=== PATIENT | female | born 1945 | race Caucasian/White ===

== ENCOUNTER → 2020-07-16 13:12 | Outpatient (BNVA) | payer MEDICARE, MEDICAID, SELFPAY | PROVIDERS: Family Provider Family Medicine; PCP Family Medicine; Referring Provider Nurse Practitioner Family; Visit Provider Podiatrist Foot & Ankle Surgery | DX: E11.42 Type 2 diabetes mellitus with diabetic polyneuropathy (principal); M79.672 Pain in left foot; M79.671 Pain in right foot | CPT/HCPCS: 73630 ==

== ENCOUNTER 2020-11-07 11:54 | Emergency (ER) | payer MEDICARE, MEDICAID, SELFPAY ==
[2020-11-07 12:06] VITALS: BP 146/80; PULSE 64; RESP 16; TEMP 36.7; O2SAT 97; BMI 31.1
--- NOTE | 2020-11-07 12:22 | CT_ITS ---
WS: [id number] CT HEAD NONCONTRAST HISTORY: fall TECHNIQUE: Contiguous axial imaging performed through the brain in 2.5 mm imaging. Bone and soft tiss ue windows. Sagittal and coronal reformats reviewed. All CT scans at [facility] use at ast one of these dose optimization techniques: automated exposure control; mA and/or kV adjustment pe r patient size (includes targeted exams where dose is matched to clinical indication); or iterative r econstruction. DLP: 820.94 mGy.cm COMPARISON: None available. No acute intracranial hemorrhage, midline shift or mass effect. Mild atrophy and mild chronic ischemic change. Bilateral lacunar infarcts in the luna radiata and i n the RIGHT caudate head. Ventricles: Normal size with no hydrocephalus. Paranasal sinuses: As visualized are clear. Mastoid air cells: Well pneumatized. Calvarium and scalp: Skull is intact with no soft tissue edema or swelling. CT/CT head wo con* [id number] IMPRESSION: 1. No acute intracranial hemorrhage or edema. 2. Mild atrophy and small lacunar infarcts as described above.
--- NOTE | 2020-11-07 12:22 | XR_ITS ---
WS: [id number] RIGHT HIP HISTORY: fall, pain COMPARISON: 03/21/2019 Right hip: No acute fracture or dislocation. Mild narrowing of the hip joint. Osteophytic ridging juan und the acetabulum. XR/XR hip RT 2-3V wo/w pel* [id number] IMPRESSION: 1. No hip fracture identified. Study is limited by body habitus. 2. 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
--- NOTE | 2020-11-07 12:22 | CT_ITS ---
WS: [id number] CT CERVICAL SPINE HISTORY: fall TECHNIQUE: Contiguous 2.5 mm axial imaging performed through the entire cervical spine. Sagittal and coronal reformats also performed. All CT scans at [facility] use at least one of these do se optimization techniques: automated exposure control; mA and/or kV adjustment per patient size (inc ludes targeted exams where dose is matched to clinical indication); or iterative reconstruction. DLP: 767.69 mGy.cm COMPARISON: None available. Straightening of the normal cervical lordosis. Moderate spondylitic changes with disc space narrowing and endplate osteophytes most significant from C4 through C6. Facet joints are normally aligned. [employer] Advisor niocervical junction is normal. No vertebral body fracture. C2-C3: Normal. C3-C4: Small posterior vertebral body osteophytes. No stenosis. C4-C5: Osteophytic ridging. Osteophytes encroach upon the ventral thecal sac and foramen. Mild centra l with moderate bilateral foraminal stenosis. C5-C6: Diffuse osteophytic ridging with mild central and moderate bilateral foraminal stenosis. C6-C7: Osteophytic ridging with mild bilateral foraminal stenosis. Tiny central disc protrusion. C7-T1: No stenosis. Lung apices are clear. Atherosclerotic plaque in the aortic arch. CT/CT cervical spin wo con* [id number] IMPRESSION: 1. No acute cervical spine fracture. 2. Central and bilateral foraminal stenosis as above. Predominantly due to ost eophytic ridging and disc disease.
--- NOTE | 2020-11-07 12:22 | CT_ITS ---
WS: [id number] CT LUMBAR SPINE, noncontrast. HISTORY: fall, pain TECHNIQUE: Contiguous 2.5 mm axial imaging are performed. Sagittal and coronal reformats are submitte d and reviewed. All CT scans at [facility] use at least one of these dose optimization te chniques: automated exposure control; mA and/or kV adjustment per patient size (includes targeted exa ms where dose is matched to clinical indication); or iterative reconstruction. IV contrast: None DLP: 2197.14 mGy.cm COMPARISON: None available. No acute lumbar fractures are identified. Severe degenerative disc disease throughout the lumbar spin e. Vacuum disc phenomenon with significant osteophytosis at all levels. L1-2: Marked osteophytic ridging with bilateral mild foraminal narrowing. Osteophytes encroach upon t he ventral thecal sac. L2-3: Severe osteophytic ridging with osteophytes encroaching upon the ventral thecal sac. Moderate s tenosis with severe RIGHT subarticular recess stenosis. L3-4: Diffuse osteophytic ridging and facet arthritis. Moderate central stenosis with severe LEFT for aminal stenosis. L4-5: Diffuse annular disc bulging is moderate. No high-grade stenosis. Mild central stenosis. L5-S1: Diffuse osteophytic ridging. Broad-based central to RIGHT paracentral disc protrusion abuts th e RIGHT S1 nerve root. There is also an osteophyte encroaching upon the RIGHT S1 nerve root. Extensive atherosclerosis abdominal aorta. CT/CT lumbar spine wo con* [id number] IMPRESSION: 1. No acute lumbar spine fracture. 2. Severe degenerative disc disease and osteophytosis with multilevel areas of central and foraminal stenoses as above.
--- NOTE | 2020-11-07 12:32 | W.ED.FALL ---
HPI - Fall General: Chief Complaint: Fall Stated Complaint: FELL OFF CHAIR:HEAD/ELBOW/LEG INJURIES (WALKED IN) Time Seen by Provider: 11/07/20 12:11 History of Present Illness: HPI Narrative: This patient is a 75 year old female presenting from home by POV after a fall. She was standing on a kitchen chair and lost her balance. She fell and hit herself on the counter and floor. She denies any injury, but her family made her come in. She does admit to some pain in the back of her head, her lumbar area and her right hip. Her daughter is with her and says that she thinks the patient is minimizing things. No LOC, no chest pain, abdominal pain, trouble breathing, nausea. The accident happens just prior to coming in. Associated symptoms-after fall: Denies abdominal pain, chest pain, headache(s) or neck pain Review of Systems General: Reports: 10 or more systems reviewed and unremarkable except in HPI and below Const: Denies: fever(s), chills, fatigue or malaise Eyes: Denies: change in vision ENMT: Denies: odynophagia Card: Denies: chest pain or swelling of feet/ankles Resp: Denies: dyspnea, productive cough or non-productive cough GI: Denies: abdominal pain, nausea or vomiting : Denies: flank pain or difficulty voiding Musc: Denies: neck pain or back pain Skin/Breast: Denies: rash Neuro: Denies: headache(s), numbness in extremities or weakness in extremities Lukas/Lymph: Denies: easy bruising or easy bleeding PFS ED PFSH: Medical History ASHD (arteriosclerotic heart disease) Diabetes 1.5, managed as type 2 Dyslipidemia GERD (gastroesophageal reflux disease) HTN (hypertension) Surgical History S/P PTCA (percutaneous transluminal coronary angioplasty) Status post creation of pericardial window Family History Mother Cancer Diabetes Physical Exam Const: COMMON NORMALS: no acute distress, patient oriented x3, no limitations and alert GENERAL APPEARANCE: cooperative and comfortable HENMT: HEAD & SCALP: normal to inspection and other (tender posterior scalp) FACE & SINUS: normal facial exam Eye: GENERAL EYE: appearance normal, both eyes and all related structures Neck/C-Spine: COMMON NORMALS: supple, no meningeal signs and no JVD Chest: COMMONS NORMALS: normal inspection of the chest Resp: COMMON NORMALS: normal respiratory effort, No use of accessory muscles and clear to auscultation bilaterally AUSCULTATION: clear to auscultation bilaterally Cardio: COMMON NORMALS: no JVD, regular rate, regular rhythm and No murmurs present (Cardio) RATE: regular rate RHYTHM: regular rhythm GI: COMMON NORMALS: Normal to inspection, nondistended, normoactive bowel sounds present, Soft to palpation and non-tender INSPECTION: Yes normal to inspection AUSCULTATION: Yes normoactive bowel sounds PALPATION: Yes Soft to palpation Back/Pelvis: LUMBAR SPINE/LOWER BACK: Yes pain with ROM, Yes lumbar spinal tenderness and Yes paraspinal muscle tenderness PELVIS: Yes no pain with anterior-posterior compression and Yes Other pelvic findings (tender later and posterior hip) Extremity: COMMON NORMALS: normal to inspection NARRATIVE EXTREMITY EXAM: left leg swelling, chronic due to prior ortho injury per patient Neuro: COMMON NORMALS: patient oriented x3, moves all extremities, no focal motor deficits and no sensory deficits noted SENSORIUM/ORIENTATION: Yes alert MENINGEAL SIGNS: Yes no meningeal signs Psych: COMMON NORMALS: mental status grossly normal, cooperative and normal affect Skin: COMMON NORMALS: no rashes or lesions noted and turgor normal GENERAL SKIN EXAM: no rashes or lesions noted and turgor normal Course ED course: Patient laughing and joking - however, significant fall from several feet and on blood thinner. CTs done and were neg. No bony injury to hip or lumbar spine. Labs showed an elevated potassium and this was repeated - still elevated. Renal function normal. She does not take potassium supplement, but does note that she eats 3 or 4 - or more - bananas daily. She had an unremarkable EKG in the ED. We discussed possible treatment options - she is eager to get home. She has been on lasix in the past - but not currently. I suggested a lasix dose to lower potassium, and to have close follow up with her PCP in 1 - 2 days for a recheck. She lives 30 or 40 minutes away so I had her get a pill to take home and take when she gets there. She understands to avoid high potassium foods until she has a recheck. She also understands to stop climbing on chairs and to ask her family for help with things. Vital Signs: Vital signs: Vital Signs Temperature 98.0 F 11/07/20 12:06 Pulse Rate 56 L 11/07/20 14:49 Respiratory Rate 17 11/07/20 14:49 Blood Pressure 126/93 11/07/20 14:49 Pulse Oximetry 95 11/07/20 14:49 MDM - Fall Lab Data: Labs: Lab Results 11/07/20 11/07/20 11/07/20 Range/Units 12:47 13:20 14:10 WBC 6.5 (4.0-10.0) 10^3/ uL RBC 3.94 L (4.1-5.3) 10^6/u L Hgb 10.8 L (11.5-15.3) g/dL Hct 35.6 L (37.0-47.0) % MCV 90.4 (81-99) fL MCH 27.4 L (28.0-34.0) pg MCHC 30.3 (30.0-36.0) g/dL RDW 14.0 (12.1-15.1) % Plt Count 207 (130-400) 10^3/c mm MPV 10.5 H (7.4-10.4) fL Neut % (Auto) 69.9 % Lymph % (Auto) 19.2 % [place] % (Auto) 8.4 % Eos % (Auto) 1.7 % Baso % (Auto) 0.5 % Neut # (Auto) 4.51 (1.8-7.7) 10^3/u L Lymph # (Auto) 1.2 (0.8-4.8) 10^3/u L [place] # (Auto) 0.5 (0.2-0.9) 10^3/u L Eos # (Auto) 0.1 (0.0-0.8) 10^3/u L Baso # (Auto) 0.0 (0.0-0.1) 10^3/u L Nucleated RBC % (a uto) 0 % Nucleated RBCs # 0.0 /100WBC PT (12.1-14.9) SECO NDS INR (0.8-1.2) Sodium (136-145) mmol/L Potassium (3.5-5.1) mmol/L Chloride (98-107) mmol/L Carbon Dioxide (22-29) mmol/L Anion Gap (5-19) BUN (8-23) mg/dL Creatinine (0.5-0.9) mg/dL GFR Calculation Glucose (65-115) mg/dL POC Glucose 123 H (70-110) mg/dL Calculated Osmolal ity (285-295) mOsm/k g Calcium (8.5-10.5) mg/dL Total Bilirubin (0.15-1.2) mg/dL AST (0-32) U/L ALT (0-33) U/L Alkaline Phosphata se (35-105) IU/L Total Protein (6.6-8.7) g/dL Albumin (3.5-5.2) g/dL Globulin (1.3-4.6) g/dL Urine Color Yellow (Yellow) Urine Appearance Clear (CLEAR) Urine pH 5 (5-7) Ur Specific Gravit y 1.015 (1.005-1.030) Urine Protein 1+ H (Negative) Urine Glucose (UA) 4+ H (Normal) Urine Ketones Negative (Negative) Urine Blood Neg (Negative) Urine Nitrate Negative (Negative) Urine Bilirubin Neg (Negative) Urine Urobilinogen Norm (Negative) mg/dL Ur Leukocyte Mireya ase Negative (Negative) Urine RBC None (0-2) /hpf Urine WBC 0-4 H (0-5) /hpf Ur Squamous Epith Cells 0-4 H (0-5) /hpf Amorphous Sediment Not Reportable Urine Bacteria Trace (NONE) /hpf 11/07/20 11/07/20 11/07/20 Range/Units 14:10 14:10 15:21 WBC (4.0-10.0) 10^3/ uL RBC (4.1-5.3) 10^6/u L Hgb (11.5-15.3) g/dL Hct (37.0-47.0) % MCV (81-99) fL MCH (28.0-34.0) pg MCHC (30.0-36.0) g/dL RDW (12.1-15.1) % Plt Count (130-400) 10^3/c mm MPV (7.4-10.4) fL Neut % (Auto) % Lymph % (Auto) % [place] % (Auto) % Eos % (Auto) % Baso % (Auto) % Neut # (Auto) (1.8-7.7) 10^3/u L Lymph # (Auto) (0.8-4.8) 10^3/u L [place] # (Auto) (0.2-0.9) 10^3/u L Eos # (Auto) (0.0-0.8) 10^3/u L Baso # (Auto) (0.0-0.1) 10^3/u L Nucleated RBC % (a uto) % Nucleated RBCs # /100WBC PT 13.80 (12.1-14.9) SECO NDS INR 1.02 (0.8-1.2) Sodium 135 L (136-145) mmol/L Potassium 6.1 H 5.9 H (3.5-5.1) mmol/L Chloride 104 (98-107) mmol/L Carbon Dioxide 25 (22-29) mmol/L Anion Gap 12.1 (5-19) BUN 23 (8-23) mg/dL Creatinine 1.3 H (0.5-0.9) mg/dL GFR Calculation Not Reportable Glucose 122 H (65-115) mg/dL POC Glucose (70-110) mg/dL Calculated Osmolal ity 285 (285-295) mOsm/k g Calcium 9.1 (8.5-10.5) mg/dL Total Bilirubin 0.3 (0.15-1.2) mg/dL AST 13 (0-32) U/L ALT 11 (0-33) U/L Alkaline Phosphata se 89 (35-105) IU/L Total Protein 7.0 (6.6-8.7) g/dL Albumin 4.1 (3.5-5.2) g/dL Globulin 2.9 (1.3-4.6) g/dL Urine Color (Yellow) Urine Appearance (CLEAR) Urine pH (5-7) Ur Specific Gravit y (1.005-1.030) Urine Protein (Negative) Urine Glucose (UA) (Normal) Urine Ketones (Negative) Urine Blood (Negative) Urine Nitrate (Negative) Urine Bilirubin (Negative) Urine Urobilinogen (Negative) mg/dL Ur Leukocyte Mireya ase (Negative) Urine RBC (0-2) /hpf Urine WBC (0-5) /hpf Ur Squamous Epith Cells (0-5) /hpf Amorphous Sediment Urine Bacteria (NONE) /hpf Discharge Plan Discharge Patient Disposition: Home Clinical Impression: Fall from height of less than 3 feet, Acute hyperkalemia Acute lumbar myofascial strain Qualifiers: Encounter type: initial encounter Qualified Code(s): S39.012A - Strain of muscle, fascia and tendon of lower back, initial encounter Closed head injury Qualifiers: Encounter type: initial encounter Qualified Code(s): S09.90XA - Unspecified injury of head, initial encounter Contusion of hip, right Qualifiers: Encounter type: initial encounter Qualified Code(s): S70.01XA - Contusion of right hip, initial encounter Condition: Stable Prescriptions: No Action atenolol 25 mg tablet 25 mg PO DAILY@08 RF: 0 budesonide 0.5 mg/2 mL suspension for nebulization 0.5 mg INHALATION BID PRN (Reason: Shortness Of Breath) RF: 0 fluoxetine 20 mg capsule 20 mg PO DAILY@08 RF: 0 esomeprazole magnesium 40 mg capsule,delayed release(DR/EC) 40 mg PO DAILY@08 RF: 0 hydrochlorothiazide 25 mg tablet 25 mg PO DAILY@08 RF: 0 Janumet XR 100-1,000 mg tablet, ER multiphase 24 hr 1 tab PO DAILY@08 RF: 0 Levemir U-100 Insulin 100 unit/mL solution 28 unit SUBCUT BEDTIME@2199 RF: 0 levothyroxine 125 mcg capsule 125 mcg PO DAILY@08 RF: 0 loratadine 10 mg tablet 10 mg PO DAILY@08 RF: 0 montelukast [Singulair] 10 mg tablet 10 mg PO DAILY@08 RF: 0 nitroglycerin [Nitrostat] 0.4 mg tablet, sublingual 0.4 mg SUBLINGUAL Q5M PRN (Reason: Chest Pain) RF: 0 olmesartan 40 mg tablet 40 mg PO DAILY@08 RF: 0 Symbicort 160-4.5 mcg/actuation HFA aerosol inhaler 2 puff INHALATION BID RF: 0 rosuvastatin [Crestor] 40 mg tablet 40 mg PO BEDTIME@2200 RF: 0 tramadol 50 mg tablet 50 mg PO Q6H PRN (Reason: Pain) RF: 0 albuterol sulfate [ProAir HFA] 90 mcg/actuation HFA aerosol inhaler 2 puff INHALATION Q6H PRN (Reason: Shortness Of Breath) RF: 0 mupirocin 2 % ointment 1 applic TOPICAL BID Qty: 22 RF: 0 aspirin 81 mg Tablet,Chewable 81 mg PO DAILY@08 RF: 0 gabapentin 300 mg Capsule 300 mg PO TID@08,12,20 RF: 0 Alphagan P 0.1 % Drops 1 drp OPHTHALMIC (EYE) DAILY@08 RF: 0 Farxiga 5 mg Tablet 5 mg PO DAILY@08 RF: 0 Discharge Orders: Discharge ED (Routine); Ordered 11/07/20 Ordered By: Jane Leung Referrals: Vikas Candelaria MD [Primary Care Provider] - Discharge Diet: Diabetic Discharge Activity: Limit activity as instructed Patient Instructions: Fall Prevention for Older Adults (ED), Opioid Safety Activity Restrictions/Additional Instructions: No More Climbing on Chairs!! Expect muscle soreness for a few days - return to the ED if severe pain or difficulty walking or if confusion or other new concerns. Follow up with you doctor if not completely better in 5 - 7 days. Do not eat bananas until you have your potassium rechecked. Also avoid orange juice and potatoes as these also contain a lot of potassium. Take the lasix pill as soon as you get home. Follow up with your doctor to have the potassium level checked again in 1 - 2 days. Coding Level of Care Code ED Coil Former for Cyndie Fwd Exam Comprehensive
[2020-11-07 12:51] LABS: Glucose Point of Care 123 mg/dL (70-110)
[2020-11-07 14:08] LABS: Urine Appearance Clear (CLEAR); Urine Color Yellow (Yellow); pH Urine 5 (5-7)
[2020-11-07 14:09] LABS: Add Urine Microscopic? YES; Bilirubin Urine Neg (Negative); Blood Urine Neg (Negative); Glucose Urine UA 4+ (Normal); Ketones Urine Negative (Negative); Leukocyte Esterase Urine Negative (Negative); Nitrate Urine Negative (Negative); Protein Urine 1+ (Negative); Specific Gravity, Urine 1.015 (1.005-1.030); Urobilinogen Urine Norm (Negative)
[2020-11-07 14:10] LABS: Squamous Epithelial Cell Urine 0-4 /hpf (0-5); WBC Urine 0-4 /hpf (0-5)
[2020-11-07 14:11] LABS: Add Urine Culture? No; Bacteria Urine TRACE /hpf
[2020-11-07 14:27] LABS: Basophils % 0.5 %; Eosinophils # 0.1 10^3/uL (0.0-0.8); Eosinophils % 1.7 %; Hematocrit 35.6 % (37.0-47.0); Hemoglobin 10.8 g/dL (11.5-15.3); Lymphocytes # 1.2 10^3/uL (0.8-4.8); Lymphocytes % 19.2 %; Mean Corpuscular HGB Conc 30.3 g/dL (30.0-36.0); Mean Corpuscular Hemoglobin 27.4 pg (28.0-34.0); Mean Corpuscular Volume 90.4 fL (81-99); Mean Platelet Volume 10.5 fL (7.4-10.4); Monocytes # 0.5 10^3/uL (0.2-0.9); Monocytes % 8.4 %; Neutrophils # 4.51 10^3/uL (1.8-7.7); Neutrophils % 69.9 %; Nucleated Red Blood Cells % 0 %; Platelet Count 207 10^3/cmm (130-400); Red Blood Count 3.94 10^6/uL (4.1-5.3); White Blood Count 6.5 10^3/uL (4.0-10.0)
[2020-11-07 14:48] LABS: INR 1.02 (0.8-1.2)
[2020-11-07 14:49] VITALS: BP 126/93; PULSE 56; RESP 17; O2SAT 95
[2020-11-07 15:00] LABS: Alanine Aminotransferase 11 U/L (0-33); Albumin Level 4.1 g/dL (3.5-5.2); Alkaline Phosphatase 89 IU/L (35-105); Anion Gap 12.1 (5-19); Aspartate Amino Transferase 13 U/L (0-32); Blood Urea Nitrogen 23 mg/dL (8-23); Calcium 9.1 mg/dL (8.5-10.5); Carbon Dioxide 25 mmol/L (22-29); Chloride 104 mmol/L (98-107); Globulin 2.9 g/dL (1.3-4.6); Glucose 122 mg/dL (65-115); Osmolality Calculated 285 mOsm/kg (285-295); Potassium 6.1 mmol/L (3.5-5.1); Sodium 135 mmol/L (136-145); Total Bilirubin 0.3 mg/dL (0.15-1.2)
--- NOTE | 2020-11-07 15:09 | ECG_ITS ---
[facility] Test Date: 2020-11-07 Pat Name: Sarah Petersen Department: Room: Gender: Female Jet Wiper: : 1945 Requested By: Jane Curtis Order Number: [id number] Serina MD: Gilmar Hunt M.D. Measurements Intervals [place] Rate: 55 P: 77 AR: 191 QRS: 20 QRSD: 90 T: 61 QT: 436 QTc: 420 Interpretive Statements SINUS BRADYCARDIA LOW QRS VOLTAGE [QRS DEFLECTION < 0.5/1.0 mV IN LIMB/CHEST LEADS] Compared to ECG 09/21/2017 09:16:32 Sinus rhythm no longer present Electronically Signed On 11-08-2020 16:55:42 MATERIAL CONTROL CLERK by Gilmar Hunt M.D. [id number]
[2020-11-07 15:51] LABS: Potassium 5.9 mmol/L (3.5-5.1)
== END 2020-11-07 16:45 | disposition home or self-care (01) ==
PROVIDERS: Emergency Provider Emergency Medicine; PCP Family Medicine
DX: S39.012A Strain of muscle, fascia and tendon of lower back, initial encounter (principal); S09.8XXA Other specified injuries of head, initial encounter; S70.01XA Contusion of right hip, initial encounter; Z79.82 Long term (current) use of aspirin; Z79.4 Long term (current) use of insulin; E13.9 Other specified diabetes mellitus without complications; E78.5 Hyperlipidemia, unspecified; I10 Essential (primary) hypertension; W07.XXXA Fall from chair, initial encounter
CPT/HCPCS: 36415; 36416; 70450; 72125; 72131; 73502; 80053; 81001; 82962; 84132; 85025; 85610; 93005; 99283

== ENCOUNTER 2020-12-31 08:03 | Outpatient (CLI) | payer MEDICARE, MEDICAID, SELFPAY ==
--- NOTE | 2020-12-31 08:45 | USCV_ITS ---
Nicola Sarah Age: 75 Gender: F : 1945 Exam Date: 12/31/2020 08:32 Ordering Phys: Gilmar Hunt M.D ([email or web address]) Technologist: Tita Lees Exam Location: [facility] Indication: CHEST PAIN BP: 132 / 60 HR: 61 Rhythm: Sinus Technical Quality: Adequate MEASUREMENTS (Male / Female) Normal Values 2D ECHO LV Diastolic Diameter PLAX 4.6 cm 4.2 - 5.9 / 3.9 - 5.3 cm LV Systolic Diameter PLAX 2.2 cm LV Chamber Size 3.5 cm IVS Diastolic Thickness 0.9 cm 0.6 - 1.0 / 0.6 - 0.9 cm IVS Systolic Thickness 1.2 cm LVPW Diastolic Thickness 1.3 cm 0.6 - 1.0 / 0.6 - 0.9 cm LVPW Systolic Thickness 1.2 cm RV Chamber Size 3.8 cm LVOT Diameter 2.1 cm LV Ejection Fraction 2D Teich 83.6 % LV Ejection Fraction MOD 2C 81.6 % LV Ejection Fraction 2C AL 80.7 % LA Diameter 1.6 cm LA Width 2.6 cm LA Height 4.0 cm RA Width 3.3 cm RA Height 3.8 cm Aorta at Sinotubular Diameter 2.7 cm M-MODE LV Diastolic Diameter MM 4.7 cm 4.2 - 5.9 / 3.9 - 5.3 cm LV Systolic Diameter MM 2.3 cm LV Ejection Fraction MM Teich 81.8 % IVS Diastolic Thickness MM 1.2 cm 0.6 - 1.0 / 0.6 - 0.9 cm IVS Systolic Thickness MM 1.4 cm LVPW Diastolic Thickness MM 1.2 cm 0.6 - 1.0 / 0.6 - 0.9 cm LVPW Systolic Thickness MM 2.2 cm RV Diastolic Diameter MM 3.2 cm Aortic Annulus Diameter 4.3 cm LA Ao Ratio MM 0.0 MV E Point Septal Separation 0.5 cm DOPPLER AV Peak Velocity 157.0 cm/s LVOT Peak Velocity 91.0 cm/s AV Area Cont Eq vti 2.3 cm squared AV Area Cont Eq pk 2.0 cm squared MV Area PHT 2.8 cm squared Mitral E to A Ratio 1.1 MV E' Velocity 58.0 cm/s Mitral E to MV E' Ratio 10.6 Mitral E to LV E' Lateral Ratio 9.6 Mitral E to LV E' Septal Ratio 12.1 TR Peak Velocity 224.3 cm/s TR Peak Gradient 20.1 mmHg TR Mean Velocity 170.9 cm/s TR Mean Gradient 12.8 mmHg TR Velocity Time Integral 71.2 cm TV Peak E Velocity 66.0 cm/s Right Atrial Pressure 3.0 mmHg Pulmonary Artery Systolic Pressu 23.1 mmHg PV Peak Velocity 76.0 cm/s RV Acceleration Time 0.2 s RV Ejection Time 0.4 s RV AcT/ET 0.5 FINDINGS Left Ventricle Normal left ventricular size. LV systolic function is normal with EF of 55-60%. No regional wall motion abnormalities. Normal diastolic filling pattern. Right Ventricle The right ventricle is normal in size and function. Right Atrium The right atrium is not well visualized Left Atrium The left atrium is normal in size. Mitral Valve Mild mitral annular calcification is noted without significant stenosis or prolapse. There is mild mitral regurgitation. Aortic Valve Structurally normal aortic valve without significant sclerosis or stenosis. There is no aortic regurgitation. Tricuspid Valve Structurally normal tricuspid valve without significant stenosis. Mild tricuspid regurgitation. Insufficient TR jet to calculate RVSP Pulmonic Valve Structurally normal pulmonic valve without significant stenosis. There is trace pulmonic regurgitation. Pericardium Normal pericardium without effusion. Aorta Normal ascending aorta dimension. CONCLUSIONS LV systolic function is normal with EF of 55-60% Diastolic function is normal Mild mitral annular calcification. Mild mitral regurgitation Mild tricuspid regurgitation. Trace pulmonic regurgitation No comparison studies are available Gilmar Hunt MD (Electronically Signed) Final Date: 06 January 2021 15:31 S
== END 2020-12-31 08:04 | disposition home or self-care (01) ==
LOC: US 08:07
PROVIDERS: PCP Family Medicine; Visit Provider Internal Medicine
DX: R07.9 Chest pain, unspecified (principal); I08.1 Rheumatic disorders of both mitral and tricuspid valves
CPT/HCPCS: 80048; 83880; 93306

== ENCOUNTER 2021-05-13 13:07 | Outpatient (CLI) | payer MEDICARE, MEDICAID, SELFPAY ==
--- NOTE | 2021-05-13 14:20 | USCV_ITS ---
Sarah Petersen Age: 76 Gender: F : 1945 Exam Date: 05/13/2021 14:29 Ordering Phys: Vikas Candelaria MD Technologist: Maggie Hernandez Exam Location: [place] Indication: PVD RIGHT LEFT Brachial 97.00 mmHg Brachial 139.00 mmHg Pressure (mmHg) Waveform Pressure (mmHg) Waveform 114.00 Above Knee 115.00 124.00 SHINGLE GRADER 120.00 111.00 DPA 110.00 0.89 Ankle/Brachial Index 0.86 120.00 Pre-Exercise Toe Pressure 90.00 0.86 Pre-Exercise Toe/Brachial Index 0.65 FINDINGS Slightly diminished resting ELI on the right side of 0.89. The right toe brachial index on the right side was 0.86 The resting ELI on the left side was 0.86 with a TBI of 0.65 CONCLUSIONS Features suggestive of mild peripheral artery disease bilaterally, more so on the left side Dr Bryanna Schwab MD [facility] (Electronically Signed) Final Date: 13 May 2021 17:54 S
== END 2021-05-13 13:08 | disposition home or self-care (01) ==
PROVIDERS: PCP Family Medicine; Visit Provider Family Medicine
DX: I73.9 Peripheral vascular disease, unspecified (principal)
CPT/HCPCS: 93923

== ENCOUNTER 2021-05-31 09:44 | Observation (INO) | payer MEDICARE, MEDICAID, SELFPAY ==
[2021-05-31] VITALS (10 sets, daily range): BP systolic 86–101; BP diastolic 51–57; PULSE 51–78; RESP 16–18; TEMP 36.6–36.9; O2SAT 94–97; BMI 29.7
--- NOTE | 2021-05-31 11:08 | XR_ITS ---
WS: [id number] Portable AP upright chest, 05/31/2021 Clinical Data: chest pain Comparison: Portable chest, 09/26/2017. Findings: No nodules, masses or effusions are seen. The heart is slightly enlarged. The pulmonary vas cularity is not increased. No pneumonia or pneumothorax is seen. Monitor leads are on the chest wall. XR/XR chest 1V portable [id number] Impression: Cardiomegaly.
--- NOTE | 2021-05-31 11:29 | CT_ITS ---
WS: [id number] CT ABDOMEN PELVIS TECHNIQUE: Contrast-enhanced CT of the abdomen and pelvis with coronal and sagittal reformatted image s. CLINICAL INFORMATION: rule out infection, diffuse abd pain COMPARISON: None. DLP: 1597.[address] scans at [facility] use at least one of these dose optimization techniques: automated e xposure control; mA and/or kV adjustment per patient size (includes targeted exams where dose is matc hed to clinical indication); or iterative reconstruction. FINDINGS: Diffuse fatty infiltration the liver. Normal portal vein and splenic vein. Cholelithiasis. Somewhat h eterogeneous splenic enhancement with numerous ill-defined low-attenuation lesions. Spleen measures 1 1 cm within normal limits. Differential considerations include lymphoma, metastatic disease, sarcoid or possibly fungal infection. Recommend correlation with clinical history. Left adrenal low-attenuation lesion likely adenoma measuring 15 mm. Right adrenal gland is normal. Sm all esophageal hiatal hernia. Submucosal enhancement involving the GE junction and gastric rugae with fold thickening. Additional submucosal enhancement involving the duodenum. Recommend correlation for gastritis and duodenitis. Fatty atrophy of the pancreas. Bilateral renal cortical atrophy. No hydron ephrosis. Normal caliber abdominal aorta. Aortic calcification. Normal sigmoid colon. No evidence of high-grade small or large bowel obstruction. A few prominent lym ph nodes in the upper abdomen along the celiac axis largest measuring 13 mm. Normal caliber abdominal aorta. No free fluid in the pelvis. Moderate spondylitic changes lumbar spine with disc space narrow ing throughout the lumbar spine. Disc osteophyte complexes L2-L3 L3-L4 with moderate central canal st enosis. CT/CT abdomen pelvis w con* [id number] IMPRESSION: 1. Diffuse fatty infiltration of liver with mild hepatomegaly. 2. Numerous ill-defined low-attenuation lesions involving the spleen. This is nonspecific and differential considerations include lymphoma, metastatic diseas e, sarcoid or possibly fungal disease. Recommend correlation with clinical hist ory and further evaluation to exclude neoplasm. Spleen size within normal limit s. 3. Cholelithiasis. No gallbladder wall thickening or pericholecystic fluid. 4. Diffuse mucosal enhancement with mucosal thickening involving the GE juncti on, stomach, and duodenum likely due to gastroduodenitis. Associated thickened mucosal folds and gastric rugae thickening. 5. Small esophageal hiatal hernia. 6. Left adrenal lesion measuring 15 mm likely adenoma. 7. A few prominent lymph nodes in the celiac axis largest measuring 13 mm. Oth erwise no abdominal or pelvic lymphadenopathy. No inguinal lymphadenopathy. Notified Lucius Medina MD at 05/31/2021 2:05 PM.
--- NOTE | 2021-05-31 11:33 | ED_ITS ---
HPI - General Adult General: Chief complaint: ER Hold Stated complaint: substernal CP, low BP Time Seen by Provider: 05/31/21 11:03 History of Present Illness: HPI narrative: Patient a 76-year-old female with a history of diabetes, hyperlipidemia, hypertension, COPD, CAD status post PCI x1 presenting to the emergency room with complaints of lower chest upper abdominal pain x3 days. Patient has been seen by her primary care provider earlier today and was noted to be hypotensive with complaints of pain and was told to go to the emergency room. Patient says that over the last few days, has had increased shortness of breath and and pain. Patient denies any nausea/vomiting, fever/chills, diarrhea, melena/hematochezia. Patient has no urinary complaints at this time. Patient has a history of COPD, has been not using her inhaler more. Patient denies any productive cough at this time. On arrival, patient had a blood pressure of 80/50 that improved without any intervention to 100/50. Initial EKG is nonischemic. Patient is denying any chest pain at this time. Onset: 3 days ago Duration:3 days Location:home Severity:moderate Review of Systems Narrative: Constitutional: No fever, no chills. HEENT: No vision changes CV: +chest pain, no palpitations PULM: no cough, +dyspnea. GI: +abdominal pain, no N/V/D. : No dysuria MSKEL: No muscle pain SKIN: No new rashes, no lesions. NEURO: No headache, no focal weakness. HEME: No visible bruises PSYCH: Normal mood PFSH ED PFSH: Medical History ASHD (arteriosclerotic heart disease) Diabetes 1.5, managed as type 2 Dyslipidemia GERD (gastroesophageal reflux disease) HTN (hypertension) Surgical History S/P PTCA (percutaneous transluminal coronary angioplasty) Status post creation of pericardial window Family History Mother Cancer Diabetes Social History (Updated 05/31/21 @ 19:11 by Enrrique Brothers MD) Smoking and tobacco status: former smoker Alcohol intake: never Substance/Drug Use: never Female Reproductive History: Date of last menstrual period: 12/13/20 Physical Exam Narrative: EXAM NARRATIVE: Head: Atraumatic Eyes: PERRL, conjunctiva without injection ENT: Mucous membrane moist NECK: Supple, ROM intact LUNGS: LCTAB, no crackles/rhonchi CV: RRR ABDOMEN: Soft, +mid-epigastric abdominal tenderness to palpation, no guarding or rebound tenderness, Fuhs tenderness palpation over the abdomen, no palpable mass over the abdomen, CVA tenderness, no suprapubic tenderness, no Collins sign, no McBurney's point tenderness EXTREMITY: Normal ROM SKIN: No rash or erythema NEURO: Awake and alert, no focal motor deficits PSYCH: Normal mood and affect Course Vital Signs: Vital signs: Vital Signs Temperature 98.3 F 06/03/21 07:45 Pulse Rate 77 06/03/21 09:13 Respiratory Rate 20 H 06/03/21 09:13 Blood Pressure 112/49 06/03/21 07:45 Pulse Oximetry 95 06/03/21 09:13 MDM - General Adult MDM Narrative: Medical decision making narrative: 76-year-old female presents emergency room for complaints abdominal pain and chest pain. On arrival, candace diana's blood pressures within normal limit. She has focal tenderness palpation the midepigastric area. EKG showing regular sinus rhythm at HT of 53. Normal axis. No ST elevations/depressions to suggest coronary occlusion. Prolonged NV, QRS, QT intervals. Labs showed white count of 10.3. Sodium of 117, creatinine of 1.[address] abdomen pelvis with contrast did not show any signs of focal findings. Troponin within normal limit. Patient will be admitted to hospital for rehydration, hyponatriemia and JAILENE on CKD. Also appears to have gastritis and duodenitis on CT scan. Findings of spleen lesions which may suggest lymphoma discussed extensively with patient. Patient is aware of these findings and reassures me that she will follow-up with an oncologist and will discuss with [facility] inpatient team. Findings relayed the admitting team Dr. Brothers. Disposition: Admission Lab Data: Labs: Lab Results 05/31/21 05/31/21 05/31/21 Range/Units 11:20 11:20 11:20 WBC 10.3 H (4.0-10.0) 10^3/ uL RBC 4.05 L (4.1-5.3) 10^6/u L Hgb 11.8 (11.5-15.3) g/dL Hct 34.6 L (37.0-47.0) % MCV 85.4 (81-99) fl MCH 29.1 (28.0-34.0) pg MCHC 34.1 (30.0-36.0) g/dL RDW 12.5 (12.1-15.1) % Plt Count 254 (130-400) 10^3/c mm MPV 10.8 H (7.4-10.4) fL Neut % (Auto) 83.1 % Lymph % (Auto) 8.7 % Powell % (Auto) 7.1 % Eos % (Auto) 0.3 % Baso % (Auto) 0.3 % Neut # (Auto) 8.58 H (1.8-7.7) 10^3/u L Lymph # (Auto) 0.9 (0.8-4.8) 10^3/u L Powell # (Auto) 0.7 (0.2-0.9) 10^3/u L Eos # (Auto) 0.0 (0.0-0.8) 10^3/u L Baso # (Auto) 0.0 (0.0-0.1) 10^3/u L Nucleated RBC % (a uto) 0 % Nucleated RBCs # 0.0 /100WBC ESR (0-15) mm/hr Sodium 117 L* (136-145) mmol/L Potassium 4.2 (3.5-5.1) mmol/L Chloride 77 L (98-107) mmol/L Carbon Dioxide 26 (22-29) mmol/L Anion Gap 18.2 (5-19) BUN 46 H (8-23) mg/dL Creatinine 1.9 H (0.5-0.9) mg/dL GFR Calculation Not Reportable Glucose 209 H (65-115) mg/dL Calculated Osmolal ity 262 L (285-295) mOsm/k g Calcium 8.8 (8.5-10.5) mg/dL Total Bilirubin 0.3 (0.15-1.2) mg/dL AST 14 (0-32) U/L ALT 10 (0-33) U/L Alkaline Phosphata se 102 (35-105) IU/L Lactate Dehydrogen ase (135-214) U/L Troponin T Baselin e 47 H (0-10) ng/L Troponin T 120 Min anvik (0-10) ng/L Delta Troponin T (0-10) ABS# NT-Pro-B Natriuret Pep 395 (0-450) pg/mL Total Protein 7.5 (6.6-8.7) g/dL Albumin 4.0 (3.5-5.2) g/dL Globulin 3.5 (1.3-4.6) g/dL Lipase 51 (13-60) U/L Procalcitonin (0-0.5) ng/mL Urine Color (Yellow) Urine Appearance (CLEAR) Urine pH (5-7) Ur Specific Gravit y (1.005-1.030) Urine Protein (Negative) Urine Glucose (UA) (Normal) Urine Ketones (Negative) Urine Blood (Negative) Urine Nitrate (Negative) Urine Bilirubin (Negative) Urine Urobilinogen (Negative) mg/dL Ur Leukocyte Mireya ase (Negative) Urine RBC Urine WBC (0-5) /hpf Ur Squamous Epith Cells (0-5) /hpf Ur Transition Epit h Cell /hpf Amorphous Sediment Urine Bacteria (NONE) /hpf Urine Mucus /hpf 05/31/21 05/31/21 05/31/21 Range/Units 11:20 11:39 13:10 WBC (4.0-10.0) 10^3/ uL RBC (4.1-5.3) 10^6/u L Hgb (11.5-15.3) g/dL Hct (37.0-47.0) % MCV (81-99) fl MCH (28.0-34.0) pg MCHC (30.0-36.0) g/dL RDW (12.1-15.1) % Plt Count (130-400) 10^3/c mm MPV (7.4-10.4) fL Neut % (Auto) % Lymph % (Auto) % Powell % (Auto) % Eos % (Auto) % Baso % (Auto) % Neut # (Auto) (1.8-7.7) 10^3/u L Lymph # (Auto) (0.8-4.8) 10^3/u L Powell # (Auto) (0.2-0.9) 10^3/u L Eos # (Auto) (0.0-0.8) 10^3/u L Baso # (Auto) (0.0-0.1) 10^3/u L Nucleated RBC % (a uto) % Nucleated RBCs # /100WBC ESR 56 H (0-15) mm/hr Sodium (136-145) mmol/L Potassium (3.5-5.1) mmol/L Chloride (98-107) mmol/L Carbon Dioxide (22-29) mmol/L Anion Gap (5-19) BUN (8-23) mg/dL Creatinine (0.5-0.9) mg/dL GFR Calculation Glucose (65-115) mg/dL Calculated Osmolal ity (285-295) mOsm/k g Calcium (8.5-10.5) mg/dL Total Bilirubin (0.15-1.2) mg/dL AST (0-32) U/L ALT (0-33) U/L Alkaline Phosphata se (35-105) IU/L Lactate Dehydrogen ase (135-214) U/L Troponin T Baselin e (0-10) ng/L Troponin T 120 Min [place] 44.95 H (0-10) ng/L Delta Troponin T -2.05 L (0-10) ABS# NT-Pro-B Natriuret Pep (0-450) pg/mL Total Protein (6.6-8.7) g/dL Albumin (3.5-5.2) g/dL Globulin (1.3-4.6) g/dL Lipase (13-60) U/L Procalcitonin (0-0.5) ng/mL Urine Color Yellow (Yellow) Urine Appearance Hazy A (CLEAR) Urine pH 5 (5-7) Ur Specific Gravit y 1.015 (1.005-1.030) Urine Protein Neg (Negative) Urine Glucose (UA) 2+ H (Normal) Urine Ketones Negative (Negative) Urine Blood Neg (Negative) Urine Nitrate Negative (Negative) Urine Bilirubin Neg (Negative) Urine Urobilinogen Norm (Negative) mg/dL Ur Leukocyte Mireya ase 1+ H (Negative) Urine RBC Not Reportable Urine WBC 5-10 H (0-5) /hpf Ur Squamous Epith Cells 15-25 H (0-5) /hpf Ur Transition Epit h Cell 0-4 /hpf Amorphous Sediment Not Reportable Urine Bacteria Trace (NONE) /hpf Urine Mucus 1+ /hpf 05/31/21 05/31/21 Range/Units 13:10 13:10 WBC (4.0-10.0) 10^3/ uL RBC (4.1-5.3) 10^6/u L Hgb (11.5-15.3) g/dL Hct (37.0-47.0) % MCV (81-99) fl MCH (28.0-34.0) pg MCHC (30.0-36.0) g/dL RDW (12.1-15.1) % Plt Count (130-400) 10^3/c mm MPV (7.4-10.4) fL Neut % (Auto) % Lymph % (Auto) % Powell % (Auto) % Eos % (Auto) % Baso % (Auto) % Neut # (Auto) (1.8-7.7) 10^3/u L Lymph # (Auto) (0.8-4.8) 10^3/u L Powell # (Auto) (0.2-0.9) 10^3/u L Eos # (Auto) (0.0-0.8) 10^3/u L Baso # (Auto) (0.0-0.1) 10^3/u L Nucleated RBC % (a uto) % Nucleated RBCs # /100WBC ESR (0-15) mm/hr Sodium 118 L* (136-145) mmol/L Potassium 3.9 (3.5-5.1) mmol/L Chloride 76 L (98-107) mmol/L Carbon Dioxide 27 (22-29) mmol/L Anion Gap 18.9 (5-19) BUN 53 H (8-23) mg/dL Creatinine 2.0 H (0.5-0.9) mg/dL GFR Calculation Not Reportable Glucose 185 H (65-115) mg/dL Calculated Osmolal ity 265 L (285-295) mOsm/k g Calcium 8.6 (8.5-10.5) mg/dL Total Bilirubin (0.15-1.2) mg/dL AST (0-32) U/L ALT (0-33) U/L Alkaline Phosphata se (35-105) IU/L Lactate Dehydrogen ase 134 L (135-214) U/L Troponin T Baselin e (0-10) ng/L Troponin T 120 Min [place] (0-10) ng/L Delta Troponin T (0-10) ABS# NT-Pro-B Natriuret Pep (0-450) pg/mL Total Protein (6.6-8.7) g/dL Albumin (3.5-5.2) g/dL Globulin (1.3-4.6) g/dL Lipase (13-60) U/L Procalcitonin 0.24 (0-0.5) ng/mL Urine Color (Yellow) Urine Appearance (CLEAR) Urine pH (5-7) Ur Specific Gravit y (1.005-1.030) Urine Protein (Negative) Urine Glucose (UA) (Normal) Urine Ketones (Negative) Urine Blood (Negative) Urine Nitrate (Negative) Urine Bilirubin (Negative) Urine Urobilinogen (Negative) mg/dL Ur Leukocyte Mireya ase (Negative) Urine RBC Urine WBC (0-5) /hpf Ur Squamous Epith Cells (0-5) /hpf Ur Transition Epit h Cell /hpf Amorphous Sediment Urine Bacteria (NONE) /hpf Urine Mucus /hpf Imaging Data^: Other Imaging: Radiologist's impression: [employer] [address]YG Scan ReportSigned Patient: Sarah Petersen SUnit #: [id number]: 5Acct#:[id number]/Sex: 76 / FADM Date: 05/31/21Loc: ERRoom/Bed:Attending Dr: Ordering Provider/Ordering MD: Lucius Medina MD Date of Service: 05/31/21 Procedure(s): CT abdomen pelvis w con* [id number] Accession Number(s): [id number] Report Number: [id number] WS: [id number] CT ABDOMEN PELVIS TECHNIQUE: Contrast-enhanced CT of the abdomen and pelvis with coronal and sagittal reformatted images. CLINICAL INFORMATION: rule out infection, diffuse abd pain COMPARISON: None. DLP: 1597.[address] [facility] at least one of these dose optimization techniques: automated exposure control; mA and/or kV adjustment per patient size (includes targeted exams where dose is matched to clinical indication); or iterative reconstruction. FINDINGS: Diffuse fatty infiltration the liver. Normal portal vein and splenic vein. Cholelithiasis. Somewhat heterogeneous splenic enhancement with numerous ill- defined low-attenuation lesions. Spleen measures 11 cm within normal limits. Differential considerations include lymphoma, metastatic disease, sarcoid or possibly fungal infection. Recommend correlation with clinical history. Left adrenal low-attenuation lesion likely adenoma measuring 15 mm. Right adrenal gland is normal. Small esophageal hiatal hernia. Submucosal enhancement involving the GE junction and gastric rugae with fold thickening. Additional submucosal enhancement involving the duodenum. Recommend correlation for gastritis and duodenitis. Fatty atrophy of the pancreas. Bilateral renal cortical atrophy. No hydronephrosis. Normal caliber abdominal aorta. Aortic calcification. Normal sigmoid colon. No evidence of high-grade small or large bowel obstruction. A few prominent lymph nodes in the upper abdomen along the celiac axis largest measuring 13 mm. Normal caliber abdominal aorta. No free fluid in the pelvis. Moderate spondylitic changes lumbar spine with disc space narrowing throughout the lumbar spine. Disc osteophyte complexes L2-L3 L3-L4 with moderate central canal stenosis. CT/CT abdomen pelvis w con* [id number] IMPRESSION: 1. Diffuse fatty infiltration of liver with mild hepatomegaly. 2. Numerous ill-defined low-attenuation lesions involving the spleen. This is nonspecific and differential considerations include lymphoma, metastatic disease, sarcoid or possibly fungal disease. Recommend correlation with clinical history and further evaluation to exclude neoplasm. Spleen size within normal limits. 3. Cholelithiasis. No gallbladder wall thickening or pericholecystic fluid. 4. Diffuse mucosal enhancement with mucosal thickening involving the GE chalino ction, stomach, and duodenum likely due to gastroduodenitis. Associated thickened mucosal folds and gastric rugae thickening. 5. Small esophageal hiatal hernia. 6. Left adrenal lesion measuring 15 mm likely adenoma. 7. A few prominent lymph nodes in the celiac axis largest measuring 13 mm. Otherwise no abdominal or pelvic lymphadenopathy. No inguinal lymphadenopathy. Notified Lucius Medina MD at 05/31/2021 2:05 PM. Dictated By:Misha Salinas MDSigned By:Misha Salinas MDSigned Date/Time:05/31/21 1405DD/ [address] [facility] Hospital[address].[place], [place] [address]AX Scan ReportSigned Patient: Sarah Petersen #: [id number]: 5Acct#:[id number]/Sex: 76 / FADM Date: 05/31/21Loc: ER IPRoom/Bed: [id number] Dr: Enrrique Brothers MD Ordering Provider/Ordering MD: Lucius Medina MD Date of Service: 05/31/21 Procedure(s): CT chest wo con [id number] Accession Number(s): [id number] Report Number: [id number] WS: [id number] CT scan of the chest without IV contrast, additional two-dimensional coronal and sagittal reconstruction was performed. 05/31/2021 Clinical Data: no contrast, evaluate for cancer Comparison: Portable chest, 05/31/2021. DLP: 755.[address] scans at [facility] use at least one of these dose optimization techniques: automated exposure control; mA and/or kV adjustment per patient size (includes targeted exams where dose is matched to clinical indication); or iterative reconstruction. Findings: No nodules, masses or effusions are seen. The heart size is normal with no pericardial effusion. There is coronary artery and mitral valve calcification. No pneumonia or pneumothorax is seen. The pulmonary arterial system and thoracic aorta demonstrate no dilatations. There is calcification in the wall of the descending thoracic aorta. There is no axillary adenopathy. There is anterior and middle mediastinal adenopathy which may be reactive. There are subcarinal and right hilar miriam calcifications. The trachea bifurcates normally into the bronchi. The upper abdomen demonstrates gallstones in the gallbladder. There is a 2.0 cm left adrenal adenoma. There are vascular calcifications in both kidneys. 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 CT/CT chest wo con [id number] Impression: 1. Negative for lung nodules or masses. 2. Negative for acute cardiopulmonary disease. 3. Cholelithiasis. Dictated By:Judy Cummins MDSigned By:Judy Cummins MDSigned Date/Time:05/31/21 1554 Discharge Plan Discharge Patient Disposition: Admitted As Inpatient Admit Provider: Enrrique Brothers Clinical Impression: Chest pain, Abdominal pain, Elevated troponin, Acute hyponatremia, Acute kidney injury superimposed on CKD Condition: Stable Coding Level of Care Code ED [employer] Fin[employer] Supervisor for Cyndie Mo
[2021-05-31 11:52] LABS: Charge for UA Resulting for Rev
[2021-05-31 11:59] LABS: Troponin(5th) Baseline 47 ng/L (0-10)
[2021-05-31 12:23] LABS: Add Urine Microscopic? YES; Bilirubin Urine Neg (Negative); Blood Urine Neg (Negative); Glucose Urine UA 2+ (Normal); Ketones Urine Negative (Negative); Leukocyte Esterase Urine 1+ (Negative); Nitrate Urine Negative (Negative); Protein Urine Neg (Negative); Specific Gravity, Urine 1.015 (1.005-1.030); Urine Appearance Hazy (CLEAR); Urine Color Yellow (Yellow); Urobilinogen Urine Norm (Negative); pH Urine 5 (5-7)
[2021-05-31 12:24] LABS: Add Urine Culture? No; Bacteria Urine TRACE /hpf; Mucus Urine 1+ /hpf; Squamous Epithelial Cell Urine 15-25 /hpf (0-5); Transitional Epi Cells Urine 0-4 /hpf
[2021-05-31 12:28] LABS: Basophils % 0.3 %; Eosinophils % 0.3 %; Hematocrit 34.6 % (37.0-47.0); Hemoglobin 11.8 g/dL (11.5-15.3); Lymphocytes # 0.9 10^3/uL (0.8-4.8); Lymphocytes % 8.7 %; Mean Corpuscular HGB Conc 34.1 g/dL (30.0-36.0); Mean Corpuscular Hemoglobin 29.1 pg (28.0-34.0); Mean Corpuscular Volume 85.4 fl (81-99); Mean Platelet Volume 10.8 fL (7.4-10.4); Monocytes # 0.7 10^3/uL (0.2-0.9); Monocytes % 7.1 %; Neutrophils # 8.58 10^3/uL (1.8-7.7); Neutrophils % 83.1 %; Nucleated Red Blood Cells % 0 %; Platelet Count 254 10^3/cmm (130-400); Red Blood Count 4.05 10^6/uL (4.1-5.3); Red Cell Distribution Width 12.5 % (12.1-15.1); White Blood Count 10.3 10^3/uL (4.0-10.0)
[2021-05-31 12:50] LABS: Alanine Aminotransferase 10 U/L (0-33); Alkaline Phosphatase 102 IU/L (35-105); Aspartate Amino Transferase 14 U/L (0-32); Calcium 8.8 mg/dL (8.5-10.5); Carbon Dioxide 26 mmol/L (22-29); Globulin 3.5 g/dL (1.3-4.6); Lipase 51 U/L (13-60); NT Pro B Type Natriuretic Pept 395 pg/mL (0-450); Total Bilirubin 0.3 mg/dL (0.15-1.2); Total Protein 7.5 g/dL (6.6-8.7)
[2021-05-31 13:07] LABS: Sodium 117 mmol/L (136-145)
[2021-05-31 13:08] LABS: Anion Gap 18.2 (5-19); Blood Urea Nitrogen 46 mg/dL (8-23); Chloride 77 mmol/L (98-107); Glucose 209 mg/dL (65-115); Osmolality Calculated 262 mOsm/kg (285-295); Potassium 4.2 mmol/L (3.5-5.1)
--- NOTE | 2021-05-31 13:08 | ECG_ITS ---
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 Measurements Intervals [place] Rate: 52 P: 65 IA: 217 QRS: 42 QRSD: 109 T: 50 QT: 488 QTc: 457 Interpretive Statements SINUS BRADYCARDIA WITH FIRST DEGREE AV BLOCK LOW QRS VOLTAGE [QRS DEFLECTION < 0.5/1.0 mV IN LIMB/CHEST LEADS] Compared to ECG 11/07/2020 15:36:13 First degree AV block now present Electronically Signed On 05-31-2021 20:37:45 CDT by Gilmar Hunt M.D. [id number]
[2021-05-31] MEDS: iodixanol 320 mg/mL 100mL Btl IV (13:19)
[2021-05-31] MEDS: aspirin 325 mg Tablet PO (13:24)
[2021-05-31] MEDS: sodium chloride 0.9% 250 ML IV (13:25)
[2021-05-31] MEDS: acetaminophen 500 mg Tablet PO (13:25)
[2021-05-31] MEDS: famotidine 20 mg/2 mL INJ IVP (13:25)
[2021-05-31 13:42] LABS: Troponin 5 2HR 44.95 ng/L (0-10)
[2021-05-31 13:44] LABS: Troponin 5 2HR Delta -2.05 ABS# (0-10)
--- NOTE | 2021-05-31 14:05 | CT_ITS ---
WS: [id number] CT scan of the chest without IV contrast, additional two-dimensional coronal and sagittal reconstruct ion was performed. 05/31/2021 Clinical Data: no contrast, evaluate for cancer Comparison: Portable chest, 05/31/2021. DLP: 755.[address] scans at [facility] use at least one of these dose optimization techniques: automated e xposure control; mA and/or kV adjustment per patient size (includes targeted exams where dose is matc hed to clinical indication); or iterative reconstruction. Findings: No nodules, masses or effusions are seen. The heart size is normal with no pericardial effusion. Ther e is coronary artery and mitral valve calcification. No pneumonia or pneumothorax is seen. The pulmon demarco arterial system and thoracic aorta demonstrate no dilatations. There is calcification in the wall of the descending thoracic aorta. There is no axillary adenopathy. There is anterior and middle medi astinal adenopathy which may be reactive. There are subcarinal and right hilar miriam calcifications. The trachea bifurcates normally into the bronchi. The upper abdomen demonstrates gallstones in the gallbladder. There is a 2.0 cm left adrenal adenoma. There are vascular calcifications in both kidneys. 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 CT/CT chest wo con [id number] Impression: 1. Negative for lung nodules or masses. 2. Negative for acute cardiopulmonary disease. 3. Cholelithiasis.
[2021-05-31 16:24] LABS: Anion Gap 18.9 (5-19); Blood Urea Nitrogen 53 mg/dL (8-23); Calcium 8.6 mg/dL (8.5-10.5); Carbon Dioxide 27 mmol/L (22-29); Chloride 76 mmol/L (98-107); Glucose 185 mg/dL (65-115); Osmolality Calculated 265 mOsm/kg (285-295); Potassium 3.9 mmol/L (3.5-5.1)
[2021-05-31 16:26] LABS: Lactate Dehydrogenase 134 U/L (135-214)
[2021-05-31 16:27] LABS: Sodium 118 mmol/L (136-145)
[2021-05-31 16:33] LABS: Procalcitonin 0.24 ng/mL (0-0.5)
[2021-05-31 16:48] LABS: Erythrocyte Sedimentation Rate 56 mm/hr (0-15)
--- NOTE | 2021-05-31 17:08 | ECG_ITS ---
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 Measurements Intervals [place] Rate: 50 P: 70 MI: 197 QRS: 49 QRSD: 105 T: 64 QT: 497 QTc: 457 Interpretive Statements SINUS BRADYCARDIA LOW QRS VOLTAGE IN PRECORDIAL LEADS [QRS DEFLECTION < 1.0 mV IN CHEST LEADS] PROLONGED QT INTERVAL Compared to ECG 05/31/2021 13:55:42 Prolonged QT interval now present First degree AV block no longer present Electronically Signed On 05-31-2021 20:36:45 CDT by Gilmar Hunt M.D. [id number]
[2021-05-31] MEDS: enoxaparin 40 mg/0.4 mL Syringe SUBCUT (17:34)
[2021-05-31] MEDS: sodium chloride 0.9% 1,000 ML 75 ML IV (17:35)
[2021-05-31] MEDS: pantoprazole DR 40 mg Tablet PO (17:35)
--- NOTE | 2021-05-31 19:06 | PM.HP ---
Providers/Chief Complaint Admitting Physician: Enrrique Brothers MD Primary Care Provider: Vikas Candelaria MD Chief Complaint: pain in upper abdominal, Low BP, sent per History of Present Illness Sarah Petersen is a 76 year old female with a past medical history of COPD, not on oxygen, insulin-dependent type 2 diabetes mellitus, hypertension, hyperlipidemia, CAD status post stenting x3, history of pericardial effusion status post pericardial window, history of intubation for pneumonia and influenza B, who presents [facility] due to a week history of fatigue, malaise, some epigastric discomfort. Patient tells me that she lives in [facility], she lives with her son and his kids, she has been in good health, but for the last week she has not been feeling well, just been having malaise, fatigue, no nausea, no vomiting, but has been having some epigastric discomfort, no chest pain, no shortness of breath, no lightheaded, dizziness, no slurring of speech, no facial droop, no paralysis, has been feeling a bit lightheaded, no diarrhea, no dysuria, no hematuria, has not received her Covid vaccinations, no known exposure to COVID-19, does report a 7 pound weight loss. Review of Systems Const: Reports: fatigue and malaise; Denies: fever(s), chills or body aches Eyes: Denies: change in vision or blurry vision ENMT: Denies: throat pain or nasal congestion Card: Denies: chest pain, palpitations, irregular heart rhythm, edema, swelling of feet/ankles, lightheadedness or dyspnea on exertion Resp: Denies: dyspnea, productive cough, non-productive cough or wheezing GI: Denies: abdominal pain, nausea, vomiting, hematemesis, diarrhea, constipation, hematochezia or melena : Denies: flank pain, dysuria or urinary frequency Musc: Denies: neck pain, back pain, extremity pain or joint pain Skin/Breast: Denies: rash Neuro: Denies: headache(s), numbness in extremities, weakness in extremities, dizziness or vertigo Psych: Denies: anxiety or depression Endo: Denies: polyuria or polydipsia Medications/Allergies Home Medications Medication Instructions Recorded Confirmed Last Taken Type albuterol sulfate 90 mcg/actuation 2 puff INHALATION Q6H PRN 11/28/19 05/31/21 05/30/21 History aerosol inhaler atenolol 25 mg tablet 25 mg PO DAILY@11/28/19 05/31/21 05/30/21 History budesonide 0.5 mg/2 mL suspension 0.5 mg INHALATION BID PRN 11/28/19 05/31/21 05/30/21 History for nebulization budesonide-formoterol HFA 160 2 puff INHALATION BID 11/28/19 05/31/21 05/30/21 History mcg-4.5 mcg/actuation aerosol inhaler esomeprazole magnesium 40 mg 40 mg PO DAILY@11/28/19 05/31/21 05/30/21 History capsule,delayed release fluoxetine 20 mg capsule 20 mg PO DAILY@11/28/19 05/31/21 05/30/21 History hydrochlorothiazide 25 mg tablet 25 mg PO DAILY@11/28/19 05/31/21 05/30/21 History insulin detemir U-100 100 unit/mL 30 unit SUBCUT BEDTIME@2200 ml 11/28/19 05/31/21 05/30/21 History subcutaneous solution levothyroxine 125 mcg capsule 125 mcg PO DAILY@11/28/19 05/31/21 05/30/21 History loratadine 10 mg tablet 10 mg PO DAILY@11/28/19 05/31/21 05/30/21 History montelukast 10 mg tablet 10 mg PO DAILY@11/28/19 05/31/21 05/30/21 History nitroglycerin 0.4 mg sublingual 0.4 mg SUBLINGUAL Q5M PRN 11/28/19 05/31/21 Unknown History tablet olmesartan 40 mg tablet 40 mg PO DAILY@11/28/19 05/31/21 05/30/21 History rosuvastatin 40 mg tablet 40 mg PO BEDTIME@2200 tab 11/28/19 05/31/21 05/30/21 History sitagliptin 100 mg-metformin ER 1 tab PO DAILY@11/28/19 05/31/21 05/30/21 History 1,000 mg tablet,extended [id number] mp tramadol 50 mg tablet 50 mg PO Q6H PRN 11/28/19 05/31/21 05/30/21 History aspirin 81 mg PO DAILY@11/07/20 05/31/21 05/30/21 History brimonidine [Alphagan P] 1 drp OPHTHALMIC (EYE) DAILY@11/07/20 05/31/21 05/30/21 History dapagliflozin [Farxiga] 5 mg PO DAILY@11/07/20 05/31/21 05/30/21 History gabapentin 300 mg PO TID@,,11/07/20 05/31/21 05/30/21 History bimatoprost [Lumigan] 1 drp OPHTHALMIC (EYE) DAILY 05/31/21 05/31/21 05/30/21 History furosemide 40 mg PO DAILY 05/31/21 05/31/21 05/30/21 History naproxen 500 mg PO BID 05/31/21 05/31/21 Unknown History Allergies Allergy/AdvReac Type Severity Reaction Status Date / Time codeine Allergy Unknown Unknown Verified 11/29/20 13:35 hydrocodone Allergy Unknown Unknown Verified 11/29/20 13:35 dulaglutide [From Trulicity] Allergy Unknown Verified 11/29/20 13:35 PFSH Acute PFSH: Medical History ASHD (arteriosclerotic heart disease) Diabetes 1.5, managed as type 2 Dyslipidemia GERD (gastroesophageal reflux disease) HTN (hypertension) Surgical History S/P PTCA (percutaneous transluminal coronary angioplasty) Status post creation of pericardial window Family History Mother Cancer Diabetes Social History (Updated 05/31/21 @ 19:11 by Enrrique Brothers MD) Smoking and tobacco status: former smoker Alcohol intake: never Substance/Drug Use: never Female Reproductive History: Date of last menstrual period: 12/13/20 Vitals/I&O/Wt Last Vital Signs Temp 98.2 F 05/31/21 18:00 Pulse 52 L 05/31/21 18:00 Resp 17 05/31/21 18:00 BP 92/57 05/31/21 18:00 Pulse Ox 95 05/31/21 18:39 Weight last 48 hrs Weight 83.461 kg Physical Exam Const: COMMON NORMALS: no acute distress and patient oriented x3 HENMT: COMMON NORMALS: normocephalic HEAD & SCALP: normocephalic Eye: COMMON NORMALS: Equal, round and reactive pupils present and EOMs intact bilaterally GENERAL EYE: appearance normal, both eyes and all related structures PUPIL: Yes Equal, round and reactive pupils present Neck/C-Spine: COMMON NORMALS: full ROM and no lymphadenopathy THYROID: Thyroid normal Lymph: LYMPHATIC: no lymphadenopathy noted Resp: COMMON NORMALS: normal respiratory effort, No retractions, No use of accessory muscles and clear to auscultation bilaterally AUSCULTATION: clear to auscultation bilaterally Cardio: COMMON NORMALS: regular rate, regular rhythm, S1 normal heart sound present, S2 normal heart sound present, No gallops present (Cardio), No clicks present (Cardio) and No murmurs present (Cardio) RATE: regular rate RHYTHM: regular rhythm HEART SOUNDS: S1 normal heart sound present and S2 normal heart sound present GI: COMMON NORMALS: Normal to inspection, nondistended, normoactive bowel sounds present and Soft to palpation OTHER: Has epigastric tenderness Extremity: COMMON NORMALS: normal to inspection, full ROM and no pedal edema Neuro: COMMON NORMALS: patient oriented x3, CN's II-XII intact bilaterally, moves all extremities and no focal motor deficits Psych: COMMON NORMALS: mental status grossly normal, Normal thought process present and cooperative THOUGHT PROCESS: Normal thought process present Data : 05/31/21 11:20 05/31/21 13:10 A&P Assessment and plan (1) Abdominal pain: -Does report a history of gastric ulcers, severe acid reflux -Does use naproxen -Patient's pain is more epigastric in nature, does have severe acid reflux -We will try Protonix twice daily, Carafate -Will need an outpatient follow-up for EGD and colonoscopy given CT scan findings -Full code -Lovenox for DVT prophylaxis Status: Acute (2) Elevated troponin: -EKG no acute ST-T wave changes B aseline troponin 47, 120-minute 44.95, delta of -2.05 -BNP 395 -Sinus bradycardia, QTC is prolonged at 457, no acute ST-T wave changes - hold tramadol, hold gabapentin, hold fluoxetine -No reported chest pain -Continue home aspirin, statin -Serial EKGs consider troponins, telemetry monitoring, monitor for chest pain -Cardiac echocardiogram Status: Acute (3) Acute hyponatremia: -Likely secondary dehydration, recheck sodium level it was 118, blood pressures are on the lower end -We will give LR bolus -Continue normal saline at 75 cc an hour -Serum sodiums every 4 hours -Neurochecks, aspiration precautions, seizure precautions Status: Acute (4) Acute kidney injury superimposed on CKD: -Creatinine 2.0, likely secondary to dehydration, will get a CPK, lactic acid -IV hydration as above, monitor urine output, creatinine Status: Acute (5) HTN (hypertension): Hold home blood pressure medications Status: Acute (6) Dyslipidemia: Status: Acute (7) ASHD (arteriosclerotic heart disease): Status: Acute (8) Lesion of spleen: -Numerous ill-defined low-attenuation lesions involving the spleen. This is nonspecific and differential considerations include lymphoma, metastatic disease, sarcoid or possibly fungal disease. Recommend correlation with clinical history and further evaluation to exclude neoplasm. Spleen size within normal limits. -We will have patient follow-up with hematology oncology as outpatient Status: Acute Additional A&P Information -Does report right upper quadrant tenderness, epigastric tenderness, CT scan that shows cholelithiasis, will get a right upper quadrant ultrasound -Insulin-dependent type 2 diabetes mellitus, continue home Levemir 30 units at bedtime, insulin sliding scale -UTI, Rocephin Attestations Medical Necessity Statement*: Patient requires hospitalization, outpatient with observation, for hyponatremia, elevated troponins, splenic lesions Coding Level of Care Code Acute Accounting Systems Manager for g Fwd Diagnoses Abdominal pain R10.9 Elevated troponin R77.8 Acute hyponatremia E87.1 Acute kidney injury superimposed on CKD N17.9; N18.9 HTN (hypertension) I10 Dyslipidemia E78.5 ASHD (arteriosclerotic heart disease) I25.10 Lesion of spleen D73.89
[2021-05-31 19:42] LABS: Creatine Phosphokinase 107 U/L (26-192)
[2021-05-31 19:45] LABS: Sodium 117 mmol/L (136-145)
[2021-05-31 21:03] LABS: Glucose Point of Care 252 mg/dL (70-110)
[2021-05-31] MEDS: cefTRIAXone 1,000 MG in sodium chloride 0.9% (plus) 50 ML 100 MG IV (22:34)
[2021-05-31] MEDS: lactated ringers 500 ML 999 ML IV (22:37)
[2021-05-31] MEDS: sucralfate 1 gm Tablet PO (22:38)
[2021-05-31] MEDS: atorvastatin 40 mg Tablet 80 MG PO (22:38)
[2021-06-01] VITALS (16 sets, daily range): BP systolic 87–148; BP diastolic 27–87; PULSE 54–91; RESP 16–24; TEMP 36.6–37.1; O2SAT 58–97
--- NOTE | 2021-06-01 06:00 | USCV_ITS ---
MadonnagordyAntwonSarah Age: 76 Gender: F : 1945 Exam Date: 06/01/2021 06:52 Ordering Phys: Enrrique Brothers MD Technologist: Erin Vyas Exam Location: [facility] [place] Indication: NSTEMI BP: 87 / 45 HR: 56 Rhythm: Sinus bradycardia Technical Quality: Fair MEASUREMENTS (Male / Female) Normal Values 2D ECHO LV Diastolic Diameter PLAX 3.6 cm 4.2 - 5.9 / 3.9 - 5.3 cm LV Systolic Diameter PLAX 2.3 cm LV Chamber Size 3.5 cm IVS Diastolic Thickness 1.1 cm 0.6 - 1.0 / 0.6 - 0.9 cm IVS Systolic Thickness 1.3 cm LVPW Diastolic Thickness 0.9 cm 0.6 - 1.0 / 0.6 - 0.9 cm LVPW Systolic Thickness 1.3 cm RV Chamber Size 2.0 cm LVOT Diameter 2.0 cm LV Ejection Fraction 2D Teich 67.7 % LV Ejection Fraction MOD 2C 64.1 % LV Ejection Fraction 2C AL 66.5 % LA Diameter 2.9 cm LA Width 3.1 cm LA Height 4.6 cm RA Width 2.8 cm RA Height 4.4 cm Aorta at Sinotubular Diameter 2.3 cm M-MODE LV Diastolic Diameter MM 5.2 cm 4.2 - 5.9 / 3.9 - 5.3 cm LV Systolic Diameter MM 2.8 cm LV Ejection Fraction MM Teich 77.3 % IVS Diastolic Thickness MM 1.0 cm 0.6 - 1.0 / 0.6 - 0.9 cm IVS Systolic Thickness MM 1.6 cm LVPW Diastolic Thickness MM 1.3 cm 0.6 - 1.0 / 0.6 - 0.9 cm LVPW Systolic Thickness MM 1.8 cm RV Diastolic Diameter MM 2.3 cm Aortic Annulus Diameter 2.9 cm LA Ao Ratio MM 1.1 MV E Point Septal Separation 0.6 cm DOPPLER AV Peak Velocity 175.0 cm/s LVOT Peak Velocity 104.0 cm/s AV Area Cont Eq vti 1.8 cm squared AV Area Cont Eq pk 1.9 cm squared MV Area PHT 3.0 cm squared Mitral E to A Ratio 0.9 MV E' Velocity 52.5 cm/s Mitral E to MV E' Ratio 11.3 Mitral E to LV E' Lateral Ratio 11.8 Mitral E to LV E' Septal Ratio 11.1 TR Peak Velocity 258.9 cm/s TR Peak Gradient 26.8 mmHg TR Mean Velocity 206.5 cm/s TR Mean Gradient 17.6 mmHg TR Velocity Time Integral 82.6 cm TV Peak E Velocity 53.0 cm/s Right Atrial Pressure 3.0 mmHg Pulmonary Artery Systolic Pressu 29.8 mmHg PV Peak Velocity 70.0 cm/s RV Acceleration Time 0.1 s RV Ejection Time 0.3 s RV AcT/ET 0.3 FINDINGS Left Ventricle Normal left ventricular size, systolic function and wall thickness, with no diagnostic regional wall motion abnormalities. Left ventricular ejection fraction is estimated at 60 %. Normal diastolic function. Right Ventricle Normal right ventricular size and systolic function. Right ventricular systolic pressure 31 mmHg. Prominent moderator band in right ventricle (normal variant). Right Atrium Normal right atrial size. Right atrial pressure estimated at 3 mm Hg. Left Atrium Normal left atrial size. Mitral Valve Mild mitral annular calcification. Structurally normal mitral valve. No mitral valve stenosis. Trace mitral valve regurgitation. Aortic Valve Structurally normal trileaflet aortic valve. No aortic valve stenosis. No aortic valve regurgitation. Tricuspid Valve Structurally normal tricuspid valve. No tricuspid valve stenosis. Trace to mild tricuspid valve regurgitation. Pulmonic Valve Pulmonic valve not well visualized. No significant pulmonary valve regurgitation. Pericardium No pericardial effusion. Echo free space anterior to the right ventricle likely represents a fat pad. Aorta Normal size aortic root. CONCLUSIONS 1. Normal left ventricular size, systolic function and wall thickness, with no diagnostic regional wall motion abnormalities. Left ventricular ejection fraction is estimated at 60 %. Normal diastolic function. 2. Trace to mild tricuspid valve regurgitation. 3. Normal pulmonary artery pressure estimated at 31 mm Hg. 4. No significant valvular abnormality. 5. No significant change when compared to echo dated 12/31/20. Leticia Hensley MD (Electronically Signed) Final Date: 01 June 2021 13:47 S
--- NOTE | 2021-06-01 06:00 | USR_ITS ---
PROCEDURE INFORMATION: Exam: US Abdomen, Limited; Right Upper Quadrant Exam date and time: 06/01/2021 6:00 AM Age: 76 years old Clinical indication: Abdominal pain; Additional info: Ruq pain TECHNIQUE: Imaging protocol: US abdomen. Real time ultrasound with image documentation. Limited exam focused on the right upper quadrant. Total images: 56 COMPARISON: CT abdomen pelvis w con* [id number] 05/31/2021 1:17 PM FINDINGS: Liver: The liver is normal in echogenicity and configuration. No masses are detected. There is no intrahepatic biliary dilatation. Gallbladder: Cholelithiasis is present without cholecystitis. No gallbladder wall thickening or pericholecystic fluid collection. Common bile duct: Common bile duct diameter is 6 mm. Pancreas: The pancreas is partially visualized due to overlying bowel gas. No gross pathology is detected. Right kidney: 10.2 cm length of right kidney. Right kidney with normal echogenicity and no hydronephrosis, calculi, solid masses, nor perinephric fluid collection. Aorta: Partial visualization of abdominal aorta unremarkable. Inferior vena cava: Partial visualization of IVC unremarkable. US/US gall bladder [id number] IMPRESSION: Cholelithiasis is present without cholecystitis. No gallbladder wall thickening or pericholecystic fluid collection.
[2021-06-01 06:08] LABS: Glucose Point of Care 136 mg/dL (70-110)
[2021-06-01] MEDS: sucralfate 1 gm Tablet PO ×2 (06:15→18:39)
[2021-06-01 07:11] LABS: Basophils % 0.2 %; Eosinophils # 0.1 10^3/uL (0.0-0.8); Eosinophils % 0.6 %; Hematocrit 32.4 % (37.0-47.0); Hemoglobin 10.8 g/dL (11.5-15.3); Lymphocytes % 9.9 %; Mean Corpuscular HGB Conc 33.3 g/dL (30.0-36.0); Mean Corpuscular Volume 86.9 fl (81-99); Mean Platelet Volume 10.5 fL (7.4-10.4); Monocytes # 0.7 10^3/uL (0.2-0.9); Monocytes % 7.4 %; Neutrophils # 7.84 10^3/uL (1.8-7.7); Neutrophils % 81.3 %; Nucleated Red Blood Cells % 0 %; Platelet Count 224 10^3/cmm (130-400); Red Blood Count 3.73 10^6/uL (4.1-5.3); Red Cell Distribution Width 12.6 % (12.1-15.1); White Blood Count 9.6 10^3/uL (4.0-10.0)
[2021-06-01] MEDS: levothyroxine 125 mcg Tablet PO (07:50)
[2021-06-01] MEDS: montelukast sodium 10 mg Tablet PO (07:50)
[2021-06-01] MEDS: aspirin 81 mg Chew Tablet PO (07:50)
[2021-06-01] MEDS: loratadine 10 mg Tablet PO (07:50)
[2021-06-01 08:01] LABS: Alanine Aminotransferase 8 U/L (0-33); Albumin Level 3.6 g/dL (3.5-5.2); Alkaline Phosphatase 86 IU/L (35-105); Anion Gap 14.7 (5-19); Aspartate Amino Transferase 13 U/L (0-32); Blood Urea Nitrogen 53 mg/dL (8-23); Calcium 8.2 mg/dL (8.5-10.5); Carbon Dioxide 27 mmol/L (22-29); Chloride 85 mmol/L (98-107); Globulin 2.7 g/dL (1.3-4.6); Glucose 105 mg/dL (65-115); Magnesium 2.3 mg/dL (1.7-2.3); Osmolality Calculated 271 mOsm/kg (285-295); Phosphorus 3.8 mg/dL (2.5-4.5); Potassium 3.7 mmol/L (3.5-5.1); Sodium 123 mmol/L (136-145); Thyroid Stimulating Hormone 1.12 uIU/mL (0.27-4.20); Total Bilirubin 0.2 mg/dL (0.15-1.2); Total Protein 6.3 g/dL (6.6-8.7)
[2021-06-01] MEDS: sodium chloride 0.9% 1,000 ML 75 ML IV ×2 (08:28→22:18)
[2021-06-01] MEDS: pantoprazole DR 40 mg Tablet PO ×2 (09:46→17:58)
[2021-06-01 11:08] LABS: Potassium, Radom Urine 16 mmol/L; Urine Creatinine 54 mg/dL (28-217); Urine Random Sodium 22 mmol/L
[2021-06-01 11:26] LABS: Amphetamines Screen Urine Negative (Negative); Barbiturates Screen Urine Negative (Negative); Benzodiazepines Screen Urine Negative (Negative); Cocaine Screen Urine Negative (Negative); Opiate Screen Urine Negative (Negative); PCP Screen Urine Negative (Negative); THC Screen Urine Negative (Negative)
[2021-06-01 12:08] LABS: Sodium 123 mmol/L (136-145)
[2021-06-01 12:15] LABS: Glucose Point of Care 206 mg/dL (70-110)
[2021-06-01 15:34] LABS: Urine Random Chloride < 10 mmol/L
[2021-06-01 15:37] LABS: Sodium 124 mmol/L (136-145)
--- NOTE | 2021-06-01 15:48 | P.PN_ITS ---
Subjective Subjective: Interval history: This morning patient was seen, she tells me that she is feeling better, no nausea, no vomiting, chest pain, lightheaded, dizziness, her blood pressures were better when standing up, she tells me that she been urinating a lot with all the fluid that were giving to her, Vitals/I&O/Wt Last Vital Signs Temp 98.1 F 06/01/21 11:06 Pulse 57 L 06/01/21 11:06 Resp 18 06/01/21 11:06 BP 110/58 06/01/21 12:07 Pulse Ox 94 06/01/21 11:06 06/01/21 06/01/21 06/01/21 06:59 14:59 22:59 Intake Total 1358.35 / 1625.00 167.5 / 167.5 Balance 1358.35 / 1625.00 167.5 / 167.5 Weight last 48 hrs Weight 83.461 kg Data : 06/01/21 06:52 06/01/21 15:01 A&P Assessment and plan (1) Abdominal pain: -Does report a history of gastric ulcers, severe acid reflux -Does use naproxen -Patient's pain is more epigastric in nature, does have severe acid reflux -We will try Protonix twice daily, Carafate -Will need an outpatient follow-up for EGD and colonoscopy given CT scan findings -Full code -Lovenox for DVT prophylaxis Status: Acute (2) Elevated troponin: -EKG no acute ST-T wave changes B aseline troponin 47, 120-minute 44.95, delta of -2.05 -BNP 395 -Sinus bradycardia, QTC is prolonged at 457, no acute ST-T wave changes - hold tramadol, hold gabapentin, hold fluoxetine -No reported chest pain -Continue home aspirin, statin -Serial EKGs 6-hour troponin 46.4, telemetry monitoring, monitor for chest pain -Cardiac echocardiogram 1. Normal left ventricular size, systolic function and wall thickness, with no diagnostic regional wall motion abnormalities. Left ventricular ejection fraction is estimated at 60 %. Normal diastolic function. 2. Trace to mild tricuspid valve regurgitation. 3. Normal pulmonary artery pressure estimated at 31 mm Hg. 4. No significant valvular abnormality. 5. No significant change when compared to echo dated 12/31/20. Status: Acute (3) Acute hyponatremia: -Likely secondary dehydration, recheck sodium level it was 124, blood pressures are on the lower end -Continue normal saline at 75 cc an hour -Serum sodiums every 4 hours -Neurochecks, aspiration precautions, seizure precautions Status: Acute (4) Acute kidney injury superimposed on CKD: -Creatinine 2.0, likely secondary to dehydration -IV hydration as above, monitor urine output, creatinine -We will do RANDELL -Follow urine studies Status: Acute (5) HTN (hypertension): Hold home blood pressure medications Status: Acute (6) Dyslipidemia: Status: Acute (7) ASHD (arteriosclerotic heart disease): Status: Acute (8) Lesion of spleen: -Numerous ill-defined low-attenuation lesions involving the spleen. This is nonspecific and differential considerations include lymphoma, metastatic disease, sarcoid or possibly fungal disease. Recommend correlation with clinical history and further evaluation to exclude neoplasm. Spleen size within normal limits. -We will have patient follow-up with hematology oncology as outpatient Status: Acute Additional A&P Information -Does report right upper quadrant tenderness, epigastric tenderness, CT scan that shows cholelithiasis, right upper quadrant ultrasound does not show any acute cholecystitis -Insulin-dependent type 2 diabetes mellitus, continue home Levemir 30 units at bedtime, insulin sliding scale -UTI, Rocephin Attestations Medical Necessity Statement*: Patient requires hospitalization inpatient, greater than 2 minutes, for acute hyponatremia Coding Level of Care Code Acute Transplant Registered Nurse for Chg Fwd Diagnoses Abdominal pain R10.9 Elevated troponin R77.8 Acute hyponatremia E87.1 Acute kidney injury superimposed on CKD N17.9; N18.9 HTN (hypertension) I10 Dyslipidemia E78.5 ASHD (arteriosclerotic heart disease) I25.10 Lesion of spleen D73.89
[2021-06-01 16:21] LABS: Eosinophil Urine No Eosinophils Seen; Urine Eosinophil Count 0 (0-0)
[2021-06-01 17:03] LABS: Glucose Point of Care 170 mg/dL (70-110)
[2021-06-01] MEDS: cefTRIAXone 1,000 MG in sodium chloride 0.9% (plus) 50 ML 100 MG IV (17:57)
[2021-06-01] MEDS: enoxaparin 40 mg/0.4 mL Syringe SUBCUT (18:03)
--- NOTE | 2021-06-01 18:40 | PC.NURSE ---
Shift Note Frequent safety and comfort rounds continue. Orders and/or nursing care completed as indicated. Patient monitored for response to intervention and treatment(s). Education provided includes healthy diet and monitoring blood sugars. Patient verbalized understanding. Patient has rested well throughout the shift. Patient denies any complaints or pain. Patient is currently sitting on side of bed with daughter at bedside. Will continue to monitor.
[2021-06-01 20:58] LABS: Glucose Point of Care 186 mg/dL (70-110)
[2021-06-01] MEDS: atorvastatin 40 mg Tablet 80 MG PO (22:19)
[2021-06-02] VITALS (13 sets, daily range): BP systolic 98–148; BP diastolic 46–75; PULSE 57–86; RESP 16–22; TEMP 36.4–36.8; O2SAT 95–97
[2021-06-02 06:09] LABS: Glucose Point of Care 165 mg/dL (70-110)
[2021-06-02 07:10] LABS: Basophils % 0.5 %; Eosinophils # 0.1 10^3/uL (0.0-0.8); Eosinophils % 1.7 %; Hematocrit 27.7 % (37.0-47.0); Hemoglobin 9.2 g/dL (11.5-15.3); Lymphocytes # 1.1 10^3/uL (0.8-4.8); Lymphocytes % 16.8 %; Mean Corpuscular HGB Conc 33.2 g/dL (30.0-36.0); Mean Corpuscular Volume 87.4 fl (81-99); Mean Platelet Volume 10.5 fL (7.4-10.4); Monocytes # 0.6 10^3/uL (0.2-0.9); Monocytes % 9.2 %; Neutrophils # 4.74 10^3/uL (1.8-7.7); Neutrophils % 71.2 %; Nucleated Red Blood Cells % 0 %; Platelet Count 212 10^3/cmm (130-400); Red Blood Count 3.17 10^6/uL (4.1-5.3); Red Cell Distribution Width 12.5 % (12.1-15.1); White Blood Count 6.7 10^3/uL (4.0-10.0)
[2021-06-02] MEDS: montelukast sodium 10 mg Tablet PO (07:11)
[2021-06-02] MEDS: sucralfate 1 gm Tablet PO ×2 (07:11→18:29)
[2021-06-02] MEDS: aspirin 81 mg Chew Tablet PO (07:11)
[2021-06-02] MEDS: levothyroxine 125 mcg Tablet PO (07:11)
[2021-06-02 07:43] LABS: Alanine Aminotransferase 7 U/L (0-33); Albumin Level 3.1 g/dL (3.5-5.2); Alkaline Phosphatase 73 IU/L (35-105); Anion Gap 14.1 (5-19); Aspartate Amino Transferase 11 U/L (0-32); Blood Urea Nitrogen 51 mg/dL (8-23); Calcium 7.6 mg/dL (8.5-10.5); Carbon Dioxide 24 mmol/L (22-29); Chloride 91 mmol/L (98-107); Globulin 1.9 g/dL (1.3-4.6); Glucose 138 mg/dL (65-115); Magnesium 2.4 mg/dL (1.7-2.3); Osmolality Calculated 276 mOsm/kg (285-295); Phosphorus 3.2 mg/dL (2.5-4.5); Potassium 4.1 mmol/L (3.5-5.1); Sodium 125 mmol/L (136-145); Total Bilirubin 0.2 mg/dL (0.15-1.2)
[2021-06-02 08:56] LABS: Cortisol Random 11.03 ug/dL (2.47-19.5)
[2021-06-02] MEDS: pantoprazole DR 40 mg Tablet PO ×2 (09:06→18:29)
[2021-06-02] MEDS: sodium chloride 0.9% 1,000 ML 75 ML IV (11:32)
[2021-06-02 11:51] LABS: Glucose Point of Care 231 mg/dL (70-110)
[2021-06-02 13:41] LABS: Basophils % 0.3 %; Eosinophils # 0.1 10^3/uL (0.0-0.8); Eosinophils % 1.3 %; Hematocrit 29.9 % (37.0-47.0); Hemoglobin 9.4 g/dL (11.5-15.3); Lymphocytes % 16.2 %; Mean Corpuscular HGB Conc 31.4 g/dL (30.0-36.0); Mean Corpuscular Hemoglobin 29.4 pg (28.0-34.0); Mean Corpuscular Volume 93.4 fl (81-99); Mean Platelet Volume 10.4 fL (7.4-10.4); Monocytes # 0.5 10^3/uL (0.2-0.9); Monocytes % 8.8 %; Neutrophils % 72.6 %; Nucleated Red Blood Cells % 0 %; Platelet Count 208 10^3/cmm (130-400); Red Cell Distribution Width 12.8 % (12.1-15.1); White Blood Count 5.9 10^3/uL (4.0-10.0)
[2021-06-02 14:05] LABS: Anion Gap 16.2 (5-19); Blood Urea Nitrogen 40 mg/dL (8-23); Calcium 7.5 mg/dL (8.5-10.5); Carbon Dioxide 20 mmol/L (22-29); Chloride 91 mmol/L (98-107); Glucose 180 mg/dL (65-115); Osmolality Calculated 270 mOsm/kg (285-295); Potassium 4.2 mmol/L (3.5-5.1); Sodium 123 mmol/L (136-145)
[2021-06-02] MEDS: predniSONE 20 mg Tablet 40 MG PO (15:26)
[2021-06-02 17:13] LABS: SARS Covid-2 Antigen Negative (Negative)
[2021-06-02 17:20] LABS: Glucose Point of Care 240 mg/dL (70-110)
--- NOTE | 2021-06-02 17:33 | PM.CONSULT ---
Providers/Reason For Consult Consulting Physician/Specialty*: dino cronin md / telenephrology Reason for Consult*: hyponatremia and Attending Physician: Enrrique Brothers MD Primary Care Provider: Vikas Candelaria MD History of Present Illness History of Present Illness Sarah Petersen is a 76 year old female w/ h/o COPD, IDDM, htn, CAD s/p stents, h/o pericardial effusion requrining a pericardial window. Pt was admittwd w/ abd pain, nausea, weakness. Pt does take 2 diuretics at home. she was admitted w/ TARAN on CKD stage 3- b/l cr 1.3- on admission cr 1.9. she also had hyponatremia w/ na 117. na now 123 after ns ivf and renal is called to consult. Review of Systems General: Reports: 10 or more systems reviewed and unremarkable except in HPI and below Narrative: weakness, headaches, lightheaded, + chronic SOB, no cp, no abd pain, no edema, no urinary vcomplaints, no diarrhea Meds/Allergies Home Medications and Allergies Home Medications Medication Instructions Recorded Confirmed Last Taken Type albuterol sulfate 90 mcg/actuation 2 puff INHALATION Q6H PRN 11/28/19 05/31/21 05/30/21 History aerosol inhaler atenolol 25 mg tablet 25 mg PO DAILY@11/28/19 05/31/21 05/30/21 History budesonide 0.5 mg/2 mL suspension 0.5 mg INHALATION BID PRN 11/28/19 05/31/21 05/30/21 History for nebulization budesonide-formoterol HFA 160 2 puff INHALATION BID 11/28/19 05/31/21 05/30/21 History mcg-4.5 mcg/actuation aerosol inhaler esomeprazole magnesium 40 mg 40 mg PO DAILY@11/28/19 05/31/21 05/30/21 History capsule,delayed release fluoxetine 20 mg capsule 20 mg PO DAILY@11/28/19 05/31/21 05/30/21 History hydrochlorothiazide 25 mg tablet 25 mg PO DAILY@11/28/19 05/31/21 05/30/21 History insulin detemir U-100 100 unit/mL 30 unit SUBCUT BEDTIME@2200 ml 11/28/19 05/31/21 05/30/21 History subcutaneous solution levothyroxine 125 mcg capsule 125 mcg PO DAILY@11/28/19 05/31/21 05/30/21 History loratadine 10 mg tablet 10 mg PO DAILY@11/28/19 05/31/21 05/30/21 History montelukast 10 mg tablet 10 mg PO DAILY@11/28/19 05/31/21 05/30/21 History nitroglycerin 0.4 mg sublingual 0.4 mg SUBLINGUAL Q5M PRN 11/28/19 05/31/21 Unknown History tablet olmesartan 40 mg tablet 40 mg PO DAILY@11/28/19 05/31/21 05/30/21 History rosuvastatin 40 mg tablet 40 mg PO BEDTIME@2200 tab 11/28/19 05/31/21 05/30/21 History sitagliptin 100 mg-metformin ER 1 tab PO DAILY@11/28/19 05/31/21 05/30/21 History 1,000 mg tablet,extended [id number] mp tramadol 50 mg tablet 50 mg PO Q6H PRN 11/28/19 05/31/21 05/30/21 History aspirin 81 mg PO DAILY@11/07/20 05/31/21 05/30/21 History brimonidine [Alphagan P] 1 drp OPHTHALMIC (EYE) DAILY@11/07/20 05/31/21 05/30/21 History dapagliflozin [Farxiga] 5 mg PO DAILY@11/07/20 05/31/21 05/30/21 History gabapentin 300 mg PO TID@,,11/07/20 05/31/21 05/30/21 History bimatoprost [Lumigan] 1 drp OPHTHALMIC (EYE) DAILY 05/31/21 05/31/21 05/30/21 History furosemide 40 mg PO DAILY 05/31/21 05/31/21 05/30/21 History naproxen 500 mg PO BID 05/31/21 05/31/21 Unknown History Allergies Allergy/AdvReac Type Severity Reaction Status Date / Time codeine Allergy Unknown Unknown Verified 11/29/20 13:35 hydrocodone Allergy Unknown Unknown Verified 11/29/20 13:35 dulaglutide [From Trulicity] Allergy Unknown Verified 11/29/20 13:35 Current Medications Current Medications Generic Name Dose Route Start Last Admin Trade Name Cassy PRN Reason Stop Dose Admin Aspirin 81 mg 06/01/21 08:00 06/02/21 07:11 Aspirin 81 Mg Chew Tablet PO 81 mg DAILY@08 RICK Administration Atorvastatin Calcium 80 mg 05/31/21 22:00 06/01/21 22:19 Atorvastatin 40 Mg Tablet PO 80 mg BEDTIME@2200 RICK Administration Bimatoprost 1 drop 06/01/21 09:00 06/02/21 09:06 Bimatoprost 0.01% Op Soln 2.5 Ml Btl EYE-BOTH 1 drop DAILY RICK Administration Sodium Chloride 1,000 mls @ 100 mls/hr 05/31/21 17:17 06/02/21 12:09 Sodium Chloride 0.9% IV 100 mls/hr .Q10H RICK Infusion Ceftriaxone Sodium 1,000 mg/ 50 mls @ 100 mls/hr 05/31/21 18:00 06/01/21 18:37 Sodium Chloride IV Infused Q24H RICK Infusion Protocol Insulin Aspart 0 unit 05/31/21 18:00 06/02/21 12:18 Insulin Aspart 100 Unit/1 Ml SUBCUT 6 unit TIDWM RICK Administration Protocol Insulin Detemir 20 unit 05/31/21 22:00 06/01/21 22:19 Insulin Detemir 100 Units/1 Ml SUBCUT 20 unit BEDTIME@2200 RICK Administration Levothyroxine Sodium 125 mcg 06/01/21 08:00 06/02/21 07:11 Levothyroxine 125 Mcg Tablet PO 125 mcg DAILY@08 RICK Administration Montelukast Sodium 10 mg 06/01/21 08:00 06/02/21 07:11 Montelukast Sodium 10 Mg Tablet PO 10 mg DAILY@08 RICK Administration Pantoprazole Sodium 40 mg 05/31/21 18:00 06/02/21 09:[address] 40 Mg Tablet PO 40 mg BID RICK Administration Prednisone 40 mg 06/02/21 14:50 06/02/21 15:26 Prednisone 20 Mg Tablet PO 40 mg DAILY RICK Administration Fluticasone/Salmeterol 1 puff 05/31/21 20:00 06/02/21 10:04 Fluticasone-Salmeterol 250-50 Diskus INHALATION 1 puff BID.RESPIRATORY RICK Administration Sucralfate 1 gm 05/31/21 19:15 06/02/21 07:11 Sucralfate 1 Gm Tablet PO 1 gm Q12H RICK Administration PFSH Acute PFSH: Medical History ASHD (arteriosclerotic heart disease) Diabetes 1.5, managed as type 2 Dyslipidemia GERD (gastroesophageal reflux disease) HTN (hypertension) Surgical History S/P PTCA (percutaneous transluminal coronary angioplasty) Status post creation of pericardial window Family History Mother Cancer Diabetes Social History (Updated 05/31/21 @ 19:11 by Enrrique Brothers MD) Smoking and tobacco status: former smoker Alcohol intake: never Substance/Drug Use: never Female Reproductive History: Date of last menstrual period: 12/13/20 Vitals/I&O/Wt Last Vital Signs Temp 97.9 F 06/02/21 16:00 Pulse 65 06/02/21 16:00 Resp 16 06/02/21 16:00 BP 148/70 06/02/21 16:00 Pulse Ox 96 06/02/21 16:00 06/02/21 06/02/21 06/02/21 06:59 14:59 22:59 Intake Total 2118.75 / 2118.75 Output Total 3300 / 3300 Balance -1181.25 / -1181.25 Physical Exam Narrative: EXAM NARRATIVE: NARD in bed vss heent- nc/at, eomi, anicteric neck supple lungs crackles/ rinchi b/l heartreg, no rub abd soft, nt, nd, +BS ext no edema neuro- a,a, o x 3 A&P Additional A&P Information 76 yr old female 1. cKD stage 3- b/l cr 1.3- likely from DM 2. TARAN- was on 2 diuretics- thiazides and lasix at home and was not eating well for a week -low ur na -u/a noted- glucosuria from SGLT-2 inhibitor -monitor w/ fluids- d/c if becomes sob -pt likely has some degree of PEDRO- as she is a DM w/ TARAN on CKD stage 3- and recived a iodine contrast ct on admission - avoid nephrotoxins -monitor in and out -monitor chemistries 3. hyponatremia- likely prerenal and fluoxetine and hctz w/ TARAN -low ur na noted -monitor w/ ns ivf -if develops sob- add lasix not hctz -can use fluoxetine if she needs it for anxiety/ depression -thyroid function well controlled -random cortisol of 11- however she is on prednisone 4. 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
--- NOTE | 2021-06-02 17:34 | PM.PN ---
Subjective Subjective: Interval history: Patient was seen this morning, she is actually sitting up to the side of the bed, she tells me that she is feeling better, no nausea, no vomiting, no fevers, chills, no headaches, blurry vision, no seizure-like episodes, Vitals/I&O/Wt Last Vital Signs Temp 97.9 F 06/02/21 16:00 Pulse 65 06/02/21 16:00 Resp 16 06/02/21 16:00 BP 148/70 06/02/21 16:00 Pulse Ox 96 06/02/21 16:00 06/02/21 06/02/21 06/02/21 06:59 14:59 22:59 Intake Total 2118.75 / 2118.75 Output Total 3300 / 3300 Balance -1181.25 / -1181.25 Physical Exam Const: COMMON NORMALS: no acute distress and patient oriented x3 Resp: COMMON NORMALS: normal respiratory effort, No retractions, No use of accessory muscles and clear to auscultation bilaterally AUSCULTATION: clear to auscultation bilaterally Cardio: COMMON NORMALS: regular rate, regular rhythm, S1 normal heart sound present and S2 normal heart sound present RATE: regular rate RHYTHM: regular rhythm HEART SOUNDS: S1 normal heart sound present and S2 normal heart sound present GI: COMMON NORMALS: Normal to inspection, nondistended, normoactive bowel sounds present, Soft to palpation and non-tender PALPATION: Yes Soft to palpation Extremity: COMMON NORMALS: no pedal edema Neuro: COMMON NORMALS: patient oriented x3 Psych: COMMON NORMALS: mental status grossly normal Data : 06/02/21 13:29 06/02/21 13:29 A&P Assessment and plan (1) Abdominal pain: -Does report a history of gastric ulcers, severe acid reflux -Hemoglobin down to 9.4, will need an outpatient follow-up -Patient's pain is more epigastric in nature, does have severe acid reflux -We will try Protonix twice daily, Carafate -Will need an outpatient follow-up for EGD and colonoscopy given CT scan findings -Full code -Lovenox for DVT prophylaxis due to anemia Status: Acute (2) Elevated troponin: -EKG no acute ST-T wave changes B aseline troponin 47, 120-minute 44.95, delta of -2.05 -BNP 395 -Sinus bradycardia, QTC is prolonged at 457, no acute ST-T wave changes - hold tramadol, hold gabapentin, hold fluoxetine -No reported chest pain -Continue home aspirin, statin -Serial EKGs 6-hour troponin 46.4, telemetry monitoring, monitor for chest pain -Cardiac echocardiogram 1. Normal left ventricular size, systolic function and wall thickness, with no diagnostic regional wall motion abnormalities. Left ventricular ejection fraction is estimated at 60 %. Normal diastolic function. 2. Trace to mild tricuspid valve regurgitation. 3. Normal pulmonary artery pressure estimated at 31 mm Hg. 4. No significant valvular abnormality. 5. No significant change when compared to echo dated 12/31/20. Status: Acute (3) Acute hyponatremia: -Likely secondary dehydration, recheck sodium level it was 123, blood pressures are on the lower end -Has received fluid therapy, but still remains hyponatremic, relatively asymptomatic, has a normal baseline serum sodium -Consult nephrology team -RANDELL ordered -Serum sodiums every 4 hours -Neurochecks, aspiration precautions, seizure precautions Status: Acute (4) Acute kidney injury superimposed on CKD: -Creatinine 1.9, likely secondary to dehydration -IV hydration as above, monitor urine output, creatinine -We will do RANDELL -Follow urine studies Status: Acute (5) HTN (hypertension): Hold home blood pressure medications Status: Acute (6) Dyslipidemia: Status: Acute (7) ASHD (arteriosclerotic heart disease): Status: Acute (8) Lesion of spleen: -Numerous ill-defined low-attenuation lesions involving the spleen. This is nonspecific and differential considerations include lymphoma, metastatic disease, sarcoid or possibly fungal disease. Recommend correlation with clinical history and further evaluation to exclude neoplasm. Spleen size within normal limits. -We will have patient follow-up with hematology oncology as outpatient Status: Acute Additional A&P Information -Does report right upper quadrant tenderness, epigastric tenderness, CT scan that shows cholelithiasis, right upper quadrant ultrasound does not show any acute cholecystitis -Insulin-dependent type 2 diabetes mellitus, continue home Levemir 30 units at bedtime, insulin sliding scale -UTI, Rocephin Attestations Medical Necessity Statement*: Patient requires hospitalization for acute hyponatremia Coding Level of Care Code Acute Director [employer] [facility] Diagnoses Abdominal pain R10.9 Elevated troponin R77.8 Acute hyponatremia E87.1 Acute kidney injury superimposed on CKD N17.9; N18.9 HTN (hypertension) I10 Dyslipidemia E78.5 ASHD (arteriosclerotic heart disease) I25.10 Lesion of spleen D73.89
--- NOTE | 2021-06-02 18:14 | PC.NURSE ---
Shift Note Frequent safety and comfort rounds continue. Orders and/or nursing care completed as indicated. Patient monitored for response to intervention and treatment(s). Education provided includes healthy eating habits and monitoring blood glucose, and monitoring blood pressures throughout the day. Patient verbalized understanding and states she will be keeping a closer eye on things when she goes home. Patient is currently sitting up on the side of her bed. Will continue to monitor.
[2021-06-02] MEDS: cefTRIAXone 1,000 MG in sodium chloride 0.9% (plus) 50 ML 100 MG IV (18:29)
[2021-06-02 19:27] LABS: Anion Gap 17.3 (5-19); Blood Urea Nitrogen 37 mg/dL (8-23); Calcium 7.7 mg/dL (8.5-10.5); Carbon Dioxide 21 mmol/L (22-29); Chloride 92 mmol/L (98-107); Glucose 270 mg/dL (65-115); Osmolality Calculated 280 mOsm/kg (285-295); Potassium 4.3 mmol/L (3.5-5.1); Sodium 126 mmol/L (136-145)
[2021-06-02 19:35] LABS: Urine Random Sodium 27 mmol/L
[2021-06-02 20:35] LABS: Glucose Point of Care 312 mg/dL (70-110)
[2021-06-02] MEDS: atorvastatin 40 mg Tablet 80 MG PO (21:08)
[2021-06-02] MEDS: sodium chloride 0.9% 1,000 ML 100 ML IV (21:08)
[2021-06-03] VITALS (7 sets, daily range): BP systolic 112–126; BP diastolic 49–65; PULSE 68–79; RESP 16–20; TEMP 36.8; O2SAT 95–97
[2021-06-03 00:36] LABS: Sodium 128 mmol/L (136-145)
[2021-06-03 06:36] LABS: Glucose Point of Care 294 mg/dL (70-110)
[2021-06-03 06:43] LABS: Basophils % 0.2 %; Hematocrit 28.6 % (37.0-47.0); Hemoglobin 9.4 g/dL (11.5-15.3); Lymphocytes # 0.5 10^3/uL (0.8-4.8); Lymphocytes % 9.5 %; Mean Corpuscular HGB Conc 32.9 g/dL (30.0-36.0); Mean Corpuscular Hemoglobin 28.7 pg (28.0-34.0); Mean Corpuscular Volume 87.5 fl (81-99); Mean Platelet Volume 10.5 fL (7.4-10.4); Monocytes # 0.2 10^3/uL (0.2-0.9); Monocytes % 3.6 %; Neutrophils % 85.6 %; Nucleated Red Blood Cells % 0 %; Platelet Count 250 10^3/cmm (130-400); Red Blood Count 3.27 10^6/uL (4.1-5.3); Red Cell Distribution Width 12.7 % (12.1-15.1); White Blood Count 5.6 10^3/uL (4.0-10.0)
--- NOTE | 2021-06-03 07:03 | PM.PN ---
Subjective Subjective: Interval history: feels well. no n/v/f/c/peterson/d. denies sob. Medications: Reviewed: Yes Medication Review Details: Current Medications Acetaminophen (Acetaminophen 325 Mg Tablet) 650 mg PO Q6H PRN PRN Reason: Mild/Mod Pain Or Temp >/= 101 Albuterol Sulfate (Albuterol 8 Gm Mdi) 2 puff INHALATION Q6H PRN PRN Reason: Shortness Of Breath Aspirin (Aspirin 81 Mg Chew Tablet) 81 mg PO DAILY@08 [facility] Last Admin: 06/02/21 07:11 Dose: 81 mg Documented by: Atorvastatin Calcium (Atorvastatin 40 Mg Tablet) 80 mg PO BEDTIME@2200 [facility] Last Admin: 06/02/21 21:08 Dose: 80 mg Documented by: Bimatoprost (Bimatoprost 0.01% Op Soln 2.5 Ml Btl) 1 drop EYE-BOTH DAILY [facility] Last Admin: 06/02/21 09:06 Dose: 1 drop Documented by: Budesonide (Budesonide 0.5 Mg/2 Ml Neb) 0.5 mg INHALATION BID PRN PRN Reason: Shortness Of Breath Dextrose (Dextrose 50% Syringe 50 Ml) 25 ml IVP ONCE PRN; Protocol PRN Reason: hypoglycemia protocol Dextrose (Dextrose 50% Syringe 50 Ml) 50 ml IVP PRN PRN; Protocol PRN Reason: hypoglycemia protocol Glucagon (Glucagon 1 Mg/Ml Inj 1 Ml) 1 mg IM ONCE PRN; Protocol PRN Reason: Adult Acute Hypoglycemia Prot. Sodium Chloride (Sodium Chloride 0.9%) 1,000 mls @ 100 mls/hr IV .Q10H [facility] Last Admin: 06/02/21 21:08 Dose: 100 mls/hr Documented by: Ceftriaxone Sodium 1,000 mg/ (Sodium Chloride) 50 mls @ 100 mls/hr IV Q24H [facility]; Protocol Last Infusion: 06/02/21 19:02 Dose: Infused Documented by: Dextrose (D5w) 500 mls @ 100 mls/hr IV ONCE PRN; Protocol PRN Reason: Adult Acute Hypoglycemia Prot Insulin Aspart (Insulin Aspart 100 Unit/1 Ml) 0 unit SUBCUT TIDWM [facility]; Protocol Last Admin: 06/02/21 18:30 Dose: 6 unit Documented by: Insulin Detemir (Insulin Detemir 100 Units/1 Ml) 20 unit SUBCUT BEDTIME@2200 [facility] Last Admin: 06/02/21 21:11 Dose: 20 unit Documented by: Levothyroxine Sodium (Levothyroxine 125 Mcg Tablet) 125 mcg PO DAILY@08 [facility] Last Admin: 06/02/21 07:11 Dose: 125 mcg Documented by: Montelukast Sodium (Montelukast Sodium 10 Mg Tablet) 10 mg PO DAILY@08 [facility] Last Admin: 06/02/21 07:11 Dose: 10 mg Documented by: Morphine Sulfate (Morphine 4 Mg/Ml Sdv 1 Ml) 1 mg IVP Q4H PRN PRN Reason: SEVERE PAIN Naloxone HCl (Naloxone 0.4 Mg/Ml Sdv) 0.1 mg IVP Q2M PRN PRN Reason: OPIATERV Nitroglycerin (Nitroglycerin 0.4 Mg Sublingual Tablet) 0.4 mg SUBLINGUAL Q5M PRN PRN Reason: Chest Pain Ondansetron HCl (Ondansetron 2 Mg/Ml Sdv 2 Ml) 4 mg IVP Q8H PRN PRN Reason: vomiting, or N/V if npo Pantoprazole Sodium (Pantoprazole Dr 40 Mg Tablet) 40 mg PO BID [facility] Last Admin: 06/02/21 18:29 Dose: 40 mg Documented by: Prednisone (Prednisone 20 Mg Tablet) 40 mg PO DAILY [facility] Last Admin: 06/02/21 15:26 Dose: 40 mg Documented by: Fluticasone/Salmeterol (Fluticasone-Salmeterol 250-50 Diskus) 1 puff INHALATION BID.RESPIRATORY [facility] Last Admin: 06/02/21 21:05 Dose: 1 puff Documented by: Sucralfate (Sucralfate 1 Gm Tablet) 1 gm PO Q12H [facility] Last Admin: 06/02/21 18:29 Dose: 1 gm Documented by: Vitals/I&O/Wt Last Vital Signs Temp 98.3 F 06/03/21 04:00 Pulse 79 06/03/21 06:00 Resp 16 06/03/21 04:00 BP 121/57 06/03/21 04:00 Pulse Ox 95 06/03/21 04:00 06/02/21 06/03/21 06/03/21 22:59 06:59 14:59 Intake Total 1068.333 / 3187.083 200 / 3387.083 Output Total 1999 Balance 1068.333 / -112.917 -1800 / -1912.917 Physical Exam Narrative: EXAM NARRATIVE: NARD in bed vss heent- nc/at, eomi, anicteric neck supple lungs- coarse ronchi b/l heart - reg, no rub abd soft, nt, nd, +BS ext no edema neuro- a,a, o x 3 Data : 06/02/21 13:29 06/02/21 23:58 A&P Additional A&P Information 76 yr old female 1. cKD stage 3- b/l cr 1.3- likely from DM 2. JAILENE- was on 2 diuretics- thiazides and lasix at home and was not eating well for a week -low ur na -u/a noted- glucosuria from SGLT-2 inhibitor - improved w/ ivf- will d/c -pt likely has some degree of PEDRO- as she is a DM w/ JAILENE on CKD stage 3- and recived a iodine contrast ct on admission - avoid nephrotoxins -monitor in and out -monitor chemistries -serologies pending 3. hyponatremia- likely prerenal and fluoxetine and hctz w/ JAILENE -low ur na noted -improved w/ ns ivf - d/c -if develops sob- add lasix not hctz -can use fluoxetine if she needs it for anxiety/ depression -thyroid function well controlled -random cortisol of 11- however she is on prednisone 4. 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
[2021-06-03 07:11] LABS: Alanine Aminotransferase 8 U/L (0-33); Albumin Level 3.5 g/dL (3.5-5.2); Alkaline Phosphatase 80 IU/L (35-105); Anion Gap 16.3 (5-19); Aspartate Amino Transferase 12 U/L (0-32); Blood Urea Nitrogen 32 mg/dL (8-23); Calcium 8.2 mg/dL (8.5-10.5); Carbon Dioxide 20 mmol/L (22-29); Chloride 97 mmol/L (98-107); Globulin 2.5 g/dL (1.3-4.6); Glucose 282 mg/dL (65-115); Magnesium 2.1 mg/dL (1.7-2.3); Osmolality Calculated 285 mOsm/kg (285-295); Phosphorus 2.5 mg/dL (2.5-4.5); Potassium 4.3 mmol/L (3.5-5.1); Sodium 129 mmol/L (136-145); Total Bilirubin 0.2 mg/dL (0.15-1.2)
[2021-06-03] MEDS: predniSONE 20 mg Tablet 40 MG PO (08:26)
[2021-06-03] MEDS: aspirin 81 mg Chew Tablet PO (08:26)
[2021-06-03] MEDS: pantoprazole DR 40 mg Tablet PO (08:26)
[2021-06-03] MEDS: montelukast sodium 10 mg Tablet PO (08:26)
[2021-06-03] MEDS: sucralfate 1 gm Tablet PO (08:26)
[2021-06-03] MEDS: levothyroxine 125 mcg Tablet PO (08:26)
[2021-06-03 11:34] LABS: Glucose Point of Care 301 mg/dL (70-110)
[2021-06-03 12:18] LABS: COMPLEMENT COMPONENT C3C 125 mg/dL (83-193); COMPLEMENT COMPONENT C4C 37 mg/dL (15-57)
--- NOTE | 2021-06-03 14:05 | PM.DCS ---
Discharge Providers Date of Admission: 05/31/21 14:06 Date of Discharge: June 03, 2021 Attending Provider at Admission: Enrrique Brothers MD Attending Provider at Discharge: Quan Calixto MD Primary Care Provider: Vikas Candelaria MD Diagnoses at Discharge Discharge Diagnosis (1) Abdominal pain: (2) Elevated troponin: (3) Acute hyponatremia: (4) Acute kidney injury superimposed on CKD: (5) HTN (hypertension): (6) Dyslipidemia: (7) ASHD (arteriosclerotic heart disease): (8) Lesion of spleen: Reason for Visit Reason for Visit: pain in upper abdominal, Low BP, sent per [place] [facility] Hospital Course 76 year old female with a past medical history of COPD, not on oxygen, insulin-dependent type 2 diabetes mellitus, hypertension, hyperlipidemia, CAD status post stenting x3, history of pericardial effusion status post pericardial window, history of intubation for pneumonia and influenza B, who presents [facility] due to a week history of fatigue, malaise, some epigastric discomfort. She was admitted for the management of abdominal pain, likely 2/2 to gastroduodenitis based on the C.T abdomen ,was managed conservatively was kept on PPI as well as Carafate. She Will need an outpatient follow-up for EGD and colonoscopy given CT scan findings and anemia.she was also managed for JAILENE On CKD likley 2/2 to combination of prerenal 2/2 to dehydration and diuretic use as well as intrarenal due to PEDRO,she was megan consevatively with I.V hydration as well as avoiding nephrotoxics with other conservative approach. At the time of discharged her JAILENE was improving. hyponatremia- likely prerenal and fluoxetine and hctz w/ JAILENE. Elevated troponin:likely type II M/I -EKG no acute ST-T wave changes. No reported chest pain . Continue home aspirin, statin Serial EKGs was done 6-hour troponin 46.4, telemetry monitoring, 2 D : echocardiogram Normal left ventricular size, systolic function and wall thickness, with no diagnostic regional wall motion abnormalities. Left ventricular ejection fraction is estimated at 60 %. Normal diastolic function. Trace to mild tricuspid valve regurgitation. Normal pulmonary artery pressure estimated at 31 mm Hg.No significant valvular abnormality.No significant change when compared to echo dated 12/31/20. Lesion of spleen: Numerous ill-defined low-attenuation lesions involving the spleen. This is nonspecific and differential considerations include lymphoma, metastatic disease, sarcoid or possibly fungal disease. Recommend correlation with clinical history and further evaluation to exclude neoplasm. Spleen size within normal limits. We will have patient follow-up with hematology oncology as outpatient. Patient respond well to above medical management and was discharged in stable condition. she will continue to follow her pcp as outpatient. Physical Exam Const: COMMON NORMALS: no acute distress and patient oriented x3 HENMT: COMMON NORMALS: normocephalic HEAD & SCALP: normocephalic Eye: COMMON NORMALS: Equal, round and reactive pupils present and EOMs intact bilaterally GENERAL EYE: appearance normal, both eyes and all related structures PUPIL: Yes Equal, round and reactive pupils present Neck/C-Spine: COMMON NORMALS: full ROM, no lymphadenopathy and Thyroid normal THYROID: Thyroid normal Lymph: LYMPHATIC: no lymphadenopathy noted Resp: COMMON NORMALS: normal respiratory effort, No retractions, No use of accessory muscles and clear to auscultation bilaterally AUSCULTATION: clear to auscultation bilaterally Cardio: COMMON NORMALS: regular rate, regular rhythm, S1 normal heart sound present, S2 normal heart sound present, No gallops present (Cardio), No clicks present (Cardio) and No murmurs present (Cardio) RATE: regular rate RHYTHM: regular rhythm HEART SOUNDS: S1 normal heart sound present and S2 normal heart sound present GI: COMMON NORMALS: Normal to inspection, nondistended, normoactive bowel sounds present, Soft to palpation and non-tender PALPATION: Yes Soft to palpation Extremity: COMMON NORMALS: normal to inspection, full ROM and no pedal edema Neuro: COMMON NORMALS: patient oriented x3, CN's II-XII intact bilaterally, moves all extremities and no focal motor deficits Psych: COMMON NORMALS: mental status grossly normal, Normal thought process present and cooperative THOUGHT PROCESS: Normal thought process present Discharge Data Data Completed and Pending: Completed Studies During Hospitalization Category Date Time Status CT abdomen pelvis w con* [id number] Urge nt Cat Scan 05/31/21 11:[address] chest wo con 7 [id number] Urgent Cat Scan 05/31/21 14:05 Completed XR chest 1V [place] [id number] Stat Exams 05/31/21 11:08 Completed CV. echo complete * [id number] Routine Ultrasound 06/01/21 06:00 Completed US gall bladder 7 [id number] Routine Ultrasound 06/01/21 06:00 Completed Pending at discharge Category Date Time Status RANDELL Profile Rheum atology Stat Lab 06/01/21 19:00 Results Basic Metabolic P silvana Timed Lab 06/03/21 14:00 Ordered Complete Blood Co unt w/Auto AM LABS Lab 06/04/21 04:00 Ordered Comprehensive Met abolic Panel AM LA BS Lab 06/04/21 04:00 Ordered Comprehensive Met abolic Panel AM LA BS Lab 06/04/21 04:00 Ordered Comprehensive Met abolic Panel AM LA BS Lab 06/05/21 04:00 Ordered Magnesium AM LABS Lab 06/04/21 04:00 Ordered Magnesium AM LABS Lab 06/05/21 04:00 Ordered Phosphorus AM LAB S Lab 06/04/21 04:00 Ordered Phosphorus AM LAB S Lab 06/05/21 04:00 Ordered Labs from last 24 hours 06/03/21 06/03/21 06/03/21 11:08 06:30 06:22 WBC 5.6 RBC 3.27 L Hgb 9.4 L Hct 28.6 L MCV 87.5 D MCH 28.7 MCHC 32.9 RDW 12.7 Plt Count 250 MPV 10.5 H Neut % (Auto) 85.6 Lymph % (Auto) 9.5 [place] % (Auto) 3.6 Eos % (Auto) 0.0 Baso % (Auto) 0.2 Neut # (Auto) 4.80 Lymph # (Auto) 0.5 L [place] # (Auto) 0.2 Eos # (Auto) 0.0 Baso # (Auto) 0.0 Nucleated RBC % (a uto) 0 Nucleated RBCs # 0.0 Sodium Potassium Chloride Carbon Dioxide Anion Gap BUN Creatinine GFR Calculation Glucose POC Glucose 301 H 294 H Calculated Osmolal ity Calcium Phosphorus Magnesium Total Bilirubin AST ALT Alkaline Phosphata se Total Protein Albumin Globulin Ur Random Sodium Complement C3c Complement C4c SARS-CoV-2 Ag (Rap id) 06/03/21 06/02/21 06/02/21 06:22 23:58 20:22 WBC RBC Hgb Hct MCV MCH MCHC RDW Plt Count MPV Neut % (Auto) Lymph % (Auto) [place] % (Auto) Eos % (Auto) Baso % (Auto) Neut # (Auto) Lymph # (Auto) [place] # (Auto) Eos # (Auto) Baso # (Auto) Nucleated RBC % (a uto) Nucleated RBCs # Sodium 129 L 128 L Potassium 4.3 Chloride 97 L Carbon Dioxide 20 L Anion Gap 16.3 BUN 32 H Creatinine 1.6 H GFR Calculation Not Reportable Glucose 282 H POC Glucose 312 H Calculated Osmolal ity 285 Calcium 8.2 L Phosphorus 2.5 Magnesium 2.1 Total Bilirubin 0.2 AST 12 ALT 8 Alkaline Phosphata se 80 Total Protein 6.0 L Albumin 3.5 Globulin 2.5 Ur Random Sodium Complement C3c Complement C4c SARS-CoV-2 Ag (Rap id) 06/02/21 06/02/21 06/02/21 18:25 18:25 18:25 WBC RBC Hgb Hct MCV MCH MCHC RDW Plt Count MPV Neut % (Auto) Lymph % (Auto) [place] % (Auto) Eos % (Auto) Baso % (Auto) Neut # (Auto) Lymph # (Auto) [place] # (Auto) Eos # (Auto) Baso # (Auto) Nucleated RBC % (a uto) Nucleated RBCs # Sodium 126 L Cancelled Potassium 4.3 Chloride 92 L Carbon Dioxide 21 L Anion Gap 17.3 BUN 37 H Creatinine 1.7 H GFR Calculation Not Reportable Glucose 270 H POC Glucose Calculated Osmolal ity 280 L Calcium 7.7 L Phosphorus Magnesium Total Bilirubin AST ALT Alkaline Phosphata se Total Protein Albumin Globulin Ur Random Sodium 27 Complement C3c Complement C4c SARS-CoV-2 Ag (Rap id) 06/02/21 06/02/21 06/02/21 16:58 15:43 13:29 WBC RBC Hgb Hct MCV MCH MCHC RDW Plt Count MPV Neut % (Auto) Lymph % (Auto) [place] % (Auto) Eos % (Auto) Baso % (Auto) Neut # (Auto) Lymph # (Auto) [place] # (Auto) Eos # (Auto) Baso # (Auto) Nucleated RBC % (a uto) Nucleated RBCs # Sodium 123 L Potassium 4.2 Chloride 91 L Carbon Dioxide 20 L Anion Gap 16.2 BUN 40 H Creatinine 1.9 H GFR Calculation Not Reportable Glucose 180 H POC Glucose 240 H Calculated Osmolal ity 270 L Calcium 7.5 L Phosphorus Magnesium Total Bilirubin AST ALT Alkaline Phosphata se Total Protein Albumin Globulin Ur Random Sodium Complement C3c Complement C4c SARS-CoV-2 Ag (Rap id) Negative 06/01/21 19:00 WBC RBC Hgb Hct MCV MCH MCHC RDW Plt Count MPV Neut % (Auto) Lymph % (Auto) [place] % (Auto) Eos % (Auto) Baso % (Auto) Neut # (Auto) Lymph # (Auto) [place] # (Auto) Eos # (Auto) Baso # (Auto) Nucleated RBC % (a uto) Nucleated RBCs # Sodium Potassium Chloride Carbon Dioxide Anion Gap BUN Creatinine GFR Calculation Glucose POC Glucose Calculated Osmolal ity Calcium Phosphorus Magnesium Total Bilirubin AST ALT Alkaline Phosphata se Total Protein Albumin Globulin Ur Random Sodium Complement C3c 125 Complement C4c 37 SARS-CoV-2 Ag (Rap id) Vitals: Last Vital Signs Temp 98.3 F 06/03/21 12:00 Pulse 73 06/03/21 12:00 Resp 18 06/03/21 12:00 BP 126/65 06/03/21 12:00 Pulse Ox 95 06/03/21 12:00 Discharge Plan Discharge Patient Disposition: Home Condition: Stable Prescriptions: New prednisone 20 mg tablet 20 mg PO DAILY 3 Days RF: 0 Continued atenolol 25 mg tablet 25 mg PO DAILY@08 RF: 0 budesonide 0.5 mg/2 mL suspension for nebulization 0.5 mg INHALATION BID PRN (Reason: Shortness Of Breath) RF: 0 fluoxetine 20 mg capsule 20 mg PO DAILY@08 RF: 0 esomeprazole magnesium 40 mg capsule,delayed release(DR/EC) 40 mg PO DAILY@08 RF: 0 Janumet XR 100-1,000 mg tablet, ER multiphase 24 hr 1 tab PO DAILY@08 RF: 0 Levemir U-100 Insulin 100 unit/mL solution 30 unit SUBCUT BEDTIME@2199 RF: 0 levothyroxine 125 mcg capsule 125 mcg PO DAILY@08 RF: 0 loratadine 10 mg tablet 10 mg PO DAILY@08 RF: 0 montelukast [Singulair] 10 mg tablet 10 mg PO DAILY@08 RF: 0 nitroglycerin [Nitrostat] 0.4 mg tablet, sublingual 0.4 mg SUBLINGUAL Q5M PRN (Reason: Chest Pain) RF: 0 Symbicort 160-4.5 mcg/actuation HFA aerosol inhaler 2 puff INHALATION BID RF: 0 rosuvastatin [Crestor] 40 mg tablet 40 mg PO BEDTIME@2199 RF: 0 tramadol 50 mg tablet 50 mg PO Q6H PRN (Reason: Pain) RF: 0 albuterol sulfate [ProAir HFA] 90 mcg/actuation HFA aerosol inhaler 2 puff INHALATION Q6H PRN (Reason: Shortness Of Breath) RF: 0 aspirin 81 mg Tablet,Chewable 81 mg PO DAILY@08 RF: 0 gabapentin 300 mg Capsule 300 mg PO TID@08,12,20 RF: 0 Alphagan P 0.1 % Drops 1 drp OPHTHALMIC (EYE) DAILY@08 RF: 0 Farxiga 5 mg Tablet 5 mg PO DAILY@08 RF: 0 naproxen 500 mg Tablet 500 mg PO BID RF: 0 Lumigan 0.01 % drops 1 drp ophthalmic (eye) DAILY RF: 0 Held hydrochlorothiazide 25 mg tablet 25 mg PO DAILY@08 RF: 0 Hold Instructions: Resume on 06/13/21. olmesartan 40 mg tablet 40 mg PO DAILY@08 RF: 0 Hold Instructions: Resume on 06/17/21. furosemide 40 mg Tablet 40 mg PO DAILY RF: 0 Hold Instructions: Resume on 06/13/21. Discharge Orders: Discharge Order (Routine); Ordered 06/03/21 Ordered By: Quan Calixto Referrals: Vikas Candelaria MD [Primary Care Provider] - 06/12/21 2:15 pm (APPOINTMENT WITH DR ROMANO ON AT 2:15 PM) Discharge Diet: Regular Discharge Activity: Resume usual activity Patient Instructions: Abdominal Pain - Adult, Prednisone (By mouth), Acute Kidney Injury (DC), Opioid Safety Discharge Attestations Time Spent in Discharge Care*: less than 30 min Specific Discharge Activities: educating patient, educating and/or supporting family/caregiver, discussing with pcp/other providers, discussing with case management coordinator/social workers/dc planners and documenting/other paperwork Status at Discharge: Cognitive status at discharge: cognitively intact, Behavioral status at discharge: cooperative, Functional status at discharge: independent ambulation Overall status at discharge: patient is back to baseline Quality Metrics Clinical Quality Measures During this hospital stay, did patient experience: None Coding Level of Care Code Acute Chg FW DC note Diagnoses Abdominal pain R10.9 Elevated troponin R77.8 Acute hyponatremia E87.1 Acute kidney injury superimposed on CKD N17.9; N18.9 HTN (hypertension) I10 Dyslipidemia E78.5 ASHD (arteriosclerotic heart disease) I25.10 Lesion of spleen D73.89
--- NOTE | 2021-06-03 14:51 | PC.NURSE ---
patient's daughter at bedside. patient given discharge instructions and verbalized understanding of instructions. patient taken to private vehicle via wheelchair.
--- NOTE | 2021-06-04 10:17 | PC.SOCIAL ---
discharge follow up call made. patient reports she is doing good. filled prednisone prescription. no needs voiced.
[2021-06-06 15:29] LABS: CENTROMERE B ANTIBODY <1.0 NEG AI (<1.0 NEG); JO-1 ANTIBODY <1.0 NEG AI (<1.0 NEG); RNP ANTIBODY <1.0 NEG AI (<1.0 NEG); SCL-70 ANTIBODY <1.0 NEG AI (<1.0 NEG); SJOGREN'S ANTIBODY (SS-A) <1.0 NEG AI (<1.0 NEG); SM ANTIBODY <1.0 NEG AI (<1.0 NEG); SS-B <1.0 NEG AI (<1.0 NEG)
[2021-06-06 16:13] LABS: ANA SCREEN, IFA NEGATIVE (NEGATIVE); THYROID PEROXIDASE ANTIBODIES 1 IU/mL (<9)
--- NOTE | 2021-06-07 08:22 | PC.SOCIAL ---
[facility] follow up. Skate Boarder will updated patient.
--- NOTE | 2021-06-10 09:06 | PC.SOCIAL ---
[facility] sent a fax with labs that weren't able to be drawn due to not have sufficient amount of blood. spoke with Dr. Brothers and he says patient can just follow up with pcp, no need to have reordered. will update patient and pcp.
--- NOTE | 2021-06-10 10:25 | PC.SOCIAL ---
labs that didn't get results by [facility], sent to [facility], for her follow up appointment.
[2021-06-13 19:07] LABS: DNA AB (DS) CRITHIDIA,IFA NEGATIVE (NEGATIVE)
--- NOTE | 2021-06-14 09:36 | PC.SOCIAL ---
Sent immunology reports to Dr Candelaria PCP once received. Notified patient of negative results as well.
== END 2021-06-03 14:52 | disposition home or self-care (01) ==
LOC: ER 12:08 → MEDSURG 16:33
PROVIDERS: Internal Medicine Nephrology; Admitting Provider Family Medicine; Emergency Provider Emergency Medicine; PCP Family Medicine; Visit Provider Internal Medicine
DX: R10.9 Unspecified abdominal pain (principal); R77.8 Other specified abnormalities of plasma proteins; E87.1 Hypo-osmolality and hyponatremia; N17.9 Acute kidney failure, unspecified; E11.22 Type 2 diabetes mellitus with diabetic chronic kidney disease; I12.9 Hypertensive chronic kidney disease with stage 1 through stage 4 chronic kidney disease, or unspecified chronic kidney disease; N18.30 Chronic kidney disease, stage 3 unspecified; E78.5 Hyperlipidemia, unspecified; I25.10 Atherosclerotic heart disease of native coronary artery without angina pectoris; D73.89 Other diseases of spleen; Z79.82 Long term (current) use of aspirin; Z87.891 Personal history of nicotine dependence
CPT/HCPCS: 36415; 36416; 71045; 71250; 74177; 76705; 80048; 80053; 80306; 81001; 81003; 82436; 82533; 82550; 82570; 82962; 83605; 83615; 83690; 83735; 83880; 84100; 84133; 84145; 84295; 84300; 84443; 84484; 85025; 85651; 85999; 86160; 86162; 86235; 86255; 86376; 86431; 87426; 93005; 93306; 94640; 94664; 96361; 96365; 96372; 96375; 99285; G0378; J0696; J1650; J1815; J3490; J7030; J7050; J7512; Q3014; Q9967

== ENCOUNTER 2021-07-20 12:52 | Emergency (ER) | payer MEDICARE, MEDICAID, SELFPAY ==
[2021-07-20 13:12] VITALS: BP 90/54; PULSE 73; RESP 18; TEMP 37.7; O2SAT 94
[2021-07-20 13:39] VITALS: BP 102/50; BP 96/57; PULSE 68; RESP 18; O2SAT 99
--- NOTE | 2021-07-20 14:07 | ECG_ITS ---
[facility] Test Date: 2021-07-20 Pat Name: Sarah Petersen Department: Room: Gender: Female Processing Rep: : 1945 Requested By: Lucius Medina Order Number: [id number] Reading MD: MAUREEN CAPPS Measurements Intervals [place] Rate: 70 P: 70 AK: 185 QRS: 8 QRSD: 88 T: 70 QT: 390 QTc: 423 Interpretive Statements SINUS RHYTHM LOW QRS VOLTAGE [QRS DEFLECTION < 0.5/1.0 mV IN LIMB/CHEST LEADS] Compared to ECG 05/31/2021 16:48:10 Sinus bradycardia no longer present Prolonged QT interval no longer present Electronically Signed On 07-22-2021 0:19:05 CDT by MAUREEN CAPPS [id number]
--- NOTE | 2021-07-20 14:14 | ED_ITS ---
HPI - General Adult General: Chief complaint: Weakness Stated complaint: LOW BP,COUGH Time Seen by Provider: 07/20/21 13:25 History of Present Illness: HPI narrative: Patient is a 76-year-old female with a history of CKD, chest pain, hypertension, hyperlipidemia who presents the emergency room for concerns of low blood pressure . Patient was taking her blood pressure in her forearm today and noticed that blood pressure was 90/50. Patient's friend took her blood pressure again manually and noticed the blood pressure similarly 90/50. Patient has no complaints of chest pain shortness breath, lightheadedness, abdominal complaints, complaints at this time. Patient came to the emergency room for abnormal blood pressure reading. Reports mild generalized weakness at this time. Onset: earlier today Duration: ongoing Location:home Severity: moderate Review of Systems Narrative: Constitutional: No fever, no chills. HEENT: No vision changes CV: No chest pain, no palpitations PULM: no cough, no dyspnea. GI: No abdominal pain, no N/V/D. : No dysuria MSKEL: No muscle pain SKIN: No new rashes, no lesions. NEURO: No headache, no focal weakness. +generalized weakness HEME: No visible bruises PSYCH: Normal mood PFSH ED PFSH: Medical History Abdominal pain Acute hyponatremia Acute kidney injury superimposed on CKD ASHD (arteriosclerotic heart disease) Chest pain Diabetes 1.5, managed as type 2 Dyslipidemia Elevated troponin GERD (gastroesophageal reflux disease) HTN (hypertension) Lesion of spleen Surgical History S/P PTCA (percutaneous transluminal coronary angioplasty) Status post creation of pericardial window Family History Mother Cancer Diabetes Social History Smoking and tobacco status: former smoker Alcohol intake: never Female Reproductive History: Date of last menstrual period: 12/13/20 Physical Exam Narrative: EXAM NARRATIVE: Head: Atraumatic Eyes: PERRL, conjunctiva without injection ENT: Mucous membrane moist NECK: Supple, ROM intact LUNGS: LCTAB, no crackles/rhonchi CV: RRR ABDOMEN: Soft, nontender in all quadrants EXTREMITY: Normal ROM SKIN: No rash or erythema NEURO: Awake and alert, no focal motor deficits PSYCH: Normal mood and affect Course Vital Signs: Vital signs: Vital Signs Temperature 99.8 F H 07/20/21 13:12 Pulse Rate 57 L 07/20/21 16:25 Respiratory Rate 18 07/20/21 16:25 Blood Pressure 112/64 07/20/21 16:25 Pulse Oximetry 95 07/20/21 16:25 MDM - General Adult MDM Narrative: Medical decision making narrative: 76-year-old female with a history of hypertension, CKD, hyperlipidemia who presents the emergency room for concerns for low blood pressure reading x2 and generalized weakness. Patient has no focal complaints at this time. Exam within normal limit. On arrival, patient had a blood pressure 105/65 Workup: CBC, BMP, EKG, troponin At the present time, patient's work-up is significant for a new cr of 2.3 up from baseline of 2. Patient's troponin similar to baseline x2. EKG is nonischemic. I discussed Cr finding with patient and offer inpatient admission for IV fluids. However upon hearing this, patient tells me that she is able to urinate, she can drink water and follow-up with her primary care doctor in 2 days. Patient has a manager pool for which she sees outpatient. Patient asked close follow-up rather than admission. Have warned patient and discussed the risk of leaving today which includes worsening kidney injury and possible dialysis. Patient verbalized understanding of the risks and still elects to go home at this time. Patient reassures me that she will follow-up with her [facility] care provider in the next 48 hours for reassessment her kidney. Patient was able to drink water today in the emergency room without any difficulty. At the present time, do not suspect generalized weakness secondary to ACS. Patient does not have any exertional chest pain shortness of breath, or lightheadedness at this time. EKG is nonischemic. I offered troponin testing however patient d eclined citing desire to go home. Explained the risk which includes possible dysrhythmia, even . Patient still verbalized desire to forego troponin testing today. Of note, patient was noted to have a low-grade fever of 99.8. Patient tells me that she has a cough and her grandson is sick at home with RSV. At this present time, I have offered additional work-up, at this time patient declined. White count of 5.3 today. Hemoglobin of 11.0 up from baseline. Disposition: Discharge. Patient counseled regarding diagnostic impression, treatment plan. Patient given ED strict return precautions to return for continuation, worsening, or development of new symptoms. Instructed to f/u w/ PCP regarding symptoms today. Patient verbalized understanding. Lab Data: Labs: Lab Results 07/20/21 07/20/21 14:30 14:30 WBC 5.3 10^3/uL 10^3/ uL (4.0-10.0) RBC 3.94 10^6/uL L 10 ^6/uL (4.1-5.3) Hgb 11.0 g/dL L g/dL (11.5-15.3) Hct 36.0 % L % (37.0-47.0) MCV 91.4 fl fl (81-99) MCH 27.9 pg L pg (28.0-34.0) MCHC 30.6 g/dL g/dL (30.0-36.0) RDW 13.2 % % (12.1-15.1) Plt Count 220 10^3/cmm 10^3 /cmm (130-400) MPV 11.0 fL H fL (7.4-10.4) Neut % (Auto) 66.7 % % Lymph % (Auto) 15.8 % % [place] % (Auto) 16.3 % % Eos % (Auto) 0.2 % % Baso % (Auto) 0.4 % % Neut # (Auto) 3.51 10^3/uL 10^3 /uL (1.8-7.7) Lymph # (Auto) 0.8 10^3/uL 10^3/ uL (0.8-4.8) [place] # (Auto) 0.9 10^3/uL 10^3/ uL (0.2-0.9) Eos # (Auto) 0.0 10^3/uL 10^3/ uL (0.0-0.8) Baso # (Auto) 0.0 10^3/uL 10^3/ uL (0.0-0.1) Nucleated RBC % (a uto) 0 % % Nucleated RBCs # 0.0 /100WBC /100W BC Sodium 130 mmol/L L mmol /L (136-145) Potassium 5.0 mmol/L mmol/L (3.5-5.1) Chloride 93 mmol/L L mmol/ L (98-107) Carbon Dioxide 25 mmol/L mmol/L (22-29) Anion Gap 17.0 (5-19) BUN 54 mg/dL H mg/dL (8-23) Creatinine 2.3 mg/dL H mg/dL (0.5-0.9) GFR Calculation Not Reportable Glucose 252 mg/dL H mg/dL (65-115) Calculated Osmolal ity 293 mOsm/kg mOsm/ kg (285-295) Calcium 8.8 mg/dL mg/dL (8.5-10.5) Discharge Plan Discharge Patient Disposition: Home Clinical Impression: Encounter for medical screening examination Condition: Stable Prescriptions: No Action atenolol 25 mg tablet 25 mg PO DAILY@08 RF: 0 budesonide 0.5 mg/2 mL suspension for nebulization 0.5 mg INHALATION BID PRN (Reason: Shortness Of Breath) RF: 0 fluoxetine 20 mg capsule 20 mg PO DAILY@08 RF: 0 esomeprazole magnesium 40 mg capsule,delayed release(DR/EC) 40 mg PO DAILY@08 RF: 0 hydrochlorothiazide 25 mg tablet 25 mg PO DAILY@08 RF: 0 Hold Instructions: Resume on 06/13/21. Janumet XR 100-1,000 mg tablet, ER multiphase 24 hr 1 tab PO DAILY@08 RF: 0 Levemir U-100 Insulin 100 unit/mL solution 30 unit SUBCUT BEDTIME@2200 RF: 0 levothyroxine 125 mcg capsule 125 mcg PO DAILY@08 RF: 0 loratadine 10 mg tablet 10 mg PO DAILY@08 RF: 0 montelukast [Singulair] 10 mg tablet 10 mg PO DAILY@08 RF: 0 nitroglycerin [Nitrostat] 0.4 mg tablet, sublingual 0.4 mg SUBLINGUAL Q5M PRN (Reason: Chest Pain) RF: 0 olmesartan 40 mg tablet 40 mg PO DAILY@08 RF: 0 Hold Instructions: Resume on 06/17/21. Symbicort 160-4.5 mcg/actuation HFA aerosol inhaler 2 puff INHALATION BID RF: 0 rosuvastatin [Crestor] 40 mg tablet 40 mg PO BEDTIME@2200 RF: 0 tramadol 50 mg tablet 50 mg PO Q6H PRN (Reason: Pain) RF: 0 albuterol sulfate [ProAir HFA] 90 mcg/actuation HFA aerosol inhaler 2 puff INHALATION Q6H PRN (Reason: Shortness Of Breath) RF: 0 aspirin 81 mg Tablet,Chewable 81 mg PO DAILY@08 RF: 0 gabapentin 300 mg Capsule 300 mg PO TID@08,12,20 RF: 0 Alphagan P 0.1 % Drops 1 drp OPHTHALMIC (EYE) DAILY@08 RF: 0 Farxiga 5 mg Tablet 5 mg PO DAILY@08 RF: 0 furosemide 40 mg Tablet 40 mg PO DAILY RF: 0 Hold Instructions: Resume on 06/13/21. naproxen 500 mg Tablet 500 mg PO BID RF: 0 Lumigan 0.01 % drops 1 drp ophthalmic (eye) DAILY RF: 0 Discharge Orders: Discharge ED (Routine); Ordered 07/20/21 Ordered By: Lucius Medina Referrals: Vikas Candelaria MD [Primary Care Provider] - Discharge Diet: Advance as tolerated Discharge Activity: Resume usual activity Patient Instructions: Hypotension (ED) Activity Restrictions/Additional Instructions: Come back to the emergency room if any other focal complaints at this time. Come back if your blood pressure gets lower, or if you have any new or concerning complaints. Coding Level of Care Code ED [employer] Worker for Cyndie Mo
[2021-07-20 14:50] LABS: Basophils % 0.4 %; Eosinophils % 0.2 %; Lymphocytes # 0.8 10^3/uL (0.8-4.8); Lymphocytes % 15.8 %; Mean Corpuscular HGB Conc 30.6 g/dL (30.0-36.0); Mean Corpuscular Hemoglobin 27.9 pg (28.0-34.0); Mean Corpuscular Volume 91.4 fl (81-99); Monocytes # 0.9 10^3/uL (0.2-0.9); Monocytes % 16.3 %; Neutrophils # 3.51 10^3/uL (1.8-7.7); Neutrophils % 66.7 %; Nucleated Red Blood Cells % 0 %; Platelet Count 220 10^3/cmm (130-400); Red Blood Count 3.94 10^6/uL (4.1-5.3); Red Cell Distribution Width 13.2 % (12.1-15.1); White Blood Count 5.3 10^3/uL (4.0-10.0)
[2021-07-20 15:03] LABS: Blood Urea Nitrogen 54 mg/dL (8-23); Calcium 8.8 mg/dL (8.5-10.5); Carbon Dioxide 25 mmol/L (22-29); Chloride 93 mmol/L (98-107); Creatinine Clr Calc Pharmacy 23.5852; Glucose 252 mg/dL (65-115); Osmolality Calculated 293 mOsm/kg (285-295); Sodium 130 mmol/L (136-145)
[2021-07-20 16:25] VITALS: BP 112/64; PULSE 57; RESP 18; O2SAT 95
== END 2021-07-20 16:26 | disposition home or self-care (01) ==
PROVIDERS: Emergency Provider Emergency Medicine; PCP Family Medicine
DX: I95.9 Hypotension, unspecified (principal); Z79.02 Long term (current) use of antithrombotics/antiplatelets; Z79.891 Long term (current) use of opiate analgesic; Z79.51 Long term (current) use of inhaled steroids; Z79.01 Long term (current) use of anticoagulants
CPT/HCPCS: 36415; 80048; 85025; 93005; 99282

== ENCOUNTER 2021-07-25 12:25 | Emergency (ER) | payer MEDICARE, MEDICAID, SELFPAY ==
[2021-07-25 12:39] VITALS: BP 92/56; PULSE 61; RESP 18; TEMP 37.2; O2SAT 95
--- NOTE | 2021-07-25 13:04 | XR_ITS ---
WS: [id number] Portable AP upright chest, 07/25/2021 Clinical Data: covid Comparison: Portable chest, 05/31/2021. Findings: No nodules, masses or effusions are seen. The heart is enlarged. The pulmonary vascularity is not increased. No pneumonia or pneumothorax is seen. XR/XR chest 1V portable 72110 Impression: Cardiomegaly
--- NOTE | 2021-07-25 13:44 | ED_ITS ---
HPI - COVID General: Chief Complaint: COVID symptoms Stated Complaint: COVID+: LOW O2 (83%-89%) Time Seen by Provider: 07/25/21 13:04 Triage information: Exposure to COVID + person last 14 days History of Present Illness: HPI Narrative: 76-year-old female who presents to the emergency room with complaints of testing positive for Covid 3 days ago. Said her symptoms started 10 to 14 days ago.She has had myalgias. They reported hypoxia at home while at rest however here she is not having any hypoxia. She does still have a low-grade fever she denies any diarrhea or significant myalgias. She had not previously received monoclonal antibodies. Prior testing date: 07/22/21 COVID 19 common symptoms: positive fever(s), chills, cough, non-productive cough, dyspnea and fatigue; negative productive cough, body aches, headache(s), loss of sense of smell and/or taste, throat pain, nasal congestion, nausea, vomiting, diarrhea or chest tightness COVID 19 other sytmptoms: negative requiring oxygen Onset (ago): day(s) (-) Pertinent comorbid conditions: diabetes, hypertension and heart disease Treatment prior to arrival: none COVID Results: SARS-CoV-2 Antigen (Rapid) Negative (Negative) 06/02/21 15:43 06/02/21 Review of Systems Const: Reports: fever(s), chills and fatigue; Denies: body aches ENMT: Denies: throat pain or nasal congestion Resp: Reports: dyspnea and non-productive cough; Denies: productive cough GI: Denies: nausea, vomiting or diarrhea Neuro: Denies: headache(s) PFS ED PFSH: Medical History (Updated 07/30/21 @ 15:20 by Jimbo Andrew DO) Abdominal pain Acute hyponatremia Acute kidney injury superimposed on CKD ASHD (arteriosclerotic heart disease) Chest pain Diabetes 1.5, managed as type 2 Dyslipidemia Elevated troponin GERD (gastroesophageal reflux disease) HTN (hypertension) Lesion of spleen Surgical History S/P PTCA (percutaneous transluminal coronary angioplasty) Status post creation of pericardial window Family History Mother Cancer Diabetes Social History Smoking and tobacco status: former smoker Alcohol intake: never Female Reproductive History: Date of last menstrual period: 12/13/20 Physical Exam Const: COMMON NORMALS: no acute distress GENERAL APPEARANCE: cooperative and comfortable ORIENTATION/CONSCIOUSNESS: Yes awake, Yes oriented to person, Yes oriented to place and Yes oriented to time HENMT: COMMON NORMALS: normocephalic, atraumatic and hearing grossly normal bilaterally HEAD & SCALP: normocephalic and atraumatic Neck/C-Spine: COMMON NORMALS: no JVD Resp: COMMON NORMALS: normal respiratory effort, No retractions, No use of accessory muscles and clear to auscultation bilaterally AUSCULTATION: clear to auscultation bilaterally Cardio: COMMON NORMALS: no JVD, regular rate, regular rhythm and No murmurs present (Cardio) RATE: regular rate RHYTHM: regular rhythm GI: COMMON NORMALS: Soft to palpation and No hepatosplenomegaly present AUSCULTATION: Yes normoactive bowel sounds PALPATION: Yes Soft to palpation, No Tenderness to palpation present (GI), No Guarding due to palpation present (GI) and Yes No hepatosplenomegaly present Extremity: COMMON NORMALS: normal to inspection, capillary refill normal, no clubbing, cyanosis or edema, no calf tenderness and no pedal edema Neuro: SENSORIUM/ORIENTATION: Yes oriented to person, Yes oriented to place and Yes oriented to time Skin: COMMON NORMALS: no rashes or lesions noted GENERAL SKIN EXAM: no rashes or lesions noted Course Vital Signs: Vital signs: Vital Signs Temperature 99.0 F 07/25/21 12:39 Pulse Rate 62 07/25/21 15:54 Respiratory Rate 17 07/25/21 15:54 Blood Pressure 92/56 07/25/21 12:39 Pulse Oximetry 94 07/25/21 15:54 MDM - COVID MDM Narrative: Medical decision making narrative: Labs imaging and EKG reviewed on the chart. Admit for COVID 19 pneumonitis anemia chronic renal failure patient at significant risk for deterioration I think she needs treated here. Discussed with hospitalist orders written Lab Data: Labs: Lab Results 07/25/21 07/25/21 07/25/21 13:44 13:52 13:52 WBC 7.4 10^3/uL 10^3/ uL (4.0-10.0) RBC 3.83 10^6/uL L 10 ^6/uL (4.1-5.3) Hgb 10.8 g/dL L g/dL (11.5-15.3) Hct 33.4 % L % (37.0-47.0) MCV 87.2 fl fl (81-99) MCH 28.2 pg pg (28.0-34.0) MCHC 32.3 g/dL g/dL (30.0-36.0) RDW 13.5 % % (12.1-15.1) Plt Count 198 10^3/cmm 10^3 /cmm (130-400) MPV 11.3 fL H fL (7.4-10.4) Neut % (Auto) 76.7 % % Lymph % (Auto) 16.3 % % [place] % (Auto) 6.4 % % Eos % (Auto) 0.0 % % Baso % (Auto) 0.1 % % Neut # (Auto) 5.64 10^3/uL 10^3 /uL (1.8-7.7) Lymph # (Auto) 1.2 10^3/uL 10^3/ uL (0.8-4.8) Clay # (Auto) 0.5 10^3/uL 10^3/ uL (0.2-0.9) Eos # (Auto) 0.0 10^3/uL 10^3/ uL (0.0-0.8) Baso # (Auto) 0.0 10^3/uL 10^3/ uL (0.0-0.1) Nucleated RBC % (a uto) 0 % % Nucleated RBCs # 0.0 /100WBC /100W BC Specimen Type Arterial Sample Site Brachial, left ABG pH 7.44 (7.35-7.45) ABG pCO2 32.4 mmHg L mmHg (35-45) ABG pO2 68.5 mmHg L mmHg (80.0-100.0) ABG HCO3 21.7 mmol/L L mmo l/L (22-26) ABG Base Excess -1.9 mmol/L mmol/ L (-2.0-2.0) Jun Test Pos Hematocrit 33.3 % L % (37-47) O2 Delivery Device Room air FiO2 21.0 % % Hand Bobbin Cleaner ID [place] Sodium 127 mmol/L L mmol /L (136-145) Potassium 4.8 mmol/L mmol/L (3.5-5.1) Chloride 88 mmol/L L mmol/ L (98-107) Carbon Dioxide 23 mmol/L mmol/L (22-29) Anion Gap 20.8 H (5-19) BUN 78 mg/dL H mg/dL (8-23) Creatinine 2.0 mg/dL H mg/dL (0.5-0.9) GFR Calculation Not Reportable Glucose 201 mg/dL H mg/dL (65-115) Calculated Osmolal ity 293 mOsm/kg mOsm/ kg (285-295) Lactic Acid Calcium 8.3 mg/dL L mg/dL (8.5-10.5) Total Bilirubin 0.3 mg/dL mg/dL (0.15-1.2) AST 17 U/L U/L (0-32) ALT 9 U/L U/L (0-33) Alkaline Phosphata se 61 IU/L IU/L (35-105) C-Reactive Protein 32.4 mg/L H mg/L (0.0-4.9) Total Protein 6.5 g/dL L g/dL (6.6-8.7) Albumin 3.8 g/dL g/dL (3.5-5.2) Globulin 2.7 g/dL g/dL (1.3-4.6) 07/25/21 13:52 WBC RBC Hgb Hct MCV MCH MCHC RDW Plt Count MPV Neut % (Auto) Lymph % (Auto) [place] % (Auto) Eos % (Auto) Baso % (Auto) Neut # (Auto) Lymph # (Auto) Clay # (Auto) Eos # (Auto) Baso # (Auto) Nucleated RBC % (a uto) Nucleated RBCs # Specimen Type Sample Site ABG pH ABG pCO2 ABG pO2 ABG HCO3 ABG Base Excess Jun Test Hematocrit O2 Delivery Device FiO2 Hand Bobbin Cleaner ID Sodium Potassium Chloride Carbon Dioxide Anion Gap BUN Creatinine GFR Calculation Glucose Calculated Osmolal ity Lactic Acid 1.4 mmol/L mmol/L (0.5-2.2) Calcium Total Bilirubin AST ALT Alkaline Phosphata se C-Reactive Protein Total Protein Albumin Globulin COVID Results: SARS-CoV-2 Antigen (Rapid) Negative (Negative) 06/02/21 15:43 06/02/21 Discharge Plan Discharge Patient Disposition: Admitted As Inpatient Clinical Impression: COVID-19, Anemia, CRF (chronic renal failure) Condition: Stable Coding Level of Care Code ED Configuration Management Specialist for g Fwd Exam Comprehensive
[2021-07-25 13:56] LABS: ABG PCO2 32.4 mmHg (35-45); ABG PH Result 7.44 (7.35-7.45); Arterial Blood Gas Hematocrit 33.3 % (37-47); Base Excess ABG -1.9 mmol/L (-2.0-2.0); Blood Gas Allen Test Pos; Blood Gas Operator Identificat MONRO; Blood Gas Sample Site Brachial, left; Blood Gas Sample Type Arterial; HCO3 ABG 21.7 mmol/L (22-26); Oxygen Device ROOM AIR; PO2 ABG 68.5 mmHg (80.0-100.0)
[2021-07-25 13:57] LABS: Basophils % 0.1 %; Hematocrit 33.4 % (37.0-47.0); Hemoglobin 10.8 g/dL (11.5-15.3); Lymphocytes # 1.2 10^3/uL (0.8-4.8); Lymphocytes % 16.3 %; Mean Corpuscular HGB Conc 32.3 g/dL (30.0-36.0); Mean Corpuscular Hemoglobin 28.2 pg (28.0-34.0); Mean Corpuscular Volume 87.2 fl (81-99); Mean Platelet Volume 11.3 fL (7.4-10.4); Monocytes # 0.5 10^3/uL (0.2-0.9); Monocytes % 6.4 %; Neutrophils # 5.64 10^3/uL (1.8-7.7); Neutrophils % 76.7 %; Nucleated Red Blood Cells % 0 %; Platelet Count 198 10^3/cmm (130-400); Red Blood Count 3.83 10^6/uL (4.1-5.3); Red Cell Distribution Width 13.5 % (12.1-15.1); White Blood Count 7.4 10^3/uL (4.0-10.0)
[2021-07-25 14:07] VITALS: O2SAT 95
[2021-07-25 14:31] LABS: Alanine Aminotransferase 9 U/L (0-33); Albumin Level 3.8 g/dL (3.5-5.2); Alkaline Phosphatase 61 IU/L (35-105); Anion Gap 20.8 (5-19); Aspartate Amino Transferase 17 U/L (0-32); Blood Urea Nitrogen 78 mg/dL (8-23); C Reactive Protein 32.4 mg/L (0.0-4.9); Calcium 8.3 mg/dL (8.5-10.5); Carbon Dioxide 23 mmol/L (22-29); Chloride 88 mmol/L (98-107); Globulin 2.7 g/dL (1.3-4.6); Glucose 201 mg/dL (65-115); Osmolality Calculated 293 mOsm/kg (285-295); Potassium 4.8 mmol/L (3.5-5.1); Sodium 127 mmol/L (136-145); Total Bilirubin 0.3 mg/dL (0.15-1.2); Total Protein 6.5 g/dL (6.6-8.7)
[2021-07-25 14:32] LABS: Lactic Sepsis W/Reflex 1.4 mmol/L (0.5-2.2)
[2021-07-25 15:54] VITALS: PULSE 62; RESP 17; O2SAT 94
== END 2021-07-25 15:55 | disposition admitted as inpatient to this hospital (09) ==
PROVIDERS: Emergency Provider Family Medicine; PCP Family Medicine
DX: U07.1 COVID-19 (principal); N18.9 Chronic kidney disease, unspecified; D63.1 Anemia in chronic kidney disease; Z87.891 Personal history of nicotine dependence
CPT/HCPCS: 36600; 71045; 80053; 82803; 83605; 85025; 86140; 99282

== ENCOUNTER 2021-07-30 07:22 | Inpatient (IN) | payer MEDICARE, MEDICAID, SELFPAY ==
[2021-07-30] VITALS (12 sets, daily range): BP systolic 83–119; BP diastolic 45–69; PULSE 18–62; RESP 16–58; TEMP 36.6–37.2; O2SAT 87–99; BMI 29.1
--- NOTE | 2021-07-30 08:25 | XR_ITS ---
WS: [id number] PORTABLE CHEST HISTORY: dyspnea/cough COMPARISON: 07/25/2021 Hyperinflated lungs. Very mild increase in the multilobar interstitial opacification since the prior study. No areas of very dense consolidation. No pleural effusion or pneumothorax. Cardiac size: Normal. Mediastinum/Aorta: Mild atherosclerosis aorta. No osseous abnormality seen. XR/XR chest 1V portable [id number] IMPRESSION: Mild increase in the multi lobar scattered areas of pneumonitis.
--- NOTE | 2021-07-30 08:26 | CT_ITS ---
WS: [id number] CT CHEST ANGIOGRAPHY WITH REFORMATS HISTORY: dyspnea TECHNIQUE: Contiguous axial images are obtained through the chest during arterial injection of intrav enous contrast. Images are reconstructed to evaluate the pulmonary arteries. MIP imaging also reviewe d. All CT scans at [facility] use at least one of these dose optimization techniques: automat ed exposure control; mA and/or kV adjustment per patient size (includes targeted exams where dose is matched to clinical indication); or iterative reconstruction. CONTRAST: Omnipaque 350; 95 mL IV. DLP: 615.51 mGy.cm COMPARISON: 05/31/2021 Excellent opacification of the pulmonary artery. No filling defects or pulmonary embolism identified. Pulmonary artery size is slightly enlarged. Mild atherosclerosis aorta. Heart size is normal. No RIG HT heart strain. There are numerous mediastinal and hilar lymph nodes which are enlarged. RIGHT parat jose eduardo lymph node measures 13 mm. Additional numerous and mildly prominent lymph nodes in the medias tinum and hilar regions. Similar to 05/31/2021. Additional multi lobar scattered ill-defined pulmonary opacifications. Groundglass attenuation within these opacifications since these are wedge-shaped. No dense area of consolidation. No pericardial or pleural effusions. LEFT adrenal adenoma measures 16 x 12 mm. Small hiatal hernia. Cholelithiasis without evidence for ac [place] cholecystitis. Extensive advanced spondylitic changes throughout the thoracic and visualized lumbar spine. CT/CT angio chest PE protcl [id number] IMPRESSION: 1. No pulmonary embolism. 2. Multilobar groundglass opacifications consistent with pneumonitis/Covid 19. 3. Stable indeterminate mediastinal and hilar lymphadenopathy. No change since 05/31/2021. 4. Stable LEFT adrenal adenoma.
--- NOTE | 2021-07-30 08:26 | W.ED.COVID ---
HPI - COVID General: Chief Complaint: COVID symptoms Stated Complaint: Low O2, High HR, Head Congestion Time Seen by Provider: 07/30/21 07:34 Triage information: No fever, cough or shortness of breath. Exposure to COVID + person last 14 days History of Present Illness: HPI Narrative: 76-year-old female presents emergency room complaining of hypoxia. States she woke up this morning was extremely short of breath and gasping. That was while she was still sitting in bed. She got up to get around some the symptoms became worse. She has a history of some mild COPD and is on Symbicort and albuterol as well as Pulmicort nebulizers. She was not previously immunized nor is she previously been known to have Covid she tested positive on [facility] she has not received monoclonal antibodies. MD complaint: known COVID positive Prior covid testing: yes, results known Prior testing date: 07/24/21 COVID 19 common symptoms: positive fever(s), chills, cough, non-productive cough, dyspnea, fatigue, body aches and nasal congestion; negative nausea, vomiting or diarrhea COVID 19 other sytmptoms: positive respiratory distress; negative chest pain Onset (ago): hour(s) Severity: mild Pertinent comorbid conditions: diabetes and heart disease Treatment prior to arrival: none COVID Results: SARS-CoV-2 Antigen (Rapid) Negative (Negative) 06/02/21 15:43 06/02/21 Review of Systems Const: Reports: fever(s), chills, body aches and fatigue ENMT: Reports: nasal congestion Card: Denies: chest pain, edema, dyspnea on exertion or orthopnea Resp: Reports: dyspnea and non-productive cough GI: Denies: abdominal pain, nausea, vomiting, hematemesis, coffee ground emesis, diarrhea, constipation, bloating, hematochezia or melena : Denies: flank pain, difficulty voiding, dysuria, urinary frequency or urinary urgency Skin/Breast: Denies: rash or pruritus PFSH ED PFSH: Medical History (Updated 07/30/21 @ 15:20 by Jimbo Andrew DO) Abdominal pain Acute hyponatremia Acute kidney injury superimposed on CKD ASHD (arteriosclerotic heart disease) Chest pain Diabetes 1.5, managed as type 2 Dyslipidemia Elevated troponin GERD (gastroesophageal reflux disease) HTN (hypertension) Lesion of spleen Surgical History S/P PTCA (percutaneous transluminal coronary angioplasty) Status post creation of pericardial window Family History Mother Cancer Diabetes Social History Smoking and tobacco status: former smoker Alcohol intake: never Female Reproductive History: Date of last menstrual period: 12/13/20 Physical Exam Const: COMMON NORMALS: no acute distress GENERAL APPEARANCE: cooperative and comfortable ORIENTATION/CONSCIOUSNESS: Yes awake, Yes oriented to person, Yes oriented to place and Yes oriented to time HENMT: COMMON NORMALS: normocephalic, atraumatic and hearing grossly normal bilaterally HEAD & SCALP: normocephalic and atraumatic Eye: COMMON NORMALS: Equal, round and reactive pupils present, EOMs intact bilaterally, conjunctivae normal and no scleral icterus CONJUNCTIVA: Yes conjunctivae normal PUPIL: Yes Equal, round and reactive pupils present Neck/C-Spine: COMMON NORMALS: full ROM, no lymphadenopathy, supple and no JVD Lymph: LYMPHATIC: no lymphadenopathy noted and no lymphedema noted Resp: AUSCULTATION: rhonchi and wheezes Cardio: COMMON NORMALS: no JVD, regular rate, regular rhythm and No murmurs present (Cardio) RATE: regular rate RHYTHM: regular rhythm GI: COMMON NORMALS: Soft to palpation and No hepatosplenomegaly present AUSCULTATION: Yes normoactive bowel sounds PALPATION: Yes Soft to palpation, No Tenderness to palpation present (GI), No Guarding due to palpation present (GI) and Yes No hepatosplenomegaly present Extremity: COMMON NORMALS: normal to inspection, capillary refill normal, no clubbing, cyanosis or edema, no calf tenderness and no pedal edema Neuro: SENSORIUM/ORIENTATION: Yes oriented to person, Yes oriented to place and Yes oriented to time Skin: COMMON NORMALS: no rashes or lesions noted GENERAL SKIN EXAM: no rashes or lesions noted Course Vital Signs: Vital signs: Vital Signs Temperature 98.7 F 07/30/21 08:20 Pulse Rate 62 07/30/21 14:17 Respiratory Rate 16 07/30/21 14:17 Blood Pressure 109/57 07/30/21 14:17 Pulse Oximetry 97 07/30/21 14:17 MDM - COVID MDM Narrative: Medical decision making narrative: She has significant underlying medical problems. Including significant COPD. Concerned with rapidness onset her symptoms recommend that she be hospitalized. Discussed Dr. Levi he agrees. She also has mild chronic kidney injury. Lab Data: Labs: Lab Results 07/30/21 07/30/21 07/30/21 08:11 08:11 08:11 WBC 7.9 10^3/uL 10^3/ uL (4.0-10.0) RBC 3.71 10^6/uL L 10 ^6/uL (4.1-5.3) Hgb 10.4 g/dL L g/dL (11.5-15.3) Hct 31.9 % L % (37.0-47.0) MCV 86.0 fl fl (81-99) MCH 28.0 pg pg (28.0-34.0) MCHC 32.6 g/dL g/dL (30.0-36.0) RDW 13.3 % % (12.1-15.1) Plt Count 243 10^3/cmm 10^3 /cmm (130-400) MPV 10.7 fL H fL (7.4-10.4) Neut % (Auto) 76.8 % % Lymph % (Auto) 15.0 % % [place] % (Auto) 6.9 % % Eos % (Auto) 0.1 % % Baso % (Auto) 0.1 % % Neut # (Auto) 6.07 10^3/uL 10^3 /uL (1.8-7.7) Lymph # (Auto) 1.2 10^3/uL 10^3/ uL (0.8-4.8) [place] # (Auto) 0.6 10^3/uL 10^3/ uL (0.2-0.9) Eos # (Auto) 0.0 10^3/uL 10^3/ uL (0.0-0.8) Baso # (Auto) 0.0 10^3/uL 10^3/ uL (0.0-0.1) Nucleated RBC % (a uto) 0 % % Nucleated RBCs # 0.0 /100WBC /100W BC Specimen Type Sample Site ABG pH ABG pCO2 ABG pO2 ABG HCO3 ABG O2 Saturation ABG Base Excess Jun Test A-a O2 Gradient Hematocrit Hgb O2 Saturation Carboxyhemoglobin Methemoglobin Total Hemoglobin Ionized Calcium FiO2 Button Breaker Operator ID Sodium 129 mmol/L L mmol /L (136-145) Potassium 4.3 mmol/L mmol/L (3.5-5.1) Chloride 91 mmol/L L mmol/ L (98-107) Carbon Dioxide 24 mmol/L mmol/L (22-29) Anion Gap 18.3 (5-19) BUN 63 mg/dL H mg/dL (8-23) Creatinine 2.2 mg/dL H mg/dL (0.5-0.9) GFR Calculation Not Reportable Glucose 288 mg/dL H mg/dL (65-115) Calculated Osmolal ity 297 mOsm/kg H mOs m/kg (285-295) Calcium 8.2 mg/dL L mg/dL (8.5-10.5) Ferritin Total Bilirubin 0.3 mg/dL mg/dL (0.15-1.2) AST 19 U/L U/L (0-32) ALT 11 U/L U/L (0-33) Alkaline Phosphata se 63 IU/L IU/L (35-105) Creatine Kinase 147 U/L U/L (26-192) Troponin T Baselin e 70 ng/L H ng/L (0-10) Troponin T 120 Min adrienne Delta Troponin T C-Reactive Protein Total Protein 6.4 g/dL L g/dL (6.6-8.7) Albumin 3.3 g/dL L g/dL (3.5-5.2) Globulin 3.1 g/dL g/dL (1.3-4.6) Procalcitonin 07/30/21 07/30/21 07/30/21 08:35 10:05 10:05 WBC RBC Hgb Hct MCV MCH MCHC RDW Plt Count MPV Neut % (Auto) Lymph % (Auto) [place] % (Auto) Eos % (Auto) Baso % (Auto) Neut # (Auto) Lymph # (Auto) [place] # (Auto) Eos # (Auto) Baso # (Auto) Nucleated RBC % (a uto) Nucleated RBCs # Specimen Type Arterial Sample Site Brachial, right ABG pH 7.42 (7.35-7.45) ABG pCO2 41.2 mmHg mmHg (35-45) ABG pO2 57.6 mmHg L mmHg (80.0-100.0) ABG HCO3 26.4 mmol/L H mmo l/L (22-26) ABG O2 Saturation 91.3 ABG Base Excess 1.7 mmol/L mmol/L (-2.0-2.0) Jun Test Pos A-a O2 Gradient 5.5 mmHg mmHg (5-10) Hematocrit 30.6 % L % (37-47) Hgb O2 Saturation 89.5 % L % (95-100) Carboxyhemoglobin 1.1 %THgb %THgb (0.4-20.1) Methemoglobin 0.9 % % (0.4-1.5) Total Hemoglobin 10.0 g/dL L g/dL (12-16) Ionized Calcium 1.1 mmol/L mmol/L (1.1-1.4) FiO2 21.0 % % Button Breaker Operator ID Bd Sodium 132.0 mmol/L mmol /L (131-143) Potassium 4.3 mmol/L mmol/L (3.5-5.0) Chloride Carbon Dioxide Anion Gap BUN Creatinine GFR Calculation Glucose 287.0 mg/dL H mg/ dL (70-115) Calculated Osmolal ity Calcium Ferritin 547 ng/mL H ng/mL (15-150) Total Bilirubin AST ALT Alkaline Phosphata se Creatine Kinase Troponin T Baselin e Troponin T 120 Min adrienne 66.43 ng/L H ng/L (0-10) Delta Troponin T -3.57 ABS# L ABS# (0-10) C-Reactive Protein 79.9 mg/L H mg/L (0.0-4.9) Total Protein Albumin Globulin Procalcitonin 0.24 ng/mL ng/mL (0-0.5) COVID Results: SARS-CoV-2 Antigen (Rapid) Negative (Negative) 06/02/21 15:43 06/02/21 Discharge Plan Discharge Admit Provider: Hmuberto Larson Clinical Impression: COVID-19, CRF (chronic renal failure), Anemia, Acute hyponatremia, Hyperkalemia, Pneumonia due to COVID-19 virus, Diabetes 1.5, managed as type 2 Condition: Stable Coding Level of Care Code ED Microsoft Application Developer for g Fwd Exam Comprehensive
--- NOTE | 2021-07-30 08:28 | ECG_ITS ---
[facility] Test Date: 2021-07-30 Pat Name: Sarah Petersen Department: Room: Gender: Female Transitional Studies Instructor: : 1945 Requested By: Jimbo Curtis Order Number: [id number] Serina MD: Leticia Hensley M.D. Measurements Intervals [place] Rate: 53 P: 76 ID: [id number] QRS: 75 QRSD: 93 T: 64 QT: 470 QTc: 444 Interpretive Statements SINUS BRADYCARDIA LOW QRS VOLTAGE IN PRECORDIAL LEADS [QRS DEFLECTION < 1.0 mV IN CHEST LEADS] POSSIBLE ANTERIOR MYOCARDIAL INFARCTION , PROBABLY OLD [30 ms Q WAVE IN V3/V4, OR R < 0.2 mV IN V4] Compared to ECG 07/20/2021 13:21:48 Myocardial infarct finding now present Sinus rhythm no longer present Electronically Signed On 07-31-2021 7:34:01 [employer] by Leticia Hensley M.D. [email or web address]
[2021-07-30 08:39] LABS: Basophils % 0.1 %; Eosinophils % 0.1 %; Hematocrit 31.9 % (37.0-47.0); Hemoglobin 10.4 g/dL (11.5-15.3); Lymphocytes # 1.2 10^3/uL (0.8-4.8); Mean Corpuscular HGB Conc 32.6 g/dL (30.0-36.0); Mean Platelet Volume 10.7 fL (7.4-10.4); Monocytes # 0.6 10^3/uL (0.2-0.9); Monocytes % 6.9 %; Neutrophils # 6.07 10^3/uL (1.8-7.7); Neutrophils % 76.8 %; Nucleated Red Blood Cells % 0 %; Platelet Count 243 10^3/cmm (130-400); Red Blood Count 3.71 10^6/uL (4.1-5.3); Red Cell Distribution Width 13.3 % (12.1-15.1); White Blood Count 7.9 10^3/uL (4.0-10.0)
[2021-07-30 08:47] LABS: ABG PCO2 41.2 mmHg (35-45); ABG PH Result 7.42 (7.35-7.45); Alveolar-Arterial Oxygen Gradi 5.5 mmHg (5-10); Arterial Blood Gas Hematocrit 30.6 % (37-47); Base Excess ABG 1.7 mmol/L (-2.0-2.0); Blood Gas Allen Test Pos; Blood Gas Operator Identificat BD; Blood Gas Sample Site Brachial, right; Blood Gas Sample Type Arterial; Carboxyhemoglobin 1.1 %THgb (0.4-20.1); HCO3 ABG 26.4 mmol/L (22-26); HGB O2 Sat 89.5 % (95-100); Ionized Calcium Level - ABG 1.1 mmol/L (1.1-1.4); Methemoglobin 0.9 % (0.4-1.5); Oxygen Saturation ABG 91.3; PO2 ABG 57.6 mmHg (80.0-100.0); Potassium Level - ABG 4.3 mmol/L (3.5-5.0)
[2021-07-30 08:49] LABS: Alanine Aminotransferase 11 U/L (0-33); Albumin Level 3.3 g/dL (3.5-5.2); Alkaline Phosphatase 63 IU/L (35-105); Anion Gap 18.3 (5-19); Aspartate Amino Transferase 19 U/L (0-32); Blood Urea Nitrogen 63 mg/dL (8-23); Calcium 8.2 mg/dL (8.5-10.5); Carbon Dioxide 24 mmol/L (22-29); Chloride 91 mmol/L (98-107); Creatine Phosphokinase 147 U/L (26-192); Globulin 3.1 g/dL (1.3-4.6); Glucose 288 mg/dL (65-115); Osmolality Calculated 297 mOsm/kg (285-295); Potassium 4.3 mmol/L (3.5-5.1); Sodium 129 mmol/L (136-145); Total Bilirubin 0.3 mg/dL (0.15-1.2); Total Protein 6.4 g/dL (6.6-8.7)
[2021-07-30 08:51] LABS: Troponin(5th) Baseline 70 ng/L (0-10)
[2021-07-30] MEDS: iodixanol 320 mg/mL 100mL Btl IV (10:19)
[2021-07-30 10:31] LABS: Troponin 5 2HR 66.43 ng/L (0-10)
[2021-07-30 10:32] LABS: Troponin 5 2HR Delta -3.57 ABS# (0-10)
[2021-07-30] MEDS: remdesivir 200 MG in sodium chloride 0.9% (100 ml) 60 ML 100 MG IV (11:54)
[2021-07-30] MEDS: dexamethasone 10 mg/mL INJ IVP (12:04)
--- NOTE | 2021-07-30 12:45 | P.HP_ITS ---
Providers/Chief Complaint Primary Care Provider: Vikas Candelaria MD Chief Complaint: Covid+, Low O2, High HR, Head Congestion History of Present Illness Sarah Petersen is a 76 year old female with history of testing positive for Covid on the first through an outside laboratory at [facility]. She states she has had symptoms since about that same time. She has felt tired. She has had some low-grade temperatures. She is now got some shortness of breath. She has a cough that is nonproductive. She denies any hemoptysis. She reports she has been eating and drinking okay. There is been no vomiting or diarrhea. Her most recent hospitalization was May 31 through the , where she was treated for acute kidney injury, hyponatremia, and abdominal discomfort. She reports the most significant thing that has happened is her energy is very low. Review of Systems General: Reports: 10 or more systems reviewed and unremarkable except in HPI and below Const: Reports: fatigue Eyes: Denies: change in vision ENMT: Denies: throat pain Card: Denies: chest pain Resp: Reports: dyspnea and non-productive cough GI: Denies: abdominal pain, nausea or vomiting : Denies: flank pain Musc: Denies: neck pain Skin/Breast: Denies: rash Neuro: Denies: headache(s) Psych: Denies: anxiety or depression Endo: Denies: polyuria Lukas/Lymph: Denies: easy bruising All/Imm: Denies: urticaria Medications/Allergies Home Medications Medication Instructions Recorded Confirmed Last Taken Type albuterol sulfate 90 mcg/actuation 2 puff INHALATION Q6H PRN 11/28/19 07/30/21 05/30/21 History aerosol inhaler atenolol 25 mg tablet 25 mg PO DAILY@11/28/19 07/30/21 07/29/21 History budesonide 0.5 mg/2 mL suspension 0.5 mg INHALATION BID PRN 11/28/19 07/30/21 05/30/21 History for nebulization budesonide-formoterol HFA 160 2 puff INHALATION BID 11/28/19 07/30/21 05/30/21 History mcg-4.5 mcg/actuation aerosol inhaler esomeprazole magnesium 40 mg 40 mg PO DAILY@11/28/19 07/30/21 07/29/21 History capsule,delayed release fluoxetine 20 mg capsule 20 mg PO DAILY@08 11/28/19 07/30/21 07/29/21 History hydrochlorothiazide 25 mg tablet 25 mg PO DAILY@11/28/19 07/30/21 07/29/21 History loratadine 10 mg tablet 10 mg PO DAILY@11/28/19 07/30/21 07/29/21 History montelukast 10 mg tablet 10 mg PO DAILY@11/28/19 07/30/21 07/29/21 History nitroglycerin 0.4 mg sublingual 0.4 mg SUBLINGUAL Q5M PRN 11/28/19 07/30/21 Unknown History tablet olmesartan 40 mg tablet 40 mg PO DAILY@11/28/19 07/30/21 07/29/21 History rosuvastatin 40 mg tablet 40 mg PO BEDTIME@2200 tab 11/28/19 07/30/21 07/29/21 History tramadol 50 mg tablet 50 mg PO BID PRN 11/28/19 07/30/21 05/30/21 History Alphagan P 1 drp OPHTHALMIC (EYE) DAILY@11/07/20 07/30/21 07/29/21 History aspirin 81 mg PO DAILY@11/07/20 07/30/21 07/29/21 History gabapentin 600 mg PO TID@,,11/07/20 07/30/21 07/29/21 History Lumigan 1 drp OPHTHALMIC (EYE) QAM 05/31/21 07/30/21 05/30/21 History furosemide 40 mg PO QAM 05/31/21 07/30/21 07/29/21 History naproxen 500 mg PO BID PRN 05/31/21 07/30/21 Unknown History Vitamin D3 2 cap PO DAILY 07/30/21 07/30/21 Unknown History acetaminophen [Tylenol Ex Str 1,000 mg PO Q4H PRN 07/30/21 07/30/21 Unknown History Rapid Release] ascorbic acid (vitamin C) [Vitamin 500 mg PO DAILY 07/30/21 07/30/21 Unknown His tory C] dapagliflozin [Farxiga] 10 mg PO QAM 07/30/21 07/30/21 07/29/21 History insulin detemir U-100 [Levemir 30 unit SUBCUT BEDTIME 07/30/21 07/30/21 07/29/21 History FlexTouch U-100 Insuln] levothyroxine 125 mcg PO QAM 07/30/21 07/30/21 07/29/21 History netarsudil-latanoprost [Rocklatan] 1 drp OPHTHALMIC (EYE) DAILY 07/30/21 07/30/21 Unknown History sitagliptin-metformin [Janumet XR] 1 tab PO QAM 07/30/21 07/30/21 07/29/21 History Allergies Allergy/AdvReac Type Severity Reaction Status Date / Time codeine Allergy Unknown Unknown Verified 07/30/21 11:28 hydrocodone Allergy Unknown Unknown Verified 07/30/21 11:28 dulaglutide [From Trulicity] Allergy Unknown Verified 07/30/21 11:28 PFSH Acute PFSH: Medical History (Updated 07/30/21 @ 13:01 by Humberto Larson MD) Abdominal pain Acute hyponatremia Acute kidney injury superimposed on CKD ASHD (arteriosclerotic heart disease) Chest pain Diabetes 1.5, managed as type 2 Dyslipidemia Elevated troponin GERD (gastroesophageal reflux disease) HTN (hypertension) Lesion of spleen Surgical History S/P PTCA (percutaneous transluminal coronary angioplasty) Status post creation of pericardial window Family History Mother Cancer Diabetes Social History Smoking and tobacco status: former smoker Alcohol intake: never Female Reproductive History: Date of last menstrual period: 12/13/20 Vitals/I&O/Wt Last Vital Signs Temp 98.7 F 07/30/21 08:20 Pulse 51 L 07/30/21 11:57 Resp 17 07/30/21 11:57 BP 94/45 07/30/21 11:57 Pulse Ox 99 07/30/21 11:57 Weight last 48 hrs Weight 87.09 kg Physical Exam Narrative: EXAM NARRATIVE: General exam is a white female, in no apparent distress HEENT: Pupils equally round. Oropharynx clear. Neck is supple no lymphadenopathy or thyromegaly Cardiovascular bradycardic, no murmur. Lungs a few faint bilateral wheezes. No crackles Abdomen is soft with positive bowel sounds. No obvious organomegaly exam is deferred Extremities no cyanosis clubbing or edema, cap refill brisk. Left leg slightly bigger than the right which patient reports is secondary to an old crush injury Skin no rash Neuro: No obvious focal deficits. Data : 07/30/21 08:11 07/30/21 08:11 Other data: Echocardiogram in May demonstrated a normal ejection fraction, trace to mild tricuspid regurgitation Unfortunately I do not have the ability currently to look at the EKG. The reading demonstrates sinus bradycardia, small Q-wave anterior precordial leads. CTA demonstrates multiple opacifications consistent with COVID-19 and no pulmonary embolism. Stable indeterminate mediastinal hilar adenopathy with no change from May 31 is noted as well as a stable left adrenal adenoma ABG on room air demonstrates a pH of 7.42, PCO2 of 41, PO2 of 58 Troponin 70 with repeat of 66 LFTs normal A&P Assessment and plan (1) Pneumonia due to COVID-19 virus: First tested positive on July 22. Not candidate for monoclonal antibody currently is requiring oxygen. Initiate remdesivir Dexamethasone 6 mg IV every 24 hours Check baseline CRP, ferritin, dimer Check pro calcitonin Doxycycline empirically Pulmonary toilet Monitor closely for improvement If worsens, consider Actemra Status: Acute (2) Acute and chronic respiratory failure with hypoxia: Secondary to above, see above Status: Acute (3) Acute hyponatremia: Hold hydrochlorothiazide Had work-up previously consisting of TSH and cortisol level which were normal. Status: Acute (4) Anemia: Monitor. No evidence of active bleeding Status: Acute (5) CRF (chronic renal failure): Hold diuretics currently. Hold ARB. Avoid renal toxic medication Reduce her Neurontin dose for diabetic neuropathy to 300 mg 3 times daily secondary to renal failure. Status: Acute (6) Diabetes 1.5, managed as type 2: Continue long-acting insulin. Add moderate sliding scale insulin. Sugars may elevate secondary to dexamethasone. Status: Acute Additional A&P Information Coronary artery disease, asymptomatic currently. Troponin delta not significant Hypertension. Has some lower blood pressure with bradycardia. Hold ARB as well as beta-laila. Multiple other medical problems as outlined in past medical history Full code Heparin for DVT prophylaxis Attestations Medical Necessity Statement*: Will need greater than 2 midnight stay secondary to COVID-19 pneumonia with hypoxia Time Spent in Patient Care: Greater than 35 minutes Coding Level of Care Code Acute [place] [employer] Member for g Fwd Diagnoses Pneumonia due to COVID-19 virus U07.1; J12.82 Acute and chronic respiratory failure with hypoxia J96.21 Acute hyponatremia E87.1 Anemia D64.9 CRF (chronic renal failure) N18.9 Diabetes 1.5, managed as type 2 E13.9
[2021-07-30 13:35] LABS: C Reactive Protein 79.9 mg/L (0.0-4.9); Ferritin 547 ng/mL (15-150)
[2021-07-30 13:42] LABS: Procalcitonin 0.24 ng/mL (0-0.5)
--- NOTE | 2021-07-30 14:28 | ECG_ITS ---
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 Measurements Intervals [place] Rate: 53 P: 58 WI: 156 QRS: 85 QRSD: 90 T: 64 QT: 477 QTc: 451 Interpretive Statements SINUS BRADYCARDIA LOW QRS VOLTAGE IN PRECORDIAL LEADS [QRS DEFLECTION < 1.0 mV IN CHEST LEADS] POSSIBLE ANTERIOR MYOCARDIAL INFARCTION , PROBABLY OLD [30 ms Q WAVE IN V3/V4, OR R < 0.2 mV IN V4] Compared to ECG 07/30/2021 08:56:29 No significant changes Electronically Signed On 07-31-2021 7:38:18 SCAN COORDINATOR by Leticia Hensley M.D. [email or web address]
[2021-07-30 14:55] LABS: D Dimer 2.54 ug/mIFEU (0-0.59)
--- NOTE | 2021-07-30 15:30 | PC.NURSE ---
called and gave report to Ilana NÚÑEZ
[2021-07-30 15:49] LABS: Charge for UA Resulting for Rev
[2021-07-30 16:23] LABS: Add Urine Microscopic? YES; Bacteria Urine TRACE /hpf; Bilirubin Urine Neg (Negative); Blood Urine Neg (Negative); Glucose Urine UA 4+ (Normal); Ketones Urine Negative (Negative); Leukocyte Esterase Urine Negative (Negative); Mucus Urine TRACE /hpf; Nitrate Urine Negative (Negative); Protein Urine Trace (Negative); Urine Appearance Hazy (CLEAR); Urine Color Yellow (Yellow); Urobilinogen Urine Norm (Negative); WBC Urine 0-4 /hpf (0-5); pH Urine 5 (5-7)
[2021-07-30 16:24] LABS: Add Urine Culture? No
[2021-07-30 17:04] LABS: Glucose Point of Care 263 mg/dL (70-110)
[2021-07-30] MEDS: doxycycline 100 mg Tablet PO (17:42)
[2021-07-30] MEDS: insulin lispro 100 unit/1 mL SUBCUT ×2 (17:42→20:31)
[2021-07-30] MEDS: gabapentin 300 mg Capsule PO ×2 (17:42→20:31)
[2021-07-30] MEDS: heparin 5,000 unit/mL INJ 1 mL 5000 UNIT SUBCUT (17:42)
[2021-07-30] MEDS: pneumococcal (23 valent) SDV 0.5 mL IM (17:43)
[2021-07-30 20:33] LABS: Glucose Point of Care 266 mg/dL (70-110)
[2021-07-30 22:47] LABS: Anion Gap 17.1 (5-19); Blood Urea Nitrogen 61 mg/dL (8-23); Calcium 8.6 mg/dL (8.5-10.5); Carbon Dioxide 25 mmol/L (22-29); Chloride 93 mmol/L (98-107); Glucose 166 mg/dL (65-115); Magnesium 2.3 mg/dL (1.7-2.3); Osmolality Calculated 293 mOsm/kg (285-295); Potassium 4.1 mmol/L (3.5-5.1); Sodium 131 mmol/L (136-145)
[2021-07-30] MEDS: TRAMadol 50 mg Tablet PO (23:03)
[2021-07-30] MEDS: atorvastatin 40 mg Tablet 80 MG PO (23:03)
[2021-07-31] VITALS (11 sets, daily range): BP systolic 94–111; BP diastolic 45–70; PULSE 60–78; RESP 14–20; TEMP 36.4–36.8; O2SAT 86–97
[2021-07-31] MEDS: levothyroxine 125 mcg Tablet PO (05:30)
[2021-07-31] MEDS: remdesivir 100 MG in sodium chloride 0.9% (100 ml) 80 ML IV (05:30)
[2021-07-31] MEDS: heparin 5,000 unit/mL INJ 1 mL 5000 UNIT SUBCUT ×2 (05:31→17:47)
[2021-07-31 05:51] LABS: Basophils % 0.1 %; Eosinophils % 0.2 %; Hematocrit 32.3 % (37.0-47.0); Hemoglobin 10.2 g/dL (11.5-15.3); Lymphocytes # 1.2 10^3/uL (0.8-4.8); Lymphocytes % 14.6 %; Mean Corpuscular HGB Conc 31.6 g/dL (30.0-36.0); Mean Corpuscular Hemoglobin 28.2 pg (28.0-34.0); Mean Corpuscular Volume 89.2 fl (81-99); Mean Platelet Volume 10.4 fL (7.4-10.4); Monocytes # 0.5 10^3/uL (0.2-0.9); Monocytes % 6.4 %; Neutrophils # 6.28 10^3/uL (1.8-7.7); Nucleated Red Blood Cells % 0 %; Platelet Count 255 10^3/cmm (130-400); Red Blood Count 3.62 10^6/uL (4.1-5.3); Red Cell Distribution Width 13.3 % (12.1-15.1); White Blood Count 8.1 10^3/uL (4.0-10.0)
[2021-07-31 06:08] LABS: Alanine Aminotransferase 14 U/L (0-33); Albumin Level 3.1 g/dL (3.5-5.2); Alkaline Phosphatase 59 IU/L (35-105); Anion Gap 15.2 (5-19); Aspartate Amino Transferase 25 U/L (0-32); Blood Urea Nitrogen 58 mg/dL (8-23); C Reactive Protein 75.4 mg/L (0.0-4.9); Calcium 8.6 mg/dL (8.5-10.5); Carbon Dioxide 27 mmol/L (22-29); Chloride 95 mmol/L (98-107); Globulin 3.2 g/dL (1.3-4.6); Glucose 60 mg/dL (65-115); Osmolality Calculated 290 mOsm/kg (285-295); Potassium 4.2 mmol/L (3.5-5.1); Sodium 133 mmol/L (136-145); Total Bilirubin 0.2 mg/dL (0.15-1.2); Total Protein 6.3 g/dL (6.6-8.7)
[2021-07-31 06:32] LABS: Glucose Point of Care 89 mg/dL (70-110)
--- NOTE | 2021-07-31 09:26 | PC.CHAP ---
Pastoral Care Encounter/Spiritual Assessment Type of Contact [] Declined can stacker visit [] Patient/Family/Request visit [] Outpatient visit [] Follow-up visit [] Physician referral [] Code/Alert [] Routine visit [] Staff referral [] Actively dying [] Patient sleeping [] Family support [] [] Out of room [] Palliative care [] [] Receiving care in room [] Pre-surgical visit [] Trauma [] Long length of stay [] ICU visit [] Other: Relational/Emotional Strength [] Patient feels connected with others/family/visitors/staff [] Distress [] Loneliness/isolation [] Abandonment Spirituality of Patient [] Person of Lu [] Attends Gnosticist of their Lu [] Believes in Prayer [] Reads Bible or Caodaism materials [] There are Spiritual issues to be addressed Telemarketing Sales Representative Interventions [x] Prayer [] Active listening [] Non-anxious presence [] Spiritual/emotional support [] Crisis/trauma care [] Spiritual counseling [] Bereavement support [] Provided bereavement packet [] Provided Bible/devotional materials [] Provided toy/stuffed animal, coloring book to patient or family member [] Provided Communion [] Anointing/[place] [] Salvation [x] Completed spiritual assessment [] Other: Impact on Illness or Injury [] Angry [] Fearful [] Anxious [] Often cries [] Exhaustion [] Unable to work [] Unable to attend latter-day [] Unable to walk/stand [] Unable to read [] Unable to drive [] Unable to eat/drink [] Unable to sleep [] Unable to be with family [] Patient intubated [] Other: Summary Time spent with patient
[2021-07-31] MEDS: doxycycline 100 mg Tablet PO ×2 (09:48→17:47)
[2021-07-31] MEDS: gabapentin 300 mg Capsule PO ×3 (09:49→21:52)
[2021-07-31] MEDS: aspirin 81 mg Chew Tablet PO (09:49)
[2021-07-31] MEDS: fluoxetine 20 mg Capsule PO (09:49)
[2021-07-31] MEDS: pantoprazole DR 40 mg Tablet PO (09:50)
--- NOTE | 2021-07-31 10:35 | PM.PN ---
Subjective Subjective: Interval history: Sarah reports she feels a little bit better today. Still coughing quite a bit. This is nonproductive. Not yet hungry. Medications: Reviewed: Yes Vitals/I&O/Wt Last Vital Signs Temp 98.3 F 07/31/21 08:00 Pulse 77 07/31/21 08:39 Resp 20 H 07/31/21 08:47 BP 111/68 07/31/21 08:00 Pulse Ox 92 07/31/21 08:47 07/30/21 07/31/21 07/31/21 22:59 06:59 14:59 Intake Total 240 / 340 100 / 440 Output Total 200 / 200 Balance 240 / 340 -100 / 240 Weight last 48 hrs Weight 84.397 kg Weight 87.09 kg Physical Exam Narrative: EXAM NARRATIVE: General exam is a white female, in no apparent distress Neck is supple no lymphadenopathy or thyromegaly Cardiovascular regular rate and rhythm without murmur Lungs a few faint bilateral wheezes. No crackles Abdomen is soft with positive bowel sounds. No obvious organomegaly Extremities no cyanosis clubbing or edema, cap refill brisk. Left leg slightly bigger than the right which patient reports is secondary to an old crush injury Data : 07/31/21 05:14 07/31/21 05:14 A&P Assessment and plan (1) Pneumonia due to COVID-19 virus: First tested positive on July 22. Not candidate for monoclonal antibody currently is requiring oxygen. Continue remdesivir Dexamethasone 6 mg IV every 24 hours Procalcitonin not elevated. Doxycycline empirically Pulmonary toilet Monitor closely for improvement. Currently on 4 L oxygen If worsens, consider Actemra Status: Acute (2) Acute and chronic respiratory failure with hypoxia: Secondary to above, see above Status: Acute (3) Acute hyponatremia: Hold hydrochlorothiazide Had work-up previously consisting of TSH and cortisol level which were normal. Sodium level improved this morning Status: Acute (4) Anemia: Monitor. No evidence of active bleeding Status: Acute (5) CRF (chronic renal failure): Hold diuretics currently. Hold ARB. Avoid renal toxic medication Reduced her Neurontin dose for diabetic neuropathy to 300 mg 3 times daily secondary to renal failure. Status: Acute (6) Diabetes 1.5, managed as type 2: Reduce long-acting insulin as sugar somewhat borderline low this morning.. Add moderate sliding scale insulin. Sugars may elevate secondary to dexamethasone. Status: Acute Additional A&P Information Coronary artery disease, asymptomatic currently. Troponin delta not significant. Previous echocardiogram 60% ejection fraction Hypertension. Has some lower blood pressure with bradycardia. Hold ARB as well as beta-laila. Holding hydrochlorothiazide secondary to hyponatremia. Considering readding Lasix depending upon clinical course. Check BNP on blood in lab Multiple other medical problems as outlined in past medical history Full code Heparin for DVT prophylaxis Attestations Medical Necessity Statement*: Need hospitalization for treatment of COVID-19 pneumonia requiring oxygen. 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
[2021-07-31 11:19] LABS: NT Pro B Type Natriuretic Pept 752 pg/mL (0-450)
[2021-07-31 11:34] LABS: Glucose Point of Care 283 mg/dL (70-110)
[2021-07-31 12:49] LABS: Oxygen Device RA
[2021-07-31] MEDS: insulin lispro 100 unit/1 mL SUBCUT ×3 (12:49→21:55)
[2021-07-31] MEDS: dexamethasone 10 mg/mL INJ 6 MG IVP (12:49)
[2021-07-31 17:38] LABS: Glucose Point of Care 400 mg/dL (70-110)
[2021-07-31 17:38] LABS: Glucose Point of Care 462 mg/dL (70-110)
[2021-07-31 21:08] LABS: Glucose Point of Care 591 mg/dL (70-110)
[2021-07-31] MEDS: atorvastatin 40 mg Tablet 80 MG PO (21:52)
[2021-08-01] VITALS (10 sets, daily range): BP systolic 103–130; BP diastolic 52–74; PULSE 61–76; RESP 12–19; TEMP 36.4–37; O2SAT 90–98
[2021-08-01 02:20] LABS: Glucose Point of Care 412 mg/dL (70-110)
[2021-08-01] MEDS: insulin lispro 100 unit/1 mL 10 UNIT SUBCUT (03:34)
[2021-08-01] MEDS: remdesivir 100 MG in sodium chloride 0.9% (100 ml) 80 ML IV (05:07)
[2021-08-01] MEDS: heparin 5,000 unit/mL INJ 1 mL 5000 UNIT SUBCUT ×2 (05:07→17:09)
[2021-08-01] MEDS: levothyroxine 125 mcg Tablet PO (05:08)
[2021-08-01 05:47] LABS: Hematocrit 29.8 % (37.0-47.0); Hemoglobin 9.4 g/dL (11.5-15.3); Lymphocytes # 0.6 10^3/uL (0.8-4.8); Lymphocytes % 15.9 %; Mean Corpuscular HGB Conc 31.5 g/dL (30.0-36.0); Mean Corpuscular Hemoglobin 28.3 pg (28.0-34.0); Mean Corpuscular Volume 89.8 fl (81-99); Mean Platelet Volume 10.7 fL (7.4-10.4); Monocytes # 0.2 10^3/uL (0.2-0.9); Monocytes % 6.4 %; Neutrophils # 2.74 10^3/uL (1.8-7.7); Neutrophils % 76.6 %; Nucleated Red Blood Cells % 0 %; Platelet Count 275 10^3/cmm (130-400); Red Blood Count 3.32 10^6/uL (4.1-5.3); Red Cell Distribution Width 13.3 % (12.1-15.1); White Blood Count 3.6 10^3/uL (4.0-10.0)
[2021-08-01 06:05] LABS: Alanine Aminotransferase 13 U/L (0-33); Alkaline Phosphatase 63 IU/L (35-105); Anion Gap 17.4 (5-19); Aspartate Amino Transferase 16 U/L (0-32); Blood Urea Nitrogen 68 mg/dL (8-23); Calcium 8.5 mg/dL (8.5-10.5); Carbon Dioxide 24 mmol/L (22-29); Chloride 91 mmol/L (98-107); Globulin 3.2 g/dL (1.3-4.6); Glucose 301 mg/dL (65-115); Osmolality Calculated 297 mOsm/kg (285-295); Potassium 4.4 mmol/L (3.5-5.1); Sodium 128 mmol/L (136-145); Total Bilirubin 0.2 mg/dL (0.15-1.2); Total Protein 6.2 g/dL (6.6-8.7)
[2021-08-01 06:44] LABS: Glucose Point of Care 330 mg/dL (70-110)
[2021-08-01] MEDS: gabapentin 300 mg Capsule PO ×3 (08:46→20:26)
[2021-08-01] MEDS: doxycycline 100 mg Tablet PO ×2 (08:46→17:09)
[2021-08-01] MEDS: aspirin 81 mg Chew Tablet PO (08:46)
[2021-08-01] MEDS: fluoxetine 20 mg Capsule PO (08:46)
[2021-08-01] MEDS: insulin lispro 100 unit/1 mL SUBCUT ×4 (08:47→22:13)
[2021-08-01] MEDS: pantoprazole DR 40 mg Tablet PO (08:47)
--- NOTE | 2021-08-01 08:49 | PM.PN ---
Subjective Subjective: Interval history: Sarah reports she feels little bit better. She is eating a little bit better. Still coughing some. Down to 1 L of oxygen this morning. Medications: Reviewed: Yes Vitals/I&O/Wt Last Vital Signs Temp 97.6 F 08/01/21 08:00 Pulse 74 08/01/21 08:08 Resp 16 08/01/21 08:08 BP 130/73 08/01/21 08:00 Pulse Ox 98 08/01/21 08:08 07/31/21 08/01/21 08/01/21 22:59 06:59 14:59 Intake Total 240 / 240 220 / 460 Output Total 240 / 240 Balance 240 / 240 -20 / 220 Weight last 48 hrs Weight 84.397 kg Physical Exam Narrative: EXAM NARRATIVE: General exam is a white female, in no apparent distress Neck is supple no lymphadenopathy or thyromegaly Cardiovascular regular rate and rhythm without murmur Lungs no wheezing. Diminished breath sounds are noted bilaterally. Abdomen is soft with positive bowel sounds. No obvious organomegaly Extremities no cyanosis clubbing or edema, cap refill brisk. Left leg slightly bigger than the right which patient reports is secondary to an old crush injury Data : 08/01/21 05:07 08/01/21 05:07 A&P Assessment and plan (1) Pneumonia due to COVID-19 virus: First tested positive on July 22. Not candidate for monoclonal antibody currently is requiring oxygen. Continue remdesivir Dexamethasone 6 mg IV every 24 hours Procalcitonin not elevated. Doxycycline empirically Pulmonary toilet Monitor closely for improvement. Currently on 1 L oxygen, improved from yesterday If worsens, consider Actemra Status: Acute (2) Acute and chronic respiratory failure with hypoxia: Secondary to above, see above Status: Acute (3) Acute hyponatremia: Hold hydrochlorothiazide Had work-up previously consisting of TSH and cortisol level which were normal. Sodium level 133, corrected for glucose this morning. Status: Acute (4) Anemia: Monitor. No evidence of active bleeding Status: Acute (5) CRF (chronic renal failure): Hold diuretics currently. Hold ARB. Avoid renal toxic medication Reduced her Neurontin dose for diabetic neuropathy to 300 mg 3 times daily secondary to renal failure. Status: Acute (6) Diabetes 1.5, managed as type 2: Increase Lantus secondary to hyperglycemia now presenting Change sliding scale to aggressive Sugars may elevate secondary to dexamethasone. Status: Acute Additional A&P Information Coronary artery disease, asymptomatic currently. Troponin delta not significant. Previous echocardiogram 60% ejection fraction Hypertension. Has some lower blood pressure with bradycardia. Hold ARB as well as beta-laila. Holding hydrochlorothiazide secondary to hyponatremia. Edema left lower extremity. Patient reports this is chronic and unchanged. However D-dimer is elevated secondary to Covid. Will check venous duplex lower extremity Multiple other medical problems as outlined in past medical history Full code Heparin for DVT prophylaxis Attestations Medical Necessity Statement*: Needs continued hospitalization for antiviral secondary to COVID-19 pneumonia as well as dexamethasone in this patient with severe Covid pneumonia requiring oxygen. 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
--- NOTE | 2021-08-01 08:56 | USCV_ITS ---
Sarah Petersen Age: 76 Gender: F : 1945 Exam Date: 08/01/2021 10:23 Ordering Phys: Humberto Larson MD Technologist: HERB [place] [facility] [place]: [place]DE[place] PROCEDURES: Venous duplex imaging was performed in only the left lower extremity. The following venous structures were evaluated: common femoral vein, profunda vein, proximal portion of the greater saphenous vein, superficial femoral vein, and the popliteal vein. In addition, the posterior tibial and peroneal trunk were evaluated. Serial compression, augmentation maneuvers, and spectral Doppler flow evaluation were performed. FINDINGS: Normal 2-D Doppler and augmentation and compressibility throughout the lower extremity venous structures. Additional imaging through the proximal calf veins also reveals no thrombus. Limited evaluation of the greater saphenous vein is patent with no thrombus. CONCLUSIONS No DVT left lower extremity. Dr. Janet Estevez DO (Electronically Signed) Final Date: 01 August 2021 11:10 S
[2021-08-01 11:59] LABS: Glucose Point of Care 482 mg/dL (70-110)
[2021-08-01] MEDS: dexamethasone 10 mg/mL INJ 6 MG IVP (12:59)
--- NOTE | 2021-08-01 13:23 | PC.NURSE ---
Patient's oxygen was removed at 1300 when oxygen was 93%. Patient's oxygen was just rechecked at 1320 and was staying between 91-92% and patient is sitting up in the chair. Will continue to monitor.
[2021-08-01 16:58] LABS: Glucose Point of Care 482 mg/dL (70-110)
[2021-08-01] MEDS: atorvastatin 40 mg Tablet 80 MG PO (20:27)
[2021-08-01 21:20] LABS: Glucose Point of Care 376 mg/dL (70-110)
[2021-08-02] VITALS (8 sets, daily range): BP systolic 105–126; BP diastolic 46–74; PULSE 68–82; RESP 12–18; TEMP 36.4–36.8; O2SAT 90–97
[2021-08-02 02:58] LABS: Hematocrit 28.8 % (37.0-47.0); Hemoglobin 9.2 g/dL (11.5-15.3); Lymphocytes # 0.5 10^3/uL (0.8-4.8); Lymphocytes % 8.1 %; Mean Corpuscular HGB Conc 31.9 g/dL (30.0-36.0); Mean Corpuscular Hemoglobin 28.4 pg (28.0-34.0); Mean Corpuscular Volume 88.9 fl (81-99); Mean Platelet Volume 10.5 fL (7.4-10.4); Monocytes # 0.3 10^3/uL (0.2-0.9); Monocytes % 5.2 %; Neutrophils # 5.38 10^3/uL (1.8-7.7); Neutrophils % 85.6 %; Nucleated Red Blood Cells % 0 %; Platelet Count 315 10^3/cmm (130-400); Red Blood Count 3.24 10^6/uL (4.1-5.3); Red Cell Distribution Width 13.2 % (12.1-15.1); White Blood Count 6.3 10^3/uL (4.0-10.0)
[2021-08-02 03:13] LABS: D Dimer 1.57 ug/mIFEU (0-0.59)
[2021-08-02 03:27] LABS: Alanine Aminotransferase 12 U/L (0-33); Alkaline Phosphatase 67 IU/L (35-105); Anion Gap 18.8 (5-19); Aspartate Amino Transferase 15 U/L (0-32); Blood Urea Nitrogen 77 mg/dL (8-23); C Reactive Protein 44.4 mg/L (0.0-4.9); Calcium 8.6 mg/dL (8.5-10.5); Carbon Dioxide 23 mmol/L (22-29); Chloride 92 mmol/L (98-107); Ferritin 365 ng/mL (15-150); Globulin 2.8 g/dL (1.3-4.6); Glucose 294 mg/dL (65-115); Osmolality Calculated 302 mOsm/kg (285-295); Potassium 4.8 mmol/L (3.5-5.1); Sodium 129 mmol/L (136-145); Total Bilirubin 0.2 mg/dL (0.15-1.2); Total Protein 5.8 g/dL (6.6-8.7)
[2021-08-02 06:45] LABS: Glucose Point of Care 345 mg/dL (70-110)
[2021-08-02] MEDS: levothyroxine 125 mcg Tablet PO (06:49)
[2021-08-02] MEDS: heparin 5,000 unit/mL INJ 1 mL 5000 UNIT SUBCUT ×2 (06:49→18:24)
[2021-08-02] MEDS: remdesivir 100 MG in sodium chloride 0.9% (100 ml) 80 ML IV (06:50)
[2021-08-02] MEDS: insulin lispro 100 unit/1 mL SUBCUT ×4 (08:34→21:24)
[2021-08-02] MEDS: fluoxetine 20 mg Capsule PO (08:35)
[2021-08-02] MEDS: doxycycline 100 mg Tablet PO ×2 (08:35→18:24)
[2021-08-02] MEDS: pantoprazole DR 40 mg Tablet PO (08:35)
[2021-08-02] MEDS: aspirin 81 mg Chew Tablet PO (08:35)
[2021-08-02] MEDS: gabapentin 300 mg Capsule PO (08:35)
[2021-08-02 08:53] LABS: Creatine Phosphokinase 58 U/L (26-192)
[2021-08-02] MEDS: sodium chloride 0.9% 1,000 ML 40 ML IV (10:05)
[2021-08-02 10:56] LABS: Glucose Point of Care 452 mg/dL (70-110)
--- NOTE | 2021-08-02 11:30 | PC.SOCIAL ---
IMM Update pg 2 of IMM updated and reviewed w/ patient. Copy provided.
[2021-08-02] MEDS: dexamethasone 10 mg/mL INJ 6 MG IVP (12:34)
[2021-08-02 15:07] LABS: Anion Gap 19.5 (5-19); Blood Urea Nitrogen 80 mg/dL (8-23); Calcium 8.4 mg/dL (8.5-10.5); Carbon Dioxide 19 mmol/L (22-29); Chloride 89 mmol/L (98-107); Glucose 342 mg/dL (65-115); Osmolality Calculated 294 mOsm/kg (285-295); Potassium 4.5 mmol/L (3.5-5.1); Sodium 123 mmol/L (136-145)
--- NOTE | 2021-08-02 15:14 | P.PN_ITS ---
Subjective Subjective: Interval history: Sarah is feeling better. Less short of breath. Creatinine was higher again this afternoon and I initiated some lower dose saline. I was worried she could potentially have some contrast-induced nephropathy. Medications: Reviewed: Yes Vitals/I&O/Wt Last Vital Signs Temp 98.2 F 08/02/21 11:26 Pulse 77 08/02/21 11:26 Resp 16 08/02/21 11:26 BP 126/60 08/02/21 11:26 Pulse Ox 97 08/02/21 11:26 08/02/21 08/02/21 08/02/21 06:59 14:59 22:59 Intake Total 480 / 960 700 / 700 Balance 480 / 960 700 / 700 Physical Exam Narrative: EXAM NARRATIVE: General exam is a white female, in no apparent distress Neck is supple no lymphadenopathy or thyromegaly Cardiovascular regular rate and rhythm without murmur Lungs no wheezing. Diminished breath sounds are noted bilaterally. Abdomen is soft with positive bowel sounds. No obvious organomegaly Extremities no cyanosis clubbing or edema, cap refill brisk. Left leg slightly bigger than the right which patient reports is secondary to an old crush injury Data : 08/02/21 02:10 08/02/21 14:38 A&P Assessment and plan (1) Pneumonia due to COVID-19 virus: First tested positive on July 22. Not candidate for monoclonal antibody currently is requiring oxygen. Continue remdesivir Dexamethasone 6 mg IV every 24 hours Procalcitonin not elevated. Doxycycline empirically Pulmonary toilet Now improved, and back to room air Status: Acute (2) Acute and chronic respiratory failure with hypoxia: Secondary to above, see above Status: Acute (3) Acute hyponatremia: Hold hydrochlorothiazide. Do not plan on continuing at discharge. Had work-up previously consisting of TSH and cortisol level which were normal. Sodium level has dropped lower, and does not fully correct for glucose. She did not improve with low-dose saline given earlier today. Lasix 40 mg IV x1, discontinue IV fluids, recheck sodium in the morning Status: Acute (4) Anemia: Monitor. No evidence of active bleeding Status: Acute (5) CRF (chronic renal failure): Hold ARB Avoid renal toxic medication Reduced Neurontin dose for renal function Status: Acute (6) Diabetes 1.5, managed as type 2: Increase Lantus for hyperglycemia Change sliding scale to aggressive Sugars may elevate secondary to dexamethasone. Status: Acute Additional A&P Information Coronary artery disease, asymptomatic currently. Troponin delta not significant. Previous echocardiogram 60% ejection fraction Hypertension. Has some lower blood pressure with bradycardia. Hold ARB as well as beta-laila. Holding hydrochlorothiazide secondary to hyponatremia. Edema left lower extremity. Patient reports this is chronic and unchanged. However D-dimer is elevated secondary to Covid. Venous duplex checked and negative Multiple other medical problems as outlined in past medical history Full code Heparin for DVT prophylaxis Attestations Medical Necessity Statement*: Needs continued hospitalization secondary to worsening hyponatremia Coding Level of Care Code Acute Pearl Stringer for g Fwd Diagnoses Pneumonia due to COVID-19 virus U07.1; J12.82 Acute and chronic respiratory failure with hypoxia J96.21 Acute hyponatremia E87.1 Anemia D64.9 CRF (chronic renal failure) N18.9 Diabetes 1.5, managed as type 2 E13.9
[2021-08-02] MEDS: FUROsemide 10 mg/mL SDV 4mL 40 MG IVP (16:12)
[2021-08-02] MEDS: gabapentin 100 mg Capsule PO ×2 (16:12→20:24)
[2021-08-02 17:05] LABS: Glucose Point of Care 298 mg/dL (70-110)
[2021-08-02 20:40] LABS: Glucose Point of Care 400 mg/dL (70-110)
[2021-08-03] VITALS (8 sets, daily range): BP systolic 114–117; BP diastolic 64–71; PULSE 71–80; RESP 16–18; TEMP 36.4–36.9; O2SAT 91–94
[2021-08-03] MEDS: remdesivir 100 MG in sodium chloride 0.9% (100 ml) 80 ML IV (06:22)
[2021-08-03] MEDS: levothyroxine 125 mcg Tablet PO (06:22)
[2021-08-03 06:24] LABS: Glucose Point of Care 203 mg/dL (70-110)
[2021-08-03] MEDS: heparin 5,000 unit/mL INJ 1 mL 5000 UNIT SUBCUT (06:25)
[2021-08-03 07:13] LABS: Anion Gap 18.7 (5-19); Calcium 8.8 mg/dL (8.5-10.5); Carbon Dioxide 22 mmol/L (22-29); Chloride 96 mmol/L (98-107); Glucose 192 mg/dL (65-115); Osmolality Calculated 306 mOsm/kg (285-295); Potassium 4.7 mmol/L (3.5-5.1); Sodium 132 mmol/L (136-145)
[2021-08-03 07:21] LABS: Blood Urea Nitrogen 88 mg/dL (8-23)
[2021-08-03] MEDS: doxycycline 100 mg Tablet PO (08:36)
[2021-08-03] MEDS: gabapentin 100 mg Capsule PO ×2 (08:36→15:18)
[2021-08-03] MEDS: pantoprazole DR 40 mg Tablet PO (08:36)
[2021-08-03] MEDS: aspirin 81 mg Chew Tablet PO (08:37)
[2021-08-03] MEDS: insulin lispro 100 unit/1 mL SUBCUT ×2 (08:37→12:17)
[2021-08-03] MEDS: fluoxetine 20 mg Capsule PO (08:37)
[2021-08-03 11:00] LABS: Glucose Point of Care 305 mg/dL (70-110)
--- NOTE | 2021-08-03 15:18 | PM.DCS ---
Discharge Providers Date of Admission: 07/30/21 12:11 Date of Discharge: August 03, 2021 Attending Provider at Admission: Humberto Larson MD Attending Provider at Discharge: aMla Figueroa MD Primary Care Provider: Vikas Candelaria MD Diagnoses at Discharge Discharge Diagnosis (1) Pneumonia due to COVID-19 virus: Status: Acute (2) Acute and chronic respiratory failure with hypoxia: Status: Resolved (3) Acute hyponatremia: Status: Resolved (4) Anemia: Status: Acute (5) CRF (chronic renal failure): Status: Acute (6) Diabetes 1.5, managed as type 2: Status: Acute Reason for Visit Reason for Visit: Covid+, Low O2, High HR, Head Congestion Hospital Course Hospital Course Sarah Petersen is a 76 year old female with history of testing positive for Covid on the first through an outside laboratory at [facility]. She states she has had symptoms since about that same time. She has felt tired. She has had some low-grade temperatures. She is now got some shortness of breath. She has a cough that is nonproductive. She denies any hemoptysis. She reports she has been eating and drinking okay. There is been no vomiting or diarrhea. Her most recent hospitalization was May 31 through the , where she was treated for acute kidney injury, hyponatremia, and abdominal discomfort. She reports the most significant thing that has happened is her energy is very low. course Patient was admitted for Covid pneumonia. Respiratory failure resolved and she returned to be on room air. Steroids were also discontinued due to improvement from her condition. She was followed by Dr. Larson during her hospital stay and discharged by me on Thursday. Patient does have increasing BUN which is at 88 this morning. She was also given saline and Lasix during hospital stay. Patient was asymptomatic and not encephalopathic. She was quite stable with that high BUN. I did call nephrology and curbside them with the case. Discussed with Dr. Curtis. Since patient is asymptomatic and stable he stated that we can give her repeat labs to follow and to follow-up with her primary care physician and she should be okay to discharge today. Patient's hydrochlorothiazide was held at discharge to follow-up with primary care physician. She also had a brief period of hyponatremia which did improve. ARB was also held at discharge. Physical Exam Narrative: EXAM NARRATIVE: General exam is a white female, in no apparent distress Neck is supple no lymphadenopathy or thyromegaly Cardiovascular regular rate and rhythm without murmur Lungs no wheezing. Diminished breath sounds are noted bilaterally. Abdomen is soft with positive bowel sounds. No obvious organomegaly Extremities no cyanosis clubbing or edema, cap refill brisk. Left leg slightly bigger than the right which patient reports is secondary to an old crush injury Discharge Data Data Completed and Pending: Completed Studies During Hospitalization Category Date Time Status CT angio chest PE protcl [id number] Stat Cat Scan 07/30/21 08:26 Completed XR chest 1V alden ble [id number] Stat Exams 07/30/21 08:25 [place] [id number] Routin e Ultrasound 08/01/21 08:56 Completed Labs from last 24 hours 08/03/21 08/03/21 08/03/21 10:56 06:18 06:17 Sodium 132 L Potassium 4.7 Chloride 96 L Carbon Dioxide 22 Anion Gap 18.7 BUN 88 H* Creatinine 1.5 H GFR Calculation Not Reportable Glucose 192 H POC Glucose 305 H 203 H Calculated Osmolal ity 306 H Calcium 8.8 08/02/21 08/02/21 20:33 16:59 Sodium Potassium Chloride Carbon Dioxide Anion Gap BUN Creatinine GFR Calculation Glucose POC Glucose 400 H 298 H Calculated Osmolal ity Calcium Vitals: Last Vital Signs Temp 97.8 F 08/03/21 11:52 Pulse 80 08/03/21 14:17 Resp 18 08/03/21 14:17 BP 114/67 08/03/21 11:52 Pulse Ox 92 08/03/21 14:17 Discharge Plan Discharge Patient Disposition: Home Condition: Stable Prescriptions: Continued atenolol 25 mg tablet 25 mg PO DAILY@08 RF: 0 budesonide 0.5 mg/2 mL suspension for nebulization 0.5 mg INHALATION BID PRN (Reason: Shortness Of Breath) RF: 0 fluoxetine 20 mg capsule 20 mg PO DAILY@08 RF: 0 esomeprazole magnesium 40 mg capsule,delayed release(DR/EC) 40 mg PO DAILY@08 RF: 0 loratadine 10 mg tablet 10 mg PO DAILY@08 RF: 0 montelukast [Singulair] 10 mg tablet 10 mg PO DAILY@08 RF: 0 nitroglycerin [Nitrostat] 0.4 mg tablet, sublingual 0.4 mg SUBLINGUAL Q5M PRN (Reason: Chest Pain) RF: 0 Symbicort 160-4.5 mcg/actuation HFA aerosol inhaler 2 puff INHALATION BID RF: 0 rosuvastatin [Crestor] 40 mg tablet 40 mg PO BEDTIME@2200 RF: 0 tramadol 50 mg tablet 50 mg PO BID PRN (Reason: Pain) RF: 0 albuterol sulfate [ProAir HFA] 90 mcg/actuation HFA aerosol inhaler 2 puff INHALATION Q6H PRN (Reason: Shortness Of Breath) RF: 0 aspirin 81 mg Tablet,Chewable 81 mg PO DAILY@08 RF: 0 Alphagan P 0.1 % Drops 1 drp OPHTHALMIC (EYE) DAILY@08 RF: 0 Lumigan 0.01 % drops 1 drp ophthalmic (eye) QAM RF: 0 levothyroxine 125 mcg tablet 125 mcg PO QAM RF: 0 Levemir FlexTouch U-100 Insuln 100 unit/mL (3 mL) insulin pen 30 unit SUBCUT BEDTIME RF: 0 Janumet XR 100-1,000 mg tablet, ER multiphase 24 hr 1 tab PO QAM RF: 0 Farxiga 10 mg tablet 10 mg PO QAM RF: 0 Rocklatan 0.02-0.005 % drops 1 drp ophthalmic (eye) DAILY RF: 0 acetaminophen 500 mg Tablet 1,000 mg PO Q4H PRN (Reason: Pain) RF: 0 Vitamin C 500 mg Tablet 500 mg PO DAILY RF: 0 Vitamin D3 2 cap PO DAILY RF: 0 Held hydrochlorothiazide 25 mg tablet 25 mg PO DAILY@08 RF: 0 Hold Instructions: Resume on 06/13/21. olmesartan 40 mg tablet 40 mg PO DAILY@08 RF: 0 Hold Instructions: Resume on 06/17/21. gabapentin 300 mg Capsule 600 mg PO TID@08,12,20 RF: 0 Hold Instructions: see pcp furosemide 40 mg Tablet 40 mg PO QAM RF: 0 Hold Instructions: Resume on 06/13/21. naproxen 500 mg Tablet 500 mg PO BID PRN (Reason: Pain) RF: 0 Hold Instructions: see pcp Discharge Orders: Discharge Order (Routine); Ordered 08/03/21 Ordered By: Mala Figueroa Other Ambulatory Orders: Basic Metabolic Panel (Routine) Timeframe: 3 Days Facility: [facility] - Location: Lab - Main Lab Ordered By: Mala Figueroa Referrals: Vikas Candelaria MD [Primary Care Provider] - 08/09/21 10:45 am (Please follow up with your primary care provider within one week.) Discharge Diet: Diabetic and Low Salt Discharge Activity: Increase activity as tolerated Patient Instructions: Doxycycline (By mouth), Hypoxia (GEN), Opioid Safety Activity Restrictions/Additional Instructions: Low potassium, low sodium diabetic consistent carbohydrate diet. Discharge Attestations Time Spent in Discharge Care*: greater than 30 min Specific Discharge Activities: discussing with pcp/other providers Status at Discharge: Cognitive status at discharge: cognitively intact, Behavioral status at discharge: cooperative, Quality Metrics Clinical Quality Measures During this hospital stay, did patient experience: None Coding Level of Care Code Acute Chg FW DC note Diagnoses Pneumonia due to COVID-19 virus U07.1; J12.82 Acute and chronic respiratory failure with hypoxia J96.21 Acute hyponatremia E87.1 Anemia D64.9 CRF (chronic renal failure) N18.9 Diabetes 1.5, managed as type 2 E13.9
== END 2021-08-03 16:48 | disposition home or self-care (01) | DRG 177 ==
LOC: ER 11:44 → MEDSURG 13:26
PROVIDERS: Admitting Provider Internal Medicine; Emergency Provider Family Medicine; PCP Family Medicine; Visit Provider Internal Medicine
DX: U07.1 COVID-19 (principal); J12.82 Pneumonia due to coronavirus disease 2019; J96.21 Acute and chronic respiratory failure with hypoxia; E87.1 Hypo-osmolality and hyponatremia; N17.9 Acute kidney failure, unspecified; J44.0 Chronic obstructive pulmonary disease with (acute) lower respiratory infection; E13.22 Other specified diabetes mellitus with diabetic chronic kidney disease; I12.9 Hypertensive chronic kidney disease with stage 1 through stage 4 chronic kidney disease, or unspecified chronic kidney disease; N18.9 Chronic kidney disease, unspecified; D63.1 Anemia in chronic kidney disease; I25.10 Atherosclerotic heart disease of native coronary artery without angina pectoris; E78.5 Hyperlipidemia, unspecified; K21.9 Gastro-esophageal reflux disease without esophagitis; D35.02 Benign neoplasm of left adrenal gland; E13.40 Other specified diabetes mellitus with diabetic neuropathy, unspecified; R00.1 Bradycardia, unspecified; E13.65 Other specified diabetes mellitus with hyperglycemia; T38.0X5A Adverse effect of glucocorticoids and synthetic analogues, initial encounter; Z87.891 Personal history of nicotine dependence; Z79.4 Long term (current) use of insulin; Z79.82 Long term (current) use of aspirin
CPT/HCPCS: 36415; 36416; 36600; 71045; 71275; 80048; 80051; 80053; 81001; 81003; 82330; 82550; 82728; 82805; 82962; 83735; 83880; 84145; 84484; 85025; 85378; 86140; 90471; 90732; 93005; 93971; 94640; 96365; 96372; 99285; J1100; J1644; J1815; J1940; J3535; J7030; Q9967

== ENCOUNTER 2021-11-09 15:10 | Emergency (ER) | payer MEDICARE, MEDICAID, SELFPAY ==
[2021-11-09] VITALS (7 sets, daily range): BP systolic 102–135; BP diastolic 61–73; PULSE 68–79; RESP 12–20; TEMP 37.1; O2SAT 94–96; BMI 28.5
--- NOTE | 2021-11-09 15:25 | XRR_ITS ---
PROCEDURE INFORMATION: Exam: XR Left Femur Exam date and time: 11/09/2021 3:25 PM Age: 76 years old Clinical indication: Pain; Thigh; Left; Additional info: Trauma TECHNIQUE: Imaging protocol: XR Left femur. Views: 2 views. COMPARISON: CR (PELVIS, ) 11/09/2021 3:33 PM FINDINGS: Bones/joints: No acute fracture. Soft tissues: Unremarkable. XR/XR femur LT min 2V* [id number] IMPRESSION: No acute findings.
--- NOTE | 2021-11-09 15:25 | XRR_ITS ---
PROCEDURE INFORMATION: Exam: XR Left Forearm Exam date and time: 11/09/2021 3:25 PM Age: 76 years old Clinical indication: Pain; Lower or forearm; Left; Additional info: Trauma TECHNIQUE: Imaging protocol: XR Left forearm. Views: 2 views. COMPARISON: No relevant prior studies available. FINDINGS: Bones/joints: Osseous structures are intact. Negative for fracture. Soft tissues: Normal. XR/XR forearm LT 2V [id number] IMPRESSION: No acute findings.
--- NOTE | 2021-11-09 15:25 | XRR_ITS ---
PROCEDURE INFORMATION: Exam: XR Left Hip Exam date and time: 11/09/2021 3:25 PM Age: 76 years old Clinical indication: Hip pain and pelvic pain; Left hip; Additional info: Trauma; One view pelvis too please TECHNIQUE: Imaging protocol: XR Left hip. Views: 2 or 3 views hip with pelvis when performed. COMPARISON: CT abdomen pelvis w con* [id number] 05/31/2021 1:17 PM FINDINGS: Bones/joints: No acute fracture. Soft tissues: Unremarkable. XR/XR hip LT 2-3V wo/w pel* [id number] IMPRESSION: No acute findings.
--- NOTE | 2021-11-09 15:26 | W.ED.FALL ---
Documented by User: MARTA Stinson 11/11/21 07:01 HPI - Fall General: Chief Complaint: Fall Stated Complaint: Fall Time Seen by Provider: 11/09/21 15:20 Source: patient Mode of arrival: ambulatory Limitations: no limitations History of Present Illness: Patient is a nice 76-year-old female who presents to ED today for evaluation following a fall. Patient states around 5 AM this morning she was using the restroom with her wheeled walker and states the wheels got hung up causing the walker to tip over and states she tipped over with it and landed onto her left side. She is complaining of pain to her left forearm and left hip/pelvis. Patient family states she has been ambulatory since the fall but with quite a bit of difficulty even with her walker. Denies striking her head or LOC. She does not complain of neck or back pain. MD complaint: fall Onset (ago): hour(s) Fall from: standing Fall witnessed: no Place fall occurred: home Loss of consciousness: None Prolonged down time: no Symptoms prior to fall: none Context: tripped/slipped Location of injury: pelvis Associated symptoms-after fall: Reports no associated symptoms; Denies abdominal pain, chest pain, confusion, headache(s), lightheadedness or neck pain Review of Systems Const: Denies: fever(s), chills, body aches, fatigue or malaise Eyes: Denies: change in vision or blurry vision Card: Denies: chest pain, palpitations, irregular heart rhythm, lightheadedness, syncope or pre-syncope Resp: Denies: dyspnea GI: Denies: abdominal pain Musc: Reports: extremity pain (L forearm) and joint pain (L hip); Denies: neck pain, back pain or joint swelling Neuro: Denies: headache(s), numbness in extremities, weakness in extremities, sensory changes, lack of coordination, frequent falls, dizziness, confusion, Slurred speech present or difficulty communicating thoughts PFS ED PFSH: Medical History (Updated 11/17/21 @ 00:01 by ) Abdominal pain Acute hyponatremia Acute kidney injury superimposed on CKD ASHD (arteriosclerotic heart disease) Chest pain Diabetes 1.5, managed as type 2 Dyslipidemia Elevated troponin GERD (gastroesophageal reflux disease) HTN (hypertension) Lesion of spleen Surgical History S/P PTCA (percutaneous transluminal coronary angioplasty) Status post creation of pericardial window Family History Mother Cancer Diabetes Social History Smoking and tobacco status: former smoker Alcohol intake: never Female Reproductive History: Date of last menstrual period: 12/13/20 Physical Exam Const: COMMON NORMALS: no acute distress, patient oriented x3, no limitations, alert and well nourished GENERAL APPEARANCE: cooperative ORIENTATION/CONSCIOUSNESS: Yes awake, Yes oriented to person, Yes oriented to place and Yes oriented to time HENMT: COMMON NORMALS: normocephalic and atraumatic HEAD & SCALP: normal to inspection, normocephalic and atraumatic FACE & SINUS: normal facial exam Neck/C-Spine: COMMON NORMALS: full ROM CERVICAL SPINE: Yes cervical ROM normal, No pain with cervical ROM, No Cervical spine tenderness, No step off deformity and No Paracervical muscle tenderness Chest: COMMONS NORMALS: normal inspection of the chest and normal palpation of entire chest wall Resp: COMMON NORMALS: normal respiratory effort and clear to auscultation bilaterally AUSCULTATION: clear to auscultation bilaterally Cardio: COMMON NORMALS: regular rate and regular rhythm RATE: regular rate RHYTHM: regular rhythm GI: COMMON NORMALS: Normal to inspection, nondistended, normoactive bowel sounds present, Soft to palpation, non-tender, No hepatosplenomegaly present and no masses PALPATION: Yes Soft to palpation and Yes No hepatosplenomegaly present Back/Pelvis: COMMON NORMALS: thoracic and lumbar spine normal to inspection, no thoracic nor lumbar tenderness and thoraco-lumbar ROM normal Extremity: GENERAL: Yes normal exam except as noted LEFT UPPER EXTREMITY: Yes lower arm (mild pain to forearm; no deformity or swelling noted) Left lower arm: Yes neurovascular exam (normal) LEFT LOWER EXTREMITY: Yes hip joint (TTP L lateral/posterior hip; no shortening or rotation noted) and Yes knee joint (full ROM/no tenderness to knee distally) Neuro: COMMON NORMALS: patient oriented x3 SENSORIUM/ORIENTATION: Yes alert, Yes oriented to person, Yes oriented to place and Yes oriented to time Course Vital Signs: Vital signs: Vital Signs Temperature 98.8 F 11/09/21 15:15 Pulse Rate 69 11/09/21 19:14 Respiratory Rate 16 11/09/21 19:14 Blood Pressure 107/62 11/09/21 19:14 Pulse Oximetry 94 11/09/21 19:14 MDM - Fall Lab Data : 11/09/21 16:07 11/09/21 16:07 Radiology Impressions Femur X-Ray 11/09/21 15:25 IMPRESSION: No acute findings. Forearm X-Ray 11/09/21 15:25 IMPRESSION: No acute findings. Hip/Pelvis X-Ray 11/09/21 15:25 IMPRESSION: No acute findings. Chest X-Ray 11/09/21 15:47 IMPRESSION: No acute findings. Hip CT 11/09/21 16:46 IMPRESSION: No acute findings. Laboratory Results WBC 8.1 10^3/uL (4.0-10.0) 11/09/21 16:07 RBC 4.22 10^6/uL (4.1-5.3) 11/09/21 16:07 Hgb 11.9 g/dL (11.5-15.3) 11/09/21 16:07 Hct 37.3 % (37.0-47.0) 11/09/21 16:07 MCV 88.4 fl (81-99) 11/09/21 16:07 MCH 28.2 pg (28.0-34.0) 11/09/21 16:07 MCHC 31.9 g/dL (30.0-36.0) 11/09/21 16:07 RDW 13.1 % (12.1-15.1) 11/09/21 16:07 Plt Count 202 10^3/cmm (130-400) 11/09/21 16:07 MPV 10.9 fL (7.4-10.4) H 11/09/21 16:07 Neut % (Auto) 83.1 % 11/09/21 16:07 Lymph % (Auto) 9.0 % 11/09/21 16:07 [place] % (Auto) 6.2 % 11/09/21 16:07 Eos % (Auto) 0.9 % 11/09/21 16:07 Baso % (Auto) 0.4 % 11/09/21 16:07 Neut # (Auto) 6.77 10^3/uL (1.8-7.7) 11/09/21 16:07 Lymph # (Auto) 0.7 10^3/uL (0.8-4.8) L 11/09/21 16:07 [place] # (Auto) 0.5 10^3/uL (0.2-0.9) 11/09/21 16:07 Eos # (Auto) 0.1 10^3/uL (0.0-0.8) 11/09/21 16:07 Baso # (Auto) 0.0 10^3/uL (0.0-0.1) 11/09/21 16:07 Nucleated RBC % (auto) 0 % 11/09/21 16:07 Nucleated RBCs # 0.0 /100WBC 11/09/21 16:07 Sodium 128 mmol/L (136-145) L 11/09/21 16:07 Potassium 4.1 mmol/L (3.5-5.1) 11/09/21 16:07 Chloride 88 mmol/L (98-107) L 11/09/21 16:07 Carbon Dioxide 26 mmol/L (22-29) 11/09/21 16:07 Anion Gap 18.1 (5-19) 11/09/21 16:07 BUN 38 mg/dL (8-23) H 11/09/21 16:07 Creatinine 1.7 mg/dL (0.5-0.9) H 11/09/21 16:07 GFR Calculation Not Reportable 11/09/21 16:07 Glucose 475 mg/dL (65-115) H 11/09/21 16:07 Calculated Osmolality 296 mOsm/kg (285-295) H 11/09/21 16:07 Calcium 9.2 mg/dL (8.5-10.5) 11/09/21 16:07 Total Bilirubin 0.3 mg/dL (0.15-1.2) 11/09/21 16:07 AST 14 U/L (0-32) 11/09/21 16:07 ALT 12 U/L (0-33) 11/09/21 16:07 Alkaline Phosphatase 86 IU/L (35-105) 11/09/21 16:07 Total Protein 6.4 g/dL (6.6-8.7) L 11/09/21 16:07 Albumin 4.0 g/dL (3.5-5.2) 11/09/21 16:07 Globulin 2.4 g/dL (1.3-4.6) 11/09/21 16:07 Discharge Plan Discharge Patient Disposition: Home Clinical Impression: Fall, Hip joint pain Condition: Stable Prescriptions: New tramadol 50 mg tablet 50 mg PO Q6H PRN (Reason: pain) Qty: 10 0RF No Action atenolol 25 mg tablet 25 mg PO DAILY@08 0RF budesonide 0.5 mg/2 mL suspension for nebulization 0.5 mg INHALATION BID PRN (Reason: Shortness Of Breath) 0RF fluoxetine 20 mg capsule 20 mg PO DAILY@08 0RF esomeprazole magnesium 40 mg capsule,delayed release(DR/EC) 40 mg PO DAILY@08 0RF hydrochlorothiazide 25 mg tablet 25 mg PO DAILY@08 0RF Hold Instructions: Resume on 06/13/21. montelukast [Singulair] 10 mg tablet 10 mg PO DAILY@08 0RF nitroglycerin [Nitrostat] 0.4 mg tablet, sublingual 0.4 mg SUBLINGUAL Q5M PRN (Reason: Chest Pain) 0RF olmesartan 40 mg tablet 40 mg PO DAILY@08 0RF Hold Instructions: Resume on 06/17/21. rosuvastatin [Crestor] 40 mg tablet 40 mg PO BEDTIME@2200 0RF tramadol 50 mg tablet 50 mg PO BID PRN (Reason: Pain) 0RF albuterol sulfate [ProAir HFA] 90 mcg/actuation HFA aerosol inhaler 2 puff INHALATION Q6H PRN (Reason: Shortness Of Breath) 0RF aspirin 81 mg Tablet,Chewable 81 mg PO DAILY@08 0RF gabapentin 300 mg Capsule 600 mg PO TID@08,12,20 0RF Hold Instructions: see pcp Alphagan P 0.1 % Drops 1 drp OPHTHALMIC (EYE) DAILY@08 0RF Rx Instructions: (BOTH EYES) furosemide 40 mg Tablet 40 mg PO QAM 0RF Hold Instructions: Resume on 06/13/21. naproxen 500 mg Tablet 500 mg PO BID PRN (Reason: Pain) 0RF Hold Instructions: see pcp Lumigan 0.01 % drops 1 drp ophthalmic (eye) QAM 0RF Rx Instructions: both eyes levothyroxine 125 mcg tablet 125 mcg PO QAM 0RF Levemir FlexTouch U-100 Insuln 100 unit/mL (3 mL) insulin pen 30 unit SUBCUT BEDTIME 0RF Farxiga 10 mg tablet 10 mg PO QAM 0RF Rocklatan 0.02-0.005 % drops 1 drp ophthalmic (eye) DAILY 0RF acetaminophen 500 mg Tablet 1,000 mg PO Q4H PRN (Reason: Pain) 0RF ascorbic acid (vitamin C) [Vitamin C] 500 mg Tablet 500 mg PO DAILY 0RF Vitamin D3 2 cap PO DAILY 0RF Discharge Orders: Discharge ED (Routine); Ordered 11/09/21 Ordered By: Waldo Hill Referrals: Vikas Candelaria MD [Primary Care Provider] - Discharge Diet: Usual diet Discharge Activity: Increase activity as tolerated Patient Instructions: Musculoskeletal Pain (ED), Opioid Safety Activity Restrictions/Additional Instructions: Use walker for ambulation. Increase her tramadol to 1 tablet 4 times a day for the next 2 days to help with pain. Follow-up with primary care for further instructions. Return to ER for new concerns. Sign Out Sign Out Data: Patient Sign Out occurred on 11/09/21 at 17:01. Patient's care was discussed, and care was transferred from to Waldo Hill. Post-Handoff Eval: Patient was evaluated. Patient reports pain controlled at this time. Patient had slipped and fell at home when her walker went out from under her. Patient had left hip pain. Shakira Barrientos PA-C, had ordered a CT and we were awaiting results. CT scan came back negative for acute fracture. Patient will be it was written prescription for tramadol for pain. Patient was recommended to follow-up with primary care for further instructions. Coding Level of Care Code ED Garage Supervisor for Chg Fwd Exam Comprehensive Documented by User: [email or web address] Nunez 11/09/21 17:54 HPI - Fall General: Chief Complaint: Fall Stated Complaint: Fall Time Seen by Provider: 11/09/21 15:20 PFSH ED PFSH: Medical History (Updated 11/17/21 @ 00:01 by ) Abdominal pain Acute hyponatremia Acute kidney injury superimposed on CKD ASHD (arteriosclerotic heart disease) Chest pain Diabetes 1.5, managed as type 2 Dyslipidemia Elevated troponin GERD (gastroesophageal reflux disease) HTN (hypertension) Lesion of spleen Surgical History S/P PTCA (percutaneous transluminal coronary angioplasty) Status post creation of pericardial window Family History Mother Cancer Diabetes Social History Smoking and tobacco status: former smoker Alcohol intake: never Course Vital Signs: Vital signs: Vital Signs Temperature 98.8 F 11/09/21 15:15 Pulse Rate 69 11/09/21 19:14 Respiratory Rate 16 11/09/21 19:14 Blood Pressure 107/62 11/09/21 19:14 Pulse Oximetry 94 11/09/21 19:14 MDM - Fall Medical Decision Making 76-year-old female comes in for evaluation after a fall at home. Patient reports that she using her walker and it got twisted up causing her to fall onto her left side. Patient reported pain and discomfort to her left hip. On exam patient has pain discomfort to the left hip area. No obvious deformity was noted. No shortening or external rotation was noted. Differential diagnosis includes fracture, contusion, dislocation. X-ray of the hip was negative for fracture although patient did have a high suspicion for fracture due to pain and difficulty of ambulation. CT scan was then done and no fracture was noted to the hip. Reviewed exam with patient with recommendations for treatment and follow-up. Patient reported understanding agreed to plan. Lab Data : 11/09/21 16:07 11/09/21 16:07 Radiology Impressions Femur X-Ray 11/09/21 15:25 IMPRESSION: No acute findings. Forearm X-Ray 11/09/21 15:25 IMPRESSION: No acute findings. Hip/Pelvis X-Ray 11/09/21 15:25 IMPRESSION: No acute findings. Chest X-Ray 11/09/21 15:47 IMPRESSION: No acute findings. Hip CT 11/09/21 16:46 IMPRESSION: No acute findings. Laboratory Results WBC 8.1 10^3/uL (4.0-10.0) 11/09/21 16:07 RBC 4.22 10^6/uL (4.1-5.3) 11/09/21 16:07 Hgb 11.9 g/dL (11.5-15.3) 11/09/21 16:07 Hct 37.3 % (37.0-47.0) 11/09/21 16:07 MCV 88.4 fl (81-99) 11/09/21 16:07 MCH 28.2 pg (28.0-34.0) 11/09/21 16:07 MCHC 31.9 g/dL (30.0-36.0) 11/09/21 16:07 RDW 13.1 % (12.1-15.1) 11/09/21 16:07 Plt Count 202 10^3/cmm (130-400) 11/09/21 16:07 MPV 10.9 fL (7.4-10.4) H 11/09/21 16:07 Neut % (Auto) 83.1 % 11/09/21 16:07 Lymph % (Auto) 9.0 % 11/09/21 16:07 [place] % (Auto) 6.2 % 11/09/21 16:07 Eos % (Auto) 0.9 % 11/09/21 16:07 Baso % (Auto) 0.4 % 11/09/21 16:07 Neut # (Auto) 6.77 10^3/uL (1.8-7.7) 11/09/21 16:07 Lymph # (Auto) 0.7 10^3/uL (0.8-4.8) L 11/09/21 16:07 [place] # (Auto) 0.5 10^3/uL (0.2-0.9) 11/09/21 16:07 Eos # (Auto) 0.1 10^3/uL (0.0-0.8) 11/09/21 16:07 Baso # (Auto) 0.0 10^3/uL (0.0-0.1) 11/09/21 16:07 Nucleated RBC % (auto) 0 % 11/09/21 16:07 Nucleated RBCs # 0.0 /100WBC 11/09/21 16:07 Sodium 128 mmol/L (136-145) L 11/09/21 16:07 Potassium 4.1 mmol/L (3.5-5.1) 11/09/21 16:07 Chloride 88 mmol/L (98-107) L 11/09/21 16:07 Carbon Dioxide 26 mmol/L (22-29) 11/09/21 16:07 Anion Gap 18.1 (5-19) 11/09/21 16:07 BUN 38 mg/dL (8-23) H 11/09/21 16:07 Creatinine 1.7 mg/dL (0.5-0.9) H 11/09/21 16:07 GFR Calculation Not Reportable 11/09/21 16:07 Glucose 475 mg/dL (65-115) H 11/09/21 16:07 Calculated Osmolality 296 mOsm/kg (285-295) H 11/09/21 16:07 Calcium 9.2 mg/dL (8.5-10.5) 11/09/21 16:07 Total Bilirubin 0.3 mg/dL (0.15-1.2) 11/09/21 16:07 AST 14 U/L (0-32) 11/09/21 16:07 ALT 12 U/L (0-33) 11/09/21 16:07 Alkaline Phosphatase 86 IU/L (35-105) 11/09/21 16:07 Total Protein 6.4 g/dL (6.6-8.7) L 11/09/21 16:07 Albumin 4.0 g/dL (3.5-5.2) 11/09/21 16:07 Globulin 2.4 g/dL (1.3-4.6) 11/09/21 16:07 Discharge Plan Discharge Patient Disposition: Home Clinical Impression: Fall, Hip joint pain Condition: Stable Prescriptions: New tramadol 50 mg tablet 50 mg PO Q6H PRN (Reason: pain) Qty: 10 0RF No Action atenolol 25 mg tablet 25 mg PO DAILY@08 0RF budesonide 0.5 mg/2 mL suspension for nebulization 0.5 mg INHALATION BID PRN (Reason: Shortness Of Breath) 0RF fluoxetine 20 mg capsule 20 mg PO DAILY@08 0RF esomeprazole magnesium 40 mg capsule,delayed release(DR/EC) 40 mg PO DAILY@08 0RF hydrochlorothiazide 25 mg tablet 25 mg PO DAILY@08 0RF Hold Instructions: Resume on 06/13/21. montelukast [Singulair] 10 mg tablet 10 mg PO DAILY@08 0RF nitroglycerin [Nitrostat] 0.4 mg tablet, sublingual 0.4 mg SUBLINGUAL Q5M PRN (Reason: Chest Pain) 0RF olmesartan 40 mg tablet 40 mg PO DAILY@08 0RF Hold Instructions: Resume on 06/17/21. rosuvastatin [Crestor] 40 mg tablet 40 mg PO BEDTIME@2200 0RF tramadol 50 mg tablet 50 mg PO BID PRN (Reason: Pain) 0RF albuterol sulfate [ProAir HFA] 90 mcg/actuation HFA aerosol inhaler 2 puff INHALATION Q6H PRN (Reason: Shortness Of Breath) 0RF aspirin 81 mg Tablet,Chewable 81 mg PO DAILY@08 0RF gabapentin 300 mg Capsule 600 mg PO TID@08,12,20 0RF Hold Instructions: see pcp Alphagan P 0.1 % Drops 1 drp OPHTHALMIC (EYE) DAILY@08 0RF Rx Instructions: (BOTH EYES) furosemide 40 mg Tablet 40 mg PO QAM 0RF Hold Instructions: Resume on 06/13/21. naproxen 500 mg Tablet 500 mg PO BID PRN (Reason: Pain) 0RF Hold Instructions: see pcp Lumigan 0.01 % drops 1 drp ophthalmic (eye) QAM 0RF Rx Instructions: both eyes levothyroxine 125 mcg tablet 125 mcg PO QAM 0RF Levemir FlexTouch U-100 Insuln 100 unit/mL (3 mL) insulin pen 30 unit SUBCUT BEDTIME 0RF Farxiga 10 mg tablet 10 mg PO QAM 0RF Rocklatan 0.02-0.005 % drops 1 drp ophthalmic (eye) DAILY 0RF acetaminophen 500 mg Tablet 1,000 mg PO Q4H PRN (Reason: Pain) 0RF ascorbic acid (vitamin C) [Vitamin C] 500 mg Tablet 500 mg PO DAILY 0RF Vitamin D3 2 cap PO DAILY 0RF Discharge Orders: Discharge ED (Routine); Ordered 11/09/21 Ordered By: Waldo Hill Referrals: Vikas Candelaria MD [Primary Care Provider] - Discharge Diet: Usual diet Discharge Activity: Increase activity as tolerated Patient Instructions: Musculoskeletal Pain (ED), Opioid Safety Activity Restrictions/Additional Instructions: Use walker for ambulation. Increase her tramadol to 1 tablet 4 times a day for the next 2 days to help with pain. Follow-up with primary care for further instructions. Return to ER for new concerns. Sign Out Sign Out Data: Patient Sign Out occurred on 11/09/21 at 17:01. Patient's care was discussed, and care was transferred from to Waldo Hill. Post-Handoff Eval: Patient was evaluated. Patient reports pain controlled at this time. Patient had slipped and fell at home when her walker went out from under her. Patient had left hip pain. Shakira Barrientos PA-C, had ordered a CT and we were awaiting results. CT scan came back negative for acute fracture. Patient will be it was written prescription for tramadol for pain. Patient was recommended to follow-up with primary care for further instructions. Coding Level of Care Code ED Garage Supervisor for Chg Fwd Exam Comprehensive Documented by User: Ayan Avina DO 11/26/21 19:23 HPI - Fall General: Chief Complaint: Fall Stated Complaint: Fall Time Seen by Provider: 11/09/21 15:20 [facility] ED PFSH: Medical History (Updated 11/17/21 @ 00:01 by ) Abdominal pain Acute hyponatremia Acute kidney injury superimposed on CKD ASHD (arteriosclerotic heart disease) Chest pain Diabetes 1.5, managed as type 2 Dyslipidemia Elevated troponin GERD (gastroesophageal reflux disease) HTN (hypertension) Lesion of spleen Surgical History S/P PTCA (percutaneous transluminal coronary angioplasty) Status post creation of pericardial window Family History Mother Cancer Diabetes Social History Smoking and tobacco status: former smoker Alcohol intake: never Course ED course: I was one of the attending ED physicians present when this patient was evaluated and dispositioned by the PA. This case was briefly reviewed with me and I reviewed the plain films with the PA. No obvious fracture or dislocation noted but I recommended a CT scan if there was clinical concerns for flakita injury. I did not personally see or evaluate the patient. I agree with the evaluation and disposition as documented. Vital Signs: Vital signs: Vital Signs Temperature 98.8 F 11/09/21 15:15 Pulse Rate 69 11/09/21 19:14 Respiratory Rate 16 11/09/21 19:14 Blood Pressure 107/62 11/09/21 19:14 Pulse Oximetry 94 11/09/21 19:14 MDM - Fall Lab Data : 11/09/21 16:07 11/09/21 16:07 Radiology Impressions Femur X-Ray 11/09/21 15:25 IMPRESSION: No acute findings. Forearm X-Ray 11/09/21 15:25 IMPRESSION: No acute findings. Hip/Pelvis X-Ray 11/09/21 15:25 IMPRESSION: No acute findings. Chest X-Ray 11/09/21 15:47 IMPRESSION: No acute findings. Hip CT 11/09/21 16:46 IMPRESSION: No acute findings. Laboratory Results WBC 8.1 10^3/uL (4.0-10.0) 11/09/21 16:07 RBC 4.22 10^6/uL (4.1-5.3) 11/09/21 16:07 Hgb 11.9 g/dL (11.5-15.3) 11/09/21 16:07 Hct 37.3 % (37.0-47.0) 11/09/21 16:07 MCV 88.4 fl (81-99) 11/09/21 16:07 MCH 28.2 pg (28.0-34.0) 11/09/21 16:07 MCHC 31.9 g/dL (30.0-36.0) 11/09/21 16:07 RDW 13.1 % (12.1-15.1) 11/09/21 16:07 Plt Count 202 10^3/cmm (130-400) 11/09/21 16:07 MPV 10.9 fL (7.4-10.4) H 11/09/21 16:07 Neut % (Auto) 83.1 % 11/09/21 16:07 Lymph % (Auto) 9.0 % 11/09/21 16:07 [place] % (Auto) 6.2 % 11/09/21 16:07 Eos % (Auto) 0.9 % 11/09/21 16:07 Baso % (Auto) 0.4 % 11/09/21 16:07 Neut # (Auto) 6.77 10^3/uL (1.8-7.7) 11/09/21 16:07 Lymph # (Auto) 0.7 10^3/uL (0.8-4.8) L 11/09/21 16:07 [place] # (Auto) 0.5 10^3/uL (0.2-0.9) 11/09/21 16:07 Eos # (Auto) 0.1 10^3/uL (0.0-0.8) 11/09/21 16:07 Baso # (Auto) 0.0 10^3/uL (0.0-0.1) 11/09/21 16:07 Nucleated RBC % (auto) 0 % 11/09/21 16:07 Nucleated RBCs # 0.0 /100WBC 11/09/21 16:07 Sodium 128 mmol/L (136-145) L 11/09/21 16:07 Potassium 4.1 mmol/L (3.5-5.1) 11/09/21 16:07 Chloride 88 mmol/L (98-107) L 11/09/21 16:07 Carbon Dioxide 26 mmol/L (22-29) 11/09/21 16:07 Anion Gap 18.1 (5-19) 11/09/21 16:07 BUN 38 mg/dL (8-23) H 11/09/21 16:07 Creatinine 1.7 mg/dL (0.5-0.9) H 11/09/21 16:07 GFR Calculation Not Reportable 11/09/21 16:07 Glucose 475 mg/dL (65-115) H 11/09/21 16:07 Calculated Osmolality 296 mOsm/kg (285-295) H 11/09/21 16:07 Calcium 9.2 mg/dL (8.5-10.5) 11/09/21 16:07 Total Bilirubin 0.3 mg/dL (0.15-1.2) 11/09/21 16:07 AST 14 U/L (0-32) 11/09/21 16:07 ALT 12 U/L (0-33) 11/09/21 16:07 Alkaline Phosphatase 86 IU/L (35-105) 11/09/21 16:07 Total Protein 6.4 g/dL (6.6-8.7) L 11/09/21 16:07 Albumin 4.0 g/dL (3.5-5.2) 11/09/21 16:07 Globulin 2.4 g/dL (1.3-4.6) 11/09/21 16:07 Discharge Plan Discharge Patient Disposition: Home Clinical Impression: Fall, Hip joint pain Condition: Stable Prescriptions: New tramadol 50 mg tablet 50 mg PO Q6H PRN (Reason: pain) Qty: 10 0RF No Action atenolol 25 mg tablet 25 mg PO DAILY@08 0RF budesonide 0.5 mg/2 mL suspension for nebulization 0.5 mg INHALATION BID PRN (Reason: Shortness Of Breath) 0RF fluoxetine 20 mg capsule 20 mg PO DAILY@08 0RF esomeprazole magnesium 40 mg capsule,delayed release(DR/EC) 40 mg PO DAILY@08 0RF hydrochlorothiazide 25 mg tablet 25 mg PO DAILY@08 0RF Hold Instructions: Resume on 06/13/21. montelukast [Singulair] 10 mg tablet 10 mg PO DAILY@08 0RF nitroglycerin [Nitrostat] 0.4 mg tablet, sublingual 0.4 mg SUBLINGUAL Q5M PRN (Reason: Chest Pain) 0RF olmesartan 40 mg tablet 40 mg PO DAILY@08 0RF Hold Instructions: Resume on 06/17/21. rosuvastatin [Crestor] 40 mg tablet 40 mg PO BEDTIME@2200 0RF tramadol 50 mg tablet 50 mg PO BID PRN (Reason: Pain) 0RF albuterol sulfate [ProAir HFA] 90 mcg/actuation HFA aerosol inhaler 2 puff INHALATION Q6H PRN (Reason: Shortness Of Breath) 0RF aspirin 81 mg Tablet,Chewable 81 mg PO DAILY@08 0RF gabapentin 300 mg Capsule 600 mg PO TID@08,12,20 0RF Hold Instructions: see pcp Alphagan P 0.1 % Drops 1 drp OPHTHALMIC (EYE) DAILY@08 0RF Rx Instructions: (BOTH EYES) furosemide 40 mg Tablet 40 mg PO QAM 0RF Hold Instructions: Resume on 06/13/21. naproxen 500 mg Tablet 500 mg PO BID PRN (Reason: Pain) 0RF Hold Instructions: see pcp Lumigan 0.01 % drops 1 drp ophthalmic (eye) QAM 0RF Rx Instructions: both eyes levothyroxine 125 mcg tablet 125 mcg PO QAM 0RF Levemir FlexTouch U-100 Insuln 100 unit/mL (3 mL) insulin pen 30 unit SUBCUT BEDTIME 0RF Farxiga 10 mg tablet 10 mg PO QAM 0RF Rocklatan 0.02-0.005 % drops 1 drp ophthalmic (eye) DAILY 0RF acetaminophen 500 mg Tablet 1,000 mg PO Q4H PRN (Reason: Pain) 0RF ascorbic acid (vitamin C) [Vitamin C] 500 mg Tablet 500 mg PO DAILY 0RF Vitamin D3 2 cap PO DAILY 0RF Discharge Orders: Discharge ED (Routine); Ordered 11/09/21 Ordered By: Waldo Hill Referrals: Vikas Candelaria MD [Primary Care Provider] - Discharge Diet: Usual diet Discharge Activity: Increase activity as tolerated Patient Instructions: Musculoskeletal Pain (ED), Opioid Safety Activity Restrictions/Additional Instructions: Use walker for ambulation. Increase her tramadol to 1 tablet 4 times a day for the next 2 days to help with pain. Follow-up with primary care for further instructions. Return to ER for new concerns. Sign Out Sign Out Data: Patient Sign Out occurred on 11/09/21 at 17:01. Patient's care was discussed, and care was transferred from to Waldo Hill. Post-Handoff Eval: Patient was evaluated. Patient reports pain controlled at this time. Patient had slipped and fell at home when her walker went out from under her. Patient had left hip pain. Shakira Barrientos PA-C, had ordered a CT and we were awaiting results. CT scan came back negative for acute fracture. Patient will be it was written prescription for tramadol for pain. Patient was recommended to follow-up with primary care for further instructions. Coding Level of Care Code ED Garage Supervisor for Cyndie Fwd Exam Comprehensive
[2021-11-09] MEDS: morphine 4 mg/mL SDV 1 mL IM (15:38)
--- NOTE | 2021-11-09 15:47 | ECG_ITS ---
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 Measurements Intervals [place] Rate: 71 P: 74 UT: 193 QRS: 55 QRSD: 92 T: 72 QT: 402 QTc: 438 Interpretive Statements SINUS RHYTHM Compared to ECG 07/30/2021 14:26:15 Sinus bradycardia no longer present Myocardial infarct finding no longer present Electronically Signed On 11-11-2021 12:19:39 VB NET PROGRAMMER by Gilmar Hunt M.D. [id number]
--- NOTE | 2021-11-09 15:47 | XRR_ITS ---
PROCEDURE INFORMATION: Exam: XR Chest Exam date and time: 11/09/2021 3:47 PM Age: 76 years old Clinical indication: Pain; Other: Fall TECHNIQUE: Imaging protocol: XR of the chest. Views: 1 view. COMPARISON: CR XR chest 1V portable [id number] 07/30/2021 8:32 AM FINDINGS: Lungs: Focal scarring at the left lung base. No consolidation. Pleural spaces: No pleural effusion. No pneumothorax. Heart/Mediastinum: No cardiomegaly. Bones/joints: Visualized osseous structures are intact. XR/XR chest 1V portable [id number] IMPRESSION: No acute findings.
[2021-11-09 16:20] LABS: Basophils % 0.4 %; Eosinophils # 0.1 10^3/uL (0.0-0.8); Eosinophils % 0.9 %; Hematocrit 37.3 % (37.0-47.0); Hemoglobin 11.9 g/dL (11.5-15.3); Lymphocytes # 0.7 10^3/uL (0.8-4.8); Mean Corpuscular HGB Conc 31.9 g/dL (30.0-36.0); Mean Corpuscular Hemoglobin 28.2 pg (28.0-34.0); Mean Corpuscular Volume 88.4 fl (81-99); Mean Platelet Volume 10.9 fL (7.4-10.4); Monocytes # 0.5 10^3/uL (0.2-0.9); Monocytes % 6.2 %; Neutrophils # 6.77 10^3/uL (1.8-7.7); Neutrophils % 83.1 %; Nucleated Red Blood Cells % 0 %; Platelet Count 202 10^3/cmm (130-400); Red Blood Count 4.22 10^6/uL (4.1-5.3); Red Cell Distribution Width 13.1 % (12.1-15.1); White Blood Count 8.1 10^3/uL (4.0-10.0)
[2021-11-09 16:36] LABS: Alanine Aminotransferase 12 U/L (0-33); Alkaline Phosphatase 86 IU/L (35-105); Anion Gap 18.1 (5-19); Aspartate Amino Transferase 14 U/L (0-32); Blood Urea Nitrogen 38 mg/dL (8-23); Calcium 9.2 mg/dL (8.5-10.5); Carbon Dioxide 26 mmol/L (22-29); Chloride 88 mmol/L (98-107); Globulin 2.4 g/dL (1.3-4.6); Glucose 475 mg/dL (65-115); Osmolality Calculated 296 mOsm/kg (285-295); Potassium 4.1 mmol/L (3.5-5.1); Sodium 128 mmol/L (136-145); Total Bilirubin 0.3 mg/dL (0.15-1.2); Total Protein 6.4 g/dL (6.6-8.7)
--- NOTE | 2021-11-09 16:46 | CTR_ITS ---
PROCEDURE INFORMATION: Exam: CT Left Lower Extremity Without Contrast, Hip Exam date and time: 11/09/2021 4:46 PM Age: 76 years old Clinical indication: Injury or trauma; Fall; Blunt trauma; Hip; Left; Additional info: Fall, L hip pain, cannot bear weight TECHNIQUE: Imaging protocol: CT of the Left lower extremity without contrast was performed. Exam focused on the hip. Radiation optimization: All CT scans at this facility use at least one of these dose optimization techniques: automated exposure control; mA and/or kV adjustment per patient size (includes targeted exams where dose is matched to clinical indication); or iterative reconstruction. COMPARISON: CR (PELVIS, ) 11/09/2021 3:33 PM RADIATION DOSE METRICS: Total DLP (mGy-cm): 1527.83 FINDINGS: Bones/joints: No acute fracture or dislocation. Soft tissues: Normal. CT/CT hip LT wo con* [id number] IMPRESSION: No acute findings.
[2021-11-09] MEDS: morphine 4 mg/mL SDV 1 mL IVP (16:57)
== END 2021-11-09 19:16 | disposition home or self-care (01) ==
PROVIDERS: Physician Assistant; Emergency Provider Nurse Practitioner Family; PCP Family Medicine
DX: M25.552 Pain in left hip (principal); Z79.82 Long term (current) use of aspirin; Z79.4 Long term (current) use of insulin; E13.9 Other specified diabetes mellitus without complications; E78.5 Hyperlipidemia, unspecified; I10 Essential (primary) hypertension; Z87.891 Personal history of nicotine dependence
CPT/HCPCS: 71045; 73090; 73502; 73552; 73700; 80053; 85025; 93005; 96374; 99283; J2270

== ENCOUNTER → 2021-11-28 12:30 | Outpatient (BNVA) | payer MEDICARE, MEDICAID, SELFPAY | PROVIDERS: PCP Family Medicine; Visit Provider Internal Medicine | DX: I25.10 Atherosclerotic heart disease of native coronary artery without angina pectoris (principal); I10 Essential (primary) hypertension; R07.9 Chest pain, unspecified | CPT/HCPCS: 99214 ==

== ENCOUNTER 2022-03-15 05:34 | Observation (INO) | payer MEDICARE, MEDICAID, SELFPAY ==
[2022-03-15] VITALS (10 sets, daily range): BP systolic 94–155; BP diastolic 54–93; PULSE 56–70; RESP 15–22; TEMP 36.1–36.5; O2SAT 90–97; BMI 25.0; BMI 27.3
--- NOTE | 2022-03-15 05:49 | CTR_ITS ---
PROCEDURE INFORMATION: Exam: CT Head Without Contrast Exam date and time: 03/15/2022 7:26 AM Age: 77 years old Clinical indication: Injury or trauma; Fall; Blunt trauma (contusions or hematomas); Additional info: Fall AMS TECHNIQUE: Imaging protocol: Computed tomography of the head without contrast. Radiation optimization: All CT scans at this facility use at least one of these dose optimization techniques: automated exposure control; mA and/or kV adjustment per patient size (includes targeted exams where dose is matched to clinical indication); or iterative reconstruction. COMPARISON: CT head wo con* [id number] 11/07/2020 1:05 PM RADIATION DOSE METRICS: Total DLP (mGy-cm): 805.55 FINDINGS: Limitations: There is motion artifact partially degrading examination. Brain: There lacunar type infarcts in right caudate nucleus and bilateral posterior cerebral white matter. There is no acute intracranial hemorrhage. There is lucency in the cerebral white matter, likely microvascular disease although non-specific. No evidence of mass. There is no mass effect or midline shift. De La Garza white differentiation is intact. There are no extra-axial fluid collections. Cerebral ventricles: The ventricles and sulci are enlarged, consistent with volume loss / atrophy. No hydrocephalus. Paranasal sinuses: Visualized sinuses are unremarkable. No fluid levels. Mastoid air cells: No significant mastoid effusion. Bones/joints: No acute fracture. Soft tissues: Unremarkable as visualized. Vasculature: There is vascular calcification. CT/CT head wo con* [id number] IMPRESSION: 1. No evidence of acute intracranial abnormality. No evidence of acute infarction, hemorrhage, or mass. 2. Atrophy and microvascular disease.
--- NOTE | 2022-03-15 05:49 | CTR_ITS ---
PROCEDURE INFORMATION: Exam: CT Cervical Spine Without Contrast Exam date and time: 03/15/2022 7:28 AM Age: 77 years old Clinical indication: Injury or trauma; Fall; Blunt trauma; Additional info: Fall AMS TECHNIQUE: Imaging protocol: Computed tomography of the cervical spine without contrast. Radiation optimization: All CT scans at this facility use at least one of these dose optimization techniques: automated exposure control; mA and/or kV adjustment per patient size (includes targeted exams where dose is matched to clinical indication); or iterative reconstruction. COMPARISON: CT cervical spin wo con* [id number] 11/07/2020 1:08 PM RADIATION DOSE METRICS: Total DLP (mGy-cm): 508.46 FINDINGS: Bones/joints: Loss of cervical lordosis may be positional or associated with muscular spasm. Vertebral body heights are maintained. There is no fracture or dislocation. Facet joints appear well aligned. Discs/Spinal canal/Neural foramina: There are disc height loss, disc osteophyte complexes and uncinate and facet osteophytes, predominantly C4 through C6 causing severe neural foraminal narrowing and effacement of ventral spinal canal. Prevertebral and retropharyngeal spaces: Prevertebral soft tissues appear normal. Lungs: Lung apices are unremarkable for acute finding. Soft tissues: Unremarkable. CT/CT cervical spin wo con* [id number] IMPRESSION: Loss of cervical lordosis. No evidence of fracture or dislocation.
--- NOTE | 2022-03-15 05:58 | ED_ITS ---
HPI - Altered Mental Status General: Chief Complaint: Altered Mental Status Stated Complaint: FALL Time Seen by Provider: 03/15/22 05:57 Limitations: altered mental status History of Present Illness: Ms. Petersen is a 77-year-old lady who presents to the emergency department due to altered mental status after a fall. The patient is normally alert and fully oriented. She was heard falling at about 4 AM however was able to get up and subsequently found to be more confused this morning. Recent history significant for treatment of UTI. History otherwise with patient's mental status. Onset (ago): hour(s) Severity: severe Consistency of symptoms: Getting Worse Review of Systems General: Reports: ROS unobtainable due to mental status PFSH ED PFSH: Medical History Abdominal pain Acute calculous cholecystitis Acute cholecystitis Acute hyponatremia Acute kidney injury superimposed on chronic kidney disease Acute kidney injury superimposed on CKD Altered mental status Anemia ASHD (arteriosclerotic heart disease) Chest pain CRF (chronic renal failure) Diabetes 1.5, managed as type 2 Dyslipidemia Elevated troponin GERD (gastroesophageal reflux disease) HTN (hypertension) Lesion of spleen UTI (urinary tract infection) Surgical History History of hip surgery S/P PTCA (percutaneous transluminal coronary angioplasty) Status post creation of pericardial window Family History Mother Cancer Diabetes Social History Smoking and tobacco status: former smoker Alcohol intake: never Female Reproductive History: Date of last menstrual period: 12/13/20 Physical Exam Const: COMMON NORMALS: alert GENERAL APPEARANCE: well developed and ill appearing HENMT: COMMON NORMALS: normocephalic and atraumatic HEAD & SCALP: normocephalic and atraumatic THROAT: posterior oropharynx normal OTHER: No vaughn signs or raccoon eyes. No hemotympanum. No otorrhea or rhinorrhea. Jaw alignment normal. Dentition baseline. No obvious bony step-offs. No evidence of ocular entrapment. Eye: COMMON NORMALS: conjunctivae normal CONJUNCTIVA: Yes conjunctivae normal SCLERA: sclerae normal Neck/C-Spine: COMMON NORMALS: supple GENERAL: Yes trachea midline Resp: COMMON NORMALS: normal respiratory effort and clear to auscultation bilaterally AUSCULTATION: clear to auscultation bilaterally Cardio: COMMON NORMALS: regular rate and regular rhythm RATE: regular rate RHYTHM: regular rhythm GI: COMMON NORMALS: Soft to palpation PALPATION: Yes Soft to palpation, Yes Tenderness to palpation present (GI), No Guarding due to palpation present (GI) and No Rigid due to palpation PERCUSSION: normal to percussion Extremity: GENERAL: Yes normal exam except as noted and No edema Neuro: COMMON NORMALS: moves all extremities SENSORIUM/ORIENTATION: Yes alert and No Orientation impaired Psych: MEMORY/COGNITION: Yes memory grossly impaired and Yes cognition grossly impaired Course ED course: - Patient was seen and evaluated by me at bedside - Patient placed on cardiac monitors, IV access obtained - Initial evaluation notable for altered mental status. Head to toe exam performed. - Labs and xrays personally interpreted by me - Labs notable for no leukocytosis, normocytic anemia which is mild. ABG without hypercapnia. Metabolic panel with perhaps mild evidence of dehydration given hyponatremia. Delta troponin negative. - Imaging notable for negative head CT for acute trauma. Negative C-spine CT for acute trauma. CT chest abdomen pelvis without acute traumatic injury, no tenderness specifically on sternum correlating with reported suspected artifact.. No acute fracture identified on x-ray of neck. - Upon serial reexamination after treatment the patient was mildly improved though patient still remains encephalopathic -Antibiotic given history of UTI ordered. Analgesia ordered. - Based on patient history, evaluation, and testing as interpreted the most likely cause of the patient's condition is unclear altered mental status with fall perhaps related to complicated UTI and acute metabolic encephalopathy. - The results of ED evaluation were discussed with the patient including plan for admission due to requirement for level of care not available if discharged to prevent significant worsening/deterioration. - Admitting service was contacted and Dr Junior with the hospitalist service agreed to admit the patient - Patient was admitted without further deterioration or significant events. Note: Click bubbles or prepopulated sung in note writing are used for assistance with data collection and billing and are inherently more limited than narrative and other text portions of this note. Please use narrative for additional clinical history and defer to narrative/free test for any case of contradictory information. If information appears in only free text or click bubble it should be considered present or absent as reported. Please contact note senior grant writer for clarifications of clinical information or contradictory information. MDM is a brief summary, contradictory or erroneous seeming information should be clarified and full note should be reviewed. Vital Signs: Vital signs: Vital Signs Temperature 97.9 F 03/24/22 14:27 Pulse Rate 88 03/24/22 14:27 Respiratory Rate 18 03/24/22 14:27 Blood Pressure 122/71 03/24/22 14:27 Pulse Oximetry 93 03/24/22 14:27 MDM - Altered Mental Status Medical Decision Making 77-year-old lady with recent UTI presenting with fall and altered mental status. Limited history secondary to mental status. Negative ED evaluation for traumat ic injury. Patient remained encephalopathic on reevaluation and admitted for further management given profound change from baseline and inability to perform ADLs. Medical Records I reviewed the patient's medical records. Lab Data I reviewed the patient's lab results. : 03/22/22 04:15 03/22/22 04:15 Radiology Impressions Cervical Spine CT 03/15/22 05:49 IMPRESSION: Loss of cervical lordosis. No evidence of fracture or dislocation. Head CT 03/15/22 05:49 IMPRESSION: 1. No evidence of acute intracranial abnormality. No evidence of acute infarction, hemorrhage, or mass. 2. Atrophy and microvascular disease. Chest/Abdomen/Pelvis CT 03/15/22 06:04 IMPRESSION: 1. Granulomatous disease. No acute abnormality. 2. Suspect artifact rather than a true sternal fracture which needs to clinically correlated. IMPRESSION: No acute abnormality. Incidental findings as above including an adrenal adenoma. COMMENTS: Consistent with the [employer]'s Incidental Findings Committee white paper (J Am Jaleesa Radiol 2017): For any incidental adrenal lesion greater than 1 cm but less than 4 cm classified in this report as benign, likely benign, or containing fat (including classification as an adenoma or myelolipoma), no follow-up imaging is recommended per consensus recommendations based on imaging criteria. Further lab evaluation could be pursued if warranted based on clinical findings. Hip/Pelvis X-Ray 03/15/22 14:54 IMPRESSION: No acute fracture with postoperative changes. Gallbladder Ultrasound 03/19/22 08:30 IMPRESSION: 1. Abnormal gallbladder. Findings suspicious for acute cholecystitis. Changes of acute cholecystitis were also noted on a prior CT. 2. No bile duct dilatation. Abdomen CT 03/19/22 08:31 IMPRESSION: 1. Acute cholecystitis. Hydropic gallbladder with wall thickening and stones. 2. No bile duct dilatation. 3. Small amount of inflammation extends from the acute cholecystitis to the duodenum and hepatic flexure. 4. LEFT adrenal adenoma. Shoulder X-Ray 03/22/22 14:43 IMPRESSION: See above. Laboratory Results WBC 13.3 10^3/uL (4.0-10.0) H 03/19/22 10:13 RBC 3.72 10^6/uL (4.1-5.3) L 03/19/22 10:13 Hgb 10.8 g/dL (11.5-15.3) L 03/19/22 10:13 Hct 32.4 % (37.0-47.0) L 03/19/22 10:13 MCV 87.1 fl (81-99) 03/19/22 10:13 MCH 29.0 pg (28.0-34.0) 03/19/22 10:13 MCHC 33.3 g/dL (30.0-36.0) D 03/19/22 10:13 RDW 12.4 % (12.1-15.1) 03/19/22 10:13 Plt Count 318 10^3/cmm (130-400) 03/19/22 10:13 MPV 9.7 fL (7.4-10.4) 03/19/22 10:13 Neut % (Auto) 90.7 % 03/19/22 10:13 Lymph % (Auto) 3.3 % 03/19/22 10:13 Carver % (Auto) 5.0 % 03/19/22 10:13 Eos % (Auto) 0.1 % 03/19/22 10:13 Baso % (Auto) 0.2 % 03/19/22 10:13 Neut # (Auto) 12.06 10^3/uL (1.8-7.7) H 03/19/22 10:13 Lymph # (Auto) 0.4 10^3/uL (0.8-4.8) L 03/19/22 10:13 Carver # (Auto) 0.7 10^3/uL (0.2-0.9) 03/19/22 10:13 Eos # (Auto) 0.0 10^3/uL (0.0-0.8) 03/19/22 10:13 Baso # (Auto) 0.0 10^3/uL (0.0-0.1) 03/19/22 10:13 Nucleated RBC % (auto) 0 % 03/19/22 10:13 Nucleated RBCs # 0.0 /100WBC 03/19/22 10:13 Specimen Type Arterial 03/15/22 06:05 Sample Site Radial, right 03/15/22 06:05 ABG pH 7.48 (7.35-7.45) H 03/15/22 06:05 ABG pCO2 39.1 mmHg (35-45) 03/15/22 06:05 ABG pO2 56.1 mmHg (80.0-100.0) L 03/15/22 06:05 ABG HCO3 28.9 mmol/L (22-26) H 03/15/22 06:05 ABG Base Excess 5.0 mmol/L (-2.0-2.0) H 03/15/22 06:05 Jun Test Pos 03/15/22 06:05 Hematocrit 35.0 % (37-47) L 03/15/22 06:05 O2 Delivery Device Roomair 03/15/22 06:05 FiO2 21.0 % 03/15/22 06:05 Accountant Systems ID [place] 03/15/22 06:05 Sodium 134 mmol/L (136-145) L 03/19/22 08:13 Potassium 4.7 mmol/L (3.5-5.1) 03/19/22 08:13 Chloride 98 mmol/L (98-107) 03/19/22 08:13 Carbon Dioxide 20 mmol/L (22-29) L 03/19/22 08:13 Anion Gap 20.7 (5-19) H 03/19/22 08:13 BUN 34 mg/dL (8-23) H 03/19/22 08:13 Creatinine 1.2 mg/dL (0.5-0.9) H 03/19/22 08:13 GFR Calculation Not Reportable 03/19/22 08:13 Glucose 209 mg/dL (65-115) H 03/19/22 08:13 POC Glucose 157 mg/dL (70-110) H 03/19/22 11:42 Estimat Average Glucose 312 03/15/22 06:36 Hemoglobin A1c 12.5 % (4.0-6.0) H 03/15/22 06:36 Calculated Osmolality 292 mOsm/kg (285-295) 03/19/22 08:13 Lactate 0.7 mmol/L (0.5-2.2) 03/19/22 10:50 Calcium 9.0 mg/dL (8.5-10.5) 03/19/22 08:13 Magnesium 2.7 mg/dL (1.7-2.3) H 03/16/22 04:41 Total Bilirubin 0.3 mg/dL (0.15-1.2) 03/19/22 08:13 Direct Bilirubin 0.20 mg/dL (0.00-0.30) 03/19/22 08:13 AST 100 U/L (0-32) H 03/19/22 08:13 ALT 112 U/L (0-33) H 03/19/22 08:13 Alkaline Phosphatase 256 IU/L (35-105) H 03/19/22 08:13 Troponin T Baseline 55 ng/L (0-10) H 03/15/22 06:36 Troponin T 120 Minute 49.92 ng/L (0-10) H 03/15/22 08:30 Delta Troponin T -5.08 ABS# (0-10) L 03/15/22 08:30 Troponin T Hi Sens 6Hr 50.61 ng/L (0-10) H 03/15/22 12:31 Troponin T Hi Sens 6Hr Delta -4.39 ng/L (0-12) L 03/15/22 12:31 C-Reactive Protein 63.2 mg/L (0.0-4.9) H 03/16/22 04:41 Total Protein 6.4 g/dL (6.6-8.7) L 03/19/22 08:13 Albumin 2.9 g/dL (3.5-5.2) L 03/19/22 08:13 Globulin 3.5 g/dL (1.3-4.6) 03/19/22 08:13 Vitamin B12 1025 pg/mL (232-1245) 03/16/22 04:41 Procalcitonin 0.21 ng/mL (0-0.5) 03/15/22 12:31 TSH 1.20 uIU/mL (0.27-4.20) 03/15/22 06:36 Prolactin 5.19 ng/mL (4.8-23.3) 03/15/22 11:20 Urine Color Straw (Yellow) 03/15/22 09:45 Urine Appearance Clear (CLEAR) 03/15/22 09:45 Urine pH 7 (5-7) 03/15/22 09:45 Ur Specific [place] 1.000 (1.005-1.030) L 03/15/22 09:45 Urine Protein Trace (Negative) 03/15/22 09:45 Urine Glucose (UA) 4+ (Normal) H 03/15/22 09:45 Urine Ketones Negative (Negative) 03/15/22 09:45 Urine Blood 2+ (Negative) H 03/15/22 09:45 Urine Nitrate Negative (Negative) 03/15/22 09:45 Urine Bilirubin Neg (Negative) 03/15/22 09:45 Urine Urobilinogen Norm mg/dL (Negative) 03/15/22 09:45 Ur Leukocyte Esterase Negative (Negative) 03/15/22 09:45 Urine RBC 0-4 /hpf (0-2) H 03/15/22 09:45 Urine WBC 0-4 /hpf (0-5) H 03/15/22 09:45 Ur Squamous Epith Cells 5-10 /hpf (0-5) H 03/15/22 09:45 Amorphous Sediment Not Reportable 03/15/22 09:45 Urine Bacteria Trace /hpf (NONE) 03/15/22 09:45 Coronavirus 229E (PCR) Not detected (NOT DETECT) 03/15/22 14:33 SARS-CoV-2 (PCR) Not detected (NOT DETECT) 03/15/22 14:33 Critical Care Time Critical Care Time: Critical Care Time: Yes Total Critical Care Time: 35 Attestation: Due to a high probability of clinically significant, possibly life threatening deterioration, the patient required my highest level of attention and preparedness to intervene emergently and I personally spent this critical care time directly and personally managing the patient. This critical care time included obtaining a history; examining the patient; pulse oximetry; ordering and review of laboratory and imaging studies; arranging urgent treatment with development of a management plan; evaluation of patient's response to treatment; frequent reassessment; and, discussions with other providers as applicable. It was exclusive of separately billable procedures. Primary system involved is CREATIVE ENGAGEMENT DIRECTOR and trauma Discharge Plan Discharge Patient Disposition: Admitted As Inpatient Admit Provider: Lance Junior Clinical Impression: Altered mental status, Fall, Anemia, Dehydration Condition: Stable Discharge Diet: Diabetic Discharge Activity: As per PT/OT instructions Coding Level of Care Code ED Manufacturing Supervisor for Cyndie Mo
--- NOTE | 2022-03-15 06:04 | CTR_ITS ---
PROCEDURE INFORMATION: Exam: CT Chest Without Contrast; Diagnostic Exam date and time: 03/15/2022 7:32 AM Age: 77 years old Clinical indication: Injury or trauma; Fall; Generalized; Blunt trauma (contusions or hematomas); Additional info: Fall, AMS TECHNIQUE: Imaging protocol: Diagnostic computed tomography of the chest without contrast. Radiation optimization: All CT scans at this facility use at least one of these dose optimization techniques: automated exposure control; mA and/or kV adjustment per patient size (includes targeted exams where dose is matched to clinical indication); or iterative reconstruction. COMPARISON: CT chest wo con [id number] 05/31/2021 3:35 PM RADIATION DOSE METRICS: Total DLP (mGy-cm): 2198.91 FINDINGS: Lungs: The mild interstitial lung disease. Pleural spaces: Unremarkable. No pneumothorax. No pleural effusion. Heart: Unremarkable. No cardiomegaly. No pericardial effusion. Lymph nodes: Small mediastinal lymph nodes with calcified mediastinal and hilar lymph nodes calcified lung granulomata. Vasculature: Unremarkable. No aortic aneurysm. Diaphragm: Hiatal hernia. Intraperitoneal space: The abdomen and pelvis will be discussed below. Bones/joints: Artifact from the patient's arms scanned by her side. There is motion. This simulates a sternal fracture which needs to be clinically correlated to rule out a true sternal fracture. Soft tissues: Unremarkable. PROCEDURE INFORMATION: Exam: CT Abdomen And Pelvis Without Contrast Exam date and time: 03/15/2022 7:32 AM Age: 77 years old Clinical indication: Injury or trauma; Fall; Generalized; Blunt trauma (contusions or hematomas); Additional info: Fall, AMS TECHNIQUE: Imaging protocol: Computed tomography of the abdomen and pelvis without contrast. Radiation optimization: All CT scans at this facility use at least one of these dose optimization techniques: automated exposure control; mA and/or kV adjustment per patient size (includes targeted exams where dose is matched to clinical indication); or iterative reconstruction. COMPARISON: CT abdomen pelvis w con* [id number] 05/31/2021 1:17 PM RADIATION DOSE METRICS: Total DLP (mGy-cm): 2198.91 FINDINGS: Lungs: Lung bases will be discussed above. Liver: Mildly enlarged liver at 180 mm. Heterogeneous appearance to the dome of the liver likely due to artifact from the patient's arms. Cannot rule out subtle lesion. Gallbladder and bile ducts: Stable cholelithiasis. Pancreas: Normal. No ductal dilation. Spleen: Granulomas of the spleen. Adrenal glands: Slightly enlarging left adrenal mass now measuring 23 mm. Hounsfield units are -10 consider adenoma. Right adrenal gland is unremarkable. Kidneys and ureters: Normal. No hydronephrosis. Stomach and bowel: Unremarkable. No obstruction. No mucosal thickening. Appendix: No evidence of appendicitis. Intraperitoneal space: Unremarkable. No free air. No significant fluid collection. Vasculature: Vascular calcifications. Lymph nodes: Unremarkable. No enlarged lymph nodes. Urinary bladder: Unremarkable as visualized. Reproductive: Unremarkable as visualized. Bones/joints: Extensive degenerative changes noted in the spine. No evidence of an acute compression fracture. Extensive artifact from the patient's arms scanned by her side. Artifact from fixation in the left hip which is new. Soft tissues: There is a stable mass lesion seen involving the medial aspect of the right gluteus issa muscle. This measures 37 by 15 mm. Image . Hiatal her[place]. CT/[place] [id number] IMPRESSION: 1. Granulomatous disease. No acute abnormality. 2. Suspect artifact rather than a true sternal fracture which needs to clinically correlated. IMPRESSION: No acute abnormality. Incidental findings as above including an adrenal adenoma. COMMENTS: Consistent with the [employer]'s Incidental Findings Committee white paper (J Am Jaleesa Radiol 2017): For any incidental adrenal lesion greater than 1 cm but less than 4 cm classified in this report as benign, likely benign, or containing fat (including classification as an adenoma or myelolipoma), no follow-up imaging is recommended per consensus recommendations based on imaging criteria. Further lab evaluation could be pursued if warranted based on clinical findings.
--- NOTE | 2022-03-15 06:05 | ECG_ITS ---
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 Measurements Intervals [place] Rate: 58 P: 76 NE: 176 QRS: 67 QRSD: 101 T: 75 QT: 476 QTc: 471 Interpretive Statements SINUS BRADYCARDIA PROLONGED QT INTERVAL Compared to ECG 11/09/2021 16:03:07 Prolonged QT interval now present Sinus rhythm no longer present Electronically Signed On 03-16-2022 12:31:18 CDT by Gilmar Hunt M.D. [id number]
[2022-03-15 06:17] LABS: ABG PCO2 39.1 mmHg (35-45); ABG PH Result 7.48 (7.35-7.45); Blood Gas Allen Test Pos; Blood Gas Operator Identificat WALCI; Blood Gas Sample Site Radial, right; Blood Gas Sample Type Arterial; HCO3 ABG 28.9 mmol/L (22-26); PO2 ABG 56.1 mmHg (80.0-100.0)
[2022-03-15 06:58] LABS: Basophils % 0.4 %; Eosinophils # 0.1 10^3/uL (0.0-0.8); Eosinophils % 0.7 %; Hematocrit 31.4 % (37.0-47.0); Hemoglobin 10.9 g/dL (11.5-15.3); Lymphocytes # 0.6 10^3/uL (0.8-4.8); Lymphocytes % 6.4 %; Mean Corpuscular HGB Conc 34.7 g/dL (30.0-36.0); Mean Corpuscular Hemoglobin 29.4 pg (28.0-34.0); Mean Corpuscular Volume 84.6 fl (81-99); Mean Platelet Volume 9.9 fL (7.4-10.4); Monocytes # 0.5 10^3/uL (0.2-0.9); Monocytes % 6.3 %; Neutrophils # 7.35 10^3/uL (1.8-7.7); Neutrophils % 85.7 %; Nucleated Red Blood Cells % 0 %; Platelet Count 322 10^3/cmm (130-400); Red Blood Count 3.71 10^6/uL (4.1-5.3); Red Cell Distribution Width 12.3 % (12.1-15.1); White Blood Count 8.6 10^3/uL (4.0-10.0)
[2022-03-15 07:09] LABS: Troponin(5th) Baseline 55 ng/L (0-10)
[2022-03-15 07:09] LABS: Glucose Point of Care 361 mg/dL (70-110)
[2022-03-15 07:31] LABS: Procalcitonin 0.25 ng/mL (0-0.5)
[2022-03-15 07:42] LABS: Alanine Aminotransferase 15 U/L (0-33); Albumin Level 3.7 g/dL (3.5-5.2); Alkaline Phosphatase 93 IU/L (35-105); Anion Gap 16.5 (5-19); Aspartate Amino Transferase 13 U/L (0-32); Blood Urea Nitrogen 56 mg/dL (8-23); C Reactive Protein 38.7 mg/L (0.0-4.9); Calcium 9.1 mg/dL (8.5-10.5); Carbon Dioxide 29 mmol/L (22-29); Chloride 90 mmol/L (98-107); Globulin 2.5 g/dL (1.3-4.6); Glucose 347 mg/dL (65-115); Osmolality Calculated 303 mOsm/kg (285-295); Potassium 3.5 mmol/L (3.5-5.1); Sodium 132 mmol/L (136-145); Total Bilirubin 0.2 mg/dL (0.15-1.2); Total Protein 6.2 g/dL (6.6-8.7)
--- NOTE | 2022-03-15 07:43 | PC.NURSE ---
PHYSICIAN NOTIFIED OF BLOOD SUGAR LEVEL OF 361. NO VERBAL ORDERS GIVEN AT THIS TIME.
--- NOTE | 2022-03-15 08:05 | ECG_ITS ---
[facility] Test Date: 2022-03-15 Pat Name: Sarah Petersen Department: Room: Gender: Female Quiller Tender: : 1945 Requested By: Tomás Berumen Order Number: [id number] Serina MD: Gilmar Hunt M.D. Measurements Intervals [place] Rate: 63 P: 84 MN: 183 QRS: 72 QRSD: 89 T: 79 QT: 423 QTc: 436 Interpretive Statements SINUS RHYTHM LOW QRS VOLTAGE IN PRECORDIAL LEADS [QRS DEFLECTION < 1.0 mV IN CHEST LEADS] NONSPECIFIC ST & T-WAVE ABNORMALITY Compared to ECG 03/15/2022 07:02:17 Low QRS voltage now present T-wave abnormality now present Sinus bradycardia no longer present Prolonged QT interval no longer present Electronically Signed On 03-16-2022 13:29:15 CDT by Gilmar Hunt M.D. [id number]
[2022-03-15 08:55] LABS: Troponin 5 2HR 49.92 ng/L (0-10)
[2022-03-15 08:56] LABS: Troponin 5 2HR Delta -5.08 ABS# (0-10)
[2022-03-15 10:12] LABS: Urine Appearance Clear (CLEAR); Urine Color Straw (Yellow)
[2022-03-15 10:13] LABS: Add Urine Microscopic? YES; Bilirubin Urine Neg (Negative); Blood Urine 2+ (Negative); Glucose Urine UA 4+ (Normal); Ketones Urine Negative (Negative); Leukocyte Esterase Urine Negative (Negative); Nitrate Urine Negative (Negative); Protein Urine Trace (Negative); Urobilinogen Urine Norm (Negative); pH Urine 7 (5-7)
[2022-03-15 10:14] LABS: Add Urine Culture? No; Bacteria Urine TRACE /hpf; RBC Urine 0-4 /hpf (0-2); WBC Urine 0-4 /hpf (0-5)
[2022-03-15] MEDS: piperacillin-tazobactam 4.5 GM in sodium chloride 0.9% (plus) 50 ML IV (10:43)
[2022-03-15 11:59] LABS: Prolactin 5.19 ng/mL (4.8-23.3)
--- NOTE | 2022-03-15 12:05 | ECG_ITS ---
[facility] Test Date: 2022-03-15 Pat Name: Sarah Petersen Department: Room: Gender: Female Control Area Operator: : 1945 Requested By: Tomás Berumen Order Number: [id number] Serina MD: Gilmar Hunt M.D. Measurements Intervals [place] Rate: 57 P: 39 MT: 187 QRS: 62 QRSD: 98 T: 70 QT: 473 QTc: 462 Interpretive Statements SINUS BRADYCARDIA LOW QRS VOLTAGE IN EXTREMITY LEADS [QRS DEFLECTION < 0.5 mV IN LIMB LEADS] Compared to ECG 03/15/2022 08:04:19 Sinus rhythm no longer present T-wave abnormality no longer present Electronically Signed On 03-16-2022 13:28:58 CDT by Gilmar Hunt M.D. [id number]
--- NOTE | 2022-03-15 12:21 | PC.NURSE ---
PT LETHARGIC AND DROWSY. AROUSABLE BY FAMILY FOR BRIEF PERIODS.
[2022-03-15 12:58] LABS: Troponin 5 6HR 50.61 ng/L (0-10)
[2022-03-15 13:00] LABS: Troponin 5 6HR Delta -4.39 ng/L (0-12)
[2022-03-15 13:06] LABS: Oxygen Device ROOMAIR
--- NOTE | 2022-03-15 13:08 | P.HP_ITS ---
Providers/Chief Complaint Admitting Physician: Lance Junior MD Primary Care Provider: Vikas Candelaria MD Chief Complaint: FALL History of Present Illness Sarah Petersen is a 77 year old female who had hip surgery in October at [facility] presented today after sustaining a fall on same side. She lives with her son, son is stating that around 4:10 AM, son woke up because his mother was screaming and moaning in pain, he found her on the floor, helped her to get in the bed and since then she has been very drowsy. For the last few days they have been noticing twitching of her eyes, arms and legs, she has not slept well because of her hip pain she has been changing her position frequently from recliner to the bed. In the ER she was given opioids, when I examined her in the room she was very drowsy however with painful sternal rub she woke up and stated that she fell in the river. I called her daughter to come at the bedside. Her daughter and son both arrived and stated that she has been very weak and lethargic she is suffering from chronic kidney disease stage IV she has missed 2 appointments with her music therapist, they have not noticed any strokelike symptoms before today's presentation however they are very concerned about stroke. No active diarrhea, vomiting or chest pain. No recent fever. However she was being treated for UTI by her PCP and took a few tablets in the last few days. I have requested hip x-ray as she is moaning in pain whenever touched her left hip area, x-ray did not show acute fractures, chest abdomen pelvis was also unremarkable head CT cervical spine CT is also unremarkable, Patient is snoring Started normal saline, start ceftriaxone Family is at the bedside Review of Systems General: Reports: ROS unobtainable due to mental status (Hypoactive delirium with UTI) Medications/Allergies Home Medications Medication Instructions Recorded Confirmed Last Taken Type albuterol sulfate 90 mcg/actuation 2 puff INHALATION Q6H PRN 11/28/19 03/15/22 11/08/21 History aerosol inhaler (ProAir HFA) atenolol 25 mg tablet 25 mg PO DAILY@11/28/19 03/15/22 03/14/22 History fluoxetine 20 mg capsule 20 mg PO DAILY@11/28/19 03/15/22 03/14/22 History hydrochlorothiazide 25 mg tablet 25 mg PO DAILY@08 11/28/19 03/15/22 03/14/22 History montelukast 10 mg tablet 10 mg PO DAILY@08 11/28/19 03/15/22 03/14/22 History (Singulair) nitroglycerin 0.4 mg sublingual 0.4 mg SUBLINGUAL Q5M PRN 11/28/19 03/15/22 Unknown History tablet (Nitrostat) olmesartan 40 mg tablet 40 mg PO DAILY@08 11/28/19 03/15/22 03/14/22 History rosuvastatin 40 mg tablet (Crestor) 40 mg PO BEDTIME@2200 tab 11/28/19 03/15/22 03/14/22 History aspirin 81 mg chewable tablet 81 mg PO DAILY@08 11/07/20 03/15/22 03/14/22 History brimonidine 0.1 % eye drops 1 drp OPHTHALMIC (EYE) DAILY@08 11/07/20 03/15/22 11/08/21 History (Alphagan P) gabapentin 300 mg capsule 600 mg PO TID@08,12,20 11/07/20 03/15/22 03/14/22 History bimatoprost 0.01 % eye drops 1 drp OPHTHALMIC (EYE) QAM 05/31/21 03/15/22 11/08/21 History (Lumigan) furosemide 40 mg tablet 40 mg PO QAM 05/31/21 03/15/22 03/14/22 History naproxen 500 mg tablet 500 mg PO BID PRN 05/31/21 03/15/22 11/08/21 History acetaminophen 500 mg tablet 1,000 mg PO Q4H PRN 07/30/21 03/15/22 11/08/21 History ascorbic acid (vitamin C) 500 mg 500 mg PO DAILY 07/30/21 03/15/22 03/14/22 History tablet (Vitamin C) cholecalciferol (vitamin D3) 25 50 mcg PO DAILY #0 07/30/21 03/15/22 03/14/22 History mcg (1,000 unit) capsule (Vitamin D3) dapagliflozin 10 mg tablet 10 mg PO QAM 07/30/21 03/15/22 03/14/22 History (Farxiga) insulin detemir U-100 100 unit/mL 30 unit SUBCUT BEDTIME 07/30/21 03/15/22 03/14/22 History (3 mL) subcutaneous pen (Levemir FlexTouch U-100 Insulin) levothyroxine 125 mcg tablet 125 mcg PO QAM 07/30/21 03/15/22 03/14/22 History netarsudil 0.02 %-latanoprost 1 drp OPHTHALMIC (EYE) DAILY 07/30/21 03/15/22 11/08/21 History 0.005 % eye drops (Rocklatan) tramadol 50 mg tablet 50 mg PO Q6H PRN #10 tab 11/09/21 03/15/22 Unknown Rx ferrous sulfate 325 mg (65 mg 325 mg PO DAILY 11/28/21 03/15/22 03/14/22 History iron) capsule,extended release latanoprost 0.005 % eye drops 1 drp OPHTHALMIC (EYE) DAILY 11/28/21 03/15/22 Unknown History naloxone 4 mg/actuation nasal spray 1 spray INTRANASAL Q3M 11/28/21 03/15/22 Unknown History cefuroxime axetil 250 mg tablet 250 mg PO BID 03/15/22 03/15/22 03/14/22 History fluticasone 250 mcg-salmeterol 50 1 ea INHALATION BID 03/15/22 03/15/22 03/14/22 History mcg/dose blistr powdr for inhalation (Wixela Inhub) Allergies Allergy/AdvReac Type Severity Reaction Status Date / Time codeine Allergy Unknown Unknown Verified 11/28/21 13:27 hydrocodone Allergy Unknown Unknown Verified 11/28/21 13:27 dulaglutide [From Trulicity] Allergy Unknown Verified 11/28/21 13:27 PFSH Acute PFSH: Medical History (Updated 03/15/22 @ 15:34 by Lance Junior MD) Abdominal pain Acute hyponatremia Acute kidney injury superimposed on CKD ASHD (arteriosclerotic heart disease) Chest pain Diabetes 1.5, managed as type 2 Dyslipidemia Elevated troponin GERD (gastroesophageal reflux disease) HTN (hypertension) Lesion of spleen Surgical History (Updated 03/15/22 @ 15:34 by Lance Junior MD) History of hip surgery S/P PTCA (percutaneous transluminal coronary angioplasty) Status post creation of pericardial window Family History Mother Cancer Diabetes Social History Smoking and tobacco status: former smoker Alcohol intake: never Female Reproductive History: Date of last menstrual period: 12/13/20 Vitals/I&O/Wt Last Vital Signs Temp 97.7 F 03/15/22 05:40 Pulse 59 L 03/15/22 12:00 Resp 18 03/15/22 12:00 BP 111/61 03/15/22 12:00 Pulse Ox 95 03/15/22 12:00 03/14/22 03/15/22 03/15/22 22:59 06:59 14:59 Intake Total 50 / 50 Balance 50 / 50 Weight last 48 hrs Weight 72.575 kg Physical Exam Narrative: Patient is in deep sleep She is snoring On painful sternal rub she wakes up moves her arms, her speech was fine I was able to understand when she stated that she fell in the river She is confused She goes back to sleep right away She screams in pain whenever I touch her left hip area No signs of edema No signs of vascular compromise of legs Abdomen soft nontender, visceral obesity Family at the bedside Patient saturating well on room air Data : 03/15/22 06:36 03/15/22 06:36 Micro: Microbiology 03/15/22 06:45 Blood Culture - Preliminary Blood SPECIMEN COLLECTED 03/15/22 06:36 Blood Culture - Preliminary Blood SPECIMEN COLLECTED A&P Assessment and plan (1) Altered mental status: Status: Acute (2) Diabetes 1.5, managed as type 2: Status: Acute (3) UTI (urinary tract infection): Status: Acute (4) CRF (chronic renal failure): Status: Acute Plan Hypoactive delirium with underlying UTI Start ceftriaxone Start IV fluids No signs of acidosis She does not meet DKA criteria Hyperglycemia We will keep her on normal saline and give her Lantus When she is able to eat we will do sliding scale Acute on chronic kidney disease stage IV Follows up with Dr. Sosa outpatient Will consult nephrology no acute indication for dialysis Altered mental status Does not have typical stroke features I do believe this is related to inability to sleep for the last few days and with use of opioids now she is catching up on the sleep Uncontrolled type 2 diabetes Hemoglobin A1c is 12 DNR/DNI goals of care discussed with her daughter and her son Hip pain: No signs of acute fractures I will let her eat consistent carb diet once she is more awake and alert DVT prophylaxis: Heparin Troponin: Trending down EKG without ischemic or infarct changes Sternal fracture? Conservative management Hematoma right gluteal area Attestations Medical Necessity Statement*: Spent more than 2 midnights in the hospital for management of chronic kidney disease, hyperactive delirium, UTI Time Spent in Patient Care: 50 Coding Level of Care Code Acute Debt Collection Specialist for g Fwd Diagnoses Altered mental status R41.82 Diabetes 1.5, managed as type 2 E13.9 UTI (urinary tract infection) N39.0 CRF (chronic renal failure) N18.9
[2022-03-15] MEDS: sodium chloride 0.9% 1,000 ML 75 ML IV (14:49)
--- NOTE | 2022-03-15 14:54 | XRR_ITS ---
PROCEDURE INFORMATION: Exam: XR Left Hip Exam date and time: 03/15/2022 3:07 PM Age: 77 years old Clinical indication: Injury or trauma; Fall; Blunt trauma (contusions or hematomas); Left; Hip TECHNIQUE: Imaging protocol: Radiologic exam of the Left hip. Views: 2 or 3 views hip with pelvis when performed. COMPARISON: [place] [id number] 03/15/2022 7:32 AM FINDINGS: Bones/joints: Extensive internal fixation noted involving the left hip. This appears similar to the CT scan. No evidence of an acute fracture. Stable femoral head deformity. Soft tissues: Unremarkable. XR/XR hip LT 2-3V wo/w pel* [id number] IMPRESSION: No acute fracture with postoperative changes.
[2022-03-15 15:00] LABS: Procalcitonin 0.21 ng/mL (0-0.5)
[2022-03-15 15:03] LABS: Estmated Average Glucose 312; Hemoglobin A1C 12.5 % (4.0-6.0)
[2022-03-15 16:45] LABS: Adenovirus Not Detected (NOT DETECT); Chlamydia Pneumoniae Not Detected (NOT DETECT); Coronavirus 229E,HKU1,NL63,OC4 Not Detected (NOT DETECT); Human Metapneumovirus Not Detected (NOT DETECT); Human Rhinovirus/Enterovirus Not Detected (NOT DETECT); Influenza A Not Detected (NOT DETECT); Influenza A H1 Not Detected (NOT DETECT); Influenza A H1-2009 Not Detected (NOT DETECT); Influenza A H3 Not Detected (NOT DETECT); Influenza B Not Detected (NOT DETECT); Mycoplasma Pneumoniae Not Detected (NOT DETECT); Parainfluenza Virus Type 1 Not Detected (NOT DETECT); Parainfluenza Virus Type 2 Not Detected (NOT DETECT); Parainfluenza Virus Type 3 Not Detected (NOT DETECT); Parainfluenza Virus Type 4 Not Detected (NOT DETECT); Respiratory Syncytial Virus A Not Detected (NOT DETECT); Respiratory Syncytial Virus B Not Detected (NOT DETECT); SARS-COV-2 Not Detected (NOT DETECT)
[2022-03-15 17:08] LABS: Glucose Point of Care 237 mg/dL (70-110)
[2022-03-15] MEDS: insulin lispro 100 unit/1 mL SUBCUT (18:19)
[2022-03-15 21:44] LABS: Glucose Point of Care 163 mg/dL (70-110)
[2022-03-16] VITALS (11 sets, daily range): BP systolic 84–135; BP diastolic 44–77; PULSE 67–76; RESP 12–20; TEMP 36.5–37.6; O2SAT 97
[2022-03-16] MEDS: levothyroxine 125 mcg Tablet PO (04:15)
[2022-03-16] MEDS: morphine 4 mg/mL SDV 1 mL 2 MG IVP ×2 (04:16→08:19)
[2022-03-16 05:17] LABS: Basophils % 0.4 %; Eosinophils # 0.1 10^3/uL (0.0-0.8); Eosinophils % 1.5 %; Hematocrit 34.4 % (37.0-47.0); Hemoglobin 11.6 g/dL (11.5-15.3); Lymphocytes # 1.4 10^3/uL (0.8-4.8); Lymphocytes % 18.1 %; Mean Corpuscular HGB Conc 33.7 g/dL (30.0-36.0); Mean Platelet Volume 9.7 fL (7.4-10.4); Monocytes # 0.5 10^3/uL (0.2-0.9); Monocytes % 7.2 %; Neutrophils # 5.47 10^3/uL (1.8-7.7); Neutrophils % 72.5 %; Nucleated Red Blood Cells % 0 %; Platelet Count 348 10^3/cmm (130-400); Red Cell Distribution Width 12.5 % (12.1-15.1); White Blood Count 7.5 10^3/uL (4.0-10.0)
--- NOTE | 2022-03-16 05:18 | PM.PN ---
Subjective Subjective: Patient mentation improved yesterday, she caught up on her sleep Blood sugar slowly improving Afebrile No leukocytosis Will follow up with PT evaluation today Adequate urine output Excruciating left-sided hip pain I asked Dr. Cole to take a look at the CT scan, it will be about avascular necrosis and patient needing total hip replacement I will inform the family, she is requiring opioids quite frequently Dr. Cole will speak to his colleaguesDr. Schuler or Dr. Flannery Vitals/I&O/Wt Last Vital Signs Temp 97.8 F 03/16/22 03:18 Pulse 70 03/16/22 03:18 Resp 16 03/16/22 05:10 BP 124/73 03/16/22 03:18 Pulse Ox 97 03/16/22 03:18 03/15/22 03/15/22 03/16/22 14:59 22:59 06:59 Intake Total 50 / 50 Output Total 1630 / 1630 200 / 1830 Balance 50 / 50 -1630 / -1580 -200 / -1780 Weight last 48 hrs Weight 79.107 kg Weight 72.575 kg Physical Exam Narrative: Nonfocal neuro exam Tender left hip area Able to move all extremities, limited limited range of motion of left hip patient screams in pain with slightest bit of movement Able to comprehend my questions Saturating well on room air Signs of dehydration improving Abdomen soft S1, S2 Nonlabored breathing No audible stridor or wheezing Urinary Catheter Management: Good: Cath Placed During This Visit: yes Reason for Continuing Indwelling Catheter: Required Immobilization for Trauma or Surgery or Anesthesia Urinary Catheter Date of Insertion: 03/15/22 Urinary Catheter Time of Insertion: 16:00 Data : 03/16/22 04:41 03/16/22 04:41 Micro: Microbiology 03/15/22 06:45 Blood Culture - Preliminary Blood SPECIMEN COLLECTED 03/15/22 06:36 Blood Culture - Preliminary Blood SPECIMEN COLLECTED A&P Assessment and plan (1) UTI (urinary tract infection): Status: Acute (2) Altered mental status: Status: Acute (3) Diabetes 1.5, managed as type 2: Status: Acute (4) CRF (chronic renal failure): Status: Acute Plan Delirium related to UTI: Improving Hyperglycemia improving gradually no signs of DKA She has remained afebrile No leukocytosis Continue ceftriaxone For left hip pain no signs of acute fracture Acute on chronic kidney disease: With IV fluids creatinine Patient is DNR/DNI Consistent carb diet Hemoglobin A1c is 12 Uncontrolled blood sugar PT evaluation today Lowest possible use of opioids and tramadol because of chronic kidney disease Patient follows up outpatient with a starter mechanic as well 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 after midnight Attestations Medical Necessity Statement*: Anticipating surgical intervention Time Spent in Patient Care: 30 Coding Level of Care Code Acute Contract Administration Specialist for Chg Fwd Diagnoses UTI (urinary tract infection) N39.0 Altered mental status R41.82 Diabetes 1.5, managed as type 2 E13.9 CRF (chronic renal failure) N18.9
[2022-03-16 05:39] LABS: Anion Gap 17.4 (5-19); Blood Urea Nitrogen 45 mg/dL (8-23); C Reactive Protein 63.2 mg/L (0.0-4.9); Calcium 9.4 mg/dL (8.5-10.5); Carbon Dioxide 26 mmol/L (22-29); Chloride 97 mmol/L (98-107); Glucose 121 mg/dL (65-115); Magnesium 2.7 mg/dL (1.7-2.3); Osmolality Calculated 297 mOsm/kg (285-295); Potassium 3.4 mmol/L (3.5-5.1); Sodium 137 mmol/L (136-145)
[2022-03-16 06:10] LABS: Vitamin B12 1025 pg/mL (232-1245)
[2022-03-16 06:45] LABS: Glucose Point of Care 145 mg/dL (70-110)
[2022-03-16] MEDS: atenolol 50 mg Tablet 25 MG PO (08:17)
[2022-03-16] MEDS: aspirin 81 mg Chew Tablet PO (08:17)
[2022-03-16] MEDS: sennosides-docusate Tablet 1 TAB PO (08:17)
[2022-03-16] MEDS: cefTRIAXone 1,000 MG in sodium chloride 0.9% (plus) 50 ML 100 MG IV (08:18)
[2022-03-16] MEDS: insulin lispro 100 unit/1 mL SUBCUT ×2 (08:20→12:43)
[2022-03-16] MEDS: ondansetron 2 mg/ML SDV 2 mL 4 MG IVP (08:21)
[2022-03-16 11:06] LABS: Glucose Point of Care 152 mg/dL (70-110)
[2022-03-16] MEDS: oxyCODONE 5 mg IR Tab/Cap 10 MG PO (11:46)
[2022-03-16] MEDS: heparin 5,000 unit/mL INJ 1 mL 5000 UNIT SUBCUT (12:44)
[2022-03-16] MEDS: morphine IR 15 mg Tablet PO (14:00)
[2022-03-16] MEDS: sodium chloride 0.9% 500 ML IV (16:53)
[2022-03-16 17:10] LABS: Glucose Point of Care 96 mg/dL (70-110)
[2022-03-16] MEDS: oxyCODONE 5 mg IR Tab/Cap PO (19:55)
[2022-03-16 21:56] LABS: Glucose Point of Care 196 mg/dL (70-110)
[2022-03-17] VITALS (9 sets, daily range): BP systolic 90–100; BP diastolic 50–65; PULSE 56–97; RESP 15–18; TEMP 36.4–37.5; O2SAT 90–97
[2022-03-17] MEDS: oxyCODONE 5 mg IR Tab/Cap PO ×4 (02:05→19:56)
--- NOTE | 2022-03-17 02:14 | PC.NURSE ---
Patient is resting in bed prn medications provided for pain. Patient states she does feel relief with medication. Patients bed is in lowest position with wheels locked and call light in reach
--- NOTE | 2022-03-17 05:08 | PM.PN ---
Subjective Subjective: Patient's pain is well managed on new medication oxycodone I have discontinued p.o. morphine Because of frequent use of opioids I do believe she is staying hypotensive now Continue IV fluids Blood work pending She has remained afebrile, Avascular necrosis, might need hip arthroplasty Dr. Flannery will see her today and update us if we have the right equipment to proceed with the surgery, patient and family is in agreement to get the surgery done in the hospital during this visit Vitals/I&O/Wt Last Vital Signs Temp 97.6 F 03/17/22 04:00 Pulse 97 03/17/22 04:00 Resp 18 03/17/22 04:00 BP 91/59 03/17/22 04:00 Pulse Ox 93 03/17/22 04:00 03/16/22 03/16/22 03/17/22 14:59 22:59 06:59 Intake Total 1230 / 1230 740 / 1970 Balance 1230 / 1230 740 / 1970 Weight last 48 hrs Weight 79.107 kg Weight 72.575 kg Physical Exam Narrative: Pleasant cooperative female Complains of associating pain every time she tries to move her left leg She cannot even get out of bed or do any minimal activity Nonfocal neuro exam Looks euvolemic Abdomen soft Saturating well on room air Good catheter draining dilute urine Urinary Catheter Management: Good: Cath Placed During This Visit: yes Reason for Continuing Indwelling Catheter: Required Immobilization for Trauma or Surgery or Anesthesia Urinary Catheter Date of Insertion: 03/15/22 Urinary Catheter Time of Insertion: 16:00 Data : 03/17/22 04:38 03/17/22 04:38 Micro: Microbiology 03/15/22 06:45 Blood Culture - Preliminary Blood NEGATIVE TO DATE 03/15/22 06:36 Blood Culture - Preliminary Blood NEGATIVE TO DATE A&P Assessment and plan (1) UTI (urinary tract infection): Status: Acute (2) Altered mental status: Status: Acute (3) Diabetes 1.5, managed as type 2: Status: Acute (4) Anemia: Status: Acute (5) CRF (chronic renal failure): Status: Acute (6) AVN (avascular necrosis of bone): Status: Acute Plan Avascular necrosis of left hip Will need surgical intervention Patient and family in agreement to get surgical intervention during this hospitalization, Dr. Flannery will see her today Dr. Cole was notified over the weekend Pain management with oxycodone Carefully manage her opioids as she is getting hypotensive and she carries history of chronic kidney disease she is at risk of opiate overdose As needed Narcan in the EMR as well Acute on chronic kidney disease: Improving with IV fluids Type 2 diabetes: Hyperglycemia improving Good cath was placed because of patient's avascular necrosis and excruciating pain She is not able to participate with PT She is DNR/DNI N.p.o. in anticipation of any surgical intervention today DVT prophylaxis has been on hold UTI: Continue ceftriaxone She has been afebrile Dr. Flannery told me that they are trying to get preop/pre-CERT for hip surgery, updated family, patient can have consistent carb diet now Attestations Medical Necessity Statement*: Continue medical management Time Spent in Patient Care: 30 Coding Level of Care Code Acute Highway Engineer for Chg Fwd Diagnoses UTI (urinary tract infection) N39.0 Altered mental status R41.82 Diabetes 1.5, managed as type 2 E13.9 Anemia D64.9 CRF (chronic renal failure) N18.9 AVN (avascular necrosis of bone) M87.00
[2022-03-17 05:32] LABS: Basophils % 0.2 %; Eosinophils # 0.1 10^3/uL (0.0-0.8); Eosinophils % 0.3 %; Hematocrit 32.4 % (37.0-47.0); Hemoglobin 10.5 g/dL (11.5-15.3); Lymphocytes # 1.6 10^3/uL (0.8-4.8); Lymphocytes % 10.5 %; Mean Corpuscular HGB Conc 32.4 g/dL (30.0-36.0); Mean Corpuscular Hemoglobin 28.7 pg (28.0-34.0); Mean Corpuscular Volume 88.5 fl (81-99); Mean Platelet Volume 9.9 fL (7.4-10.4); Monocytes % 6.7 %; Neutrophils # 12.36 10^3/uL (1.8-7.7); Neutrophils % 81.9 %; Nucleated Red Blood Cells % 0 %; Platelet Count 326 10^3/cmm (130-400); Red Blood Count 3.66 10^6/uL (4.1-5.3); Red Cell Distribution Width 12.7 % (12.1-15.1); White Blood Count 15.1 10^3/uL (4.0-10.0)
[2022-03-17] MEDS: levothyroxine 125 mcg Tablet PO (05:40)
[2022-03-17] MEDS: sodium chloride 0.9% 1,000 ML 75 ML IV ×3 (05:41→19:52)
[2022-03-17 05:54] LABS: Anion Gap 14.4 (5-19); Blood Urea Nitrogen 46 mg/dL (8-23); Calcium 8.9 mg/dL (8.5-10.5); Carbon Dioxide 28 mmol/L (22-29); Chloride 95 mmol/L (98-107); Glucose 164 mg/dL (65-115); Osmolality Calculated 294 mOsm/kg (285-295); Potassium 3.4 mmol/L (3.5-5.1); Sodium 134 mmol/L (136-145)
[2022-03-17 08:19] LABS: Glucose Point of Care 139 mg/dL (70-110)
[2022-03-17] MEDS: aspirin 81 mg Chew Tablet PO (09:29)
[2022-03-17] MEDS: acetaminophen 500 mg Tablet PO (09:29)
[2022-03-17] MEDS: cefTRIAXone 1,000 MG in sodium chloride 0.9% (plus) 50 ML 100 MG IV (09:29)
[2022-03-17] MEDS: sennosides-docusate Tablet 1 TAB PO (09:29)
[2022-03-17] MEDS: atenolol 50 mg Tablet 25 MG PO (09:29)
--- NOTE | 2022-03-17 09:54 | USCV_ITS ---
Sarah Petersen Age: 77 Gender: F : 1945 Exam Date: 03/17/2022 14:30 Ordering Phys: Lance Junior MD Technologist: Panchito Palencia Exam Location: [facility] [place] Indication: chf BP: 93 / 56 HR: Rhythm: Sinus Technical Quality: Adequate MEASUREMENTS (Male / Female) Normal Values 2D ECHO LV Diastolic Diameter PLAX 3.9 cm 4.2 - 5.9 / 3.9 - 5.3 cm LV Systolic Diameter PLAX 2.1 cm IVS Diastolic Thickness 0.9 cm 0.6 - 1.0 / 0.6 - 0.9 cm IVS Systolic Thickness 1.3 cm LVPW Diastolic Thickness 1.1 cm 0.6 - 1.0 / 0.6 - 0.9 cm LVPW Systolic Thickness 1.3 cm LVOT Diameter 2.0 cm LV Ejection Fraction 2D Teich 79.3 % LV Ejection Fraction MOD 2C 61.7 % LV Ejection Fraction 2C AL 62.7 % LA Diameter 3.3 cm IVC Diameter 1.4 cm M-MODE Aortic Annulus Diameter 3.0 cm LA Ao Ratio MM 1.0 MV E Point Septal Separation 1.1 cm DOPPLER AV Peak Velocity 152.0 cm/s LVOT Peak Velocity 113.0 cm/s AV Area Cont Eq vti 2.4 cm squared AV Area Cont Eq pk 2.3 cm squared MV Area PHT 5.0 cm squared Mitral E to A Ratio 0.8 MV E' Velocity 63.0 cm/s Mitral E to MV E' Ratio 12.1 Mitral E to LV E' Lateral Ratio 12.3 Mitral E to LV E' Septal Ratio 12.0 TR Peak Velocity 276.0 cm/s TR Peak Gradient 30.5 mmHg Right Atrial Pressure 3.0 mmHg Pulmonary Artery Systolic Pressu 33.5 mmHg PV Peak Velocity 97.0 cm/s FINDINGS Left Ventricle Normal left ventricular size and systolic function, EF 69 %. No regional wall motion abnormalities. Grade I/IV diastolic dysfunction (abnormal relaxation filling pattern), normal to mildly elevated filling pressures. Right Ventricle Mildly increased right ventricular size. Normal right ventricular systolic function. Right Atrium Mildly increased right atrial size. Left Atrium The left atrium is normal in size. Mitral Valve Thickened mitral valve. Moderate mitral annular calcification. Trace mitral valve regurgitation. Aortic Valve Structurally normal aortic valve without significant sclerosis or stenosis. There is no aortic regurgitation. Tricuspid Valve Mild tricuspid valve regurgitation. Estimated pulmonary artery peak systolic pressure 31 mmHg Pulmonic Valve Pulmonic valve not well visualized. Pericardium Normal pericardium without effusion. Aorta Normal ascending aorta dimension. IVC Normal inferior vena cava. CONCLUSIONS Normal left ventricular size and systolic function, EF 69 %. No regional wall motion abnormalities. Grade I/IV diastolic dysfunction (abnormal relaxation filling pattern), normal to mildly elevated filling pressures. Mildly dilated right atrium and right ventricle Normal right ventricular systolic function. Thickened mitral valve. Moderate mitral annular calcification. Trace mitral valve regurgitation. Mild tricuspid valve regurgitation. Estimated pulmonary artery peak systolic pressure 31 mmHg. There is no pericardial effusion. There are no intracardiac masses. Compared to the study from 06/01/2021, there may not be a significant change Dr Bryanna Schwab MD [facility] (Electronically Signed) Final Date: 17 March 2022 20:57 S
[2022-03-17] MEDS: potassium chloride ER 20 mEq Tablet 40 MEQ PO (10:25)
[2022-03-17] MEDS: heparin 5,000 unit/mL INJ 1 mL 5000 UNIT SUBCUT ×2 (10:26→17:31)
[2022-03-17 10:56] LABS: Glucose Point of Care 170 mg/dL (70-110)
--- NOTE | 2022-03-17 16:37 | PM.CONSULT ---
Providers/Reason For Consult Consulting Physician/Specialty*: Paco Flannery MD; orthopedic surgery Reason for Consult*: Avascular necrosis left hip Attending Physician: Lance Junior MD Primary Care Provider: Vikas Candelaria MD History of Present Illness History of Present Illness Sarah Petersen is a 77 year old female who sustained a left femoral neck fracture in [place] in October treated with open reduction and internal fixation. She states that she was able to be discharged home after 3days and was doing remarkably well until approximately 6 to 8 weeks ago when she began developing progressive pain. The family states that the pain became particularly severe over the past 2 weeks where she was scarcely able to get up and about at all. 2 nights ago she was found on the side of the bed with her left leg twisted beneath her and severe pain. She was admitted to the hospital with altered mental status. My partner Carlos Cole was called and I was asked to see the patient for avascular necrosis in the left hip Medications/Allergies Home Medications Medication Instructions Recorded Confirmed Last Taken Type albuterol sulfate 90 mcg/actuation 2 puff INHALATION Q6H PRN 11/28/19 03/15/22 11/08/21 History aerosol inhaler (ProAir HFA) atenolol 25 mg tablet 25 mg PO DAILY@11/28/19 03/15/22 03/14/22 History fluoxetine 20 mg capsule 20 mg PO DAILY@11/28/19 03/15/22 03/14/22 History hydrochlorothiazide 25 mg tablet 25 mg PO DAILY@11/28/19 03/15/22 03/14/22 History montelukast 10 mg tablet 10 mg PO DAILY@11/28/19 03/15/22 03/14/22 History (Singulair) nitroglycerin 0.4 mg sublingual 0.4 mg SUBLINGUAL Q5M PRN 11/28/19 03/15/22 Unknown History tablet (Nitrostat) olmesartan 40 mg tablet 40 mg PO DAILY@11/28/19 03/15/22 03/14/22 History rosuvastatin 40 mg tablet (Crestor) 40 mg PO BEDTIME@2200 tab 11/28/19 03/15/22 03/14/22 History aspirin 81 mg chewable tablet 81 mg PO DAILY@11/07/20 03/15/2203/14/22 History brimonidine 0.1 % eye drops 1 drp OPHTHALMIC (EYE) DAILY@08 11/07/20 03/15/22 11/08/21 History (Alphagan P) gabapentin 300 mg capsule 600 mg PO TID@08,12,20 11/07/20 03/15/22 03/14/22 History bimatoprost 0.01 % eye drops 1 drp OPHTHALMIC (EYE) QAM 05/31/21 03/15/22 11/08/21 History (Lumigan) furosemide 40 mg tablet 40 mg PO QAM 05/31/21 03/15/22 03/14/22 History naproxen 500 mg tablet 500 mg PO BID PRN 05/31/21 03/15/22 11/08/21 History acetaminophen 500 mg tablet 1,000 mg PO Q4H PRN 07/30/21 03/15/22 11/08/21 History ascorbic acid (vitamin C) 500 mg 500 mg PO DAILY 07/30/21 03/15/22 03/14/22 History tablet (Vitamin C) cholecalciferol (vitamin D3) 25 50 mcg PO DAILY #0 07/30/21 03/15/22 03/14/22 History mcg (1,000 unit) capsule (Vitamin D3) dapagliflozin 10 mg tablet 10 mg PO QAM 07/30/21 03/15/22 03/14/22 History (Farxiga) insulin detemir U-100 100 unit/mL 30 unit SUBCUT BEDTIME 07/30/21 03/15/22 03/14/22 History (3 mL) subcutaneous pen (Levemir FlexTouch U-100 Insulin) levothyroxine 125 mcg tablet 125 mcg PO QAM 07/30/21 03/15/22 03/14/22 History netarsudil 0.02 %-latanoprost 1 drp OPHTHALMIC (EYE) DAILY 07/30/21 03/15/22 11/08/21 History 0.005 % eye drops (Rocklatan) tramadol 50 mg tablet 50 mg PO Q6H PRN #10 tab 11/09/21 03/15/22 Unknown Rx ferrous sulfate 325 mg (65 mg 325 mg PO DAILY 11/28/21 03/15/22 03/14/22 History iron) capsule,extended release latanoprost 0.005 % eye drops 1 drp OPHTHALMIC (EYE) DAILY 11/28/21 03/15/22 Unknown History naloxone 4 mg/actuation nasal spray 1 spray INTRANASAL Q3M 11/28/21 03/15/22 Unknown History cefuroxime axetil 250 mg tablet 250 mg PO BID 03/15/22 03/15/22 03/14/22 History fluticasone 250 mcg-salmeterol 50 1 ea INHALATION BID 03/15/22 03/15/22 03/14/22 History mcg/dose blistr powdr for inhalation (Wixela Inhub) Allergies Allergy/AdvReac Type Severity Reaction Status Date / Time codeine Allergy Unknown Unknown Verified 11/28/21 13:27 hydrocodone Allergy Unknown Unknown Verified 11/28/21 13:27 dulaglutide [From [facility]] Allergy Unknown Verified 11/28/21 13:27 Current Medications Generic Name Dose Route Start Last Admin Trade Name Freq PRN Reason Stop Dose Admin Acetaminophen 500 mg 03/15/22 14:01 03/17/22 09:29 Acetaminophen 500 Mg Tablet PO 500 mg Q4H PRN Administration fever Aspirin 81 mg 03/16/22 08:00 03/17/22 09:29 Aspirin 81 Mg Chew Tablet PO 81 mg DAILY@08 RICK Administration Atenolol 25 mg 03/16/22 08:00 03/17/22 09:29 Atenolol 50 Mg Tablet PO 25 mg DAILY@08 RICK Administration Heparin Sodium (Porcine) 5,000 unit 03/17/22 10:00 03/17/22 10:26 Heparin 5,000 Unit/Ml Inj 1 Ml SUBCUT 5,000 unit Q8H RICK Administration Ceftriaxone Sodium 1,000 mg/ 50 mls @ 100 mls/hr 03/16/22 09:00 03/17/22 10:00 Sodium Chloride IV Infused DAILY [facility] Infusion Protocol Sodium Chloride 1,000 mls @ 75 mls/hr 03/17/22 10:00 03/17/22 10:01 Sodium Chloride 0.9% IV 75 mls/hr .[id number] RICK Administration Insulin Detemir 30 unit 03/15/22 21:00 03/16/22 19:59 Insulin Detemir 100 Units/1 Ml SUBCUT 30 unit BEDTIME RICK Administration Insulin Human Lispro 0 unit 03/15/22 18:00 03/17/22 12:45 Insulin Lispro 100 Unit/1 Ml SUBCUT Not Given TIDWM [facility] Protocol Levothyroxine Sodium 125 mcg 03/16/22 06:00 03/17/22 05:40 Levothyroxine 125 Mcg Tablet PO 125 mcg QAM RICK Administration Ondansetron HCl 4 mg 03/15/22 14:01 03/16/22 08:21 Ondansetron 2 Mg/Ml Sdv 2 Ml IVP 4 mg Q6H PRN Administration NAUSEA AND VOMITING Oxycodone HCl 5 mg 03/16/22 15:16 03/17/22 15:50 Oxycodone 5 Mg Ir Tab/Cap PO 5 mg Q4H PRN Administration MODERATE PAIN Senna/Docusate Sodium 1 tab 03/16/22 09:00 03/17/22 09:29 Sennosides-Docusate Tablet PO 1 tab DAILY RICK Administration PFSH Acute PFSH: Medical History (Updated 03/17/22 @ 05:11 by Lance Junior MD) Abdominal pain Acute hyponatremia Acute kidney injury superimposed on CKD ASHD (arteriosclerotic heart disease) Chest pain Diabetes 1.5, managed as type 2 Dyslipidemia Elevated troponin GERD (gastroesophageal reflux disease) HTN (hypertension) Lesion of spleen Surgical History (Updated 03/15/22 @ 15:34 by Lance Junior MD) History of hip surgery S/P PTCA (percutaneous transluminal coronary angioplasty) Status post creation of pericardial window Family History Mother Cancer Diabetes Social History Smoking and tobacco status: former smoker Alcohol intake: never Female Reproductive History: Date of last menstrual period: 12/13/20 Vitals/I&O/Wt Last Vital Signs Temp 98 F 03/17/22 15:48 Pulse 60 03/17/22 15:48 Resp 18 03/17/22 15:50 BP 97/61 03/17/22 15:48 Pulse Ox 96 03/17/22 15:50 03/17/22 03/17/22 03/17/22 06:59 14:59 22:59 Intake Total 50 / 50 Output Total 960 / 960 Balance -910 / -910 Physical Exam Narrative: Ms. Petersen is supine in the bed. She is alert and oriented and answers questions appropriately. There is no visible deformity of the left lower extremity. She has exquisite pain with motion of the left hip We will flex extend her left toes. She has a palpable left dorsalis pedis pulse. Left sensation is intact light touch Urinary Catheter Management: Good: Cath Placed During This Visit: yes Reason for Continuing Indwelling Catheter: Acute Urinary Retention or Obstruction Urinary Catheter Date of Insertion: 03/15/22 Urinary Catheter Time of Insertion: 16:00 Data : 03/17/22 04:38 03/17/22 04:38 Xray Ortho: My impression: Radiographs of the left hip are reviewed. There is previously placed compression screw and sideplate in satisfactory position. There is collapse of the femoral head consistent with nonunion or avascular necrosis Other CT: My impression: I reviewed the CT scan of the pelvis. There appears to be fragmentation and collapse of the femoral head consistent with avascular necrosis. A&P Assessment and plan (1) AVN (avascular necrosis of bone): The patient appears to have fragmentation and collapse of the femoral head. She has a severe pain and disability. This is been a progressive situation with a past few months aggravated over a most recent fall. Discussed treatment options with her. At this point I think it is reasonable to think that she will have substantial improvement in healing or improvements in pain and I think she will need further surgery. I would suggest removal of the hardware and conversion to a bipolar arthroplasty. I told her with her recent surgery and fracture I would suggest using a revision components for her femur. I told the patient they could continue with nonoperative measures as they have. I would expect the pain to continue and the likely increase over time with progressive loss of function. She does not feel she cannot tolerate none operative or medical management of her pain. Indeed she is requiring quite a bit her narcotics for pain control. She is interested in bipolar arthroplasty. I discussed risks of the procedure. I discussed risk of a possible instability or dislocation. I discussed the possibility of continued pain. I discussed risk of component failure loosening the need for revision. I discussed the magnitude of the procedure with the patient. I made them aware of risk of surgery to possibility continued pain. I discussed risk of bleeding and infection. I made them aware that infection could result in removal of the components and extensive reconstruction procedures. I discussed risk of deep venous thromboses and pulmonary emboli and need for anticoagulation in some patients, which can cause increased swelling or bleeding. She will be managed with quintal compression dressings and anticoagulation. I discussed risks with any anesthetic procedure. He has no contraindications to TXA. He will be given 1 g preoperatively. We attempted to obtain insurance precertification for the treatment of avascular process of the hip today. Her insurance carrier is stated they would expedite approval. They stated that without approval they could make no assurances that they would pay for a nontraumatic admitted in the acute setting. I discussed this with the patient. I think the best plan may be to consider placement for a few days either at home or in a half-way and schedule a bipolar arthroplasty once insurance approval is obtained. 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
[2022-03-17 17:03] LABS: Glucose Point of Care 145 mg/dL (70-110)
[2022-03-17] MEDS: insulin lispro 100 unit/1 mL SUBCUT (17:32)
--- NOTE | 2022-03-17 17:44 | PC.NURSE ---
Patient AAOx4, VSS, hernandez in place and patent with good UOP. Resting in bed, frequent turns. Family at bedside and family updated on phone. No new events or needs. Patient controlled with oral pain medication. Room clean and clutter free with call light in reach.
[2022-03-17 21:45] LABS: Glucose Point of Care 197 mg/dL (70-110)
[2022-03-18] VITALS (12 sets, daily range): BP systolic 94–134; BP diastolic 58–85; PULSE 58–67; RESP 15–96; TEMP 36.4–37.2; O2SAT 92–97
[2022-03-18] MEDS: oxyCODONE 5 mg IR Tab/Cap PO ×6 (00:28→20:30)
[2022-03-18] MEDS: heparin 5,000 unit/mL INJ 1 mL 5000 UNIT SUBCUT ×2 (01:20→09:51)
[2022-03-18 04:54] LABS: Basophils % 0.3 %; Eosinophils # 0.1 10^3/uL (0.0-0.8); Eosinophils % 0.9 %; Hematocrit 33.4 % (37.0-47.0); Hemoglobin 10.6 g/dL (11.5-15.3); Lymphocytes # 1.1 10^3/uL (0.8-4.8); Lymphocytes % 10.8 %; Mean Corpuscular HGB Conc 31.7 g/dL (30.0-36.0); Mean Corpuscular Hemoglobin 28.5 pg (28.0-34.0); Mean Corpuscular Volume 89.8 fl (81-99); Mean Platelet Volume 9.6 fL (7.4-10.4); Monocytes # 0.6 10^3/uL (0.2-0.9); Monocytes % 6.3 %; Neutrophils # 8.06 10^3/uL (1.8-7.7); Neutrophils % 81.2 %; Nucleated Red Blood Cells % 0 %; Platelet Count 308 10^3/cmm (130-400); Red Blood Count 3.72 10^6/uL (4.1-5.3); Red Cell Distribution Width 12.7 % (12.1-15.1); White Blood Count 9.9 10^3/uL (4.0-10.0)
[2022-03-18 05:17] LABS: Anion Gap 15.9 (5-19); Blood Urea Nitrogen 46 mg/dL (8-23); Calcium 8.7 mg/dL (8.5-10.5); Carbon Dioxide 24 mmol/L (22-29); Chloride 100 mmol/L (98-107); Glucose 154 mg/dL (65-115); Osmolality Calculated 297 mOsm/kg (285-295); Potassium 3.9 mmol/L (3.5-5.1); Sodium 136 mmol/L (136-145)
[2022-03-18] MEDS: levothyroxine 125 mcg Tablet PO (05:53)
--- NOTE | 2022-03-18 06:24 | P.PN_ITS ---
Subjective Subjective: Patient is in agreement to wait to get the answer from the insurance regarding the surgery however at the same time if she decides to go to rehab we have already started the process of finding her a short-term rehab Hemodynamically stable Creatinine baseline CBC BMP unremarkable Vitals/I&O/Wt Last Vital Signs Temp 98.6 F 03/18/22 04:00 Pulse 67 03/18/22 04:00 Resp 18 03/18/22 04:06 BP 134/85 03/18/22 04:00 Pulse Ox 97 03/18/22 04:00 03/17/22 03/17/22 03/18/22 14:59 22:59 06:59 Intake Total 50 / 50 1190 / 1240 100 / 1340 Output Total 960 / 960 950 / 1910 Balance -910 / -910 1190 / 280 -850 / -570 Physical Exam Narrative: Pleasant and cooperative Looks euvolemic Abdomen soft S1, S2 Nonfocal neuro exam Saturating well on room air Left hip pain gets worse on ambulation at rest no acute distress No signs of vascular compromise Does not look fluid overloaded Urinary Catheter Management: Good: Cath Placed During This Visit: yes Reason for Continuing Indwelling Catheter: Acute Urinary Retention or Obstruction Urinary Catheter Date of Insertion: 03/15/22 Urinary Catheter Time of Insertion: 16:00 Data : 03/18/22 04:28 03/18/22 04:28 A&P Assessment and plan (1) AVN (avascular necrosis of bone): Status: Acute (2) UTI (urinary tract infection): Status: Acute (3) Altered mental status: Status: Acute (4) Diabetes 1.5, managed as type 2: Status: Acute (5) Anemia: Status: Acute (6) CRF (chronic renal failure): Status: Acute Plan Type 2 diabetes: Patient is euglycemic UTI: Patient has been afebrile I will go ahead and discontinue IV antibiotics and switch to p.o. Avascular necrosis of left hip requiring surgical intervention, Dr. 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
[2022-03-18 06:57] LABS: Glucose Point of Care 337 mg/dL (70-110)
[2022-03-18 06:57] LABS: Glucose Point of Care 168 mg/dL (70-110)
[2022-03-18 06:57] LABS: Glucose Point of Care 139 mg/dL (70-110)
[2022-03-18] MEDS: aspirin 81 mg Chew Tablet PO (08:10)
[2022-03-18] MEDS: sennosides-docusate Tablet 1 TAB PO (08:10)
[2022-03-18] MEDS: atenolol 50 mg Tablet 25 MG PO (08:10)
[2022-03-18] MEDS: insulin lispro 100 unit/1 mL SUBCUT (08:10)
[2022-03-18] MEDS: cefTRIAXone 1,000 MG in sodium chloride 0.9% (plus) 50 ML 100 MG IV (08:11)
[2022-03-18] MEDS: sodium chloride 0.9% 1,000 ML 75 ML IV (09:51)
[2022-03-18 10:51] LABS: Glucose Point of Care 121 mg/dL (70-110)
[2022-03-18] MEDS: acetaminophen 500 mg Tablet PO (11:27)
--- NOTE | 2022-03-18 13:44 | PC.SOCIAL ---
IMM Update pg 2 of IMM updated and reviewed w/ patient. Copy provided and Copy placed in chart.
[2022-03-18] MEDS: lidocaine 2% viscous 15 ML, aluminum-mag hydrox-simethicon 30 ML, sucralfate oral liq 1 GM PO (13:52)
[2022-03-18 17:18] LABS: Glucose Point of Care 89 mg/dL (70-110)
--- NOTE | 2022-03-18 19:30 | PC.NURSE ---
Pt. laying in bed, complains of intermittent hip pain. No other needs identified at this time.
[2022-03-18 21:41] LABS: Glucose Point of Care 205 mg/dL (70-110)
[2022-03-19] VITALS (28 sets, daily range): BP systolic 105–136; BP diastolic 52–76; PULSE 0–79; RESP 13–22; TEMP 36.3–37.2; O2SAT 94–100
[2022-03-19] MEDS: oxyCODONE 5 mg IR Tab/Cap PO ×2 (00:51→05:07)
[2022-03-19] MEDS: ALPRAZolam 0.5 mg Tablet PO (00:51)
--- NOTE | 2022-03-19 00:51 | PC.PHAR ---
RENAL DOSING FOR LEVAQUIN. CHANGED 750MG DAILY TO Q48H DUE TO CRCL 36.45 THANKS, NEDA CONTRERAS [facility]
[2022-03-19] MEDS: levothyroxine 125 mcg Tablet PO (05:07)
[2022-03-19] MEDS: levoFLOXacin 750 mg Tablet PO (05:08)
[2022-03-19] MEDS: ondansetron 2 mg/ML SDV 2 mL 4 MG IVP ×2 (05:11→13:15)
[2022-03-19 06:46] LABS: Glucose Point of Care 195 mg/dL (70-110)
--- NOTE | 2022-03-19 08:30 | US_ITS ---
WS: [id number] RIGHT UPPER QUADRANT ULTRASOUND HISTORY: Abdominal Pain COMPARISON: 06/01/[address] 03/19/2022. Liver: 19.3 cm in length. Liver is moderately enlarged. No mass or bile duct dilatation. Portal Vein: Normal hepatopetal flow with monophasic waveform. Gallbladder: Distended gallbladder with diffuse wall thickening measuring up to 5 mm. Stones and slud ge within the gallbladder. CBD: 0.6 cm Pancreas: Head and body are obscured. Right kidney: 9.0 cm in length. Very mild atrophy and cortical thinning. No obstruction or mass. Aorta and IVC: Unremarkable abdominal aorta and IVC. No ascites. US/US gall bladder [id number] IMPRESSION: 1. Abnormal gallbladder. Findings suspicious for acute cholecystitis. Changes of acute cholecystitis were also noted on a prior CT. 2. No bile duct dilatation.
--- NOTE | 2022-03-19 08:31 | CT_ITS ---
WS: [id number] CT ABDOMEN WITHOUT CONTRAST HISTORY: RIGHT lower quadrant abdominal pain. Upper abdominal pain for one day. Contiguous single phase 5 mm axial imaging performed to the abdomen. Oral contrast has not been provi ded. Coronal and sagittal reformats are submitted. All CT scans at [facility] use at least on e of these dose optimization techniques: automated exposure control; mA and/or kV adjustment per reyna ent size (includes targeted exams where dose is matched to clinical indication); or iterative reconst ruction. CONTRAST: None DLP: 1000.54 mGy.cm COMPARISON: 03/15/2022 Lower thorax: Mild chronic emphysematous changes. Normal size heart. Liver: Normal. No intrahepatic dilatation. Gallbladder: Normally distended gallbladder. Gallbladder measures 6.4 cm in transverse diameter. Mild wall thickening and stones. Moderate amount of pericholecystic fluid. No bile duct dilatation. Pancreas: Mild atrophy of the pancreas. Spleen: Granulomatous. Normal size. Adrenals: Normal RIGHT adrenal gland. 16 mm LEFT adrenal adenoma. Right kidney: Mild perinephric stranding with no obstruction. Left kidney: Mild perinephric stranding with no obstruction. Aorta: Mild atherosclerosis aorta. GI tract: Nondistended stomach. No small bowel obstruction. There is a very small amount of inflammat ion adjacent to the duodenum and the hepatic flexure from the cholecystitis. No adenopathy or free fluid. Abdominal wall: No hernia. Visualized osseous structures: Advanced degenerative changes throughout the spine. CT/CT abdomen wo con [id number] IMPRESSION: 1. Acute cholecystitis. Hydropic gallbladder with wall thickening and stones. 2. No bile duct dilatation. 3. Small amount of inflammation extends from the acute cholecystitis to the du odenum and hepatic flexure. 4. LEFT adrenal adenoma.
[2022-03-19] MEDS: insulin lispro 100 unit/1 mL SUBCUT ×2 (08:38→18:02)
[2022-03-19] MEDS: morphine 4 mg/mL SDV 1 mL 2 MG IVP (08:46)
[2022-03-19 08:49] LABS: Alanine Aminotransferase 112 U/L (0-33); Albumin Level 2.9 g/dL (3.5-5.2); Alkaline Phosphatase 256 IU/L (35-105); Anion Gap 20.7 (5-19); Aspartate Amino Transferase 100 U/L (0-32); Blood Urea Nitrogen 34 mg/dL (8-23); Carbon Dioxide 20 mmol/L (22-29); Chloride 98 mmol/L (98-107); Globulin 3.5 g/dL (1.3-4.6); Glucose 209 mg/dL (65-115); Osmolality Calculated 292 mOsm/kg (285-295); Potassium 4.7 mmol/L (3.5-5.1); Sodium 134 mmol/L (136-145); Total Bilirubin 0.3 mg/dL (0.15-1.2); Total Protein 6.4 g/dL (6.6-8.7)
--- NOTE | 2022-03-19 10:25 | P.PN_ITS ---
Subjective Subjective: Patient is stating that yesterday around evening she started having a lot of burping and overnight she started complaining abdominal pain this morning when I saw her she was very tender in right upper quadrant, requested stat LFTs, CT scan of abdomen pelvis without contrast, it did show acute cholecystitis without CBD dilation, she has been afebrile I have added Zosyn, she is already n.p.o. Updated Dr. Flannery, I have discussed this case with Dr. Manzano Vitals/I&O/Wt Last Vital Signs Temp 98.1 F 03/19/22 07:46 Pulse 74 03/19/22 07:46 Resp 18 03/19/22 07:46 BP 136/72 03/19/22 07:46 Pulse Ox 97 03/19/22 07:46 03/18/22 03/19/22 03/19/22 22:59 06:59 14:59 Intake Total 480 / 1821.25 Output Total 760 / 760 Balance 480 / 1821.25 -760 / 1061.25 Physical Exam Narrative: Pleasant cooperative female Currently laying supine In distress because of right upper quadrant pain Nonfocal neuro exam Abdomen tender right upper quadrant, Collins sign positive Looks dehydrated Family is at the bedside She has been afebrile Saturating well on room air S1, S2 Urinary Catheter Management: Good: Cath Placed During This Visit: yes Reason for Continuing Indwelling Catheter: Required Immobilization for Trauma or Surgery or Anesthesia Urinary Catheter Date of Insertion: 03/15/22 Urinary Catheter Time of Insertion: 16:00 Data : 03/18/22 04:28 03/19/22 08:13 A&P Assessment and plan (1) AVN (avascular necrosis of bone): Status: Acute (2) UTI (urinary tract infection): Status: Acute (3) Altered mental status: Status: Acute (4) Diabetes 1.5, managed as type 2: Status: Acute (5) Anemia: Status: Acute (6) CRF (chronic renal failure): Status: Acute (7) Acute kidney injury superimposed on chronic kidney disease: Status: Acute (8) Acute cholecystitis: Status: Acute Plan Acute cholecystitis Patient not showing signs of sepsis CBC is pending Afebrile I will add Zosyn today LFTs showing remarkable worsening of AST and ALT CT abdomen pelvis consistent with acute cholecystitis No CBD dilation I requested gallbladder ultrasound Clinically positive Collins sign She is n.p.o. Dr. Manzano has been consulted and notified Acute on chronic kidney disease: Creatinine at baseline with IV fluid hydration Right hip avascular necrosis Dr. Flannery has been notified to hold off on hip surgery for now UTI: Resolved Echo unremarkable which was done as preoperative work-up Family has been updated She is n.p.o. Type 2 diabetes: I will add D5 normal saline IV fluid resuscitation, hemoglobin A1c is 12, uncontrolled blood sugar DNR/DNI Delirium related to cystitis and acute cholecystitis: Waxing and waning mentation currently she is awake and alert and oriented This morning I have coordinated care with Dr. Flannery, Dr. 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
[2022-03-19 10:36] LABS: Basophils % 0.2 %; Eosinophils % 0.1 %; Hematocrit 32.4 % (37.0-47.0); Hemoglobin 10.8 g/dL (11.5-15.3); Lymphocytes # 0.4 10^3/uL (0.8-4.8); Lymphocytes % 3.3 %; Mean Corpuscular Volume 87.1 fl (81-99); Mean Platelet Volume 9.7 fL (7.4-10.4); Monocytes # 0.7 10^3/uL (0.2-0.9); Neutrophils # 12.06 10^3/uL (1.8-7.7); Neutrophils % 90.7 %; Nucleated Red Blood Cells % 0 %; Platelet Count 318 10^3/cmm (130-400); Red Blood Count 3.72 10^6/uL (4.1-5.3); Red Cell Distribution Width 12.4 % (12.1-15.1); White Blood Count 13.3 10^3/uL (4.0-10.0)
[2022-03-19 10:53] LABS: Mean Corpuscular HGB Conc 33.3 g/dL (30.0-36.0)
[2022-03-19] MEDS: piperacillin-tazobactam 3.375 GM in sodium chloride 0.9% (plus) 50 ML IV ×2 (11:12→18:02)
[2022-03-19] MEDS: dextrose 5%-sod chloride 0.9% 1,000 ML 75 ML IV (11:12)
[2022-03-19 11:49] LABS: Lactate (Lactic Acid level) 0.7 mmol/L (0.5-2.2)
[2022-03-19 12:08] LABS: Glucose Point of Care 157 mg/dL (70-110)
--- NOTE | 2022-03-19 13:02 | PM.CONSULT ---
Providers/Reason For Consult Consulting Physician/Specialty*: Dr. Darren Manzano, DO Reason for Consult*: Abdominal pain Attending Physician: Lanec Junior MD Primary Care Provider: Vikas Candelaria MD History of Present Illness History of Present Illness Sarah Petersen is a 77 year old female who presented to the hospital after a fall with hip pain. She is found to have avascular necrosis. She does have surgery today but she woke up with severe sharp right upper quadrant pain. The pain is sharp constant and radiates to the back. She has associated nausea but no emesis. Denies diarrhea or constipation. She has gotten this pain intermittently in the past. Denies fever or chills. CT and ultrasound confirm acute calculus cholecystitis. Review of Systems General: Reports: 10 or more systems reviewed and unremarkable except in HPI and below Medications/Allergies Home Medications Medication Instructions Recorded Confirmed Last Taken Type albuterol sulfate 90 mcg/actuation 2 puff INHALATION Q6H PRN 11/28/19 03/15/22 11/08/21 History aerosol inhaler (ProAir HFA) atenolol 25 mg tablet 25 mg PO DAILY@08 11/28/19 03/15/22 03/14/22 History fluoxetine 20 mg capsule 20 mg PO DAILY@11/28/19 03/15/22 03/14/22 History hydrochlorothiazide 25 mg tablet 25 mg PO DAILY@11/28/19 03/15/22 03/14/22 History montelukast 10 mg tablet 10 mg PO DAILY@11/28/19 03/15/22 03/14/22 History (Singulair) nitroglycerin 0.4 mg sublingual 0.4 mg SUBLINGUAL Q5M PRN 11/28/19 03/15/22 Unknown History tablet (Nitrostat) olmesartan 40 mg tablet 40 mg PO DAILY@11/28/19 03/15/22 03/14/22 History rosuvastatin 40 mg tablet (Crestor) 40 mg PO BEDTIME@2200 tab 11/28/19 03/15/22 03/14/22 History aspirin 81 mg chewable tablet 81 mg PO DAILY@11/07/20 03/15/22 03/14/22 History brimonidine 0.1 % eye drops 1 drp OPHTHALMIC (EYE) DAILY@08 11/07/20 03/15/22 11/08/21 History (Alphagan P) gabapentin 300 mg capsule 600 mg PO TID@08,12,20 11/07/20 03/15/22 03/14/22 History bimatoprost 0.01 % eye drops 1 drp OPHTHALMIC (EYE) QAM 05/31/21 03/15/22 11/08/21 History (Lumigan) furosemide 40 mg tablet 40 mg PO QAM 05/31/21 03/15/22 03/14/22 History naproxen 500 mg tablet 500 mg PO BID PRN 05/31/21 03/15/22 11/08/21 History acetaminophen 500 mg tablet 1,000 mg PO Q4H PRN 07/30/21 03/15/22 11/08/21 History ascorbic acid (vitamin C) 500 mg 500 mg PO DAILY 07/30/21 03/15/22 03/14/22 History tablet (Vitamin C) cholecalciferol (vitamin D3) 25 50 mcg PO DAILY #0 07/30/21 03/15/22 03/14/22 History mcg (1,000 unit) capsule (Vitamin D3) dapagliflozin 10 mg tablet 10 mg PO QAM 07/30/21 03/15/22 03/14/22 History (Farxiga) insulin detemir U-100 100 unit/mL 30 unit SUBCUT BEDTIME 07/30/21 03/15/22 03/14/22 History (3 mL) subcutaneous pen (Levemir FlexTouch U-100 Insulin) levothyroxine 125 mcg tablet 125 mcg PO QAM 07/30/21 03/15/22 03/14/22 History netarsudil 0.02 %-latanoprost 1 drp OPHTHALMIC (EYE) DAILY 07/30/21 03/15/22 11/08/21 History 0.005 % eye drops (Rocklatan) tramadol 50 mg tablet 50 mg PO Q6H PRN #10 tab 11/09/21 03/15/22 Unknown Rx ferrous sulfate 325 mg (65 mg 325 mg PO DAILY 11/28/21 03/15/22 03/14/22 History iron) capsule,extended release latanoprost 0.005 % eye drops 1 drp OPHTHALMIC (EYE) DAILY 11/28/21 03/15/22 Unknown History naloxone 4 mg/actuation nasal spray 1 spray INTRANASAL Q3M 11/28/21 03/15/22 Unknown History cefuroxime axetil 250 mg tablet 250 mg PO BID 03/15/22 03/15/22 03/14/22 History fluticasone 250 mcg-salmeterol 50 1 ea INHALATION BID 03/15/22 03/15/22 03/14/22 History mcg/dose blistr powdr for inhalation (Wixela Inhub) Allergies Allergy/AdvReac Type Severity Reaction Status Date / Time codeine Allergy Unknown Unknown Verified 11/28/21 13:27 hydrocodone Allergy Unknown Unknown Verified 11/28/21 13:27 [facility] Allergy Unknown Verified 11/28/21 13:27 Current Medications Generic Name Dose Route Start Last Admin Trade Name Freq PRN Reason Stop Dose Admin Acetaminophen 500 mg 03/15/22 14:01 03/18/22 11:27 Acetaminophen 500 Mg Tablet PO 500 mg Q4H PRN Administration fever Aspirin 81 mg 03/16/22 08:00 03/18/22 08:10 Aspirin 81 Mg Chew Tablet PO 81 mg DAILY@08 RICK Administration Atenolol 25 mg 03/16/22 08:00 03/18/22 08:10 Atenolol 50 Mg Tablet PO 25 mg DAILY@08 RICK Administration Heparin Sodium (Porcine) 5,000 unit 03/17/22 10:00 03/18/22 09:51 Heparin 5,000 Unit/Ml Inj 1 Ml SUBCUT 5,000 unit Q8H RICK Administration Piperacillin Sod/Tazobactam 50 mls @ 12.5 mls/hr 03/19/22 10:00 03/19/22 11:12 Sod 3.375 gm/ Sodium Chloride IV 12.5 mls/hr Q8H RICK Administration Protocol Dextrose/Sodium Chloride 1,000 mls @ 75 mls/hr 03/19/22 10:00 03/19/22 11:12 Dextrose 5%-Sod Chloride 0.9% IV 75 mls/hr .[id number] RICK Administration Insulin Detemir 30 unit 03/15/22 21:00 03/17/22 21:50 Insulin Detemir 100 Units/1 Ml SUBCUT 30 unit BEDTIME RICK Administration Insulin Human Lispro 0 unit 03/15/22 18:00 03/19/22 08:38 Insulin Lispro 100 Unit/1 Ml SUBCUT 6 unit TIDWM RICK Administration Protocol Levothyroxine Sodium 125 mcg 03/16/22 06:00 03/19/22 05:07 Levothyroxine 125 Mcg Tablet PO 125 mcg QAM IRCK Administration Morphine Sulfate 2 mg 03/19/22 08:34 03/19/22 08:46 Morphine 4 Mg/Ml Sdv 1 Ml IVP 2 mg Q4H PRN Administration SEVERE PAIN Oxycodone HCl 5 mg 03/16/22 15:16 03/19/22 05:07 Oxycodone 5 Mg Ir Tab/Cap PO 5 mg Q4H PRN Administration MODERATE PAIN Senna/Docusate Sodium 1 tab 03/16/22 09:00 03/18/22 08:10 Sennosides-Docusate Tablet PO 1 tab DAILY RICK Administration PFSH Acute PFSH: Medical History Abdominal pain Acute hyponatremia Acute kidney injury superimposed on CKD ASHD (arteriosclerotic heart disease) Chest pain Diabetes 1.5, managed as type 2 Dyslipidemia Elevated troponin GERD (gastroesophageal reflux disease) HTN (hypertension) Lesion of spleen Surgical History History of hip surgery S/P PTCA (percutaneous transluminal coronary angioplasty) Status post creation of pericardial window Family History Mother Cancer Diabetes Social History Smoking and tobacco status: former smoker Alcohol intake: never Female Reproductive History: Date of last menstrual period: 12/13/20 Vitals/I&O/Wt Last Vital Signs Temp 98.2 F 03/19/22 11:48 Pulse 76 03/19/22 12:40 Resp 17 03/19/22 12:40 BP 134/67 03/19/22 12:40 Pulse Ox 98 03/19/22 12:40 03/18/22 03/19/22 03/19/22 22:59 06:59 14:59 Intake Total 480 / 1821.25 Output Total 760 / 760 Balance 480 / 1821.25 -760 / 1061.25 Physical Exam Narrative: General : Patient is well developed , no acute distress, oriented x3 Head : Normal cephalic, a-traumatic. Ears : Pinnae and external canal are normal. Hearing is normal. Eyes : PERRLA, Sclera and injection are normal. No conjunctival discharge. Nose : Mucous membranes are without erythema. Throat : buccal mucosa is normal, gums are without significant recession or hypertrophy. Lungs : Equal chest rise bilaterally, no use of accessory muscles, trachea is midline. Cor : Rate and rhythm are normal. Abdomen : Soft, ND, tender to palpation in the right upper quadrant, positive Collins sign no g/r/m Extremities : No edema, no cyanosis or clubbing, dorsalis pedis pulses are present bilaterally, non-tender to palpation of calves. Upper extremities are normal bilaterally. Back : non-tender to palpation, no CVA tenderness. Neuro : CN II - XII intact, Upper and lower extremities have equal and full strength Urinary Catheter Management: Good: Cath Placed During This Visit: yes Reason for Continuing Indwelling Catheter: Required Immobilization for Trauma or Surgery or Anesthesia Urinary Catheter Date of Insertion: 03/15/22 Urinary Catheter Time of Insertion: 16:00 Data : 03/19/22 10:13 03/19/22 08:13 Micro: Microbiology 03/19/22 10:59 Blood Culture - Preliminary Blood SPECIMEN COLLECTED 03/19/22 10:50 Blood Culture - Preliminary Blood SPECIMEN COLLECTED A&P Assessment and plan (1) Acute calculous cholecystitis: Status: Acute Plan Laparoscopic cholecystectomy The risks and benefits of the procedure, including but not limited to, bleeding, infection, scar, numbness, pain, damage to surrounding structures, damage to common bile duct requiring additional surgery, conversion to an open procedure, were explained to the patient. She is understanding of the risks and wishes to proceed. 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
[2022-03-19] MEDS: sodium chloride 0.9% 1,000 ML 30 ML IV ×2 (13:15→18:02)
--- NOTE | 2022-03-19 13:38 | ANES.PREANE2 ---
Pre-Anesthetic Assessment Height/Weight: Height 1.7 m Weight 79.107 kg Temp Pulse Resp BP Pulse Ox 98.2 F 76 17 134/67 98 03/19/22 11:48 03/19/22 12:40 03/19/22 12:40 03/19/22 12:40 03/19/22 12:40 Preop Diagnosis: Avascular necrosis left hip Operation Date: 03/19/22 12:00 Proposed Procedures p Total Hip Arthroplasty(Left) - Paco Flannery MD s Hardware Removal Hip Screw(Left) - Paco Flannery MD Operation Date: 03/19/22 14:00 Proposed Procedures p Laparoscopic Cholecystectomy(Not Applicable) - Darren Manzano DO Familial anesthetic complications: None Was Beta Pamela taken within 24 hours: N/A Was Clonidine taken within 24 hours: N/A Last intake: > 8hrs Social No alcohol and No tobacco Exam alert, oriented x 3, clear to auscultation bilaterally and regular rate & rhythm Airway Mallampati: Class II Dentition: false CV/HEM Hypertension Chronic Renal Failure Metabolic Diabetes Mellitus and Thyroid Disease Anesthetic Plan ASA status: 3 Anesthesia: General Risk of > 500 ml blood loss (7ml/kg in children): No Medications/Allergies Home Medications Medication Instructions Recorded Confirmed Last Taken Type albuterol sulfate 90 mcg/actuation 2 puff INHALATION Q6H PRN 11/28/19 03/15/22 11/08/21 History aerosol inhaler (ProAir HFA) atenolol 25 mg tablet 25 mg PO DAILY@11/28/19 03/15/22 03/14/22 History fluoxetine 20 mg capsule 20 mg PO DAILY@11/28/19 03/15/22 03/14/22 History hydrochlorothiazide 25 mg tablet 25 mg PO DAILY@11/28/19 03/15/22 03/14/22 History montelukast 10 mg tablet 10 mg PO DAILY@11/28/19 03/15/22 03/14/22 History (Singulair) nitroglycerin 0.4 mg sublingual 0.4 mg SUBLINGUAL Q5M PRN 11/28/19 03/15/22 Unknown History tablet (Nitrostat) olmesartan 40 mg tablet 40 mg PO DAILY@11/28/19 03/15/22 03/14/22 History rosuvastatin 40 mg tablet (Crestor) 40 mg PO BEDTIME@2200 tab 11/28/19 03/15/22 03/14/22 History aspirin 81 mg chewable tablet 81 mg PO DAILY@08 11/07/20 03/15/22 03/14/22 History brimonidine 0.1 % eye drops 1 drp OPHTHALMIC (EYE) DAILY@08 11/07/20 03/15/22 11/08/21 History (Alphagan P) gabapentin 300 mg capsule 600 mg PO TID@08,12,11/07/20 03/15/22 03/14/22 History bimatoprost 0.01 % eye drops 1 drp OPHTHALMIC (EYE) QAM 05/31/21 03/15/22 11/08/21 History (Lumigan) furosemide 40 mg tablet 40 mg PO QAM 05/31/21 03/15/22 03/14/22 History naproxen 500 mg tablet 500 mg PO BID PRN 05/31/21 03/15/22 11/08/21 History acetaminophen 500 mg tablet 1,000 mg PO Q4H PRN 07/30/21 03/15/22 11/08/21 History ascorbic acid (vitamin C) 500 mg 500 mg PO DAILY 07/30/21 03/15/22 03/14/22 History tablet (Vitamin C) cholecalciferol (vitamin D3) 25 50 mcg PO DAILY #0 07/30/21 03/15/22 03/14/22 History mcg (1,000 unit) capsule (Vitamin D3) dapagliflozin 10 mg tablet 10 mg PO QAM 07/30/21 03/15/22 03/14/22 History (Farxiga) insulin detemir U-100 100 unit/mL 30 unit SUBCUT BEDTIME 07/30/21 03/15/22 03/14/22 History (3 mL) subcutaneous pen (Levemir FlexTouch U-100 Insulin) levothyroxine 125 mcg tablet 125 mcg PO QAM 07/30/21 03/15/22 03/14/22 History netarsudil 0.02 %-latanoprost 1 drp OPHTHALMIC (EYE) DAILY 07/30/21 03/15/22 11/08/21 History 0.005 % eye drops (Rocklatan) tramadol 50 mg tablet 50 mg PO Q6H PRN #10 tab 11/09/21 03/15/22 Unknown Rx ferrous sulfate 325 mg (65 mg 325 mg PO DAILY 11/28/21 03/15/22 03/14/22 History iron) capsule,extended release latanoprost 0.005 % eye drops 1 drp OPHTHALMIC (EYE) DAILY 11/28/21 03/15/22 Unknown History naloxone 4 mg/actuation nasal spray 1 spray INTRANASAL Q3M 11/28/21 03/15/22 Unknown History cefuroxime axetil 250 mg tablet 250 mg PO BID 03/15/22 03/15/22 03/14/22 History fluticasone 250 mcg-salmeterol 50 1 ea INHALATION BID 03/15/22 03/15/22 03/14/22 History mcg/dose blistr powdr for inhalation (Dion Inhnelli) Allergies Allergy/AdvReac Type Severity Reaction Status Date / Time codeine Allergy Unknown Unknown Verified 11/28/21 13:27 hydrocodone Allergy Unknown Unknown Verified 11/28/21 13:27 [facility] Allergy Unknown Verified 11/28/21 13:27 Current Medications Generic Name Dose Route Start Last Admin Trade Name Freq PRN Reason Stop Dose Admin Acetaminophen 500 mg 03/15/22 14:01 03/18/22 11:27 Acetaminophen 500 Mg Tablet PO 500 mg Q4H PRN Administration fever Aspirin 81 mg 03/16/22 08:00 03/18/22 08:10 Aspirin 81 Mg Chew Tablet PO 81 mg DAILY@08 RICK Administration Atenolol 25 mg 03/16/22 08:00 03/18/22 08:10 Atenolol 50 Mg Tablet PO 25 mg DAILY@08 RICK Administration Heparin Sodium (Porcine) 5,000 unit 03/17/22 10:00 03/18/22 09:51 Heparin 5,000 Unit/Ml Inj 1 Ml SUBCUT 5,000 unit Q8H RICK Administration Piperacillin Sod/Tazobactam 50 mls @ 12.5 mls/hr 03/19/22 10:00 03/19/22 11:12 Sod 3.375 gm/ Sodium Chloride IV 12.5 mls/hr Q8H RICK Administration Protocol Dextrose/Sodium Chloride 1,000 mls @ 75 mls/hr 03/19/22 10:00 03/19/22 11:12 Dextrose 5%-Sod Chloride 0.9% IV 75 mls/hr .[id number] RICK Administration Sodium Chloride 1,000 mls @ 30 mls/hr 03/19/22 12:30 03/19/22 13:15 Sodium Chloride 0.9% IV 03/20/22 12:29 30 mls/hr .Q24H RICK Administration Insulin Detemir 30 unit 03/15/22 21:00 03/17/22 21:50 Insulin Detemir 100 Units/1 Ml SUBCUT 30 unit BEDTIME RICK Administration Insulin Human Lispro 0 unit 03/15/22 18:00 03/19/22 08:38 Insulin Lispro 100 Unit/1 Ml SUBCUT 6 unit TIDWM RICK Administration Protocol Levothyroxine Sodium 125 mcg 03/16/22 06:00 03/19/22 05:07 Levothyroxine 125 Mcg Tablet PO 125 mcg QAM RICK Administration Morphine Sulfate 2 mg 03/19/22 08:34 03/19/22 08:46 Morphine 4 Mg/Ml Sdv 1 Ml IVP 2 mg Q4H PRN Administration SEVERE PAIN Ondansetron HCl 4 mg 03/19/22 12:24 03/19/22 13:15 Ondansetron 2 Mg/Ml Sdv 2 Ml IVP 4 mg Q5M PRN Administration NAUSEA AND VOMITING Oxycodone HCl 5 mg 03/16/22 15:16 03/19/22 05:07 Oxycodone 5 Mg Ir Tab/Cap PO 5 mg Q4H PRN Administration MODERATE PAIN Senna/Docusate Sodium 1 tab 03/16/22 09:00 03/18/22 08:10 Sennosides-Docusate Tablet PO 1 tab DAILY RICK Administration PFSH Anesthesia Medical History Abdominal pain Acute hyponatremia Acute kidney injury superimposed on CKD ASHD (arteriosclerotic heart disease) Chest pain Diabetes 1.5, managed as type 2 Dyslipidemia Elevated troponin GERD (gastroesophageal reflux disease) HTN (hypertension) Lesion of spleen Surgical History History of hip surgery S/P PTCA (percutaneous transluminal coronary angioplasty) Status post creation of pericardial window Family History Mother Cancer Diabetes Social History Smoking and tobacco status: former smoker Alcohol intake: never Female Reproductive History Date of last menstrual period: 12/13/20 Data Anesthesia : 03/19/22 10:13 03/19/22 08:13 Short CBC 03/18/22 03/19/22 Range/Units 04:28 10:13 WBC 9.9 13.3 H (4.0-10.0) 10^3/uL Hgb 10.6 L 10.8 L (11.5-15.3) g/dL Hct 33.4 L 32.4 L (37.0-47.0) % MCV 89.8 87.1 (81-99) fl Plt Count 308 318 (130-400) 10^3/cmm Neut % (Auto) 81.2 90.7 % Neut # (Auto) 8.06 H 12.06 H (1.8-7.7) 10^3/uL BMP 03/18/22 03/19/22 04:28 08:13 Sodium 136 134 L Potassium 3.9 4.7 Chloride 100 98 Carbon Dioxide 24 20 L BUN 46 H 34 H Creatinine 1.4 H 1.2 H Glucose 154 H 209 H Calcium 8.7 9.0 Liver Function 03/19/22 Range/Units 08:13 Total Bilirubin 0.3 (0.15-1.2) mg/dL Direct Bilirubin 0.20 (0.00-0.30) mg/dL AST 100 H (0-32) U/L ALT 112 H (0-33) U/L Alkaline Phosphatase 256 H (35-105) IU/L Albumin 2.9 L (3.5-5.2) g/dL Microbiology 03/19/22 10:59 Blood Culture - Preliminary Blood SPECIMEN COLLECTED 03/19/22 10:50 Blood Culture - Preliminary Blood SPECIMEN COLLECTED Cardiac Studies: Echocardiogram 03/17/22 Echocardiogram Ultrasound 12/31/20
[2022-03-19 14:07] LABS: Glucose Point of Care 160 mg/dL (70-110)
--- NOTE | 2022-03-19 15:39 | P.OP_ITS ---
Operative Report Date of procedure: March 19, 2022 Pre-op diagnosis: Preop Diagnosis Acute cholecystitis Post-op diagnosis: same Procedure done: Laparoscopic cholecystectomy Specimens removed/disposition: Gallbladder Surgeon: Dr. Darren Manzano DO Estimated blood loss: 75 Complications: None apparent Brief History: 77-year-old female who came in with avascular necrosis of the hip developed abdominal pain while in the hospital. Work-up revealed acute cholecystitis. Cholecystectomy was indicated. The risks and benefits were explained and documented. Procedure: Patient was wheeled into the operative room and placed on the OR table in a supine position. Abdomen was inspected prepped and draped in usual sterile fashion. Time-out was performed and all present were in agreement. A 15 blade scalp was used to make a stab incision in the left upper quadrant and intra- abdominal insufflation was achieved using a Veress needle. After localizing the tissue incisions were made and a 5 millimeter trocar was placed into the umbilicus as well as 2 in the right upper quadrant. A 12 millimeter trocar was placed in the epigastrium. Gallbladder was grasped and elevated. The triangle of Calot was carefully dissected using blunt dissection and electrocautery until the triangle of Calot clearly identified. The cystic duct was clipped proximally and double clipped distally. The duct was then ligated proximally. The cystic artery was doubly clipped and ligated. The gallbladder was then removed from the liver bed using electrocautery. The gallbladder was removed from the abdomen using an Endo-Catch bag through the epigastric incision. The liver bed was inspected and Surgicel was placed into the liver bed. After significant suctioning, no bleeding was seen. The abdomen was irrigated and suctioned. The epigastric port site was closed with 0 Vicryl in a Kirill- Cindy in a [id number] fashion. All ports removed. Skin was washed and dried. Incisions were closed with 3-0 and 4-O Vicryl in a subcuticular interrupted fashion. Skin glue was applied. Patient tolerated the procedure well.
[2022-03-19] MEDS: fentaNYL 50 mcg/mL INJ 2mL IVP ×2 (15:51→16:05)
--- NOTE | 2022-03-19 16:17 | ANE.PACU2 ---
Inpatient post-anesthesia follow up: Airway intact: Yes Vital signs: Temperature 98.4 F Pulse Rate 70 Respiratory Rate 14 Blood Pressure 115/56 Pulse Oximetry 99 Oxygen Delivery Me thod Room Air Oxygen Flow Rate 6 Fraction of Inspir ed Oxygen Hydration adequate: Yes Nausea and vomiting: No Pain level: 1 Mental status: Baseline
[2022-03-19] MEDS: HYDROmorphone 1 mg/mL INJ 1 mL 0.5 MG IVP (16:32)
[2022-03-19 17:20] LABS: Glucose Point of Care 191 mg/dL (70-110)
[2022-03-19] MEDS: morphine 4 mg/mL SDV 1 mL IVP (18:00)
[2022-03-19] MEDS: heparin 5,000 unit/mL INJ 1 mL 5000 UNIT SUBCUT (18:02)
[2022-03-19 20:10] LABS: Glucose Point of Care 165 mg/dL (70-110)
[2022-03-20] VITALS (17 sets, daily range): BP systolic 94–120; BP diastolic 55–76; PULSE 68–78; RESP 14–20; TEMP 35.9–37.4; O2SAT 93–99
[2022-03-20] MEDS: piperacillin-tazobactam 3.375 GM in sodium chloride 0.9% (plus) 50 ML IV ×3 (03:21→18:18)
[2022-03-20] MEDS: oxyCODONE 5 mg IR Tab/Cap PO ×5 (03:21→23:42)
[2022-03-20] MEDS: heparin 5,000 unit/mL INJ 1 mL 5000 UNIT SUBCUT ×2 (03:21→11:26)
[2022-03-20 03:43] LABS: Basophils % 0.3 %; Eosinophils % 0.1 %; Lymphocytes # 0.6 10^3/uL (0.8-4.8); Lymphocytes % 4.8 %; Mean Corpuscular HGB Conc 32.3 g/dL (30.0-36.0); Mean Corpuscular Hemoglobin 28.7 pg (28.0-34.0); Mean Corpuscular Volume 89.1 fl (81-99); Mean Platelet Volume 9.4 fL (7.4-10.4); Monocytes # 0.8 10^3/uL (0.2-0.9); Monocytes % 6.1 %; Neutrophils % 88.1 %; Nucleated Red Blood Cells % 0 %; Platelet Count 303 10^3/cmm (130-400); Red Blood Count 3.48 10^6/uL (4.1-5.3); Red Cell Distribution Width 12.8 % (12.1-15.1); White Blood Count 13.4 10^3/uL (4.0-10.0)
[2022-03-20 03:59] LABS: Alanine Aminotransferase 77 U/L (0-33); Albumin Level 2.5 g/dL (3.5-5.2); Alkaline Phosphatase 198 IU/L (35-105); Anion Gap 17.9 (5-19); Aspartate Amino Transferase 61 U/L (0-32); Blood Urea Nitrogen 30 mg/dL (8-23); Calcium 8.6 mg/dL (8.5-10.5); Carbon Dioxide 22 mmol/L (22-29); Chloride 102 mmol/L (98-107); Globulin 3.8 g/dL (1.3-4.6); Glucose 150 mg/dL (65-115); Osmolality Calculated 293 mOsm/kg (285-295); Potassium 4.9 mmol/L (3.5-5.1); Sodium 137 mmol/L (136-145); Total Bilirubin 0.3 mg/dL (0.15-1.2); Total Protein 6.3 g/dL (6.6-8.7)
[2022-03-20] MEDS: morphine 4 mg/mL SDV 1 mL 2 MG IVP (04:50)
[2022-03-20] MEDS: levothyroxine 125 mcg Tablet PO (05:33)
[2022-03-20 06:20] LABS: Glucose Point of Care 134 mg/dL (70-110)
--- NOTE | 2022-03-20 08:10 | PM.PN ---
Subjective Subjective: Postop day 1 status post laparoscopic cholecystectomy Afebrile Leukocytosis Creatinine baseline Patient is endorsing pain 4-6 in intensity She was not able to drink clear liquids because of lack of appetite however no active emesis or nausea Family is at the bedside Vitals/I&O/Wt Last Vital Signs Temp 98.3 F 03/20/22 07:43 Pulse 71 03/20/22 07:43 Resp 16 03/20/22 07:43 BP 120/65 03/20/22 07:43 Pulse Ox 99 03/20/22 07:43 03/19/22 03/20/22 03/20/22 22:59 06:59 14:59 Intake Total 3790 / 3790 50 / 3840 Output Total 275 / 275 550 / 825 Balance 3515 / 3515 -500 / 3015 Physical Exam Narrative: Patient was awake and alert Nonfocal neuro exam Pleasant and cooperative Surgical wound without any signs of infection Abdomen is soft No signs of vascular compromise of lower extremities Good catheter draining clear urine S1, S2 Patient looks dehydrated Saturating well on room air Urinary Catheter Management: Good: Cath Placed During This Visit: yes Reason for Continuing Indwelling Catheter: Required Immobilization for Trauma or Surgery or Anesthesia Urinary Catheter Date of Insertion: 03/15/22 Urinary Catheter Time of Insertion: 16:00 Data : 03/20/22 03:17 03/20/22 03:17 Micro: Microbiology 03/15/22 06:45 Blood Culture - Final Blood NO GROWTH AFTER 5 DAYS 03/15/22 06:36 Blood Culture - Final Blood NO GROWTH AFTER 5 DAYS 03/19/22 10:59 Blood Culture - Preliminary Blood SPECIMEN COLLECTED 03/19/22 10:50 Blood Culture - Preliminary Blood SPECIMEN COLLECTED A&P Assessment and plan (1) Acute calculous cholecystitis: Status: Acute (2) Acute cholecystitis: Status: Acute (3) Acute kidney injury superimposed on chronic kidney disease: Status: Acute (4) AVN (avascular necrosis of bone): Status: Acute (5) UTI (urinary tract infection): Status: Acute (6) Altered mental status: Status: Acute (7) Anemia: Status: Acute (8) CRF (chronic renal failure): Status: Acute Plan Acute calculus cholecystitis Status post laparoscopic cholecystectomy Postop day 1 No fever Saturating well on room air No active emesis Pain under control Patient is also on bowel regimen Blood cultures were taken yesterday Continue antibiotics She is on clear liquid diet Avascular necrosis, will touch base with Dr. Flannery UTI: Resolved Altered mental status: Resolved metabolic encephalopathy related to UTI: Resolved Acute on chronic kidney disease: Creatinine seems around baseline Uncontrolled type 2 diabetes, blood sugar is normal on normal saline N.p.o. 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
[2022-03-20 08:58] LABS: Glucose Point of Care 134 mg/dL (70-110)
[2022-03-20] MEDS: atenolol 50 mg Tablet 25 MG PO (09:06)
[2022-03-20] MEDS: sennosides-docusate Tablet 1 TAB PO (09:07)
--- NOTE | 2022-03-20 10:25 | PC.CHAP ---
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 [] Patient/Family/Request visit [] Outpatient visit [] Follow-up visit [] Physician referral [] Code/Alert [] Routine visit [] Staff referral [] Actively dying [] Patient sleeping [] Family support [] [] Out of room [] Palliative care [] [] Receiving care in room [] Pre-surgical visit [] Trauma [] Long length of stay [] ICU visit [] Other: Relational/Emotional Strength [] Patient feels connected with others/family/visitors/staff [] Distress [] Loneliness/isolation [] Abandonment Spirituality of Patient [] Person of Lu [] Attends Hinduism of their Lu [] Believes in Prayer [] Reads Bible or Orthodoxy materials [] There are Spiritual issues to be addressed Stone Gluer Interventions [] Prayer [] Active listening [] Non-anxious presence [] Spiritual/emotional support [] Crisis/trauma care [] Spiritual counseling [] Bereavement support [] Provided bereavement packet [] Provided Bible/devotional materials [] Provided toy/stuffed animal, coloring book to patient or family member [] Provided Communion [] Anointing/[place] [] Salvation [] Completed spiritual assessment [] Other: Impact on Illness or Injury [] Angry [] Fearful [] Anxious [] Often cries [] Exhaustion [] Unable to work [] Unable to attend mandaeism [] Unable to walk/stand [] Unable to read [] Unable to drive [] Unable to eat/drink [] Unable to sleep [] Unable to be with family [] Patient intubated [] Other: Summary Declined low pressure boiler operator visit Time spent with patient 5 mins
[2022-03-20 11:16] LABS: Glucose Point of Care 125 mg/dL (70-110)
[2022-03-20] MEDS: polyethylene glycol 3350 Pkt 17 gm PO (11:25)
--- NOTE | 2022-03-20 13:19 | P.PN_ITS ---
Subjective Subjective: The patient's left hip is feeling better. Sitting up in bed Vitals/I&O/Wt Last Vital Signs Temp 98.3 F 03/20/22 11:39 Pulse 68 03/20/22 11:39 Resp 16 03/20/22 11:39 BP 115/66 03/20/22 11:39 Pulse Ox 98 03/20/22 11:39 03/19/22 03/20/22 03/20/22 22:59 06:59 14:59 Intake Total 3790 / 3790 50 / 3840 770 / 770 Output Total 275 / 275 550 / 825 Balance 3515 / 3515 -500 / 3015 770 / 770 Physical Exam Narrative: Still with pain with internal and external rotation of left hip Urinary Catheter Management: Good: Cath Placed During This Visit: yes Reason for Continuing Indwelling Catheter: Required Immobilization for Trauma or Surgery or Anesthesia Urinary Catheter Date of Insertion: 03/15/22 Urinary Catheter Time of Insertion: 16:00 Data : 03/20/22 03:17 03/20/22 03:17 Micro: Microbiology 03/19/22 10:50 Blood Culture - Preliminary Blood NEGATIVE TO DATE 03/19/22 10:59 Blood Culture - Preliminary Blood NEGATIVE TO DATE 03/15/22 06:45 Blood Culture - Final Blood NO GROWTH AFTER 5 DAYS 03/15/22 06:36 Blood Culture - Final Blood NO GROWTH AFTER 5 DAYS A&P Assessment and plan (1) AVN (avascular necrosis of bone): I discussed potential complications with hip arthroplasty with the patient and her family. She underwent a cholecystectomy yesterday with a fairly necrotic gallbladder. Certainly the possibility of seeding of a revision bipolar hip would be catastrophic. I told her she could potentially be far worse off than she is now. I think the safest option would be to refer her to surgery for a week to 2 weeks to allow things to calm down. I would suggest placement in a shelter facility/[facility] and readmission for hip replacement. The family understood the situation and agrees. I will provisionally place her on the schedule on March 31. 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
[2022-03-20 16:35] LABS: Glucose Point of Care 143 mg/dL (70-110)
--- NOTE | 2022-03-20 17:14 | PM.PN ---
Subjective Subjective: Patient seen and examined. Pain is controlled. Denies nausea or vomiting. Tolerating diet Vitals/I&O/Wt Last Vital Signs Temp 96.7 F L 03/20/22 15:29 Pulse 69 03/20/22 15:29 Resp 18 03/20/22 15:29 BP 95/56 03/20/22 15:29 Pulse Ox 98 03/20/22 15:29 03/20/22 03/20/22 03/20/22 06:59 14:59 22:59 Intake Total 50 / 3840 770 / 770 50 / 820 Output Total 550 / 825 Balance -500 / 3015 770 / 770 50 / 820 Physical Exam Narrative: General: No acute distress awake alert and oriented x3 Abdomen: Soft, nondistended, appropriately tender to palpation, no guarding rebound or masses Incisions: Intact without erythema or exudate Urinary Catheter Management: Good: Cath Placed During This Visit: yes Reason for Continuing Indwelling Catheter: Required Immobilization for Trauma or Surgery or Anesthesia Urinary Catheter Date of Insertion: 03/15/22 Urinary Catheter Time of Insertion: 16:00 Data : 03/20/22 03:17 03/20/22 03:17 Micro: Microbiology 03/19/22 10:50 Blood Culture - Preliminary Blood NEGATIVE TO DATE 03/19/22 10:59 Blood Culture - Preliminary Blood NEGATIVE TO DATE 03/15/22 06:45 Blood Culture - Final Blood NO GROWTH AFTER 5 DAYS 03/15/22 06:36 Blood Culture - Final Blood NO GROWTH AFTER 5 DAYS A&P Assessment and plan (1) Acute calculous cholecystitis: Status: Acute Plan Postoperative day #1 status post laparoscopic cholecystectomy Regular diet Recommend 1 week of Augmentin prior to hip surgery Will continue to follow Attestations Medical Necessity Statement*: Further hospitalization per hospitalist Coding Level of Care Code Acute 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
[2022-03-20] MEDS: insulin lispro 100 unit/1 mL SUBCUT (18:17)
[2022-03-20] MEDS: sodium chloride 0.9% 1,000 ML 30 ML IV (18:19)
[2022-03-20 20:47] LABS: Glucose Point of Care 137 mg/dL (70-110)
[2022-03-21] VITALS (12 sets, daily range): BP systolic 90–111; BP diastolic 57–62; PULSE 64–91; RESP 15–18; TEMP 36.7–37.3; O2SAT 92–97
[2022-03-21] MEDS: piperacillin-tazobactam 3.375 GM in sodium chloride 0.9% (plus) 50 ML IV (02:10)
[2022-03-21 03:02] LABS: Basophils % 0.2 %; Eosinophils # 0.1 10^3/uL (0.0-0.8); Eosinophils % 1.1 %; Hemoglobin 9.4 g/dL (11.5-15.3); Lymphocytes # 0.9 10^3/uL (0.8-4.8); Lymphocytes % 7.3 %; Mean Corpuscular HGB Conc 32.4 g/dL (30.0-36.0); Mean Corpuscular Hemoglobin 28.8 pg (28.0-34.0); Mean Platelet Volume 9.4 fL (7.4-10.4); Monocytes # 0.8 10^3/uL (0.2-0.9); Monocytes % 6.6 %; Neutrophils # 10.41 10^3/uL (1.8-7.7); Neutrophils % 84.2 %; Nucleated Red Blood Cells % 0 %; Platelet Count 315 10^3/cmm (130-400); Red Blood Count 3.26 10^6/uL (4.1-5.3); Red Cell Distribution Width 12.9 % (12.1-15.1); White Blood Count 12.4 10^3/uL (4.0-10.0)
[2022-03-21 03:19] LABS: Anion Gap 14.6 (5-19); Blood Urea Nitrogen 28 mg/dL (8-23); Calcium 8.3 mg/dL (8.5-10.5); Carbon Dioxide 23 mmol/L (22-29); Chloride 102 mmol/L (98-107); Glucose 91 mg/dL (65-115); Osmolality Calculated 285 mOsm/kg (285-295); Potassium 4.6 mmol/L (3.5-5.1); Sodium 135 mmol/L (136-145)
[2022-03-21] MEDS: oxyCODONE 5 mg IR Tab/Cap PO ×5 (04:16→21:53)
[2022-03-21] MEDS: levothyroxine 125 mcg Tablet PO (06:06)
[2022-03-21 07:11] LABS: Glucose Point of Care 81 mg/dL (70-110)
[2022-03-21] MEDS: amoxicillin-clav 875-125 mg Tablet 1 TAB PO ×2 (08:19→17:34)
[2022-03-21] MEDS: sennosides-docusate Tablet 1 TAB PO (08:19)
[2022-03-21] MEDS: polyethylene glycol 3350 Pkt 17 gm PO (08:19)
--- NOTE | 2022-03-21 09:17 | P.PN_ITS ---
Subjective Subjective: No overnight events, leukocytosis trending down, no fever Patient is endorsing abdominal and hip pain She is agreeable to go to rehab for short-term Creatinine at baseline Diet advanced Vitals/I&O/Wt Last Vital Signs Temp 98.7 F 03/21/22 07:57 Pulse 64 03/21/22 07:57 Resp 18 03/21/22 08:19 BP 111/62 03/21/22 07:57 Pulse Ox 96 03/21/22 08:19 03/20/22 03/21/22 03/21/22 22:59 06:59 14:59 Intake Total 700 / 1470 50 / 1520 Output Total 850 / 850 Balance -150 / 620 50 / 670 Physical Exam Narrative: Patient is laying supine Saturating well on room air Tolerated her liquid diet Complaint of nausea Abdominal pain appropriate to her recent surgery Left hip pain She is awake and alert Looks dehydrated Good catheter has some white sediments, yellow-colored urine , PERRLA Urinary Catheter Management: Good: Cath Placed During This Visit: yes Reason for Continuing Indwelling Catheter: Required Immobilization for Trauma or Surgery or Anesthesia Urinary Catheter Date of Insertion: 03/15/22 Urinary Catheter Time of Insertion: 16:00 Data : 03/21/22 02:47 03/21/22 02:47 Micro: Microbiology 03/19/22 10:50 Blood Culture - Preliminary Blood NEGATIVE TO DATE 03/19/22 10:59 Blood Culture - Preliminary Blood NEGATIVE TO DATE 03/15/22 06:45 Blood Culture - Final Blood NO GROWTH AFTER 5 DAYS 03/15/22 06:36 Blood Culture - Final Blood NO GROWTH AFTER 5 DAYS A&P Assessment and plan (1) Acute calculous cholecystitis: Status: Acute (2) Acute kidney injury superimposed on chronic kidney disease: Status: Acute (3) AVN (avascular necrosis of bone): Status: Acute (4) UTI (urinary tract infection): Status: Acute (5) Altered mental status: Status: Acute (6) Anemia: Status: Acute (7) CRF (chronic renal failure): Status: Acute Plan Acute calculus cholecystitis status post laparoscopic cholecystectomy Postop day 2 No fever Patient saturating on room air Pain around surgical site appropriate to recent surgery Patient complain of mild nausea however no active emesis Started consistent carb diet today Avascular necrosis of left hip, plan for staged surgery Chronic kidney disease: Creatinine at baseline Disposition: Hopefully will be able to place her for short-term rehab Pain management, bowel regimen Patient is not septic I de-escalate her antibiotics to Augmentin DNR/DNI Uncontrolled type 2 diabetes UTI: Resolved, blood cultures negative, urine culture report is pending Attestations Medical Necessity Statement*: Continue medical management Time Spent in Patient Care: 40 Coding Level of Care Code Acute 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
[2022-03-21 09:38] LABS: Glucose Point of Care 124 mg/dL (70-110)
--- NOTE | 2022-03-21 12:14 | P.PN_ITS ---
Subjective Subjective: Patient seen and examined. Pain is controlled. Denies nausea or vomiting. Tolerating diet. No new complaints. Vitals/I&O/Wt Last Vital Signs Temp 98.7 F 03/21/22 07:57 Pulse 64 03/21/22 07:57 Resp 18 03/21/22 08:19 BP 111/62 03/21/22 07:57 Pulse Ox 96 03/21/22 08:19 03/20/22 03/21/22 03/21/22 22:59 06:59 14:59 Intake Total 700 / 1470 50 / 1520 140 / 140 Output Total 850 / 850 Balance -150 / 620 50 / 670 140 / 140 Physical Exam Narrative: General: No acute distress awake alert and oriented x3 Abdomen: Soft, nondistended, appropriately tender to palpation, no guarding rebound or masses Incisions: Intact without erythema or exudate Urinary Catheter Management: Good: Cath Placed During This Visit: yes Reason for Continuing Indwelling Catheter: Required Immobilization for Trauma or Surgery or Anesthesia Urinary Catheter Date of Insertion: 03/15/22 Urinary Catheter Time of Insertion: 16:00 Data : 03/21/22 02:47 03/21/22 02:47 Micro: Microbiology 03/19/22 10:50 Blood Culture - Preliminary Blood NEGATIVE TO DATE 03/19/22 10:59 Blood Culture - Preliminary Blood NEGATIVE TO DATE A&P Assessment and plan (1) Acute calculous cholecystitis: Status: Acute Plan Postoperative day #2 status post laparoscopic cholecystectomy Regular diet Recommend 1 week of Augmentin prior to hip surgery Surgically stable for discharge Attestations Medical Necessity Statement*: Further hospitalization per hospitalist Coding Level of Care Code Acute Cardiothoracic 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
[2022-03-21 12:26] LABS: Glucose Point of Care 136 mg/dL (70-110)
[2022-03-21 13:38] LABS: Glucose Point of Care 165 mg/dL (70-110)
[2022-03-21 16:57] LABS: Glucose Point of Care 165 mg/dL (70-110)
[2022-03-21] MEDS: sodium chloride 0.9% 1,000 ML 30 ML IV (17:34)
[2022-03-21] MEDS: heparin 5,000 unit/mL INJ 1 mL 5000 UNIT SUBCUT (17:35)
[2022-03-21] MEDS: insulin lispro 100 unit/1 mL SUBCUT (17:35)
[2022-03-21 19:04] LABS: SARS Covid-2 Antigen Negative (Negative)
[2022-03-22] VITALS (11 sets, daily range): BP systolic 97–127; BP diastolic 57–82; PULSE 69–92; RESP 16–18; TEMP 36.4–37.3; O2SAT 90–95
[2022-03-22] MEDS: oxyCODONE 5 mg IR Tab/Cap PO ×3 (02:09→11:33)
[2022-03-22] MEDS: heparin 5,000 unit/mL INJ 1 mL 5000 UNIT SUBCUT ×3 (02:09→17:26)
[2022-03-22 04:28] LABS: Basophils % 0.4 %; Eosinophils # 0.1 10^3/uL (0.0-0.8); Eosinophils % 1.2 %; Hematocrit 27.7 % (37.0-47.0); Lymphocytes # 0.9 10^3/uL (0.8-4.8); Lymphocytes % 9.3 %; Mean Corpuscular HGB Conc 32.5 g/dL (30.0-36.0); Mean Corpuscular Hemoglobin 28.3 pg (28.0-34.0); Mean Corpuscular Volume 87.1 fl (81-99); Mean Platelet Volume 9.6 fL (7.4-10.4); Monocytes # 0.7 10^3/uL (0.2-0.9); Monocytes % 7.1 %; Neutrophils # 7.94 10^3/uL (1.8-7.7); Neutrophils % 81.2 %; Nucleated Red Blood Cells % 0 %; Platelet Count 330 10^3/cmm (130-400); Red Blood Count 3.18 10^6/uL (4.1-5.3); Red Cell Distribution Width 12.9 % (12.1-15.1); White Blood Count 9.8 10^3/uL (4.0-10.0)
[2022-03-22 04:51] LABS: Alanine Aminotransferase 79 U/L (0-33); Albumin Level 1.7 g/dL (3.5-5.2); Alkaline Phosphatase 285 IU/L (35-105); Blood Urea Nitrogen 26 mg/dL (8-23); C Reactive Protein 140.3 mg/L (0.0-4.9); Carbon Dioxide 18 mmol/L (22-29); Chloride 103 mmol/L (98-107); Globulin 3.8 g/dL (1.3-4.6); Glucose 91 mg/dL (65-115); Osmolality Calculated 278 mOsm/kg (285-295); Sodium 132 mmol/L (136-145); Total Bilirubin 0.3 mg/dL (0.15-1.2); Total Protein 5.5 g/dL (6.6-8.7)
[2022-03-22 04:54] LABS: Slide Review Slide Review Perform
[2022-03-22 04:57] LABS: Anion Gap 15.4 (5-19); Aspartate Amino Transferase 77 U/L (0-32); Potassium 4.4 mmol/L (3.5-5.1)
[2022-03-22] MEDS: levothyroxine 125 mcg Tablet PO (07:25)
[2022-03-22 08:45] LABS: Glucose Point of Care 75 mg/dL (70-110)
[2022-03-22] MEDS: sennosides-docusate Tablet 1 TAB PO (08:54)
[2022-03-22] MEDS: amoxicillin-clav 875-125 mg Tablet 1 TAB PO ×2 (08:54→17:27)
[2022-03-22] MEDS: polyethylene glycol 3350 Pkt 17 gm PO (09:09)
[2022-03-22 11:43] LABS: Glucose Point of Care 74 mg/dL (70-110)
[2022-03-22 11:43] LABS: Glucose Point of Care 61 mg/dL (70-110)
--- NOTE | 2022-03-22 12:53 | P.PN_ITS ---
Subjective Subjective: Hemodynamically stable Patient will be able to go to short-term rehab probably on Thursday next week No events overnight She is still complaining of pain Currently on Augmentin Patient wanted to have a bowel movement however noticed excessive passage of flatus Still complaining of abdominal pain and hip pain Vitals/I&O/Wt Last Vital Signs Temp 99.2 F 03/22/22 12:00 Pulse 86 03/22/22 12:00 Resp 17 03/22/22 12:00 BP 119/66 03/22/22 12:00 Pulse Ox 90 03/22/22 12:00 03/21/22 03/22/22 03/22/22 22:59 06:59 14:59 Intake Total 817.5 / 957.5 Output Total 850 / 850 Balance 817.5 / 657.5 -850 / -850 Physical Exam Narrative: Patient is laying supine Brief history at the bedside Looks dehydrated Awake and alert Currently on room air Family at the bedside No signs of vessel compromise of lower extremities Mild signs of hydration Nonfocal neuro exam Session well on room air S1, S2 Good catheter draining dilute urine Urinary Catheter Management: Good: Cath Placed During This Visit: yes Reason for Continuing Indwelling Catheter: Required Immobilization for Trauma or Surgery or Anesthesia Urinary Catheter Date of Insertion: 03/15/22 Urinary Catheter Time of Insertion: 16:00 Data : 03/22/22 04:15 03/22/22 04:15 A&P Assessment and plan (1) Acute calculous cholecystitis: Status: Acute (2) Acute cholecystitis: Status: Acute (3) Acute kidney injury superimposed on chronic kidney disease: Status: Acute (4) AVN (avascular necrosis of bone): Status: Acute (5) UTI (urinary tract infection): Status: Acute (6) Altered mental status: Status: Acute (7) Diabetes 1.5, managed as type 2: Status: Acute (8) Anemia: Status: Acute (9) CRF (chronic renal failure): Status: Acute Plan Status post laparoscopic cholecystectomy: No active nausea, still complain abdominal pain, able to tolerate diet Afebrile She can have a break from her labs over the weekend She is currently on Augmentin for gangrenous gallbladder Vascular versus planned surgery after 8 days Awaiting placement to short-term rehab, awaiting prior Auth Continue DVT prophylaxis Continue sliding scale for type 2 diabetes, UTI: Resolved Pain management with oxycodone 10 mg and IV morphine Continue levothyroxine Patient is able to get up to sit at the bedside Attestations Medical Necessity Statement*: Awaiting placement Time Spent in Patient Care: 30 Coding Level of Care Code Acute Laboratory Tech for [facility] Fwd Diagnoses Acute calculous cholecystitis K80.00 Acute cholecystitis K81.0 Acute kidney injury superimposed on chronic kidney disease N17.9; N18.9 AVN (avascular necrosis of bone) M87.00 UTI (urinary tract infection) N39.0 Altered mental status R41.82 Diabetes 1.5, managed as type 2 E13.9 Anemia D64.9 CRF (chronic renal failure) N18.9
--- NOTE | 2022-03-22 13:43 | PC.SOCIAL ---
IMM UPDATED IMM dated and initialed, copy given to patient and copy placed in chart
--- NOTE | 2022-03-22 14:43 | XRR_ITS ---
PROCEDURE INFORMATION: Exam: XR Left Shoulder Exam date and time: 03/22/2022 2:54 PM Age: 77 years old Clinical indication: Pain; Shoulder; Left TECHNIQUE: Imaging protocol: Radiologic exam of the Left shoulder. Views: 1 view. COMPARISON: [place] [id number] 03/15/2022 7:32 AM FINDINGS: A single transscapular Y type view is provided. No fracture or dislocation is detected. XR/XR shoulder LT 1V [id number] IMPRESSION: See above.
[2022-03-22 17:13] LABS: Glucose Point of Care 189 mg/dL (70-110)
[2022-03-22] MEDS: insulin lispro 100 unit/1 mL SUBCUT (17:28)
[2022-03-22] MEDS: oxyCODONE 5 mg IR Tab/Cap 10 MG PO (20:17)
[2022-03-22] MEDS: morphine 4 mg/mL SDV 1 mL 2 MG IVP (20:31)
[2022-03-22 21:06] LABS: Glucose Point of Care 155 mg/dL (70-110)
[2022-03-23] VITALS (11 sets, daily range): BP systolic 83–131; BP diastolic 50–74; PULSE 70–87; RESP 14–18; TEMP 36.4–37.5; O2SAT 92–97
[2022-03-23] MEDS: heparin 5,000 unit/mL INJ 1 mL 5000 UNIT SUBCUT ×3 (01:49→17:14)
[2022-03-23] MEDS: oxyCODONE 5 mg IR Tab/Cap 10 MG PO ×4 (01:49→18:46)
[2022-03-23] MEDS: levothyroxine 125 mcg Tablet PO (06:21)
[2022-03-23 06:35] LABS: Glucose Point of Care 61 mg/dL (70-110)
[2022-03-23 06:43] LABS: Glucose Point of Care 65 mg/dL (70-110)
[2022-03-23 08:21] LABS: Glucose Point of Care 91 mg/dL (70-110)
[2022-03-23] MEDS: polyethylene glycol 3350 Pkt 17 gm PO (09:23)
[2022-03-23] MEDS: amoxicillin-clav 875-125 mg Tablet 1 TAB PO ×2 (09:23→17:14)
[2022-03-23] MEDS: sennosides-docusate Tablet 1 TAB PO (09:23)
[2022-03-23 12:16] LABS: Glucose Point of Care 113 mg/dL (70-110)
--- NOTE | 2022-03-23 13:14 | PM.PN ---
Subjective Subjective: Patient is endorsing that she ate her breakfast this morning, she is liking food from home, sugar this morning was 91 Pain still 5-7 intensity Waiting for bed placement at SNF Continue Good catheter placement until the day of discharge No active emesis No active nausea Vitals/I&O/Wt Last Vital Signs Temp 99.5 F 03/23/22 11:43 Pulse 74 03/23/22 11:43 Resp 18 03/23/22 11:59 BP 101/60 03/23/22 11:43 Pulse Ox 96 03/23/22 11:59 03/22/22 03/23/22 03/23/22 22:59 06:59 14:59 Intake Total 120 / 1120 480 / 480 Output Total 400 / 1250 400 / 1650 Balance -280 / -130 -400 / -530 480 / 480 Physical Exam Narrative: Patient looks euvolemic Abdomen is soft Surgical site is healing at this point No sign of cellulitis Abdomen is soft Lower symmetry no edema Saturating well on room air Family at the bedside Awake and alert Nonfocal neuro exam Urinary Catheter Management: Good: Cath Placed During This Visit: yes Reason for Continuing Indwelling Catheter: Accurate Measurement of Urinary Output in Critically Ill Patients Urinary Catheter Date of Insertion: 03/15/22 Urinary Catheter Time of Insertion: 16:00 Data : 03/22/22 04:15 03/22/22 04:15 A&P Assessment and plan (1) Acute calculous cholecystitis: Status: Acute (2) AVN (avascular necrosis of bone): Status: Acute (3) UTI (urinary tract infection): Status: Acute Plan 77 female who was admitted for management and evaluation of worsening left hip pain, in October she had hip surgery in [place], this time she has been diagnosed with avascular necrosis, on the day of surgery she started having abdominal pain she was diagnosed with acute cholecystitis, status post laparoscopic cholecystectomy, now plan is to have staged total hip arthroplasty by Dr. Flannery next Thursday, she is awaiting bed placement for short-term SNF, she will lose her SNF days because she would only get 21 to 22 days which are paid by her Medicaid Family is very much involved Currently awaiting pain management awaiting for placement likely on Thursday Avascular necrosis of left hip: Pain management DVT prophylaxis: On board Type 2 diabetes, blood sugars running low however no signs of hypoglycemia, patient is wanting to eat food from home, I would allow her to eat food from home Laparoscopic cholecystectomy: Wounds are healing, no active nausea or worsening abdominal pain, continue current opioid regimen Still passing gas, no bowel movement, hopefully today she will have a bowel movement with adequate p.o. intake She is DNR/DNI Family is very much involved She lives with her son Rick She will need opioids at the time of discharge, Dr. Flannery follow-up Consistent carb diet UTI resolved Attestations Medical Necessity Statement*: Continue medical management, awaiting placement Time Spent in Patient Care: 30 Coding Level of Care Code Acute Falsework Builder for [facility] Fwd Diagnoses Acute calculous cholecystitis K80.00 AVN (avascular necrosis of bone) M87.00 UTI (urinary tract infection) N39.0
[2022-03-23 17:18] LABS: Glucose Point of Care 248 mg/dL (70-110)
[2022-03-23 21:00] LABS: Glucose Point of Care 261 mg/dL (70-110)
[2022-03-24] MEDS: heparin 5,000 unit/mL INJ 1 mL 5000 UNIT SUBCUT (02:37)
[2022-03-24 04:00] VITALS: BP 111/72; PULSE 80; RESP 16; TEMP 35.9; O2SAT 95
[2022-03-24] MEDS: levothyroxine 125 mcg Tablet PO (06:14)
[2022-03-24 06:28] VITALS: RESP 18
[2022-03-24] MEDS: oxyCODONE 5 mg IR Tab/Cap 10 MG PO (06:28)
[2022-03-24 06:48] LABS: Glucose Point of Care 179 mg/dL (70-110)
[2022-03-24 07:10] VITALS: BP 106/66; PULSE 71; RESP 18; TEMP 36.7; O2SAT 94
[2022-03-24] MEDS: polyethylene glycol 3350 Pkt 17 gm PO (08:24)
[2022-03-24] MEDS: sennosides-docusate Tablet 1 TAB PO (08:25)
[2022-03-24] MEDS: amoxicillin-clav 875-125 mg Tablet 1 TAB PO (08:25)
[2022-03-24] MEDS: insulin lispro 100 unit/1 mL SUBCUT (08:25)
[2022-03-24 10:10] LABS: SARS Covid-2 Antigen Negative (Negative)
--- NOTE | 2022-03-24 10:51 | P.DS_ITS ---
Discharge Providers Date of Admission: 03/19/22 12:26 Date of Discharge: March 24, 2022 Attending Provider at Admission: Lance Junior MD Attending Provider at Discharge: Lance Junior MD Primary Care Provider: Vikas Candelaria MD Diagnoses at Discharge Discharge Diagnosis (1) Acute calculous cholecystitis: (2) AVN (avascular necrosis of bone): Status: Acute (3) UTI (urinary tract infection): Reason for Visit Reason for Visit: FALL Hospital Course Hospital Course 77-year female who was admitted to the hospital after sustaining a fall at home, in October hip surgery was done in [place], during this encounter she was diagnosed with avascular necrosis of hip without any acute fractures, her excruciating pain was controlled with the help of oxycodone and as needed use of IV opioids, we were able to get preauthorization for her hip surgery however on day of surgery patient developed abdominal pain, CT scan of abdomen revealed acute cholecystitis, Dr. Manzano did laparoscopic cholecystectomy on 03/19, as per the report gall bladder was gangrenous, she was put on IV antibiotics and eventually switched to Augmentin. She is able to tolerate diet, pain is well controlled on oxycodone, blood sugar has been running low I have discontinued h er Lantus, discontinued antihypertensive her blood pressure is also running softer, no active chest pain or shortness of breath, she is doing well on room air, echo is unremarkable. Poor PO intake. She will go to SNF for short-term rehab Provisional date for surgery March [address] Causey for avascular necrosis left hip Medications on hold Antihypertensive patient blood pressure is running softer I have discontinued her olmesartan, hydrochlorothiazide Changed in dose I have decreased the dose of Levemir to 15 units instead of 30 units blood sugar was running low as well because her p.o. intake was poor although hemoglobin A1c 12.5 she will continue Farxiga Additional medication Oxycodone, bowel regimen and Augmentin Physical Exam Narrative: Patient looks euvolemic Abdomen is soft Surgical site is healing at this point No sign of cellulitis Abdomen is soft Lower symmetry no edema Saturating well on room air Family at the bedside Awake and alert Nonfocal neuro exam Urinary Catheter Management: Good: Cath Placed During This Visit: yes Reason for Continuing Indwelling Catheter: Required Immobilization for Trauma or Surgery or Anesthesia Urinary Catheter Date of Insertion: 03/15/22 Urinary Catheter Time of Insertion: 16:00 Discharge Data Studies Completed and Pending Completed Studies During Hospitalization Category Date Time Status CT abdomen wo con 36387 Routine Cat Scan 03/19/22 08:[address] cervical spin wo con* [id number] Urgent Cat Scan 03/15/22 05:[address] [place] [id number] Stat Cat Scan 03/15/22 06:[address] head wo con* [id number] Urgent Cat Scan 03/15/22 05:49 Completed XR hip LT 2-3V wo/w pel* [id number] Stat Exams 03/15/22 14:54 Completed XR shoulder LT 1V [id number] Routine Exams 03/22/22 14:43 Completed Pathology: Surgical [PTH] Routine Pth 03/19/22 15:48 Completed CV. echo complete* [id number] Routine Ultrasound 03/17/22 09:54 Completed US gall bladder [id number] Routine Ultrasound 03/19/22 08:30 Completed Pending at discharge Category Date Time Status ES surgery / GI images Routine Exams 03/19/22 14:12 Ordered Blood Culture Stat Lab 03/19/22 10:59 Results Radiology Impressions Cervical Spine CT 03/15/22 05:49 IMPRESSION: Loss of cervical lordosis. No evidence of fracture or dislocation. Head CT 03/15/22 05:49 IMPRESSION: 1. No evidence of acute intracranial abnormality. No evidence of acute infarction, hemorrhage, or mass. 2. Atrophy and microvascular disease. Chest/Abdomen/Pelvis CT 03/15/22 06:04 IMPRESSION: 1. Granulomatous disease. No acute abnormality. 2. Suspect artifact rather than a true sternal fracture which needs to clinically correlated. IMPRESSION: No acute abnormality. Incidental findings as above including an adrenal adenoma. COMMENTS: Consistent with the [place] [employer]'s Incidental Findings Committee white paper (J Am Jaleesa Radiol 2017): For any incidental adrenal lesion greater than 1 cm but less than 4 cm classified in this report as benign, likely benign, or containing fat (including classification as an adenoma or myelolipoma), no follow-up imaging is recommended per consensus recommendations based on imaging criteria. Further lab evaluation could be pursued if warranted based on clinical findings. Hip/Pelvis X-Ray 03/15/22 14:54 IMPRESSION: No acute fracture with postoperative changes. Gallbladder Ultrasound 03/19/22 08:30 IMPRESSION: 1. Abnormal gallbladder. Findings suspicious for acute cholecystitis. Changes of acute cholecystitis were also noted on a prior CT. 2. No bile duct dilatation. Abdomen CT 03/19/22 08:31 IMPRESSION: 1. Acute cholecystitis. Hydropic gallbladder with wall thickening and stones. 2. No bile duct dilatation. 3. Small amount of inflammation extends from the acute cholecystitis to the duodenum and hepatic flexure. 4. LEFT adrenal adenoma. Shoulder X-Ray 03/22/22 14:43 IMPRESSION: See above. Laboratory Results WBC 9.8 10^3/uL (4.0-10.0) 03/22/22 04:15 RBC 3.18 10^6/uL (4.1-5.3) L 03/22/22 04:15 Hgb 9.0 g/dL (11.5-15.3) L 03/22/22 04:15 Hct 27.7 % (37.0-47.0) L 03/22/22 04:15 MCV 87.1 fl (81-99) 03/22/22 04:15 MCH 28.3 pg (28.0-34.0) 03/22/22 04:15 MCHC 32.5 g/dL (30.0-36.0) 03/22/22 04:15 RDW 12.9 % (12.1-15.1) 03/22/22 04:15 Plt Count 330 10^3/cmm (130-400) 03/22/22 04:15 MPV 9.6 fL (7.4-10.4) 03/22/22 04:15 Neut % (Auto) 81.2 % 03/22/22 04:15 Lymph % (Auto) 9.3 % 03/22/22 04:15 [place] % (Auto) 7.1 % 03/22/22 04:15 Eos % (Auto) 1.2 % 03/22/22 04:15 Baso % (Auto) 0.4 % 03/22/22 04:15 Neut # (Auto) 7.94 10^3/uL (1.8-7.7) H 03/22/22 04:15 Lymph # (Auto) 0.9 10^3/uL (0.8-4.8) 03/22/22 04:15 [place] # (Auto) 0.7 10^3/uL (0.2-0.9) 03/22/22 04:15 Eos # (Auto) 0.1 10^3/uL (0.0-0.8) 03/22/22 04:15 Baso # (Auto) 0.0 10^3/uL (0.0-0.1) 03/22/22 04:15 Nucleated RBC % (auto) 0 % 03/22/22 04:15 Nucleated RBCs # 0.0 /100WBC 03/22/22 04:15 Specimen Type Arterial 03/15/22 06:05 Sample Site Radial, right 03/15/22 06:05 ABG pH 7.48 (7.35-7.45) H 03/15/22 06:05 ABG pCO2 39.1 mmHg (35-45) 03/15/22 06:05 ABG pO2 56.1 mmHg (80.0-100.0) L 03/15/22 06:05 ABG HCO3 28.9 mmol/L (22-26) H 03/15/22 06:05 ABG Base Excess 5.0 mmol/L (-2.0-2.0) H 03/15/22 06:05 Jun Test Pos 03/15/22 06:05 Hematocrit 35.0 % (37-47) L 03/15/22 06:05 O2 Delivery Device Roomair 03/15/22 06:05 FiO2 21.0 % 03/15/22 06:05 Front Desk Manager ID [place] 03/15/22 06:05 Sodium 132 mmol/L (136-145) L 03/22/22 04:15 Potassium 4.4 mmol/L (3.5-5.1) 03/22/22 04:15 Chloride 103 mmol/L (98-107) 03/22/22 04:15 Carbon Dioxide 18 mmol/L (22-29) L 03/22/22 04:15 Anion Gap 15.4 (5-19) 03/22/22 04:15 BUN 26 mg/dL (8-23) H 03/22/22 04:15 Creatinine 1.2 mg/dL (0.5-0.9) H 03/22/22 04:15 GFR Calculation Not Reportable 03/22/22 04:15 Glucose 91 mg/dL (65-115) 03/22/22 04:15 POC Glucose 179 mg/dL (70-110) H 03/24/22 06:36 Estimat Average Glucose 312 03/15/22 06:36 Hemoglobin A1c 12.5 % (4.0-6.0) H 03/15/22 06:36 Calculated Osmolality 278 mOsm/kg (285-295) L 03/22/22 04:15 Lactate 0.7 mmol/L (0.5-2.2) 03/19/22 10:50 Calcium 8.0 mg/dL (8.5-10.5) L 03/22/22 04:15 Magnesium 2.7 mg/dL (1.7-2.3) H 03/16/22 04:41 Total Bilirubin 0.3 mg/dL (0.15-1.2) 03/22/22 04:15 Direct Bilirubin 0.20 mg/dL (0.00-0.30) 03/19/22 08:13 AST 77 U/L (0-32) H 03/22/22 04:15 ALT 79 U/L (0-33) H 03/22/22 04:15 Alkaline Phosphatase 285 IU/L (35-105) H 03/22/22 04:15 Troponin T Baseline 55 ng/L (0-10) H 03/15/22 06:36 Troponin T 120 Minute 49.92 ng/L (0-10) H 03/15/22 08:30 Delta Troponin T -5.08 ABS# (0-10) L 03/15/22 08:30 Troponin T Hi Sens 6Hr 50.61 ng/L (0-10) H 03/15/22 12:31 Troponin T Hi Sens 6Hr Delta -4.39 ng/L (0-12) L 03/15/22 12:31 C-Reactive Protein 140.3 mg/L (0.0-4.9) H 03/22/22 04:15 Total Protein 5.5 g/dL (6.6-8.7) L 03/22/22 04:15 Albumin 1.7 g/dL (3.5-5.2) L 03/22/22 04:15 Globulin 3.8 g/dL (1.3-4.6) 03/22/22 04:15 Vitamin B12 1025 pg/mL (232-1245) 03/16/22 04:41 Procalcitonin 0.21 ng/mL (0-0.5) 03/15/22 12:31 TSH 1.20 uIU/mL (0.27-4.20) 03/15/22 06:36 Prolactin 5.19 ng/mL (4.8-23.3) 03/15/22 11:20 Urine Color Straw (Yellow) 03/15/22 09:45 Urine Appearance Clear (CLEAR) 03/15/22 09:45 Urine pH 7 (5-7) 03/15/22 09:45 Ur Specific [place] 1.000 (1.005-1.030) L 03/15/22 09:45 Urine Protein Trace (Negative) 03/15/22 09:45 Urine Glucose (UA) 4+ (Normal) H 03/15/22 09:45 Urine Ketones Negative (Negative) 03/15/22 09:45 Urine Blood 2+ (Negative) H 03/15/22 09:45 Urine Nitrate Negative (Negative) 03/15/22 09:45 Urine Bilirubin Neg (Negative) 03/15/22 09:45 Urine Urobilinogen Norm mg/dL (Negative) 03/15/22 09:45 Ur Leukocyte Esterase Negative (Negative) 03/15/22 09:45 Urine RBC 0-4 /hpf (0-2) H 03/15/22 09:45 Urine WBC 0-4 /hpf (0-5) H 03/15/22 09:45 Ur Squamous Epith Cells 5-10 /hpf (0-5) H 03/15/22 09:45 Amorphous Sediment Not Reportable 03/15/22 09:45 Urine Bacteria Trace /hpf (NONE) 03/15/22 09:45 Coronavirus 229E (PCR) Not detected (NOT DETECT) 03/15/22 14:33 SARS-CoV-2 (PCR) Not detected (NOT DETECT) 03/15/22 14:33 SARS-CoV-2 Ag (Rapid) Negative (Negative) 03/24/22 09:25 Vitals Last Vital Signs Temp 98.0 F 03/24/22 07:10 Pulse 71 03/24/22 07:10 Resp 18 03/24/22 07:10 BP 106/66 03/24/22 07:10 Pulse Ox 94 03/24/22 07:10 Discharge Plan Discharge Patient Disposition: Xfer SNF Condition: Stable Prescriptions: New Stool Softener-Laxative 8.6-50 mg Tablet 1 tab PO BIDWM Qty: 60 0RF oxycodone 10 mg tablet 10 mg PO Q8H PRN (Reason: pain) Qty: 20 0RF Augmentin 500-125 mg tablet 1 tab PO BID Qty: 6 0RF Continued fluoxetine 20 mg capsule 20 mg PO DAILY@08 0RF montelukast [Singulair] 10 mg tablet 10 mg PO DAILY@08 0RF nitroglycerin [Nitrostat] 0.4 mg tablet, sublingual 0.4 mg SUBLINGUAL Q5M PRN (Reason: Chest Pain) 0RF rosuvastatin [Crestor] 40 mg tablet 40 mg PO BEDTIME@2200 0RF albuterol sulfate [ProAir HFA] 90 mcg/actuation HFA aerosol inhaler 2 puff INHALATION Q6H PRN (Reason: Shortness Of Breath) 0RF latanoprost 0.005 % drops 1 drp ophthalmic (eye) DAILY 0RF naloxone 4 mg/actuation spray,non-aerosol 1 spray intranasal Q3M 0RF Rx Instructions: spray 1 dose into ONE nostril; alternate nostrils w each dose until help arri ves aspirin 81 mg Tablet,Chewable 81 mg PO DAILY@08 0RF gabapentin 300 mg Capsule 600 mg PO TID@08,12,20 0RF Hold Instructions: see pcp Alphagan P 0.1 % Drops 1 drp OPHTHALMIC (EYE) DAILY@08 0RF Rx Instructions: (BOTH EYES) naproxen 500 mg Tablet 500 mg PO BID PRN (Reason: Pain) 0RF Hold Instructions: see pcp Lumigan 0.01 % drops 1 drp ophthalmic (eye) QAM 0RF Rx Instructions: both eyes levothyroxine 125 mcg tablet 125 mcg PO QAM 0RF Farxiga 10 mg tablet 10 mg PO QAM 0RF Rocklatan 0.02-0.005 % drops 1 drp ophthalmic (eye) DAILY 0RF ascorbic acid (vitamin C) [Vitamin C] 500 mg Tablet 500 mg PO DAILY 0RF cholecalciferol (vitamin D3) [Vitamin D3] 25 mcg (1,000 unit) Capsule 50 mcg PO DAILY Qty: 0 0RF tramadol 50 mg tablet 50 mg PO Q6H PRN (Reason: pain) Qty: 10 0RF Wixela Inhub 250-50 mcg/dose blister with device 1 ea INHALATION BID 0RF cefuroxime axetil 250 mg tablet 250 mg PO BID 0RF Changed acetaminophen 500 mg Tablet 500 mg PO Q4H PRN (Reason: Pain) Qty: 0 0RF Levemir FlexTouch U-100 Insuln 100 unit/mL (3 mL) insulin pen 15 unit SUBCUT BEDTIME Qty: 0 0RF Held furosemide 40 mg Tablet 40 mg PO QAM 0RF Hold Instructions: Resume on 06/13/21. Discontinued atenolol 25 mg tablet 25 mg PO DAILY@08 0RF hydrochlorothiazide 25 mg tablet 25 mg PO DAILY@08 0RF Hold Instructions: Resume on 06/13/21. olmesartan 40 mg tablet 40 mg PO DAILY@08 0RF Hold Instructions: Resume on 06/17/21. ferrous sulfate 325 mg (65 mg iron) capsule, extended release 325 mg PO DAILY 0RF Discharge Orders: Discharge Order (Routine); Ordered 03/24/22 Ordered By: Lance Junior Referrals: Vikas Candelaria MD [Primary Care Provider] - Discharge Diet: Diabetic Discharge Activity: As per PT/OT instructions Patient Instructions: Post Anesthesia Care Discharge Attestations Time Spent in Discharge Care*: less than 30 min Status at Discharge: Cognitive status at discharge: cognitively intact , Behavioral status at discharge: cooperative , Quality Metrics Clinical Quality Measures [ No reported AMI, CVA or VTE this stay] Coding Level of Care Code Acute Chg FW DC note Diagnoses Acute calculous cholecystitis K80.00 AVN (avascular necrosis of bone) M87.00 UTI (urinary tract infection) N39.0
[2022-03-24 11:36] LABS: Glucose Point of Care 157 mg/dL (70-110)
[2022-03-24 11:39] VITALS: BP 122/71; PULSE 88; RESP 18; TEMP 36.6; O2SAT 93
--- NOTE | 2022-03-24 12:32 | PC.SOCIAL ---
IMM UPDATED IMM dated and initialed and copy given to patient
[2022-03-24 14:27] VITALS: BP 122/71; PULSE 88; RESP 18; TEMP 36.6; O2SAT 93
== END 2022-03-24 13:55 | disposition skilled nursing facility (03) | DRG 417 ==
LOC: ER 10:59 → MEDSURG 17:14
PROVIDERS: Surgery; Admitting Provider Internal Medicine; Emergency Provider Emergency Medicine; PCP Family Medicine; Visit Provider Internal Medicine
PROC: 0FT44ZZ Resection of Gallbladder, Percutaneous Endoscopic Approach (ICD-10-PCS; CPT 47562; principal; 2022-03-19 14:00)
DX: M87.052 Idiopathic aseptic necrosis of left femur (principal); K82.A1 Gangrene of gallbladder in cholecystitis; N39.0 Urinary tract infection, site not specified; G93.41 Metabolic encephalopathy; D63.1 Anemia in chronic kidney disease; N18.4 Chronic kidney disease, stage 4 (severe); E11.22 Type 2 diabetes mellitus with diabetic chronic kidney disease; Z98.890 Other specified postprocedural states; I12.9 Hypertensive chronic kidney disease with stage 1 through stage 4 chronic kidney disease, or unspecified chronic kidney disease; Z79.82 Long term (current) use of aspirin; Z79.4 Long term (current) use of insulin; Z66 Do not resuscitate; E78.5 Hyperlipidemia, unspecified; I95.2 Hypotension due to drugs; Z91.81 History of falling; E11.65 Type 2 diabetes mellitus with hyperglycemia; E11.40 Type 2 diabetes mellitus with diabetic neuropathy, unspecified
CPT/HCPCS: 47562; 36415; 36416; 36600; 51702; 70450; 71250; 72125; 73020; 73502; 74150; 74176; 76705; 80048; 80053; 80076; 81001; 82607; 82803; 82962; 83036; 83605; 83735; 84145; 84146; 84443; 84484; 85025; 86140; 87040; 87426; 87635; 88304; 93005; 93306; 96365; 96372; 96375; 97162; 97530; 99285; G0378; J0696; J1100; J1170; J1644; J1815; J2270; J2370; J2405; J2543; J2704; J2710; J3010; J3490; J7030; J7040

== ENCOUNTER 2022-04-07 11:54 | Inpatient (IN) | payer MEDICARE, MEDICAID, SELFPAY ==
[2022-04-07] VITALS (21 sets, daily range): BP systolic 101–146; BP diastolic 59–96; PULSE 82–96; RESP 14–21; TEMP 36.3–36.9; O2SAT 91–100; BMI 28.1
[2022-04-07 11:12] LABS: Glucose Point of Care 230 mg/dL (70-110)
[2022-04-07] MEDS: gabapentin 300 mg Capsule PO (11:19)
[2022-04-07] MEDS: acetaminophen 500 mg Tablet 1000 MG PO ×3 (11:19→23:31)
[2022-04-07] MEDS: sodium chloride 0.9% 1,000 ML 30 ML IV (11:22)
--- NOTE | 2022-04-07 12:00 | P.ANESASSM_ITS ---
Pre-Anesthetic Assessment Height/Weight: Height 1.7 m Weight 81.647 kg Temp Pulse Resp BP Pulse Ox 97.4 F L 88 16 130/61 95 04/07/22 10:57 04/07/22 10:57 04/07/22 10:57 04/07/22 10:57 04/07/22 10:57 Preop Diagnosis: Avascular necrosis left hip Operation Date: 04/07/22 12:00 Proposed Procedures p removal hardware and arthroplasty left hip/ 88725, 60334,M87.08(Left) - Paco Flannery MD Familial anesthetic complications: None Was Beta Pamela taken within 24 hours: N/A Was Clonidine taken within 24 hours: N/A Last intake: Intake Last Liquid Date 04/06/22 Last Liquid Time 18:30 Last Solid Date 04/06/22 Last Solid Time 18:30 Social No alcohol and No tobacco Exam alert, oriented x 3, clear to auscultation bilaterally and regular rate & rhythm Airway Mallampati: Class II Dentition: false Pulmonary None reported CV/HEM None reported Metabolic Diabetes Mellitus and Thyroid Disease Anesthetic Plan ASA status: 3 Anesthesia: Regional (specify below) Risk of > 500 ml blood loss (7ml/kg in children): No Medications/Allergies Home Medications Medication Instructions Recorded Confirmed Last Taken Type albuterol sulfate 90 mcg/actuation 2 puff INHALATION Q6H PRN 11/28/19 03/28/22 11/08/21 History aerosol inhaler (ProAir HFA) fluoxetine 20 mg capsule 20 mg PO DAILY@11/28/19 03/28/22 03/14/22 History montelukast 10 mg tablet 10 mg PO DAILY@11/28/19 03/28/22 03/14/22 History (Singulair) nitroglycerin 0.4 mg sublingual 0.4 mg SUBLINGUAL Q5M PRN 11/28/19 03/28/22 Unknown History tablet (Nitrostat) rosuvastatin 40 mg tablet (Crestor) 40 mg PO BEDTIME@2200 tab 11/28/19 03/28/22 03/14/22 History aspirin 81 mg chewable tablet 81 mg PO DAILY@11/07/20 03/28/22 03/14/22 History brimonidine 0.1 % eye drops 1 drp OPHTHALMIC (EYE) DAILY@08 11/07/20 03/28/22 11/08/21 History (Alphagan P) gabapentin 300 mg capsule 600 mg PO TID@08,12,20 11/07/20 03/28/22 03/14/22 History bimatoprost 0.01 % eye drops 1 drp OPHTHALMIC (EYE) QAM 05/31/21 03/28/22 11/08/21 History (Lumigan) furosemide 40 mg tablet 40 mg PO QAM 05/31/21 03/28/22 03/14/22 History ascorbic acid (vitamin C) 500 mg 500 mg PO DAILY 07/30/21 03/28/22 03/14/22 H istory tablet (Vitamin C) cholecalciferol (vitamin D3) 25 50 mcg PO DAILY #0 07/30/21 03/28/22 03/14/22 History mcg (1,000 unit) capsule (Vitamin D3) levothyroxine 125 mcg tablet 125 mcg PO QAM 07/30/21 03/28/22 03/14/22 History tramadol 50 mg tablet 50 mg PO Q6H PRN #10 tab 11/09/21 03/28/22 Unknown Rx latanoprost 0.005 % eye drops 1 drp OPHTHALMIC (EYE) DAILY 11/28/21 03/28/22 Unknown History cefuroxime axetil 250 mg tablet 250 mg PO BID 03/15/22 03/28/22 03/14/22 History fluticasone 250 mcg-salmeterol 50 1 ea INHALATION BID 03/15/22 03/28/22 03/14/22 History mcg/dose blistr powdr for inhalation (Wixela Inhub) amoxicillin 500 mg-potassium 1 tab PO BID #6 tab 03/24/22 03/28/22 Unknown Rx clavulanate 125 mg tablet (Augmentin) insulin detemir U-100 100 unit/mL 15 unit (0.15 mL) SUBCUT BEDTIME 03/24/22 03/28/22 03/14/22 Rx (3 mL) subcutaneous pen (Levemir #0 ml FlexTouch U-100 Insulin) oxycodone 10 mg tablet 10 mg PO Q8H PRN #20 tab 03/24/22 03/28/22 Unknown Rx sennosides 8.6 mg-docusate sodium 1 tab PO BIDWM #60 tab 03/24/22 03/28/22 Unknown Rx 50 mg tablet (Stool Softener-Laxative) Allergies Allergy/AdvReac Type Severity Reaction Status Date / Time codeine Allergy Unknown Unknown Verified 03/28/22 14:10 hydrocodone Allergy Unknown Unknown Verified 03/28/22 14:10 dulaglutide [From Trulicity] Allergy Unknown Verified 03/28/22 14:10 naproxen Allergy ADR-Abdominal Verified 03/28/22 14:11 Pain Current Medications Generic Name Dose Route Start Last Admin Trade Name Freq PRN Reason Stop Dose Admin Sodium Chloride 1,000 mls @ 30 mls/hr 04/07/22 10:45 04/07/22 11:22 Sodium Chloride 0.9% IV 04/08/22 10:44 30 mls/hr .Q24H RICK Administration PFSH Anesthesia Medical History Abdominal pain Acute calculous cholecystitis Acute cholecystitis Acute hyponatremia Acute kidney injury superimposed on chronic kidney disease Acute kidney injury superimposed on CKD Altered mental status Anemia ASHD (arteriosclerotic heart disease) Chest pain CRF (chronic renal failure) Diabetes 1.5, managed as type 2 Dyslipidemia Elevated troponin GERD (gastroesophageal reflux disease) HTN (hypertension) Lesion of spleen UTI (urinary tract infection) Surgical History History of hip surgery S/P PTCA (percutaneous transluminal coronary angioplasty) Status post creation of pericardial window Family History Mother Cancer Diabetes Social History Smoking and tobacco status: former smoker Alcohol intake: never Female Reproductive History Date of last menstrual period: 12/13/20 Data Anesthesia Cardiac Studies: Echocardiogram 03/17/22 Echocardiogram Ultrasound 12/31/20
--- NOTE | 2022-04-07 12:18 | W.PM.OPSFHP ---
Same Day Surgery H&P Indication for Procedure/HPI DATE OF PROCEDURE: April 07, 2022 CHIEF COMPLAINT/INDICATIONFOR SURGICAL PROCEDURE: Avascular necrosis left hip PREOP DIAGNOSIS: Avascular necrosis left hip PLANNED PROCEDURE: Operation Date: 04/07/22 12:00 Proposed Procedures p removal hardware and arthroplasty left hip/ 29834, 73844,M87.08(Left) - Paco Flannery MD Sarah Petersen is a 77 year old female who sustained a left femoral neck fracture in [place] in October treated with open reduction and internal fixation.? She states that she was able to be discharged home after 3days and was doing remarkably well until approximately 10 weeks ago when she began developing progressive pain.? The family states that the pain became particularly severe over the past 4 weeks where she was scarcely able to get up and about at all.? 2 weeks ago she was found on the side of the bed with her left leg twisted beneath her and severe pain.??She was admitted to our hospital with altered mental status and confusion. Radiographs at that time revealed collapse of the femoral head and apparent loss of fixation. She was scheduled for hardware removal and conversion to a bipolar component on 03/19/2022 but developed cholecystitis requiring surgical treatment. Surgery was delayed to minimize risk of bacterial contamination of the total hip. He initially was scheduled last week however her insurance carrier at that point reversed their opinion and I denied her surgery. Ultimately after an appeal final insurance approval was obtained last week and she is on the schedule today for hardware removal and a bipolar arthroplasty. She still has significant pain and has been generally bedridden. Medications/Allergies* Home Medications Medication Instructions Recorded Confirmed Type albuterol sulfate 90 mcg/actuation 2 puff INHALATION Q6H PRN 11/28/19 03/28/22 History aerosol inhaler (ProAir HFA) fluoxetine 20 mg capsule 20 mg PO DAILY@11/28/19 03/28/22 History montelukast 10 mg tablet 10 mg PO DAILY@11/28/19 03/28/22 History (Singulair) nitroglycerin 0.4 mg sublingual 0.4 mg SUBLINGUAL Q5M PRN 11/28/19 03/28/22 History tablet (Nitrostat) rosuvastatin 40 mg tablet (Crestor) 40 mg PO BEDTIME@2200 tab 11/28/19 03/28/22 History aspirin 81 mg chewable tablet 81 mg PO DAILY@08 11/07/20 03/28/22 History brimonidine 0.1 % eye drops 1 drp OPHTHALMIC (EYE) DAILY@11/07/20 03/28/22 History (Alphagan P) gabapentin 300 mg capsule 600 mg PO TID@08,12,20 11/07/20 03/28/22 History bimatoprost 0.01 % eye drops 1 drp OPHTHALMIC (EYE) QAM 05/31/21 03/28/22 History (Lumigan) furosemide 40 mg tablet 40 mg PO QAM 05/31/21 03/28/22 History ascorbic acid (vitamin C) 500 mg 500 mg PO DAILY 07/30/21 03/28/22 History tablet (Vitamin C) cholecalciferol (vitamin D3) 25 50 mcg PO DAILY #0 07/30/21 03/28/22 History mcg (1,000 unit) capsule (Vitamin D3) levothyroxine 125 mcg tablet 125 mcg PO QAM 07/30/21 03/28/22 History latanoprost 0.005 % eye drops 1 drp OPHTHALMIC (EYE) DAILY 11/28/21 03/28/22 History cefuroxime axetil 250 mg tablet 250 mg PO BID 03/15/22 03/28/22 History fluticasone 250 mcg-salmeterol 50 1 ea INHALATION BID 03/15/22 03/28/22 History mcg/dose blistr powdr for inhalation (Wixela Inhub) Allergies/Adverse Reactions Allergy/AdvReac Type Severity Reaction Status Date / Time codeine Allergy Unknown Unknown Verified 03/28/22 14:10 hydrocodone Allergy Unknown Unknown Verified 03/28/22 14:10 dulaglutide [From Trulicity] Allergy Unknown Verified 03/28/22 14:10 naproxen Allergy ADR-Abdominal Verified 03/28/22 14:11 Pain Current Medications: Generic Name Dose Route Start Last Admin Trade Name Freq PRN Reason Stop Dose Admin Sodium Chloride 1,000 mls @ 30 mls/hr 04/07/22 10:45 04/07/22 11:22 Sodium Chloride 0.9% IV 04/08/22 10:44 30 mls/hr .Q24H RICK Administration Pertinent History/Comorbid Conditions* Medical History (Updated 03/27/22 @ 00:28 by Tomás Berumen MD) Abdominal pain Acute calculous cholecystitis Acute cholecystitis Acute hyponatremia Acute kidney injury superimposed on chronic kidney disease Acute kidney injury superimposed on CKD Altered mental status Anemia ASHD (arteriosclerotic heart disease) Chest pain CRF (chronic renal failure) Diabetes 1.5, managed as type 2 Dyslipidemia Elevated troponin GERD (gastroesophageal reflux disease) HTN (hypertension) Lesion of spleen UTI (urinary tract infection) Surgical History (Updated 03/15/22 @ 15:34 by Lance Junior MD) History of hip surgery S/P PTCA (percutaneous transluminal coronary angioplasty) Status post creation of pericardial window Family History (Updated 11/28/19 @ 08:35 by Onelia Infante RN) Diabetes Mother Cancer Mother Social History Smoking and tobacco status: former smoker Alcohol intake: never Pertinent Exam Findings alert, oriented x 3, clear to auscultation bilaterally, regular rate & rhythm and operative site marked Recommendations Surgery/Procedure today Other Plans: We will proceed to the OR today for removal of her hardware from her left hip and conversion to a bipolar hip arthroplasty. I told the family that if there is cut of the screw into the acetabulum and worn this could result in a total hip arthroplasty. He seemed to understand the magnitude of the procedure. Ms. Gunter is unable to tolerate the current levels of pain and unable to regain ambulatory status. They agree with the proposed surgery. Risk including bleeding and infection are noted. I discussed DVT prophylaxis with her. She will be anticoagulated postoperatively. Discussed risk of component failure and loosening. Discussed the possible need for further procedures. Discussed unlikely risk of dislocation. Discussed medical risk with anesthesia. The patient and the family understand this and agree to proceed. 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
--- NOTE | 2022-04-07 12:27 | SUR.PREOP ---
patient states she cannot take any medications like naproxen due to stage 4 kidney disease, did not give celebrex. dr bass notified and ok with this.
--- NOTE | 2022-04-07 12:49 | P.ANESUD_ITS ---
Pre-Anesthetic Update Pre-Anesthetic Assessment: Date of Surgery/Procedure: 04/07/22 Preop Lucila gnosis: Avascular necrosis left hip Proposed Procedure: Operation Date: 04/07/22 12:00 Proposed Procedures p removal hardware and arthroplasty left hip/ 96590, 78669,M87.08(Left) - Paco Flannery MD Changes from Pre-Anesthetic Assessment: No changes in healthcare since previous surgery 20 days prior. Last Intake: Intake Last Liquid Date 04/06/22 Last Liquid Time 18:30 Last Solid Date 04/06/22 Last Solid Time 18:30 Vitals: Temperature 97.4 F L 04/07/22 10:57 Temperature Source Temporal Artery S can 04/07/22 10:57 Pulse Rate 88 04/07/22 10:57 Pulse Rhythm 04/07/22 10:58 Pulse Strength 3+ Normal 04/07/22 10:58 Respiratory Rate 16 04/07/22 10:57 Blood Pressure 130/61 04/07/22 10:57 Blood Pressure [place] n 84 04/07/22 10:57 Pulse Oximetry 95 04/07/22 10:57 Oxygen Delivery Me thod 04/07/22 10:58 Cardiac Studies: Echocardiogram 03/17/22 Echocardiogram Ultrasound 12/31/20
[2022-04-07] MEDS: ceFAZolin 2,000 MG in sodium chloride 0.9% (plus) 50 ML 100 MG IV (13:05)
--- NOTE | 2022-04-07 13:16 | SUR.OPER ---
WHEN THE PATIENT WAS ROLLED ONTO HER LEFT SIDE TO PERFORM A SPINAL, I OBSERVED TWO PRESSURE ULCERS ON HER BUTTOCK. SHE HAS ONE ON HER RIGHT AND ONE ON HER LEFT BUTTOCK. HER SKIN ON HER BUTTOCKS IS VERY RED/PURPLE IN COLOR. SHE ALSO HAS A VERY LARGE BLISTER LIKE AREA ON HER LEFT HEEL WITH NON BLANCHABLE SKIN. DR ARZOLA WAS MADE AWARE OF HER SKIN CONDITION BEFORE WE PROCEEDED WITH THE SPINAL.
[2022-04-07] MEDS: tranexamic acid 1,000 mg/10mL SDV 1000 MG IV (13:25)
[2022-04-07] MEDS: tobramycin 40 mg/mL SDV 2mL 160 MG INJECTION (14:04)
[2022-04-07] MEDS: sodium chloride 0.9% 100 mL Bag XX (14:10)
--- NOTE | 2022-04-07 15:18 | PM.OP ---
Operative Report Date of procedure: April 07, 2022 Pre-op diagnosis: Preop Diagnosis Avascular necrosis left hip Post-op diagnosis: same Post-op diagnosis: Same Procedure done: Hemiarthroplasty left hip, removal deep hardware left hip Implants: [place] 1) Jainism modular 17mm stem 2) 21mm +0 cone body 2) 48 bipolar femoral head 3) 28mm/+0 neck length femoral head Pathology: none sent Surgeon: Paco Flannery Anesthesia: Nerve Block (Spinal) Estimated blood loss (mL): 300 Findings: The patient had a ununited femoral neck fracture with posterior angulation and collapse of the femoral head. The hardware itself was well fixed to the femur. No evidence of deep infection was noted Condition: stable Disposition: PACU Procedure: The patient was taken to the operating room and a general anesthesia was provided by the anesthesia service. They were given 2 g of Ancef and 1 g of tranexamic acid and positioned in the lateral position with the hip exposed. A 15 cm long incision was made over the greater trochanter extending down to include the more distal lateral incision with a scalpel blade. Dissection was carried down through the fascia deb to the greater trochanter. The lateral plate was a palpable and the vastus lateralis split bringing us down to the lateral plate. The 2 screws through the plate and the derotational screw were removed. The anterior two thirds of gluteus medius and minimus were elevated off the greater trochanter with electrocautery. The capsule was divided T like fashion. Once it was clear that the hip could be removed without excessive torque the hip was reduced. The plate and remaining bolt was removed. The hip was externally rotated and femoral head and neck brought up into the wound. The unstable femoral head was then removed with a rongeur and osteotome. an oscillating saw was really used to resect the neck just above the level of the lesser trochanter. The femoral head was removed and the acetabulumt sized to a 44 mm bipolar head. The [place] Jainism Modular system was used to be certain to past defects in the proximal femur. Sequential reaming was accomplished up to 17 mm were excellent fit was palpable in the femur. The proximal femur was reamed to a 21 mm where good lateral bone was encountered. A trial reduction with a standard 20 mm body and +0 mm neck provided excellent stability. The final body component and head were secured and the hip reduced. The anterior capsule were reapproximated with 1 Ethibond. The gluteus medius and minimus were repaired through the greater trochanter with 5 Ethibond and reinforced with 1 Ethibond. The fascia deb was closed with 1 Stratafix. The subcutaneous tissues were closed with 2-0 Stratafix. The skin was closed with a running 4-0 Stratafix. The incision was covered with a Prineo dressing. Sterile Opsitedressings were applied. The patient was placed in abduction pillow and taken recovery room in stable condition.
--- NOTE | 2022-04-07 15:41 | XRR_ITS ---
PROCEDURE INFORMATION: Exam: XR Left Hip Exam date and time: 04/07/2022 3:49 PM Age: 77 years old Clinical indication: Device placement; Other: Right total hip; Prior surgery; Surgery date: Post-operative (0-2 days) TECHNIQUE: Imaging protocol: Radiologic exam of the Left hip. Views: 1 view hip with pelvis when performed. COMPARISON: CR (PELVIS, ) 03/15/2022 3:07 PM FINDINGS: Bones/joints: Interval removal of fixation plates and screws in the proximal femur with interval placement of total left hip prosthesis in good alignment on this limited single projection. Probable osteopenia. No acute fracture. Soft tissues: Probable mild soft tissue swelling laterally. Other findings: Single AP postop view was submitted. XR/XR hip LT 1V wo/w pel [id number] IMPRESSION: Postsurgical changes as described. No obvious acute findings otherwise.
[2022-04-07 16:14] LABS: Glucose Point of Care 177 mg/dL (70-110)
[2022-04-07] MEDS: oxyCODONE 5 mg IR Tab/Cap 10 MG PO ×2 (17:06→21:22)
[2022-04-07] MEDS: sodium chloride 0.9% 1,000 ML 80 ML IV (17:09)
[2022-04-07 17:12] LABS: Glucose Point of Care 195 mg/dL (70-110)
--- NOTE | 2022-04-07 17:30 | ANE.PACU2 ---
Inpatient post-anesthesia follow up: Airway intact: Yes Vital signs: Temperature 99.8 F Pulse Rate 104 Respiratory Rate 15 Blood Pressure 102/58 Pulse Oximetry 89 Oxygen Delivery Me thod Nasal Cannula Oxygen Flow Rate 6 Fraction of Inspir ed Oxygen Hydration adequate: Yes Nausea and vomiting: No Pain level: 1 Mental status: Baseline
[2022-04-07] MEDS: morphine 4 mg/mL SDV 1 mL 2 MG IVP (20:08)
[2022-04-07] MEDS: docusate sodium 100 mg Capsule PO (20:09)
[2022-04-07] MEDS: gabapentin 300 mg Capsule 600 MG PO (20:09)
[2022-04-07] MEDS: atorvastatin 40 mg Tablet 80 MG PO (20:11)
[2022-04-07 21:04] LABS: Glucose Point of Care 229 mg/dL (70-110)
[2022-04-07] MEDS: insulin lispro 100 unit/1 mL SUBCUT (21:24)
[2022-04-08] VITALS (11 sets, daily range): BP systolic 85–138; BP diastolic 47–75; PULSE 71–107; RESP 14–20; TEMP 36.9–37.9; O2SAT 91–95
[2022-04-08 03:27] LABS: Hemoglobin 7.9 g/dL (11.5-15.3)
[2022-04-08] MEDS: oxyCODONE 5 mg IR Tab/Cap 10 MG PO ×5 (05:18→21:55)
[2022-04-08] MEDS: sodium chloride 0.9% 1,000 ML 80 ML IV ×2 (05:19→17:13)
[2022-04-08] MEDS: levothyroxine 125 mcg Tablet PO (05:41)
[2022-04-08] MEDS: FUROsemide 40 mg Tablet PO (05:41)
[2022-04-08 06:43] LABS: Glucose Point of Care 217 mg/dL (70-110)
--- NOTE | 2022-04-08 08:00 | PM.PN ---
Subjective Subjective: The patient is up in a chair complaining of pain. Vitals/I&O/Wt Last Vital Signs Temp 99.7 F H 04/08/22 11:01 Pulse 106 H 04/08/22 11:01 Resp 18 04/08/22 11:01 BP 90/54 04/08/22 11:01 Pulse Ox 92 04/08/22 11:01 04/07/22 04/08/22 04/08/22 22:59 06:59 14:59 Intake Total 1100 / 1150 973.333 / 2123.333 120 / 120 Output Total 750 / 750 Balance 350 / 400 973.333 / 1373.333 120 / 120 Weight last 48 hrs Weight 180 lb Physical Exam Narrative: Left hip incision clean. Minimal swelling Data : 04/08/22 03:16 A&P Assessment and plan (1) Status post left hip replacement: Continue to mobilize with therapy. Will need longterm placement. Status: Acute Attestations Medical Necessity Statement*: Awaiting longterm Coding Level of Care Code Acute Tool Planer Set Up Operator for Cyndie Mo Diagnoses Status post left hip replacement Z96.642
[2022-04-08] MEDS: montelukast sodium 10 mg Tablet PO (08:23)
[2022-04-08] MEDS: fluoxetine 20 mg Capsule PO (08:23)
[2022-04-08] MEDS: aspirin 81 mg Chew Tablet PO (08:23)
[2022-04-08] MEDS: acetaminophen 500 mg Tablet 1000 MG PO ×2 (08:23→15:37)
[2022-04-08] MEDS: insulin lispro 100 unit/1 mL SUBCUT ×4 (08:24→21:54)
[2022-04-08] MEDS: gabapentin 300 mg Capsule 600 MG PO ×3 (08:24→21:55)
[2022-04-08] MEDS: docusate sodium 100 mg Capsule PO ×2 (08:24→17:12)
[2022-04-08] MEDS: enoxaparin 40 mg/0.4 mL Syringe SUBCUT (09:16)
[2022-04-08 10:48] LABS: Glucose Point of Care 312 mg/dL (70-110)
[2022-04-08 16:50] LABS: Glucose Point of Care 195 mg/dL (70-110)
[2022-04-08 21:17] LABS: Glucose Point of Care 265 mg/dL (70-110)
[2022-04-08] MEDS: atorvastatin 40 mg Tablet 80 MG PO (21:59)
[2022-04-09] VITALS: BP 101/58; PULSE 103; RESP 13; TEMP 37.1; O2SAT 87
[2022-04-09 04:00] VITALS: BP 102/58; PULSE 104; RESP 15; TEMP 39.1; O2SAT 83
[2022-04-09] MEDS: acetaminophen 500 mg Tablet 1000 MG PO ×2 (04:09→08:58)
[2022-04-09] MEDS: FUROsemide 40 mg Tablet PO (04:10)
[2022-04-09] MEDS: levothyroxine 125 mcg Tablet PO (04:10)
[2022-04-09] MEDS: sodium chloride 0.9% 1,000 ML 80 ML IV (04:15)
--- NOTE | 2022-04-09 05:09 | PC.NURSE ---
patient put on 2L of O2 for spo2 of 83%
[2022-04-09 05:28] VITALS: TEMP 37.7; O2SAT 89
[2022-04-09 06:06] LABS: Glucose Point of Care 183 mg/dL (70-110)
[2022-04-09 07:35] VITALS: BP 105/62; PULSE 98; RESP 12; TEMP 37.1; O2SAT 90
--- NOTE | 2022-04-09 08:05 | PM.DCS ---
Discharge Providers Date of Admission: 04/07/22 11:54 Date of Discharge: April 09, 2022 Attending Provider at Admission: Paco Arzola MD Attending Provider at Discharge: Paco Arzola MD Primary Care Provider: Vikas Candelaria MD Diagnoses at Discharge Discharge Diagnosis (1) Status post left hip replacement: Status: Acute (2) AVN (avascular necrosis of bone): Status: Acute Reason for Visit Reason for Visit: Brief History: 77-year-old female who underwent previous open reduction internal fixation of a left femoral neck fracture with continued pain deformity and collapse of the femoral head consistent with avascular necrosis. She was admitted for conversion to a bipolar hip arthroplasty Hospital Course Hospital Course The patient tolerated surgery well. They remained hemodynamically stable. They was begun on Lovenox and sequential compression dressings for DVT prophylaxis. The patient was mobilized with therapy beginning the day of surgery. The patient had been bedridden for some time and made very slow progress with therapy. She was transferred back to her senior living bed on the second postoperative day Physical Exam Narrative: On the day of discharge the hip incision was clean. The incision was free of drainage. They had no particular swelling about the thigh or distal. No distal neurovascular deficits were noted. Discharge Data Studies Completed and Pending Completed Studies During Hospitalization Category Date Time Status XR hip LT 1V wo/w pel [id number] Routine Exams 04/07/22 15:41 Completed Radiology Impressions Hip X-Ray 04/07/22 15:41 IMPRESSION: Postsurgical changes as described. No obvious acute findings otherwise. Laboratory Results Hgb 7.9 g/dL (11.5-15.3) L 04/08/22 03:16 POC Glucose 183 mg/dL (70-110) H 04/09/22 06:02 Vitals Last Vital Signs Temp 98.8 F 04/09/22 07:35 Pulse 98 04/09/22 07:35 Resp 12 04/09/22 07:35 BP 105/62 04/09/22 07:35 Pulse Ox 90 04/09/22 07:35 Discharge Plan Discharge Patient Disposition: Home Condition: Stable Prescriptions: New enoxaparin 40 mg/0.4 mL Syringe 40 mg SUBCUT Q24H 28 Days Qty: 11.2 0RF Continued fluoxetine 20 mg capsule 20 mg PO DAILY@08 0RF montelukast [Singulair] 10 mg tablet 10 mg PO DAILY@08 0RF rosuvastatin [Crestor] 40 mg tablet 40 mg PO BEDTIME@2200 0RF albuterol sulfate [ProAir HFA] 90 mcg/actuation HFA aerosol inhaler 2 puff INHALATION Q6H PRN (Reason: Shortness Of Breath) 0RF latanoprost 0.005 % drops 1 drp ophthalmic (eye) DAILY 0RF aspirin 81 mg Tablet,Chewable 81 mg PO DAILY@08 0RF Alphagan P 0.1 % Drops 1 drp OPHTHALMIC (EYE) DAILY@08 0RF Rx Instructions: (BOTH EYES) furosemide 40 mg Tablet 40 mg PO QAM 0RF Hold Instructions: Resume on 04/14/22. levothyroxine 125 mcg tablet 125 mcg PO QAM 0RF ascorbic acid (vitamin C) [Vitamin C] 500 mg Tablet 500 mg PO DAILY 0RF cholecalciferol (vitamin D3) [Vitamin D3] 25 mcg (1,000 unit) Capsule 50 mcg PO DAILY Qty: 0 0RF tramadol 50 mg tablet 50 mg PO Q6H PRN (Reason: pain) Qty: 10 0RF cefuroxime axetil 250 mg tablet 250 mg PO BID 0RF Levemir FlexTouch U-100 Insuln 100 unit/mL (3 mL) insulin pen 15 unit SUBCUT BEDTIME Qty: 0 0RF oxycodone 10 mg tablet 10 mg PO Q8H PRN (Reason: pain) Qty: 20 0RF Wixela Inhub 250-50 mcg/dose Blister With Device 1 inh INHALATION BID 0RF gabapentin 600 mg Tablet 600 mg PO TID 0RF naloxone 0.4 mg/mL Solution See Rx Instructions .ROUTE .COMPLEX 0RF Rx Instructions: spray one dose into one nostril then alternate nostrils with each dose until help arrives Milk of Magnesia 400 mg/5 mL Suspension 30 ml PO .EVERY 72 HOURS PRN (Reason: if no bm in 3 days) 0RF Rx Instructions: do not give to renal patients go to dulcolax orders Dulcolax (bisacodyl) 10 mg Suppository 10 mg [place] DAILY PRN (Reason: Constipation) 0RF Rx Instructions: if no results from mom nystatin 100,000 unit/gram Cream See Rx Instructions .ROUTE .COMPLEX 0RF Rx Instructions: apply to affected area every shift Fleet Enema 19-7 gram/118 mL Enema 118 ml [place] DAILY PRN (Reason: Constipation) 0RF Rx Instructions: give fleets if no results from mom and dulcolax Nitrostat 0.4 mg Tablet, Sublingual 0.4 mg SUBLINGUAL Q5M PRN (Reason: Chest Pain) 0RF Rx Instructions: do not exceed 3 doses per episode Colace 100 mg Capsule 100 mg PO BID 0RF Dulcolax (bisacodyl) 5 mg Tablet,Delayed Release (Dr/Ec) 10 mg PO DAILY PRN (Reason: Constipation) 0RF Rx Instructions: give if no results from mom Dakin's Solution 0.125 % Solution 1 applic TOPICAL DAILY 0RF Referrals: Paco Arzola MD [Physician] - 1 month Discharge Diet: Advance as tolerated Discharge Activity: Limit activity as instructed Patient Instructions: Opioid Safety Activity Restrictions/Additional Instructions: Leave dressing in place okay to shower. No soaking incision in tub Apply Ice up to 20 min/hr for pain and swelling May weight-bear as tolerated on total hip arthroplasty IF HAVE ANY PROBLEMS OR QUESTIONS CALL [facility]OS[facility] METAL FURNITURE ASSEMBLY SUPERVISOR AT AND ASK TO HAVE DR. ARZOLA PAGED. Discharge Attestations Time Spent in Discharge Care*: other Status at Discharge: Cognitive status at discharge: cognitively intact, Behavioral status at discharge: cooperative, Quality Metrics Clinical Quality Measures [ No reported AMI, CVA or VTE this stay] Coding Level of Care Code Acute Chg FW DC note Diagnoses Status post left hip replacement Z96.642 AVN (avascular necrosis of bone) M87.00
[2022-04-09] MEDS: montelukast sodium 10 mg Tablet PO (08:58)
[2022-04-09] MEDS: gabapentin 300 mg Capsule 600 MG PO (08:58)
[2022-04-09] MEDS: aspirin 81 mg Chew Tablet PO (08:59)
[2022-04-09] MEDS: docusate sodium 100 mg Capsule PO (08:59)
[2022-04-09] MEDS: fluoxetine 20 mg Capsule PO (08:59)
[2022-04-09] MEDS: insulin lispro 100 unit/1 mL SUBCUT (09:06)
[2022-04-09 09:29] VITALS: BP 105/62; PULSE 98; RESP 12; TEMP 37.1; O2SAT 90
--- NOTE | 2022-04-09 09:30 | PC.NURSE ---
Attempted to call report to [facility], personal secretary said they were all in a meeting and that she could not help me at this time. Explained patient is now on her way to the facility. She stated, ok theres nothing i can do about it. This nurse said ok just ask them to give me a call back for report. They did not take down my number. Will give report when call back.
== END 2022-04-09 09:30 | disposition skilled nursing facility (03) | DRG 470 ==
LOC: MEDSURG 11:54
PROVIDERS: Admitting Provider Orthopaedic Surgery; PCP Family Medicine; Visit Provider Orthopaedic Surgery
PROC: 0SRS0JZ Replacement of Left Hip Joint, Femoral Surface with Synthetic Substitute, Open Approach (ICD-10-PCS; CPT 27130; principal; 2022-04-07 11:50)
DX: M87.9 Osteonecrosis, unspecified (principal); E13.22 Other specified diabetes mellitus with diabetic chronic kidney disease; I12.9 Hypertensive chronic kidney disease with stage 1 through stage 4 chronic kidney disease, or unspecified chronic kidney disease; N18.9 Chronic kidney disease, unspecified; D63.1 Anemia in chronic kidney disease; I25.10 Atherosclerotic heart disease of native coronary artery without angina pectoris; E78.5 Hyperlipidemia, unspecified; K21.9 Gastro-esophageal reflux disease without esophagitis; Z87.440 Personal history of urinary (tract) infections; Z79.82 Long term (current) use of aspirin; Z79.891 Long term (current) use of opiate analgesic
CPT/HCPCS: 36415; 36416; 73501; 82962; 85018; 96372; 97110; 97161; 97166; 97530; C1713; C1776; J1650; J1815; J2270; J2704; J3010; J3260; J3490; J7030

== ENCOUNTER 2022-04-15 04:57 | Outpatient (CLI) | payer MEDICARE, MEDICAID, SELFPAY ==
[2022-04-15 05:07] LABS: Basophils % 0.3 %; Eosinophils # 0.2 10^3/uL (0.0-0.8); Eosinophils % 2.7 %; Hematocrit 22.8 % (37.0-47.0); Hemoglobin 7.2 g/dL (11.5-15.3); Mean Corpuscular HGB Conc 31.6 g/dL (30.0-36.0); Mean Corpuscular Hemoglobin 28.1 pg (28.0-34.0); Mean Corpuscular Volume 89.1 fl (81-99); Mean Platelet Volume 9.4 fL (7.4-10.4); Monocytes # 0.5 10^3/uL (0.2-0.9); Monocytes % 5.8 %; Neutrophils # 6.73 10^3/uL (1.8-7.7); Nucleated Red Blood Cells % 0 %; Platelet Count 417 10^3/cmm (130-400); Red Blood Count 2.56 10^6/uL (4.1-5.3); White Blood Count 8.6 10^3/uL (4.0-10.0)
== END 2022-04-15 04:58 | disposition home or self-care (01) ==
PROVIDERS: PCP Family Medicine; Visit Provider Family Medicine
DX: D64.9 Anemia, unspecified (principal)
CPT/HCPCS: 85025

== ENCOUNTER → 2022-05-02 08:45 | Outpatient (BNVA) | payer MEDICARE, MEDICAID, SELFPAY | PROVIDERS: PCP Family Medicine; Visit Provider Nurse Practitioner Family | DX: S76.212A Strain of adductor muscle, fascia and tendon of left thigh, initial encounter (principal); X58.XXXA Exposure to other specified factors, initial encounter; Z96.642 Presence of left artificial hip joint | CPT/HCPCS: 73502; 99024; 99214 ==

== ENCOUNTER → 2022-05-13 09:50 | Outpatient (BNVA) | payer MEDICARE, MEDICAID, SELFPAY | PROVIDERS: PCP Family Medicine; Visit Provider Orthopaedic Surgery | DX: Z96.642 Presence of left artificial hip joint (principal) | CPT/HCPCS: 73502; 99024 ==

== ENCOUNTER → 2022-06-24 08:52 | Outpatient (BNVA) | payer MEDICARE, MEDICAID, SELFPAY | PROVIDERS: PCP Family Medicine; Visit Provider Orthopaedic Surgery | DX: Z09 Encounter for follow-up examination after completed treatment for conditions other than malignant neoplasm (principal); Z96.642 Presence of left artificial hip joint | CPT/HCPCS: 99024 ==

== ENCOUNTER → 2023-01-02 10:12 | Outpatient (BNVA) | payer MEDICARE, MEDICAID, SELFPAY | PROVIDERS: PCP Family Medicine; Visit Provider Internal Medicine | DX: I25.10 Atherosclerotic heart disease of native coronary artery without angina pectoris (principal); E87.5 Hyperkalemia; I10 Essential (primary) hypertension; E78.5 Hyperlipidemia, unspecified; Z79.82 Long term (current) use of aspirin | CPT/HCPCS: 99214 ==

== ENCOUNTER → 2023-12-25 10:29 | Outpatient (BNVA) | payer MEDICARE, MEDICAID, SELFPAY | PROVIDERS: PCP Family Medicine; Visit Provider Nurse Practitioner Family | DX: I10 Essential (primary) hypertension (principal); I25.10 Atherosclerotic heart disease of native coronary artery without angina pectoris | CPT/HCPCS: 99213 ==

== ENCOUNTER → 2024-04-07 14:30 | Outpatient (BNVA) | payer MEDICARE, MEDICAID, SELFPAY | PROVIDERS: PCP Family Medicine; Visit Provider Nurse Practitioner Family | DX: D48.5 Neoplasm of uncertain behavior of skin (principal); L57.8 Other skin changes due to chronic exposure to nonionizing radiation; D22.39 Melanocytic nevi of other parts of face; L57.0 Actinic keratosis; Z80.8 Family history of malignant neoplasm of other organs or systems | CPT/HCPCS: 11102; 17000; 99203 ==

== ENCOUNTER → 2024-05-11 08:28 | Outpatient (BNVA) | payer MEDICARE, MEDICAID, SELFPAY | PROVIDERS: PCP Family Medicine; Visit Provider Dermatology | DX: C44.519 Basal cell carcinoma of skin of other part of trunk (principal) | CPT/HCPCS: 99213 ==

== ENCOUNTER → 2024-12-28 08:55 | Outpatient (BNVA) | payer MEDICARE, MEDICAID, SELFPAY | PROVIDERS: PCP Family Medicine; Visit Provider Internal Medicine | DX: I25.10 Atherosclerotic heart disease of native coronary artery without angina pectoris (principal); I10 Essential (primary) hypertension; Z98.61 Coronary angioplasty status | CPT/HCPCS: 99213 ==

== ENCOUNTER 2025-02-18 16:55 | Emergency (ER) | payer MEDICARE, MEDICAID, SELFPAY ==
--- NOTE | 2025-02-18 16:58 | ECG_ITS ---
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 Measurements Intervals [place] Rate: 76 P: 73 GA: 171 QRS: -1 QRSD: 108 T: 52 QT: 402 QTc: 454 Interpretive Statements SINUS RHYTHM Compared to ECG 03/15/2022 12:01:40 Sinus bradycardia no longer present Electronically Signed On 02-21-2025 11:42:08 CDT by Gilmar Hunt M.D. [email or web address]
[2025-02-18 17:05] VITALS: BP 132/73; PULSE 78; RESP 24; TEMP 36.4; O2SAT 93
--- NOTE | 2025-02-18 17:13 | XRR_ITS ---
PROCEDURE INFORMATION: Exam: XR Chest Exam date and time: 02/18/2025 6:20 PM Age: 80 years old Clinical indication: Pain; Chest pressure; Prior surgery; Surgery date: 6+ months; Surgery type: Coronary stents; Additional info: Chest pain TECHNIQUE: Imaging protocol: Radiologic exam of the chest. Views: 1 view. COMPARISON: [place] [id number] 03/15/2022 7:32 AM FINDINGS: Lungs: Minor areas of bibasilar atelectasis or scarring. No consolidation. Pleural spaces: Unremarkable. No pleural effusion. No pneumothorax. Heart/Mediastinum: Unremarkable. No cardiomegaly. Vasculature: Advanced diffuse vascular calcification noted. Bones/joints: Unremarkable. XR/XR chest 1V portable [id number] IMPRESSION: No acute findings.
[2025-02-18 18:21] LABS: Basophils % 0.4 %; Eosinophils # 0.1 10^3/uL (0.0-0.8); Eosinophils % 0.9 %; Hematocrit 33.8 % (36-47); Lymphocytes # 1.1 10^3/uL (0.8-4.8); Lymphocytes % 21.2 %; Mean Corpuscular HGB Conc 31.7 g/dL (30-55); Mean Corpuscular Volume 91.6 fl (85-98); Mean Platelet Volume 10.2 fL (7.4-10.4); Monocytes # 0.3 10^3/uL (0.2-0.9); Neutrophils # 3.79 10^3/uL (1.8-7.7); Neutrophils % 71.3 %; Nucleated Red Blood Cells % 0 %; Platelet Count 161 10^3/cmm (157-399); Red Blood Count 3.69 10^6/uL (3.85-5.65); Red Cell Distribution Width 13.4 % (12.1-15.1); White Blood Count 5.32 10^3/uL (3.29-11.43)
[2025-02-18 18:44] LABS: Alanine Aminotransferase 10 U/L (0-33); Albumin Level 3.9 g/dL (3.5-5.2); Alkaline Phosphatase 91 U/L (35-105); Chloride 95 mmol/L (98-107); Potassium 3.9 mmol/L (3.5-5.1); Sodium 138 mmol/L (136-145)
[2025-02-18 18:50] LABS: Troponin(5th) Baseline 42 ng/L (0-10)
[2025-02-18 19:04] LABS: Anion Gap 22.9 (5-19); Aspartate Amino Transferase 13 U/L (0-32); Blood Urea Nitrogen 52 mg/dL (8-23); Carbon Dioxide 22 mmol/L (22-29); Creatinine Clr Calc Pharmacy 20.6218; Globulin 3.4 g/dL (1.3-4.6); Glucose 244 mg/dL (65-115); Osmolality Calculated 300 mOsm/kg (285-295); Total Bilirubin 0.2 mg/dL (0.15-1.2); Total Protein 6.9 g/dL (6.6-8.7)
--- NOTE | 2025-02-18 19:12 | ECG_ITS ---
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: : 1945 Requested By: Jake Dunlap Order Number: [id number] Reading MD: MAUREEN CAPPS Measurements Intervals [place] Rate: 65 P: 68 FL: 168 QRS: -8 QRSD: 114 T: 56 QT: 438 QTc: 456 Interpretive Statements SINUS RHYTHM MODERATE INTRAVENTRICULAR CONDUCTION DELAY [105+ ms QRS DURATION, 80+ ms Q/S IN V1/V2, NO Q AND 60+ ms R IN I/aVL/V5/V6] MINIMAL ST DEPRESSION [0.025+ mV ST DEPRESSION] Compared to ECG 02/18/2025 17:02:36 Intraventricular conduction delay now present ST (T wave) deviation now present Electronically Signed On 02-22-2025 23:01:59 CDT by MAUREEN CAPPS [email or web address]
[2025-02-18 20:30] LABS: Troponin 5 2HR 41.15 ng/L (0-10)
[2025-02-18 20:31] LABS: Troponin 5 2HR Delta -0.85 ABS# (0-10)
[2025-02-18 20:40] VITALS: BP 140/64; PULSE 67; RESP 18; O2SAT 95
--- NOTE | 2025-02-18 21:18 | CTR_ITS ---
PROCEDURE INFORMATION: Exam: CTA Chest With Contrast Exam date and time: 02/18/2025 10:09 PM Age: 80 years old Clinical indication: Pain and abnormal findings; Abnormal diagnostic tests; Elevated d-dimer; Shortness of breath; Chest pressure; Prior surgery; Surgery date: 6+ months; Surgery type: Coronary stents; C/O chest pain with SOB. Dimer 1.8. ; Additional info: Pleuritic cp TECHNIQUE: Imaging protocol: Computed tomographic angiography of the chest with contrast. Exam focused on the arteries. 3D rendering (Not supervised by radiologist): MIP and/or 3D reconstructed images were created by the technologist. Radiation optimization: All CT scans at this facility use at least one of these dose optimization techniques: automated exposure control; mA and/or kV adjustment per patient size (includes targeted exams where dose is matched to clinical indication); or iterative reconstruction. Contrast material: OMNI 350; Contrast volume: 55 ml; Contrast route: INTRAVENOUS (IV); COMPARISON: CT angio chest PE protcl [id number] 07/30/2021 10:12 AM RADIATION DOSE METRICS: Total DLP (mGy-cm): 424.73 FINDINGS: Pulmonary arteries: No main or lobar PE. The peripheral arteries are obscured in several places by mild motion as well as truncation and venous contamination artifacts. Aorta: Advanced diffuse vascular calcification noted. No aortic aneurysm. No aortic dissection. Lungs: Cnsa-xl-rfludsxr COPD. Scattered areas of diffuse interstitial scarring. RML mass or consolidation measures about 4 x 3.5 cm. Adjacent mild opacity. This needs close follow-up. On series 6, image 318, pulmonic vessels course through the mass. Pleural spaces: No pneumothorax. No pleural effusion noted. Heart: The heart is not enlarged. No pericardial effusion is noted. Lymph nodes: No bulky hilar or mediastinal lymphadenopathy noted. Diaphragm: Small hiatal hernia. Gallbladder and biliary ducts: Absent gallbladder. Bones/joints: Moderate spine DJD. Soft tissues: Unremarkable. CT/CT angio chest PE protcl [id number] IMPRESSION: 1. No definite or central PE. 2. RML mass or consolidation measures about 4 x 3.5 cm. Adjacent mild lung opacity. This needs close follow-up. Follow with pulmonology. Recommend three-month follow-up, PET-CT, etc. 3. A few chronic/incidental findings above. REFERENCES: MacMahon H, et al. Guidelines for Management of Incidental Pulmonary Nodules Detected on CT Images: From the Fleischner Society 2017. Radiology. 2017;284(1):228-243.
[2025-02-18] MEDS: morphine 4 mg/mL SDV 1 mL 2 MG IVP (21:50)
[2025-02-18] MEDS: ondansetron 2 mg/ML SDV 2 mL 4 MG IVP (21:50)
[2025-02-18] MEDS: iohexol 350 mg/mL 500 mL Btl (per mL) IV (22:09)
--- NOTE | 2025-02-18 22:58 | ED_ITS ---
HPI - Chest Pain 2 General: Chief Complaint: Chest Pain Stated Complaint: khadra Thompson Time Seen by Provider: 02/18/25 20:03 History of Present Illness: This patient is an 80-year-old white female who presents to the emergency department complaining of right-sided chest pain. She states she has had the pain for about 3 days now. It has been worse today. She describes it as sharp and worse with deep breathing. She does have some associated shortness of breath. She currently rates her pain a 6 on a scale of 1-10. She does have a history of COPD as well as coronary artery disease. She states she has 3 stents. Related Data Home Medications ?Medication ?Instructions ?Recorded ?Confirmed albuterol sulfate 90 mcg/actuation 2 puff inhalation Q 6H PRN 11/28/19 12/28/24 aerosol inhaler (ProAir HFA) Shortness Of Breath fluoxetine 20 mg capsule 20 mg PO DAILY@11/28/19 0 12/28/24 montelukast 10 mg tablet 10 mg PO DAILY@11/28/19 0 12/28/24 (Singulair) rosuvastatin 40 mg tablet (Crestor) 40 mg PO BEDTIME@2 200 11/28/19 12/28/24 aspirin 81 mg chewable tablet 81 mg PO DAILY@08 12/28/24 brimonidine 0.1 % eye drops 1 drp ophthalmic (eye) VIKTORIYA LY@11/07/20 12/28/24 (Alphagan P) furosemide 40 mg tablet 40 mg PO QAM 05/31/21 ascorbic acid (vitamin C) 500 mg 500 mg PO DAILY 07/3012/28/24 tablet (Vitamin C) cholecalciferol (vitamin D3) 25 50 mcg PO DAILY ##0 12/28/24 mcg (1,000 unit) capsule (Vitamin D3) levothyroxine 125 mcg tablet 125 mcg PO QAM 07/30/21 0 12/28/24 latanoprost 0.005 % eye drops 1 drp ophthalmic (eye) D AILY 11/28/21 12/28/24 cefuroxime axetil 250 mg tablet 250 mg PO BID 03/15/22 12/28/24 bisacodyl 10 mg rectal suppository 10 mg [place] DAILY PRN Constipation 04/07/22 12/28/24 (Dulcolax (bisacodyl)) bisacodyl 5 mg tablet,delayed 10 mg PO DAILY PRN Const ipation 04/07/22 12/28/24 release (Dulcolax (bisacodyl)) docusate sodium 100 mg capsule 100 mg PO BID 04/07/22 12/28/24 (Colace) fluticasone 250 mcg-salmeterol 50 1 inh inhalation BID 04/07/22 12/28/24 mcg/dose blistr powdr for inhalation (Wixela Inhub) gabapentin 600 mg tablet 600 mg PO TID 04/07/2212/28 magnesium hydroxide 400 mg/5 mL 30 ml PO .EVERY 72 SHASHANK RS PRN if no 04/07/22 12/28/24 oral suspension (Milk of Magnesia) bm in 3 days naloxone 0.4 mg/mL injection See Rx Instructions .Rout e .COMPLEX 04/07/22 12/28/24 solution nitroglycerin 0.4 mg sublingual 0.4 mg sublingual Q5M PRN Chest 04/07/22 12/28/24 tablet (Nitrostat) Pain nystatin 100,000 unit/gram topical See Rx Instructions .Route .COMPLEX 04/07/22 12/28/24 cream sodium hypochlorite 0.125 % 1 applic topical DAILY 12/28/24 solution (Dakin's Solution) sodium phosphates 19 gram-7 118 ml [place] DAILY PRN Consti pation 04/07/22 12/28/24 gram/118 mL enema (Fleet Enema) Previous Rx's ?Medication ?Instructions ?Recorded tramadol 50 mg tablet 50 mg PO Q6H PRN pain #10 ta bs 11/09/21 insulin detemir U-100 100 unit/mL 15 unit (0.15 mL) JOVEL BCUT BEDTIME 03/24/22 (3 mL) subcutaneous pen (Levemir #0 mL FlexTouch U-100 Insulin) oxycodone 5 mg tablet 5 mg PO Q4H PRN pain #40 tab s 04/09/22 Allergies Allergy/AdvReac Type Severity Reaction Status Date / Time codeine Allergy Unknown Unknown Verified 12/28/24 09:10 hydrocodone Allergy Unknown Unknown Verified 12/28/24 09:10 dulaglutide (From Trulicity) Allergy Unknown Verified 12/28/24 09:10 hydromorphone (From Dilaudid) Allergy Unknown Verified 12/28/24 09:10 naproxen Allergy ADR-Abdominal Verified 12/28/24 09:10 Pain Review of Systems 2 General: Reports: 10 or more systems reviewed and unremarkable except in HPI and below Card: Reports: chest pain PFSH ED 2 PFSH: Medical History Acute calculous cholecystitis Acute cholecystitis Acute kidney injury superimposed on chronic kidney disease UTI (urinary tract infection) Altered mental status CRF (chronic renal failure) Anemia Lesion of spleen Acute kidney injury superimposed on CKD Acute hyponatremia Elevated troponin Abdominal pain Chest pain Dyslipidemia ASHD (arteriosclerotic heart disease) HTN (hypertension) Diabetes 1.5, managed as type 2 GERD (gastroesophageal reflux disease) Surgical History History of hip surgery S/P PTCA (percutaneous transluminal coronary angioplasty) Status post creation of pericardial window Family History Mother Cancer Diabetes Social History Smoking and tobacco/nicotine status: former use of tobacco/nicotine Alcohol intake: never Substance/Drug Use: never Physical Exam 2 Const: COMMON NORMALS: no acute distress, patient oriented x3 and no limitations GENERAL APPEARANCE: cooperative and comfortable HENMT: COMMON NORMALS: normocephalic, atraumatic, Normal nasal mucous membranes and turbinates present, moist oral mucous membranes and oropharynx normal HEAD & SCALP: normal to inspection, normocephalic and atraumatic F BOJRN & SINUS: normal facial exam NOSE: Normal nasal mucous membranes and turbinates present Eye: COMMON NORMALS: Equal, round and reactive pupils present, EOMs intact bilaterally and conjunctivae normal GENERAL EYE: appearance normal, both eyes and all related structures CONJUNCTIVA: Yes conjunctivae normal PUPIL: Yes Equal, round and reactive pupils present Neck/C-Spine: COMMON NORMALS: supple and no JVD Chest: COMMONS NORMALS: normal inspection of the chest Resp: COMMON NORMALS: normal respiratory effort and clear to auscultation bilaterally AUSCULTATION: clear to auscultation bilaterally Cardio: COMMON NORMALS: no JVD, regular rate, regular rhythm, No gallops present (Cardio), No murmurs present (Cardio) and No rub (Cardio) RATE: r egular rate RHYTHM: regular rhythm GI: COMMON NORMALS: Normal to inspection, nondistended, normoactive bowel sounds present, Soft to palpation and non-tender AUSCULTATION: Yes normoactive bowel sounds PALPATION: Yes Soft to palpation : COMMON NORMALS: Yes no CVA tenderness BLADDER/KIDNEY EXAM: Yes no CVA tenderness Back/Pelvis: COMMON NORMALS: no CVA tenderness and thoracic and lumbar spine normal to inspection Extremity: COMMON NORMALS: normal to inspection Neuro: COMMON NORMALS: patient oriented x3 and CN's II-XII intact bilaterally Psych: COMMON NORMALS: mental status grossly normal, Normal thought process present and cooperative THOUGHT PROCESS: Normal thought process present Skin: COMMON NORMALS: no rashes or lesions noted, turgor normal and no jaundice GENERAL SKIN EXAM: no rashes or lesions noted and turgor normal Course 2 Vital Signs: Vital signs: Vital Signs Temperature 97.6 F 02/18/25 17:05 Pulse Rate 67 02/18/25 20:40 Respiratory Rate 18 02/18/25 20:40 Blood Pressure 140/64 02/18/25 20:40 Pulse Oximetry 95 02/18/25 20:40 Oxygen Delivery Me thod Room Air 02/18/25 20:40 MDM - Chest Pain Medical Decision Making EKGs were normal. Chest x-ray normal. CBC revealed a hemoglobin of 10.7. Patient does have a history of anemia. CMP revealed a BUN of 52 creatinine of 2.4. Patient also has a history of renal insufficiency. Blood sugars 244. Baseline troponin was 42 with a 2-hour level of 41. D-dimer was elevated at 1.8. CT angiogram of the chest was obtained. This was read by the radiologist. No pulmonary emboli. She does have a right middle lobe mass. They recommended follow-up with pulmonology for further evaluation. Patient was given 2 mg of morphine for her pain. She is feeling significantly better now. Recommended Tylenol for discomfort at home. Follow-up with primary care provider on Thursday for further workup and pulmonology referral. She was discharged in stable condition. Lab Data 02/18/25 18:16 02/18/25 18:16 Radiology Impressions Chest X-Ray 02/18/25 17:13 IMPRESSION: No acute findings. Chest CTA 02/18/25 21:18 IMPRESSION: 1. No definite or central PE. 2. RML mass or consolidation measures about 4 x 3.5 cm. Adjacent mild lung opacity. This needs close follow-up. Follow with pulmonology. Recommend three-month follow-up, PET-CT, etc. 3. A few chronic/incidental findings above. REFERENCES: Felisha Ash et al. Guidelines for Management of Incidental Pulmonary Nodules Detected on CT Images: From the Fleischner Society 2017. Radiology. 2017;284(1):228-243. Laboratory Results WBC 5.32 10^3/uL (3.29-11.43) 02/18/25 18:16 RBC 3.69 10^6/uL (3.85-5.65) L 02/18/25 18:16 Hgb 10.70 g/dL (11.27-16.99) L 02/18/25 18:16 Hct 33.8 % (36-47) L 02/18/25 18:16 MCV 91.6 fl (85-98) 02/18/25 18:16 MCH 29.0 pg (27-33) 02/18/25 18:16 MCHC 31.7 g/dL (30-55) 02/18/25 18:16 RDW 13.4 % (12.1-15.1) 02/18/25 18:16 Plt Count 161 10^3/cmm (157-399) 02/18/25 18:16 MPV 10.2 fL (7.4-10.4) 02/18/25 18:16 Neut % (Auto) 71.3 % 02/18/25 18:16 Lymph % (Auto) 21.2 % 02/18/25 18:16 Edmonson % (Auto) 6.0 % 02/18/25 18:16 Eos % (Auto) 0.9 % 02/18/25 18:16 Baso % (Auto) 0.4 % 02/18/25 18:16 Neut # (Auto) 3.79 10^3/uL (1.8-7.7) 02/18/25 18:16 Lymph # (Auto) 1.1 10^3/uL (0.8-4.8) 02/18/25 18:16 Edmonson # (Auto) 0.3 10^3/uL (0.2-0.9) 02/18/25 18:16 Eos # (Auto) 0.1 10^3/uL (0.0-0.8) 02/18/25 18:16 Baso # (Auto) 0.0 10^3/uL (0.0-0.1) 02/18/25 18:16 Nucleated RBC % (auto) 0 % 02/18/25 18:16 Nucleated RBCs # 0.0 /100WBC 02/18/25 18:16 D-Dimer 1.80 ug/mLFEU (0-0.59) H 02/18/25 18:16 Sodium 138 mmol/L (136-145) 02/18/25 18:16 Potassium 3.9 mmol/L (3.5-5.1) 02/18/25 18:16 Chloride 95 mmol/L (98-107) L 02/18/25 18:16 Carbon Dioxide 22 mmol/L (22-29) 02/18/25 18:16 Anion Gap 22.9 (5-19) H 02/18/25 18:16 BUN 52 mg/dL (8-23) H 02/18/25 18:16 Creatinine 2.4 mg/dL (0.5-0.9) H 02/18/25 18:16 GFR Calculation Not Reportable 02/18/25 18:16 Glucose 244 mg/dL (65-115) H 02/18/25 18:16 Calculated Osmolality 300 mOsm/kg (285-295) H 02/18/25 18:16 Calcium 9.0 mg/dL (8.5-10.5) 02/18/25 18:16 Total Bilirubin 0.2 mg/dL (0.15-1.2) 02/18/25 18:16 AST 13 U/L (0-32) 02/18/25 18:16 ALT 10 U/L (0-33) 02/18/25 18:16 Alkaline Phosphatase 91 U/L (35-105) 02/18/25 18:16 Troponin T Baseline 42 ng/L (0-10) H 02/18/25 18:16 Troponin T 120 Minute 41.15 ng/L (0-10) H 02/18/25 20:07 Delta Troponin T -0.85 ABS# (0-10) L 02/18/25 20:07 Total Protein 6.9 g/dL (6.6-8.7) 02/18/25 18:16 Albumin 3.9 g/dL (3.5-5.2) 02/18/25 18:16 Globulin 3.4 g/dL (1.3-4.6) 02/18/25 18:16 All radiology interpretation(s) finalized by discharge Discharge Plan Discharge Patient Disposition: Home Clinical Impression: Chest pain Qualifiers: Chest pain type: pleurodynia Qualified Code(s): R07.81 - Pleurodynia Condition: Stable Prescriptions: No Action fluoxetine 20 mg capsule 20 mg PO DAILY@08 montelukast [Singulair] 10 mg tablet 10 mg PO DAILY@08 rosuvastatin [Crestor] 40 mg tablet 40 mg PO BEDTIME@2200 albuterol sulfate [ProAir HFA] 90 mcg/actuation HFA aerosol inhaler 2 puff INHALATION Q6H PRN (Reason: Shortness Of Breath) latanoprost 0.005 % drops 1 drp ophthalmic (eye) DAILY aspirin 81 mg Tablet,Chewable 81 mg PO DAILY@08 Alphagan P 0.1 % Drops 1 drp OPHTHALMIC (EYE) DAILY@08 Rx Instructions: (BOTH EYES) furosemide 40 mg Tablet 40 mg PO QAM levothyroxine 125 mcg tablet 125 mcg PO QAM ascorbic acid (vitamin C) [Vitamin C] 500 mg Tablet 500 mg PO DAILY cholecalciferol (vitamin D3) [Vitamin D3] 25 mcg (1,000 unit) Capsule 50 mcg PO DAILY Qty: 0 tramadol 50 mg tablet 50 mg PO Q6H PRN (Reason: pain) Qty: 10 0RF cefuroxime axetil 250 mg tablet 250 mg PO BID Levemir FlexTouch U100 Insulin 100 unit/mL (3 mL) insulin pen 15 unit SUBCUT BEDTIME Qty: 0 0RF Wixela Inhub 250-50 mcg/dose Blister With Device 1 inh INHALATION BID gabapentin 600 mg Tablet 600 mg PO TID naloxone 0.4 mg/mL Solution See Rx Instructions .ROUTE .COMPLEX Rx Instructions: spray one dose into one nostril then alternate nostrils with each dose until help arrives Milk of Magnesia 400 mg/5 mL Suspension 30 ml PO .EVERY 72 HOURS PRN (Reason: if no bm in 3 days) Rx Instructions: do not give to renal patients go to dulcolax orders Dulcolax (bisacodyl) 10 mg Suppository 10 mg [place] DAILY PRN (Reason: Constipation) Rx Instructions: if no results from mom nystatin 100,000 unit/gram Cream See Rx Instructions .ROUTE .COMPLEX Rx Instructions: apply to affected area every shift Fleet Enema 19-7 gram/118 mL Enema 118 ml [place] DAILY PRN (Reason: Constipation) Rx Instructions: give fleets if no results from mom and dulcolax Nitrostat 0.4 mg Tablet, Sublingual 0.4 mg SUBLINGUAL Q5M PRN (Reason: Chest Pain) Rx Instructions: do not exceed 3 doses per episode Colace 100 mg Capsule 100 mg PO BID Dulcolax (bisacodyl) 5 mg Tablet,Delayed Release (Dr/Ec) 10 mg PO DAILY PRN (Reason: Constipation) Rx Instructions: give if no results from mom Dakin's Solution 0.125 % Solution 1 applic TOPICAL DAILY oxycodone 5 mg tablet 5 mg PO Q4H PRN (Reason: pain) Qty: 40 0RF Discharge Orders: Discharge ED (Routine); Ordered 02/18/25 Ordered By: Hudson Ness Referrals: Vikas Candelaria MD [Primary Care Provider, [facility]] Patient Instructions: Chest Pain (DC) Activity Restrictions/Additional Instructions: Follow-up with your primary care provider on Thursday for further evaluation. Radiologist recommends you get a referral to pulmonology for workup of the lung mass. Print Language: Yakut Coding Level of Care Code ED Med Admin for Cyndie Mo
[2025-02-18] MEDS: sodium chloride 0.9% 1,000 ML 999 ML IV (23:04)
--- NOTE | 2025-02-18 23:23 | ECG_ITS ---
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1945 Requested By: Jake Dunlap Order Number: [id number] Reading MD: MAUREEN CAPPS Measurements Intervals Stryker Rate: 66 P: 10 NC: 177 QRS: 16 QRSD: 109 T: 51 QT: 449 QTc: 474 Interpretive Statements SINUS RHYTHM LOW QRS VOLTAGE IN EXTREMITY LEADS [QRS DEFLECTION < 0.5 mV IN LIMB LEADS] Compared to ECG 02/18/2025 21:05:03 Low QRS voltage now present Intraventricular conduction delay no longer present ST (T wave) deviation no longer present Electronically Signed On 02-22-2025 23:02:07 CDT by MAUREEN CAPPS [email or web address]
[2025-02-18 23:37] VITALS: BP 132/68; PULSE 62; RESP 18; O2SAT 94
[2025-02-19] VITALS: BP 132/65; PULSE 58; RESP 18; O2SAT 94
[2025-02-19 00:20] VITALS: BP 132/65; PULSE 61; RESP 18; O2SAT 93
== END 2025-02-19 00:20 | disposition home or self-care (01) ==
PROVIDERS: Emergency Medicine; Emergency Provider Emergency Medicine; PCP Family Medicine
DX: R07.81 Pleurodynia (principal); Z79.82 Long term (current) use of aspirin; Z87.891 Personal history of nicotine dependence; E78.5 Hyperlipidemia, unspecified; E13.22 Other specified diabetes mellitus with diabetic chronic kidney disease; I12.9 Hypertensive chronic kidney disease with stage 1 through stage 4 chronic kidney disease, or unspecified chronic kidney disease; N18.9 Chronic kidney disease, unspecified
CPT/HCPCS: 36415; 71045; 71275; 80053; 84484; 85025; 85378; 93005; 96374; 96375; 99285; J2270; J2405; J7030

== ENCOUNTER 2025-03-29 12:59 | Outpatient (CLI) | payer MEDICARE, MEDICAID, SELFPAY ==
--- NOTE | 2025-03-29 13:04 | CT_ITS ---
WS: [id number] Exam: CT chest con [id number] Date/Time of Exam: 03/29/2025 1:44 PM Reason For Exam: SOLITARY PULMONARY NODULE DLP: 466.[address] scans at [facility] use at least one of these dose optimization techniques: automated exposure control; mA and/or kV adjustment per patient size (includes targeted exams where dose is matched to clinical indication); or iterative reconstruction. Comparison 02/18/2025. Lateral wedge-shaped consolidated area noted in the RIGHT middle lobe is somewhat smaller than noted previously. Resolving adjacent lung opacity noted. Remaining lung sung are clear. No pleural effusion or pericardial effusion. The airway is patent. Mild mediastinal lymphadenopathy stable in appearance. The thoracic aorta is normal in caliber. Coronary artery calcifications noted. 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 No chest wall defects. CT sections of the upper abdomen are unremarkable. Small hiatal hernia. Recommendations: Would recommend follow-up CT in 4 to 6 months to confirm progressive resolution. CT/CT chest con [id number] IMPRESSION: 1. Lateral lobe wedge-shaped consolidation in the RIGHT middle lobe is smaller than noted previously with less surrounding pulmonary opacity. 2. Mild mediastinal lymphadenopathy stable in appearance. No large bulky lymph nodes in the mediastinum. 3. Remaining lung sung were clear.
== END 2025-03-29 13:00 | disposition home or self-care (01) ==
LOC: RAD 13:00
PROVIDERS: PCP Family Medicine; Visit Provider Family Medicine
DX: R91.1 Solitary pulmonary nodule (principal); R59.0 Localized enlarged lymph nodes
CPT/HCPCS: 71250